=== PATIENT | female | born 1965 | race Native Hawaiian/Other Pacific Islander ===

== ENCOUNTER 2020-03-11 07:49 | Day surgery (SDC) | payer OTHER, SELFPAY ==
[2020-03-08 13:30] VITALS: BMI 23.6
--- NOTE | 2020-03-10 10:50 | P.CONAN_ITS ---
Documented by User: Elis Gauthier 03/10/20 10:52 HPI - Anesthesia Eval Consult details Narrative: 54yo F for colonscopy: screening [facility] Past Medical History Medical History Asthma Hearing deficit History of back pain Lupus Osteoarthritis Vertigo Surgical History Surgical History History of ear surgery History of nasal septoplasty Hx of tonsillectomy Social History Social History Smoking Status: Current every day smoker Packs Per Day: 1 Cigarettes Per Day: 20.0 Years Smoked: 35 Smoked in Last 30 Days: Yes Patient Interested in Nicotine Replacement: No Patient Given Instructions on How to Stop Smoking: No Second Hand Smoke Exposure: No Use of substances other than those prescribed or required for medical reasons: No Advance Directives: No Advance Directives Information Provided: No Advance Directives on File: No Meds Allergies Allergy/AdvReac Type Severity Reaction Status Date / Time No Known Allergies Allergy Verified 03/11/20 08:23 Home Medications Medication Instructions Recorded Confirmed Type albuterol sulfate 2 puff PO Q4-6H PRN 03/08/20 03/08/20 History cetirizine 1 tab PO QAM 03/08/20 03/08/20 History hydroxychloroquine [Plaquenil] 200 mg PO DAILY 03/08/20 03/08/20 History ipratropium bromide [Atrovent HFA] 2 puff PO QID 03/08/20 03/08/20 History meclizine 12.5 mg PO BID PRN 03/08/20 03/08/20 History sertraline [Zoloft] 25 mg PO DAILY 03/08/20 03/08/20 History tramadol 1 tab PO Q6H PRN 03/08/20 03/08/20 History Exam Exam Date and Time: March 10, 2020 1050 Height,Weight and Vital Signs: Height 5 ft 2 in Weight 58.513 kg Assessment and Plan Assessment Anesthesia Assessment: Chart Reviewed Documented by User: Ileana Bates 03/11/20 09:18 [facility] Past Medical History Medical History Asthma Hearing deficit History of back pain Lupus Osteoarthritis Vertigo Surgical History Surgical History History of ear surgery History of nasal septoplasty Hx of tonsillectomy Social History Social History Smoking Status: Current every day smoker Packs Per Day: 1 Cigarettes Per Day: 20.0 Years Smoked: 35 Smoked in Last 30 Days: Yes Patient Interested in Nicotine Replacement: No Patient Given Instructions on How to Stop Smoking: No Second Hand Smoke Exposure: No Use of substances other than those prescribed or required for medical reasons: No Advance Directives: No Advance Directives Information Provided: No Advance Directives on File: No Meds Allergies Allergy/AdvReac Type Severity Reaction Status Date / Time No Known Allergies Allergy Verified 03/11/20 08:23 Home Medications Medication Instructions Recorded Confirmed Type albuterol sulfate 2 puff PO Q4-6H PRN 03/08/20 03/08/20 History cetirizine 1 tab PO QAM 03/08/20 03/08/20 History hydroxychloroquine [Plaquenil] 200 mg PO DAILY 03/08/20 03/08/20 History ipratropium bromide [Atrovent HFA] 2 puff PO QID 03/08/20 03/08/20 History meclizine 12.5 mg PO BID PRN 03/08/20 03/08/20 History sertraline [Zoloft] 25 mg PO DAILY 03/08/20 03/08/20 History tramadol 1 tab PO Q6H PRN 03/08/20 03/08/20 History Exam Height,Weight and Vital Signs: Vital Signs Temp Pulse Resp BP Pulse Ox 03/11/20 08:26 97.6 F 80 16 119/73 99 Airway Mallampati Class: II TM Dist: >3cm Neck ROM: Full Heart: RRR Lungs: ?Occ wheeze Assessment and Plan Assessment Anesthesia Assessment: Anesthesia Plan Discussed and Chart Reviewed Final Anesthetic Review NPO: Yes ASA Class: II Final Preanesthetic Review: No Changes in Pt Med Stat, Meds/Allgs Chart Reviewed, Consent Obtained/Reviewed and Anes Risks/Benef Reviewed Patient Risk: Intermediate Procedure Risk: Low Anesthetic Plan Anesthetic Plan: MAC: Disposition: Standard PACU
[2020-03-11 08:26] VITALS: BP 119/73; PULSE 80; RESP 16; TEMP 36.4; O2SAT 99
[2020-03-11] MEDS: Lactated Ringers 1,000 ML 100 ML IVCONT (08:28)
[2020-03-11 08:29] VITALS: BMI 23.6
--- NOTE | 2020-03-11 09:33 | MHC.SHP ---
Pre-Procedural Eval Section A The patient is an INPATIENT: No The History & Physical has been completed within 30 days and I have reviewed it.: No Section B Chief Complaint: Screening Details of Present Illness: Colon cancer Screening #1--NO Family hx Flare of Lupus in November. Relevant Family History (Specify if Yes): No Relevant Social History: Tobacco Use (1ppd) Present Medications: see Short Stay Collaborative assessment Medical History: No relevant PMH (Copd/Asthma; Lupus, GERD) History of Previous Operations: No relevant previous surgery Allergies: Allergies Allergy/AdvReac Type Severity Reaction Status Date / Time No Known Allergies Allergy Verified 03/11/20 08:23 Review of Systems Sugical H&P ROS: Negative: Constitution, Cardiovascular, Neurological and Gastrointestinal and Yes, Specify: Respiratory (/copd asthma), Psychiatric (depression tendency) and Musculoskeletal (LUPUS) Exam Surgical H&P Exam: Normal: HEENT (decreased hearing), Normal: Heart, Normal: Lungs and Normal: Extremities Exam Comment: negative exam today Plan Diagnosis/Plan: Unchanged Patient has been examined and remains a candidate for the planned procedure--yes
--- NOTE | 2020-03-11 10:08 | PM.PROC ---
Brief Operative Note Date of procedure: 03/11/20 Pre-op diagnosis: COLON CANCER SCREENING #1 Post-op diagnosis: other (COLON POLYP) Procedure: COLONOSCOPY WITH EXC POLYPECTOMY COLD BX FORCEPS Anesthesia: MAC (DOUG HERR) Surgeon: Anna Funes Estimated blood loss (mL): 0 Pathology: other (RECTAL @ 8CM) Condition: stable Disposition: PACU
[2020-03-11 10:09] VITALS: BP 87/49; PULSE 93; RESP 16; TEMP 36.1; O2SAT 98
[2020-03-11 10:24] VITALS: BP 130/79; PULSE 87; RESP 16; TEMP 36.1; O2SAT 98
--- NOTE | 2020-03-11 10:47 | HO.POSTANES ---
Post Anesthesia Evaluation Post Anesthesia Evaluation Vital Signs: Vital Signs Temp Pulse Resp BP Pulse Ox 03/11/20 10:24 97.0 F 87 16 130/79 98 03/11/20 10:09 97.0 F 93 16 87/49 L 98 03/11/20 08:26 97.6 F 80 16 119/73 99 Anesthesia: Monitored Mental Status: Awake Pain Control: Satisfactory Nausea/Vomiting: None Hydration: Adequate Anesthesia-Related Issues: No Anes. Related Issues
--- NOTE | 2020-03-14 12:22 | OP_ITS ---
SURGEON: Anna Funes MD PREOPERATIVE DIAGNOSIS: Colon cancer screening. POSTOPERATIVE DIAGNOSIS: Diminutive rectal polyp. PROCEDURE PERFORMED: Colonoscopy with excisional polypectomy with cold biopsy forceps. ESTIMATED BLOOD LOSS: Minimal. COMPLICATIONS: No complications. ANESTHESIA: Monitored ANESTHESIOLOGIST: Anthony Baig CRNA ASSISTANTS: No veterinary assistant was present for this procedure. SPECIMENS: Specimen removed, rectal polyp. PRIMARY CARE PHYSICIAN: Diony Veronica MD FINDINGS: Digital rectal exam revealed no specific lesion. Video colonoscope was introduced without difficulty. Scope advanced through rectum, the sigmoid, descending, transverse and ascending colon down into the cecal cap. Appendiceal orifice was well seen. The ileocecal valve was well seen. No mucosal abnormalities were appreciated. Slow rotational views on withdrawing the scope. There was a diminutive polyp, estimated distance 8 cm in from ARV. This was removed excisionally with a cold biopsy forceps. Anorectal verge was clear. CURRENT RECOMMENDATIONS: Repeat asymptomatic screening non-high risk patient is 10 years. GRAFT OR IMPLANTS: No grafts or implants. CONDITION: Postprocedure, stable. Anna Funes MD MEN/MODL / [id number] MTDD
== END 2020-03-11 10:59 | disposition home or self-care (01) ==
PROVIDERS: Visit Provider Internal Medicine Gastroenterology
PROC: 0DJD8ZZ Inspection of Lower Intestinal Tract, Via Natural or Artificial Opening Endoscopic (ICD-10-PCS; CPT 45378; principal; 2020-03-11 09:10)
DX: Z12.11 Encounter for screening for malignant neoplasm of colon (principal); K62.1 Rectal polyp; K21.9 Gastro-esophageal reflux disease without esophagitis; J44.9 Chronic obstructive pulmonary disease, unspecified; M32.9 Systemic lupus erythematosus, unspecified; J45.909 Unspecified asthma, uncomplicated; Z79.899 Other long term (current) drug therapy; F17.210 Nicotine dependence, cigarettes, uncomplicated
CPT/HCPCS: 45380; 88305

== ENCOUNTER 2020-04-14 13:23 | Outpatient (REF) | payer MEDICARE, SELFPAY ==
--- NOTE | 2020-04-19 11:15 | MHC.AU.P13 ---
Adult Audiological Evaluation Date of Visit: 04/14/20 Reason for Appointment: Patient has long-standing history of mixed hearing loss, worse in the left ear. History of multiple ear surgeries. Recently, patient's vertigo has been getting worse. She also suspects there has been a change in hearing in her left ear. She also reports pain from her right ear. Previous Hearing Test Results: On 09/28/2017 at [facility] Right: Mild sloping to moderate and rising to borderline-normal sensorineural hearing loss Left: Profound rising to borderline-normal and sloping to moderately-severe mixed hearing loss. Ear History: Recent Ear Pain: Right Ear Previous Ear Surgery: Both Ears Hearing Instrument History- Right Ear: Socially [employer]ible Investment Adviser: [employer] Model: [id number] Serial Number: [id number] Battery Size: 312 Warranty: 03/05/2021 Dispensed By: [facility] Date of Fittin12/18/2017 Hearing Instrument History- Left Ear: Socially Responsible Investment Adviser: [employer] Model: [id number] Serial Number: [id number] Battery Size: 312 Warranty: 03/05/2021 Dispensed By: [facility] Date of Fittin12/18/2017 Otoscopy: Right Ear: Redness noted on tympanic membrane Left Ear: Scarring on tympanic membrane Tympanometry: Right Ear: Double-Peaked Tympanogram Left Ear: Reduced Middle Ear Compliance (Type As) Hearing Evaluation: Transducer(s) Used: Insert Earphones, Circumaural Headphones, Bone Conduction Stimuli Used: Pure Tones Right Ear: Description of Hearing: Mild sloping to moderate and rising to mild mixed hearing loss Left Ear: Description of Hearing: Moderately-severe to severe mixed hearing loss Speech Recognition Threshold (SRT): Method Used: Recorded Lists Stimuli Used: Spondee Words Right Ear: 35 dBHL Left Ear: 65 dBHL Word Discrimination: Method: Recorded Lists Word Lists Used: NU-6 Right Ear: 96% at 75 dBHL Left Ear: 92% at 85 dBHL (Attempted first at MCL of 75 dBHL, but gain was increased to 85 dBHL after significant difficulty was noted) Most Comfortable Level (MCL): Right Ear: 75 dBHL Left Ear: 75 dBHL Comparison: Hearing has significantly decreased in the left ear, especially in the high frequencies. Recommendations: Follow-up with Ear, Nose, and Throat is recommended to address significant decrease in hearing in the left ear, pain and redness in the right ear, and recent increase in vertigo. Patient's hearing aids were reprogrammed with today's results. Patient reported that she's had a constant buzzing sound in the background of her right hearing aid. It will be sent to [employer] for repair under warranty. Patient will be contacted when it has returned. Diagnosis: Primary Diagnosis: H90.6 Mixed Hearing Loss, Bilateral Secondary Diagnosis: H90.A32 Mixed HL, Unilateral, Left Ear, W/Restricted Contralateral Services Performed: Services Performed: Comprehensive Audiological Evaluation (CPT 81698) Tympanometry (CPT 50572) Signature: Provider: Sunny Avendaño, REINA-A
== END 2020-04-14 13:24 | disposition home or self-care (01) ==
LOC: HO.SH 13:23
PROVIDERS: PCP Registered Nurse Community Health; Referring Provider Registered Nurse Community Health; Visit Provider Registered Nurse Community Health
DX: H90.6 Mixed conductive and sensorineural hearing loss, bilateral (principal)
CPT/HCPCS: 92557; 92567; 92593

== ENCOUNTER 2020-05-12 15:23 | Outpatient (REF) | payer OTHER, MEDICARE, SELFPAY | END 2020-05-12 15:24 | disposition home or self-care (01) | LOC: HO.HAP 15:23 | DX: Z13.89 Encounter for screening for other disorder (principal) ==

== ENCOUNTER 2020-06-04 14:31 | Outpatient (REF) | payer OTHER, SELFPAY ==
--- NOTE | 2020-06-04 15:15 | MR_ITS ---
EXAMINATION: MR BRAIN WITHOUT AND WITH CONTRAST CLINICAL INFORMATION: Mixed hearing loss, vertigo. Acoustic neuroma. COMPARISON: MRI brain 10/23/2017. TECHNIQUE: Multiplanar, multisequence MRI of the brain was obtained before and after the intravenous administration of 6 mL Gadavist. Internal auditory canal protocol images are obtained. FINDINGS: No intracranial hemorrhage, tumors or acute infarcts are noted. The ventricles and sulci are normal in size and configuration. A mild number scattered supratentorial rounded punctate nonenhancing T2 hyperintensities are noted, unchanged appreciably compared with 10/23/2017. The visualized components of the 7th and 8th cranial nerve complexes are normal in appearance. No lesions are noted within the internal auditory canals. The temporal bone labyrinths are grossly normal in contour and signal intensity. No lesions of the brainstem are identified. Whole brain postcontrast enhanced images reveal no abnormal enhancement. Normal flow-related signal intensity is noted in the major intracranial vessels and dural sinuses. No mastoid effusions are identified. MR/MR head/brain wo/w con IMPRESSION: 1. No change compared with 10/23/2017. 2. Mild scattered nonenhancing punctate supratentorial white matter foci (elevated T2 hyperintensities) which may represent mild white matter chronic small vessel ischemic changes. Similar findings are a frequently encountered asymptomatic finding and are therefore of uncertain clinical significance. 3. No retrocochlear pathology. No evidence of vestibular schwannomas.
== END 2020-06-04 14:32 | disposition home or self-care (01) ==
LOC: HO.MRI 14:31
PROVIDERS: Visit Provider Otolaryngology
DX: H90.6 Mixed conductive and sensorineural hearing loss, bilateral (principal); H81.4 Vertigo of central origin; D33.3 Benign neoplasm of cranial nerves
CPT/HCPCS: 70553

== ENCOUNTER 2020-06-19 13:42 | Outpatient (REF) | payer OTHER, SELFPAY ==
--- NOTE | 2020-06-19 13:46 | MM_ITS ---
EXAMINATION: MM SCREENING DIGITAL BREAST TOMOSYNTHESIS, BILATERAL CLINICAL INFORMATION: Screening. Asymptomatic. The lifetime risk of breast cancer based on the Tyrer-Cuzick Model is 6.0%. COMPARISON: Mammography: May 16, 2018 and studies dating back to December 05, 2011 TECHNIQUE: Digital breast tomosynthesis is performed in both the craniocaudal and mediolateral oblique views along with computer-aided detection (CAD). Synthesized 2D images are generated from the tomosynthesis. FINDINGS: There are scattered areas of fibroglandular density (ACR BI-RADS breast composition Category b). There are no significant masses, abnormal calcifications, or other abnormalities. MM/MM tomosynthesis screening BI IMPRESSION: There are no significant changes from prior study. ASSESSMENT: BI-RADS 1: Negative RECOMMENDATION: Routine annual mammography screening. This patient's information was entered into a reminder system with a target due date for their next mammogram.
== END 2020-06-19 13:43 | disposition home or self-care (01) ==
LOC: HO.MAMMO 13:42
PROVIDERS: PCP Registered Nurse Community Health; Visit Provider Registered Nurse Community Health
DX: Z12.31 Encounter for screening mammogram for malignant neoplasm of breast (principal)
CPT/HCPCS: 77063; 77067

== ENCOUNTER 2021-02-27 14:16 | Emergency (ER) | payer OTHER, SELFPAY ==
--- NOTE | ~2021-02-27 | XR_ITS ---
EXAMINATION: XR FOOT, LEFT CLINICAL INFORMATION: 4th toe pain COMPARISON: None TECHNIQUE: AP, lateral, and oblique views of the left foot. FINDINGS: The bones and soft tissues are normal. No fracture. Alignment is anatomic. Joint spaces are maintained. XR/XR foot LT 2V IMPRESSION: Normal left foot.
[2021-02-27 14:56] VITALS: BP 142/86; PULSE 77; RESP 20; TEMP 36.1; O2SAT 99; BMI 25.4
--- NOTE | 2021-02-27 17:16 | ED.LOWEXIN ---
HPI - Extremity Injury (Lower) General Chief Complaint: Extremity Injury, Lower Stated Complaint: toe injury Time Seen by Provider: 02/27/21 17:11 Source: patient Mode of arrival: ambulatory Limitations: no limitations History of Present Illness HPI Narrative: 55-year-old female presenting to the ED with complaints of left foot pain after she stubbed her foot accidentally with a weight and since then has been having pain this occurred prior to arrival. Denies any other symptoms complaints or concerns at this time. MD complaint: foot injury Onset (ago): minute(s) (Prior to arrival) Injury: Left: foot Type of Injury: blunt Place: home (While working out) Severity: moderate Relieving factors: nothing Exacerbating factors: weight bearing, movement and palpation Context: direct blow Associated symptoms: swelling and ambulatory Other symptoms: none Related Data Home Medications Medication Instructions Recorded Confirmed albuterol sulfate 90 mcg/actuation 2 puff PO Q4-6H PRN 03/08/20 03/08/20 aerosol inhaler cetirizine 10 mg tablet 1 tab PO QAM 03/08/20 03/08/20 hydroxychloroquine 200 mg tablet 200 mg PO DAILY 03/08/20 03/08/20 (Plaquenil) ipratropium bromide 17 2 puff PO QID 03/08/20 03/08/20 mcg/actuation HFA aerosol inhaler (Atrovent HFA) meclizine 12.5 mg tablet 12.5 mg PO BID PRN 03/08/20 03/08/20 sertraline 25 mg tablet (Zoloft) 25 mg PO DAILY 03/08/20 03/08/20 tramadol 50 mg tablet 1 tab PO Q6H PRN 03/08/20 03/08/20 Previous Rx's Medication Instructions Recorded acetaminophen 300 mg-codeine 30 mg 1 tab PO Q8H PRN #10 tab 02/27/21 tablet ibuprofen 800 mg tablet 800 mg PO Q8H PRN #14 tab 02/27/21 lidocaine HCl 4 % topical cream 1 appl TOPICAL BID PRN #120 g 02/27/21 (Aspercreme (lidocaine HCl)) Allergies Allergy/AdvReac Type Severity Reaction Status Date / Time No Known Allergies Allergy Verified 02/27/21 15:00 Review of Systems Review of Systems: Constitutional : No changes in activity, No lethargy, No recent prior head injury, No agitation, No increased fussiness ENT/Mouth : No Ear Pain, No Nasal discharge/drainage Eyes: No Eye Pain, No Swelling, No Redness, No Foreign Body, No Vision Changes Cardiovascular : No Chest Pain, No SOB Respiratory : No Cough Gastrointestinal : No Nausea, No Vomiting, No abdominal Pain Genitourinary : No Dysuria, No Urinary Frequency, No Urinary Incontinence, No Urgency, No Flank Pain Musculoskeletal : + joint pain, No neck stiffness, No back pain/injury Skin : No lacerations Neuro : No unsteady gait, No Paresthesias, No Loss of Consciousness, No altered mental status, No Headache Yes all other systems are reviewed and are negative [facility] Past Medical History Attestation statement: The following information was validated with the patient. Medical History Asthma Hearing deficit History of back pain Lupus Osteoarthritis Vertigo Surgical History History of ear surgery History of nasal septoplasty Hx of colonoscopy Hx of tonsillectomy Family History Family History Father Heart problem Heart attack Mother HTN (hypertension) Social History Social History Alcohol intake: current Alcohol intake frequency: holidays/special occasions only Cigarette Packs Per Day: 1 Cigarettes Per Day: 20.0 Years Smoked: 35 Second Hand Smoke Exposure: No Advance Directives: No Advance Directives Information Provided: No Patient : No Physical Exam Vital Signs: Vital Signs: Last Vital Signs Temp 97 F 02/27/21 14:56 Pulse 77 02/27/21 14:56 Resp 20 02/27/21 14:56 BP 142/86 H 02/27/21 14:56 Pulse Ox 99 02/27/21 14:56 Body Mass Index 25.4 vital signs have been reviewed as normal and appeared to be correct. Blood pressure normal Heart rate normal. Respiration rate normal. Temperature normal. Oxygen saturation normal. Appearance: Alert. Oriented X3. No acute distress. Head: Normal external exam. Normocephalic. Atraumatic. Eyes: PERRLA. EOMI. Conjunctiva and sclera normal. Eyelids normal. ENT: Pharynx normal. Uvula midline. Moist mucous membranes. Neck: Normal inspection. Neck supple. FROM. CVS: Normal heart rate and rhythm. Respiratory: No respiratory distress. Painless inspiration. Skin: Skin warm and dry. Normal skin color. Normal skin turgor. No rashes/lesions/lacerations noted. Extremities: Patient with tenderness to palpation to left foot dorsal aspect at the 3rd meta tarsal no obvious signs of trauma. No signs of infection. No abrasions or lacerations. No lower extremity edema. Otherwise all other Extremities exhibit normal range of motion and nontender. Neuro: Oriented X 3. No motor deficit. No sensory deficit. Reflexes normal. Normal steady gait. No focal neuro deficits noted. Vascular: + radial pulses/+ 2 distal pedal pulses/+2 dorsalis pedis b/l. Normal cap refill. No cyanosis noted to upper extremity nails and lower extremity toes nails. Course Course Course Narrative: Patient status post injured her left foot with a weight while she was working out prior to arrival. X-ray obtained and negative for any acute processes. Will DC home with symptomatic treatment instructions return if any new or worsening symptoms follow-up with primary care provider. Patient understands agrees with this plan. MDM - Extremity Injury (Lower) Medical Records Attestation: I reviewed the patient's medical records. Imaging Data Left foot x-ray: Attestation: I personally reviewed and interpreted this imaging study as follows: Radiologist's impression: FINDINGS: The bones and soft tissues are normal. No fracture. Alignment is anatomic. Joint spaces are maintained.? XR/XR foot LT 2V IMPRESSION: Normal left foot. Discharge Plan Discharge Clinical Impression: Sprain of toe Patient Disposition: Home, Self-Care Instructions: Foot Sprain (ED) Prescriptions: New ibuprofen 800 mg tablet 800 mg PO Q8H PRN (Reason: pain) Qty: 14 RF: 0 acetaminophen-codeine 300-30 mg tablet 1 tab PO Q8H PRN (Reason: pain) Qty: 10 RF: 0 lidocaine HCl [Aspercreme (lidocaine HCl)] 4 % cream 1 appl topical BID PRN (Reason: pain) Qty: 120 RF: 0 No Action cetirizine 10 mg tablet 1 tab PO QAM RF: 0 meclizine 12.5 mg Tablet 12.5 mg PO BID PRN (Reason: Vertigo) RF: 0 tramadol 50 mg tablet 1 tab PO Q6H PRN (Reason: Pain) RF: 0 sertraline [Zoloft] 25 mg Tablet 25 mg PO DAILY RF: 0 hydroxychloroquine [Plaquenil] 200 mg Tablet 200 mg PO DAILY RF: 0 albuterol sulfate 90 mcg/actuation HFA aerosol inhaler 2 puff PO Q4-6H PRN (Reason: Shortness Of Breath Or Wheezing) RF: 0 Atrovent HFA 17 mcg/actuation HFA aerosol inhaler 2 puff PO QID RF: 0 Referrals: [facility] [Primary Care Provider] - 2 days Print Language: Argentine
[2021-02-27] MEDS: Ibuprofen 800 MG TABLET PO (17:27)
== END 2021-02-27 17:32 | disposition home or self-care (01) ==
LOC: HO.ED 17:19
PROVIDERS: Emergency Provider Internal Medicine
DX: S93.509A Unspecified sprain of unspecified toe(s), initial encounter (principal); J45.909 Unspecified asthma, uncomplicated; W22.09XA Striking against other stationary object, initial encounter; Y93.B3 Activity, free weights; Y92.9 Unspecified place or not applicable; Y99.9 Unspecified external cause status
CPT/HCPCS: 73620; 99283; 99284

== ENCOUNTER 2021-03-03 09:43 | Outpatient (RCR) | payer OTHER, SELFPAY ==
[2021-03-03 10:01] VITALS: BP 141/72; PULSE 75
== END 2021-03-03 10:43 | disposition home or self-care (01) ==
LOC: HO.PT 09:43
PROVIDERS: PCP Registered Nurse Community Health; Visit Provider Emergency Medicine
DX: R42 Dizziness and giddiness (principal)
CPT/HCPCS: 97161

== ENCOUNTER 2021-09-13 09:21 | Outpatient (REF) | payer OTHER, SELFPAY ==
--- NOTE | ~2021-09-13 | MM_ITS ---
EXAMINATION: BONE DENSITOMETRY CLINICAL INDICATION: Menopausal/rheumatoid arthritis. COMPARISON: None (current study represents initial baseline exam). TECHNIQUE: Using a Meta DXA System (software version: 13.1) manufactured by [employer], dual-energy x-ray absorptiometry was performed of the lumbar spine and left hip. The images are of good technical quality. Summary results are attached. FINDINGS: AP SPINE L1-L3 (excluding L4): The data of L1-L4 has been changed to exclude the L4 vertebral body, because degenerative changes at this level may cause overestimation of lumbar spine density. BMD 0.977 g/cm2, Z-score -0.6, T-score -1.6, osteopenia. LEFT FEMUR, NECK: BMD 0.914 g/cm2, Z-score 0.2, T-score -0.9, normal. LEFT FEMUR, TOTAL: BMD 0.852 g/cm2, Z-score -0.5, T-score -1.2, osteopenia. IDENTIFIED RISK FACTORS: Rheumatoid arthritis, thiazide, tobacco use (current smoker), menopause. HISTORY OF FRACTURE: None listed. MEDICATIONS: Vitamin D. MM/XR DEXA axial skeleton IMPRESSION: 1. DIAGNOSIS: Osteopenia based on the lowest T-score value of -1.6 in the lumbar spine applying World Health Organization criteria. 2. 10-YEAR FRACTURE RISK PREDICTION, FRAX: Major osteoporotic fracture (clinical spine, forearm, hip or shoulder) 4.4%. Hip fracture 0.4%. 3. Treatment Recommendations: NOF guidelines recommend consideration for treatment in postmenopausal women and men age 50 and older presenting with the following: -A hip or vertebral (clinical or morphometric) fracture. -T-score less than or equal to -2.5 at the femoral neck or spine after appropriate evaluation to exclude secondary causes. -Low bone mass at the hip or spine and a 10-year fracture probability by FRAX of greater than or equal to 3% for hip fracture or greater than or equal to 20% for major osteoporotic fracture based on the [place] adapted WHO algorithm. 4. Other Recommendations: All treatment decisions require clinical judgment and consideration of individual patient factors, including patient preferences, comorbidities, previous drug use, risk factors not captured in the FRAX model (e.g. frailty, falls, vitamin D deficiency, increased bone turnover, interval significant decline in bone density) and possible under or overestimation of fracture risk by FRAX. Additional medical evaluation for secondary cause of low bone mineral density may be appropriate. FUTURE SCAN RECOMMENDATION: People with diagnosed cases of osteoporosis or at high risk for fracture should have regular bone mineral density tests. For patients eligible for Medicare, routine testing is allowed once every 2 years. The testing frequency can be increased to one year for patients who have rapidly progressing disease, those who are receiving or discontinuing medical therapy to restore bone mass, or have additional risk factors.
--- NOTE | ~2021-09-13 | MM_ITS ---
EXAMINATION: MM SCREENING DIGITAL BREAST TOMOSYNTHESIS, BILATERAL CLINICAL INFORMATION: Screening. Asymptomatic. The lifetime risk of breast cancer based on the Tyrer-Cuzick Model is 11%. COMPARISON: Mammography: 06/19/2020, 05/16/2018, 09/25/2015, 10/10/2015 TECHNIQUE: Digital breast tomosynthesis is performed in both the craniocaudal and mediolateral oblique views along with computer-aided detection (CAD). Synthesized 2D images are generated from the tomosynthesis. FINDINGS: There are scattered areas of fibroglandular density (ACR BI-RADS breast composition Category b). Parenchymal pattern is similar to prior studies. There are scattered minor stable asymmetries and fibronodular densities. No significant mass or architectural abnormality or abnormal calcifications. The axilla and skin contours are unremarkable. MM/MM tomosynthesis screening BI IMPRESSION: No mammographic evidence of malignancy. ASSESSMENT: BI-RADS 2: Benign RECOMMENDATION: Routine annual mammography screening. This patient's information was entered into a reminder system with a target due date for their next mammogram.
== END 2021-09-13 09:22 | disposition home or self-care (01) ==
LOC: HO.MAMMO 09:21
PROVIDERS: Visit Provider Registered Nurse Community Health
DX: Z12.31 Encounter for screening mammogram for malignant neoplasm of breast (principal); Z13.820 Encounter for screening for osteoporosis; Z78.0 Asymptomatic menopausal state; M05.9 Rheumatoid arthritis with rheumatoid factor, unspecified; M85.80 Other specified disorders of bone density and structure, unspecified site
CPT/HCPCS: 77063; 77067; 77080

== ENCOUNTER 2021-12-03 21:27 | Emergency (ER) | payer OTHER, SELFPAY ==
--- NOTE | ~2021-12-03 | XR_ITS ---
EXAMINATION: XR ANKLE, LEFT CLINICAL INFORMATION: Left ankle pain COMPARISON: None TECHNIQUE: AP, lateral, and mortise views of the left ankle. FINDINGS: There is a minimally displaced oblique fracture of the distal fibular diaphysis, at and above the level of the tibial plafond and. Adjacent soft tissue swelling is present. Articular alignment across the ankle appears maintained. There is suggestion of a tiny fracture fragment anterior to the distal tibia. Posterior and plantar calcaneal spurs are noted. XR/XR ankle LT min 3V IMPRESSION: 1. Minimally displaced oblique fracture of the distal fibular diaphysis. 2. Suggestion of a tiny fracture fragment anterior to the distal tibia.
[2021-12-04 00:28] VITALS: BP 113/66; PULSE 110; RESP 16; TEMP 36.8; O2SAT 92; BMI 24.7
--- NOTE | 2021-12-04 01:00 | ED.LOWEXIN ---
HPI - Extremity Injury (Lower) General Chief Complaint: Extremity Injury, Lower Stated Complaint: L ankle injury/fall Time Seen by Provider: 12/04/21 00:55 Source: patient Mode of arrival: wheelchair Limitations: no limitations History of Present Illness HPI Narrative: Patient comes to the emergency room complaining of left ankle pain. Patient states that she was walking around her house, 1 of her grandkids left a water bottle on the floor, step with her right foot, tried to keep her balance with her left foot, and ended up spraining her left ankle. Patient unable to bear weight due to pain in the lateral malleolus. Patient did not fall, did not hit her head or lose consciousness. Patient is not on blood thinners Related Data Home Medications Medication Instructions Recorded Confirmed albuterol sulfate 90 mcg/actuation 2 puff PO Q4-6H PRN Shortness Of 03/08/20 03/08/20 aerosol inhaler Breath Or Wheezing cetirizine 10 mg tablet 1 tab PO QAM 03/08/20 03/08/20 hydroxychloroquine 200 mg tablet 200 mg PO DAILY 03/08/20 03/08/20 (Plaquenil) ipratropium bromide 17 2 puff PO QID 03/08/20 03/08/20 mcg/actuation HFA aerosol inhaler (Atrovent HFA) meclizine 12.5 mg tablet 12.5 mg PO BID PRN Vertigo 03/08/20 03/08/20 sertraline 25 mg tablet (Zoloft) 25 mg PO DAILY 03/08/20 03/08/20 tramadol 50 mg tablet 1 tab PO Q6H PRN Pain 03/08/20 03/08/20 Previous Rx's Medication Instructions Recorded acetaminophen 300 mg-codeine 30 mg 1 tab PO Q8H PRN pain #10 tabs 02/27/21 tablet ibuprofen 800 mg tablet 800 mg PO Q8H PRN pain #14 tabs 02/27/21 lidocaine HCl 4 % topical cream 1 appl topical BID PRN pain #120 02/27/21 (Aspercreme (lidocaine HCl)) grams ibuprofen 600 mg tablet 600 mg PO TID PRN pain #20 tabs 12/04/21 Allergies Allergy/AdvReac Type Severity Reaction Status Date / Time No Known Allergies Allergy Verified 12/04/21 00:33 Review of Systems Review of Systems: Constitutional : No Weight loss, No Fever, No Chills, No Night Sweats, No Fatigue, No Malaise ENT/Mouth : No Hearing loss, No Ear Pain, No Nasal Congestion, No Sinus Pain, No Hoarseness, No sore throat, No Rhinorrhea, No Swallowing Difficulty Eyes: No Eye Pain, No Swelling, No Redness, No Foreign Body, No Discharge, No Vision Changes Cardiovascular : No Chest Pain, No SOB, No Dyspnea on Exertion, No Orthopnea, No Edema, No Palpitations Respiratory : No Cough, No Sputum, No Wheezing, No Smoke Exposure, No Dyspnea Gastrointestinal : No Nausea, No Vomiting, No Diarrhea, No Constipation, No abdominal Pain, No Hematochezia, No Melena Genitourinary : no irregular bleeding, No Dysuria, No Urinary Frequency, No Hematuria, No Urinary Incontinence, No Urgency, No Flank Pain, No Urinary Flow Changes, No Hesitancy Musculoskeletal : Complaining of left ankle pain, No Myalgias, No Joint Swelling Skin : No Skin Lesions, No rash Neuro : No Weakness, No Numbness, No Paresthesias, No Loss of Consciousness, No Dizziness, No Headache Psych : No Anxiety/Panic, No Depression, No SI/HI/AH/VH, No Social Issues, Heme/Lymph: No Bruising, No Bleeding,No Lymphadenopathy Endocrine : No Polyuria, No Polydipsia, No Temperature Intolerance PMFSH Past Medical History Medical History Asthma Hearing deficit History of back pain Lupus Osteoarthritis Vertigo Surgical History History of ear surgery History of nasal septoplasty Hx of colonoscopy Hx of tonsillectomy Family History Family History Father Heart problem Heart attack Mother HTN (hypertension) Social History Social History Alcohol intake: current Alcohol intake frequency: holidays/special occasions only Cigarette Packs Per Day: 1 Cigarettes Per Day: 20.0 Years Smoked: 35 Second Hand Smoke Exposure: No Advance Directives: No Advance Directives Information Provided: Yes Physical Exam Vital Signs: Vital Signs: Last Vital Signs Temp 98.3 F 12/04/21 00:28 Pulse 110 H 07/17/22 00:28 Resp 16 12/04/21 00:28 BP 113/66 12/04/21 00:28 Pulse Ox 92 12/04/21 00:28 O2 Del Method 12/04/21 00:28 BMI result Body Mass Index 24.7 Const: Other: Appearance: Alert. Oriented X3. No acute distress. Eyes: Pupils equal, round and reactive to light. ENT: Pharynx normal. Neck: Normal inspection. Neck supple. No lymph nodes noted. No crepitus CVS: Normal heart rate and rhythm. Pulses normal. Normal S1 and S2 Respiratory: No respiratory distress. Breath sounds normal. No Wheezing. No rales Abdomen: Soft and nontender. No rigidity. No distention. Skin: Skin warm and dry. Normal skin color. Normal skin turgor. Extremities: No lower extremity edema. No Lacerations. No Rash, mild swelling to the lateral malleolus on the left ankle, pain to palpation over the malleolus, no obvious deformity Neuro: Oriented X 3. No motor deficit. No sensory deficit. Moving all extremities. No slurred speech. CN 2 through 12 grossly intact Psych: calm, cooperative, normal affect Course Course Course Narrative: Patient given 1 dose of ibuprofen, x-ray pending I discussed with the patient that she does have off fibula fracture, and possible small tibial fracture to patient was provided with a splint, crutches, patient will follow-up with orthopedics. MDM - Extremity Injury (Lower) Imaging Data Ankle x-ray: Radiologist's impression: FINDINGS: There is a minimally displaced oblique fracture of the distal fibular diaphysis, at and above the level of the tibial plafond and. Adjacent soft tissue swelling is present. Articular alignment across the ankle appears maintained. There is suggestion of a tiny fracture fragment anterior to the distal tibia. Posterior and plantar calcaneal spurs are noted.? XR/XR ankle LT min 3V IMPRESSION: 1.? Minimally displaced oblique fracture of the distal fibular diaphysis. 2.? Suggestion of a tiny fracture fragment anterior to the distal tibia. Discharge Plan Discharge Clinical Impression: Closed fibular fracture Patient Disposition: Home, Self-Care Instructions: Ankle Fracture (ED) Additional Instructions: Please follow-up with your primary care physician tomorrow. If you have any worsening or new symptoms, please return to the emergency room or call 911 Prescriptions: New ibuprofen 600 mg tablet 600 mg PO TID PRN (Reason: pain) Qty: 20 0RF No Action cetirizine 10 mg tablet 1 tab PO QAM meclizine 12.5 mg Tablet 12.5 mg PO BID PRN (Reason: Vertigo) tramadol 50 mg tablet 1 tab PO Q6H PRN (Reason: Pain) sertraline [Zoloft] 25 mg Tablet 25 mg PO DAILY hydroxychloroquine [Plaquenil] 200 mg Tablet 200 mg PO DAILY albuterol sulfate 90 mcg/actuation HFA aerosol inhaler 2 puff PO Q4-6H PRN (Reason: Shortness Of Breath Or Wheezing) Atrovent HFA 17 mcg/actuation HFA aerosol inhaler 2 puff PO QID ibuprofen 800 mg tablet 800 mg PO Q8H PRN (Reason: pain) Qty: 14 0RF acetaminophen-codeine 300-30 mg tablet 1 tab PO Q8H PRN (Reason: pain) Qty: 10 0RF lidocaine HCl [Aspercreme (lidocaine HCl)] 4 % cream 1 appl topical BID PRN (Reason: pain) Qty: 120 0RF Referrals: Fabiola Field PA-C [[facility]] - 2 days (Fibular fracture)
[2021-12-04] MEDS: Ibuprofen 600 MG TABLET PO (01:07)
== END 2021-12-04 02:26 | disposition home or self-care (01) ==
PROVIDERS: Emergency Provider Emergency Medicine
DX: S82.402A Unspecified fracture of shaft of left fibula, initial encounter for closed fracture (principal); W01.0XXA Fall on same level from slipping, tripping and stumbling without subsequent striking against object, initial encounter; Y93.9 Activity, unspecified; Y92.000 Kitchen of unspecified non-institutional (private) residence as the place of occurrence of the external cause; Y99.9 Unspecified external cause status
CPT/HCPCS: 29505; 29515; 73610; 99283

== ENCOUNTER 2021-12-19 10:38 | Outpatient (REF) | payer OTHER, SELFPAY ==
--- NOTE | ~2021-12-19 | XR_ITS ---
EXAMINATION: XR ANKLE, LEFT CLINICAL INFORMATION: Pain. COMPARISON: Radiographs dated 12/04/2021. TECHNIQUE: AP, lateral, and mortise views of the left ankle. FINDINGS: Bony mineralization is normal. There is an oblique, mildly displaced fracture of the distal left fibular shaft. The ankle mortise is intact. No dislocation or significant left ankle joint effusion is seen. Boehler's angle is normal. There are tiny posterior and small plantar calcaneal spurs. There is mild soft tissue swelling adjacent to the lateral malleolus. XR/XR ankle LT min 3V IMPRESSION: 1. A mildly displaced oblique distal left fibular fracture is redemonstrated. There is slight interim increase in displacement. No new callus formation is noted. 2. There is soft tissue swelling adjacent to the lateral malleolus. 3. There are tiny posterior and small plantar left calcaneal spurs.
== END 2021-12-19 10:39 | disposition home or self-care (01) ==
LOC: HO.HOSX 10:38
PROVIDERS: Visit Provider Physician Assistant
DX: S82.832A Other fracture of upper and lower end of left fibula, initial encounter for closed fracture (principal)
CPT/HCPCS: 73610; 99202

== ENCOUNTER 2022-01-09 12:41 | Outpatient (REF) | payer OTHER, SELFPAY ==
--- NOTE | ~2022-01-09 | XR_ITS ---
EXAMINATION: XR ANKLE, LEFT CLINICAL INFORMATION: Pain COMPARISON: Left ankle x-rays December 19, 2021 TECHNIQUE: AP, lateral, and mortise views of the left ankle. FINDINGS: Stable positioning of mildly displaced oblique fracture through the distal fibula. There has been mild interval callus formation. Persistent but decreased overlying soft tissue swelling. No fracture of the visualized distal tibia. Ankle mortise remains well-maintained. Small ankle joint effusion noted. Small plantar calcaneal enthesophyte. XR/XR ankle LT min 3V IMPRESSION: Minimal interval healing of mildly displaced distal fibular fracture.
== END 2022-01-09 12:42 | disposition home or self-care (01) ==
LOC: HO.HOSX 12:41
PROVIDERS: Visit Provider Physician Assistant
DX: S82.832D Other fracture of upper and lower end of left fibula, subsequent encounter for closed fracture with routine healing (principal); X58.XXXD Exposure to other specified factors, subsequent encounter; Z96.642 Presence of left artificial hip joint
CPT/HCPCS: 73610; 99212

== ENCOUNTER 2022-02-20 07:47 | Outpatient (REF) | payer OTHER, SELFPAY ==
--- NOTE | ~2022-02-20 | XR_ITS ---
EXAMINATION: XR ANKLE, LEFT CLINICAL INFORMATION: Pain. COMPARISON: Left ankle 01/09/2022 TECHNIQUE: AP, lateral, and mortise views of the left ankle. FINDINGS: There is mildly displaced distal fibular spiral fracture, stable. There is callus formation seen. The ankle mortise and subtalar joints are normal. There is a small calcaneal heel and retrocalcaneal enthesophytes. XR/XR ankle LT min 3V IMPRESSION: Slowly healing spiral fracture distal fibula. No major change from previous study 01/09/2022
== END 2022-02-20 07:48 | disposition home or self-care (01) ==
LOC: HO.HOSX 07:47
PROVIDERS: Visit Provider Physician Assistant
DX: S82.832D Other fracture of upper and lower end of left fibula, subsequent encounter for closed fracture with routine healing (principal); X58.XXXD Exposure to other specified factors, subsequent encounter
CPT/HCPCS: 73610; 99212

== ENCOUNTER 2022-04-03 07:41 | Outpatient (REF) | payer OTHER, SELFPAY ==
--- NOTE | ~2022-04-03 | XR_ITS ---
EXAMINATION: XR ANKLE, LEFT CLINICAL INFORMATION: Left ankle pain. COMPARISON: None TECHNIQUE: AP, lateral, and mortise views of the left ankle. FINDINGS: There is an spiral healing fracture distal fibula with abundant callus formation. The ankle mortise and subtalar joints are normal. No soft tissue swelling seen. XR/XR ankle LT min 3V IMPRESSION: Spiral healing fracture distal fibula with abundant callus formation. No soft tissue swelling seen.
== END 2022-04-03 07:42 | disposition home or self-care (01) ==
LOC: HO.HOSX 07:41
PROVIDERS: Visit Provider Physician Assistant
DX: M25.572 Pain in left ankle and joints of left foot (principal); S82.832A Other fracture of upper and lower end of left fibula, initial encounter for closed fracture; W22.8XXA Striking against or struck by other objects, initial encounter; Y93.01 Activity, walking, marching and hiking; Y92.9 Unspecified place or not applicable; Y99.8 Other external cause status
CPT/HCPCS: 73610; 99212

== ENCOUNTER 2022-04-17 10:00 | Outpatient (RCR) | payer OTHER, SELFPAY ==
[2022-03-13 11:06] VITALS: BP 139/91; PULSE 92; O2SAT 98
--- NOTE | 2022-03-13 13:00 | MHC.PT.EP ---
[facility] [place] Office [place] Office [place] Office [address] Kaylynn Ohara [address] [phone] F: [phone] F: [phone] F: [phone] F: [phone] Physical Therapy Plan of Care Date of Evaluation: Date of Surgery: Diagnosis: LEFT DISTAL FIBULAR FRACTURE 12/04/21 Assessment: 56 YO FEMALE REF TO PT W A LEFT DISTAL FIBULAR FX SUSTAINED IN A SLIP/FALL ON 12/04/21- SHE WAS IMMOB IN A BOOT UNTIL 02/20/22 AND WAS ISSUED A LACE UP SUPPORT WHICH SHE FEELS INCR HER PAIN. OF SIGNIFICANCE, Pt UNDERWENT Rt SH SURGERY ON 02/15/22 AND IS CURRENTLY IMMOBILZED. OBJECTIVELY, Pt HAS DECR ROM IN LEFT ANKLE, (+) STRENGTH DEFICITS IN LEFT LE, UNABLE TO SLS Lt LE, INTERMITTENT EDEMA IN Lt DISTAL LE, AND PAIN Lt DISTAL FIBULA. FUNCTIONALLY, Pt IS LIMITED W STANDING, WALKING, STAIR MANAGEMENT, AND MORE PHYSICALLY DEMANDING ADLs. SHE WOULD BENEFIT FROM PT TO REDUCE Lt ANKLE PAIN, DISTAL LE SWELLING, IMPROVE Lt ANKLE ROM AND FLEXIBIITY, DEV A PROGRESSIVE HEP, AND INCREASE FUNCTIONAL MOB/ INDEPENDENCE. Frequency and Duration: The patient will be seen 2 x WK x 5 WKS Short Term Goals: *IMPROVE LEFT ANKLE AROM *DECR Lt ANKLE PAIN TO 2-3/10 *IMPROVE GAIT MECH ON LEVEL GROUND AND STAIRS Skilled Nursing Goals: *Pt INDEP W HEP AND SELF-SX MGMT TECHN W RESPECT TO Rt SH SURGERY/IMMOB *Pt RESUME REG ADLs EVIDENT W IMPROVED LEFI SCORE BY AT LEAST 5-8 POINTS (34/80 AT EVAL) *Pt'S LEFT LE STRENGTH IMPROVED BY 1 GRADE Treatment Plan: Modalities to reduce pain, spasms and effusion. Manual therapy to restore motion and function. Therapeutic exercise to improve strength and flexibility. Neuromuscular re-education for posture and balance. Therapeutic activities to return to functional activities of daily living. Electronically signed by: Shiela Lozano,PT Please sign and return to therapist. Thank you for your referral.
--- NOTE | 2022-04-17 11:01 | MHC.PT.DC ---
[facility] [place] Office [place] Office [place] Office [address] Kaylynn Ohara [address] [phone] F: [phone] F: [phone] F: [phone] F: [phone] Physical Therapy Discharge Report Diagnosis: LEFT DISTAL FIBULAR FRACTURE 12/04/21 Date of Surgery: Date of Evaluation: 03/13/22 Date of Discharge: Treatments to Date: 10 Cancellations to Date: No Shows to Date: Discharge Status: Discharge Summary: Pt HAS PROGRESSED VERY WELL IN PT- HER PAIN HAS SIGNIFICANTLY EASED, SHE HAS INTERMITTENT MILD SWELLING, TENDER ONLY TO PALP OF LEFT LATERAL DISTAL FIBULA. Pt DEMON EFFICIENT GAIT MECHANICS, TRANSFERS, AND OVERALL FUNCTIONAL MOBILITY AT THIS TIME. SHE IS INDEP W HER HEP AND PROGRESSIONS AND SHE HS MET HER PT GOALS AT THIS TIME. Electronically signed by: Please sign and return to therapist. Thank you for your referral.
== END 2022-04-17 11:02 | disposition home or self-care (01) ==
LOC: HO.PT 10:00
PROVIDERS: Visit Provider Physician Assistant
DX: S82.832A Other fracture of upper and lower end of left fibula, initial encounter for closed fracture (principal)
CPT/HCPCS: 97110; 97140; 97162

== ENCOUNTER 2022-06-19 14:03 | Outpatient (REF) | payer OTHER, SELFPAY ==
--- NOTE | ~2022-06-19 | XR_ITS ---
EXAMINATION: XR CHEST CLINICAL INFORMATION: Cough for 2 to 3 weeks. COMPARISON: 08/16/2018 chest radiographs. TECHNIQUE: 2 views of the chest were obtained. FINDINGS: No significant abnormality is noted involving the heart, lungs, mediastinum, bony thorax or soft tissues. XR/XR chest 2V IMPRESSION: No acute cardiopulmonary process.
== END 2022-06-19 14:04 | disposition home or self-care (01) ==
LOC: HO.XRAY 14:03
PROVIDERS: PCP Family Medicine; Visit Provider Family Medicine
DX: R05.9 Cough, unspecified (principal)
CPT/HCPCS: 71046

== ENCOUNTER 2022-07-10 10:37 | Outpatient (REF) | payer OTHER, SELFPAY ==
--- NOTE | ~2022-07-10 | US_ITS ---
EXAMINATION: US PELVIS CLINICAL INFORMATION: Postmenopausal bleeding. COMPARISON: Pelvic ultrasound dated 10/12/2015. TECHNIQUE: Ultrasound of the pelvis is performed using both transabdominal and transvaginal transducers along with Doppler. Transvaginal imaging is performed due to inadequate visualization transabdominally. FINDINGS: Uterus: The uterus is retroverted and retroflexed. The uterus measures 8.1 x 4.4 x 4.4 cm. A cervical calcification is noted, possibly a small fibroid. The double wall endometrial thickness is 0.4 mm. The uterus is smooth in contour and has normal myometrial echogenicity. At the fundus, a 3.8 x 2.6 x 3.0 cm heterogeneous echotexture fibroid is seen. Previously, this measured 2.1 x 5.5 x 1.8 cm. Adnexa: Both ovaries are visualized. There is normal color flow to the adnexa. There is no ovarian torsion. There is no pelvic lymphadenopathy. Right ovary measures 2.9 x 1.6 x 2.2 cm, volume 5.3 mL. The right ovary contains a 1.7 cm in maximal diameter benign anechoic, simple cyst. This is a small amount of free fluid adjacent to the right ovary. Left ovary measures 1.2 x 1.7 x 1.5 cm, volume 1.4 mL. US/US pelvic and transvaginal IMPRESSION: 1. A uterine fibroid is seen, as detailed. A further small calcified fibroid is suspected within the cervix. 2. A 1.7 cm benign, simple right ovarian cyst is seen, for which no imaging follow-up is recommended. 3. A small amount of free fluid is seen adjacent to the right ovary.
== END 2022-07-10 10:38 | disposition home or self-care (01) ==
LOC: HO.US 10:37
PROVIDERS: PCP Registered Nurse; Visit Provider Registered Nurse
DX: N95.0 Postmenopausal bleeding (principal)
CPT/HCPCS: 76830; 76856

== ENCOUNTER 2022-09-15 09:26 | Outpatient (REF) | payer OTHER, SELFPAY ==
--- NOTE | ~2022-09-15 | MM_ITS ---
EXAMINATION: MM SCREENING DIGITAL BREAST TOMOSYNTHESIS, BILATERAL CLINICAL INFORMATION: Screening. Asymptomatic. The lifetime risk of breast cancer based on the Tyrer-Cuzick Model is 12%. COMPARISON: Mammography: 09/13/2021, 06/19/2020, 05/16/2018 TECHNIQUE: Digital breast tomosynthesis is performed in both the craniocaudal and mediolateral oblique views along with computer-aided detection (CAD). Synthesized 2D images are generated from the tomosynthesis. FINDINGS: There are scattered areas of fibroglandular density (ACR BI-RADS breast composition Category b). There are no significant masses, abnormal calcifications, or other abnormalities. Parenchymal pattern is similar to prior studies. Minor asymmetries and small fibronodular densities are stable. No architectural abnormality or developing density. The axilla are unremarkable. No significant changes from prior exams. MM/MM tomosynthesis screening BI IMPRESSION: No mammographic evidence of malignancy. ASSESSMENT: BI-RADS 2: Benign RECOMMENDATION: Routine annual mammography screening. This patient's information was entered into a reminder system with a target due date for their next mammogram.
== END 2022-09-15 09:27 | disposition home or self-care (01) ==
LOC: HO.MAMMO 09:26
PROVIDERS: Visit Provider Registered Nurse Community Health
DX: Z12.31 Encounter for screening mammogram for malignant neoplasm of breast (principal)
CPT/HCPCS: 77063; 77067

== ENCOUNTER 2022-11-30 10:58 | Outpatient (REF) | payer OTHER, SELFPAY ==
--- NOTE | 2022-11-30 | PFT_ITS ---
INDICATION: Asthma. SPIROMETRY: FEV1 to FVC of 79% with an FEV1 of 2.13 L, which is 88% predicted and FVC of 2.7 L, which is 36% predicted. No significant response to bronchodilators noted. Maximum voluntary ventilation 85% predicted. LUNG VOLUMES: Total lung capacity 85% predicted with an expiratory reserve volume of 54% predicted. DIFFUSION CAPACITY: DLCO 57% predicted. COMPARISONS: None. INTERPRETATION: No obstructive and no restrictive ventilatory defects identified. No significant response to bronchodilators noted. Normal maximum voluntary ventilation. Lung volumes are normal except for decrease in the expiratory reserve volume; however, the patient does have a moderate isolated diffusion impairment. Need to consider pulmonary vascular conditions and/or occult interstitial lung conditions. Should also correct for hemoglobin. MD ALEJANDRO Figueroa/MODRussell / [phone]
== END 2022-11-30 10:59 | disposition home or self-care (01) ==
LOC: HO.RESP 10:58
PROVIDERS: PCP Registered Nurse; Visit Provider Registered Nurse
DX: J44.9 Chronic obstructive pulmonary disease, unspecified (principal)
CPT/HCPCS: 94010; 94729

== ENCOUNTER → 2022-11-30 11:05 | Outpatient (BNV) | payer OTHER, SELFPAY | PROVIDERS: PCP Registered Nurse; Visit Provider Hospitalist | DX: J45.909 Unspecified asthma, uncomplicated (principal) | CPT/HCPCS: 94060; 94727; 94729 ==

== ENCOUNTER 2022-12-01 15:02 | Outpatient (AMB) | payer OTHER, SELFPAY ==
--- NOTE | 2022-12-01 09:39 | A.OFFVIS_ITS ---
Intake Intake Visit Reasons: LDCT SD Allergies No Known Allergies Allergy (Verified 04/03/22 10:07) HPI LDCT SD HPI Details Initial visit for this 57yo smoker with a 35+PYH. Patient has been smoking since age 18 for 39 years at 1ppd. Recently quit 11/06/2022. . Denies marijuana use. Denies second hand smoke exposure. Denies exposure to chemicals or substances like asbestos. . Denies known family history of lung cancer. Denies personal history of cancers. Denies chest CT in last year. . Denies recent travel outside the [place]. Denies recent respiratory illness or recent hospitalization for respiratory issues. Denies testing positive for COVID. Admits receiving COVID Vaccine. x 3. . Does note some recent coughing since quitting smoking Denies fever, chills, hemoptysis, hoarseness or dysphagia. Denies significant chest pain, significant dyspnea or unintentional weight loss. Patient Lung Cancer Screening Questionnaire reviewed with patient by provider. . Shared Decision Making Completed. Patient meets criteria. Discussed in detail with patient, the risk vs benefit of LDCT screening. Patient consents to proceed with scan. Discussed and encouaged continued smoking cessation. [facility] Medical History (Updated 12/01/22 @ 15:12 by Brittany Arnold PA-C) Asthma Fracture of distal end of left fibula (~11/2021) Hearing deficit History of back pain Lupus Nicotine dependence, cigarettes, uncomplicated Osteoarthritis Osteopenia Vertigo Surgical History (Updated 12/01/22 @ 15:08 by Brittany Arnold PA-C) History of colonoscopy (~2019) History of ear surgery (~1999) History of nasal septoplasty (~1998) History of tonsillectomy (~1991) Family History Father Heart problem Heart attack Mother HTN (hypertension) Social History (Updated 12/01/22 @ 15:12 by Brittany Arnold PA-C) Alcohol intake: current Alcohol intake frequency: holidays/special occasions only Patient Tobacco Use Status: Former Tobacco user Quit Date: 11/06/22 Years Smoked: (onset 18yo, 1ppd x 39yrs, now 1/2ppd - 35+PYH - quit 11/06/22) Second Hand Smoke Exposure: No Current occupational status: disabled 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 - Patient meets criteria for LDCT for lung cancer screening purposes and is asymptomatic. - Smoking cessation counseling offered. Patients can always call [phone]. - Will arrange for a LDCT scan of the chest for screening purposes at [facility]. - Risks, benefits, and alternatives were discussed in detail and the patient agrees to proceed. - Risks discussed include but are not limited to: radiation exposure, anxiety during testing and while awaiting results, false negatives, false positives and possibility of additional intervention such as further imaging or surgical procedures for benign disease. - Benefits are obviously detection of lung cancer at an early stage which can lead to improved outcomes. - Discussed the importance of screening program compliance with adherence to yearly LDCT scan as scheduled - or sooner interval scans for personalized screening regimen. - Discussed follow up plan. Our office will send a letter discussing results and if needed set up phone call and office visit based on CT findings. - Patient educated on results categorization and the management decisions for suspicious findings potentially found on the screening LDCT scan. Any patient with a Lung RADS score of 3 or 4 will be reviewed by a multidisciplinary team at [facility] to form a plan of action in regards to scan findings. - If further work up is warranted for a suspicious lung finding this will be fol lowed by the Lung Cancer Screening program in conjunction with the Thoracic Surgery Department at [facility]. - A copy of the office note and LDCT will be sent to the patient's PCP - as well as documentation on any associated further plans of care. - Incidental findings on LDCT are the PCP's responsibility. These findings are indicated with an S finding on the LDCT Assessment. A note discussing the findings will be sent to the PCP who is then responsible for further management. - All questions answered.? Coding Level of Care Code Lung Cancer Screening [id number] Diagnoses Nicotine dependence, cigarettes, uncomplicated F17.210
== END 2022-12-01 15:37 | disposition home or self-care (01) ==
PROVIDERS: PCP Registered Nurse; Visit Provider Physician Assistant Medical
DX: F17.210 Nicotine dependence, cigarettes, uncomplicated (principal)
CPT/HCPCS: G0296

== ENCOUNTER 2022-12-01 15:21 | Outpatient (REF) | payer OTHER, SELFPAY ==
--- NOTE | ~2022-12-01 | CT_ITS ---
EXAMINATION: CT CHEST SCREENING CLINICAL INFORMATION: Current smoker. 40 pack year history. COMPARISON: None available. TECHNIQUE: Multidetector volumetric CT imaging of the chest is performed without contrast using low dose technique. Additional 2D coronal and sagittal reformatted images and axial 3D maximum intensity projection (MIP) images are generated on the CT workstation. This CT examination was performed using dose optimization techniques as appropriate, variously including the following: *Automated exposure control *Adjustment of mA and/or kV according to patient size (this includes techniques or standardized protocols for targeted exams where dose is matched to indication/reason for exam; i.e. extremities or head) *Use of iterative reconstruction technique DLP: 42 mGy-cm FINDINGS: LUNGS: Mild emphysema. 3mm left lower lobe nodule axial image 313 series 5. The lungs are otherwise clear. MEDIASTINUM: The mediastinum is normal. CORONARY ARTERY CALCIFICATION: Mild PLEURA: There is no pleural effusion. No pleural mass or thickening. AXILLA: No lymphadenopathy. UPPER ABDOMEN: Unremarkable OSSEOUS STRUCTURES: Mild degenerative changes of the spine. CT/CT lung screening IMPRESSION: Mild emphysema. Solitary 3 mm left lower lobe nodule. ASSESSMENT: Lung-RADS category 2: Benign RECOMMENDATION: Annual low-dose chest CT follow-up recommended
== END 2022-12-01 15:22 | disposition home or self-care (01) ==
LOC: HO.CT 15:21
PROVIDERS: PCP Registered Nurse; Visit Provider Physician Assistant Medical
DX: Z12.2 Encounter for screening for malignant neoplasm of respiratory organs (principal); F17.210 Nicotine dependence, cigarettes, uncomplicated
CPT/HCPCS: 71271; G0296

== ENCOUNTER 2023-01-18 13:23 | Outpatient (REF) | payer OTHER, SELFPAY ==
--- NOTE | 2023-01-18 13:27 | EMG_ITS ---
Chief complaint: right worse than left hand numbness, denies neck pain History of lupus. History of muscle/ligament tear/surgery and collarbone surgery right upper extremity. Reason for referral: Evaluate for Carpal Tunnel Syndrome [facility] Procedure done: Bilateral upper extremities NCS/EMG Precautions and/or limitations: None The limb temperature was monitored continuously and remained between 32-36 degrees C during the performance of the NCS. Nerve Conduction Studies Anti Sensory Summary Table ?Stim Site NR Onset (ms) Norm Onset (ms) Peak (ms) Norm Peak (ms) O-P Amp (?V) Norm O-P Amp Site1 Site2 Delta-0 (ms) Dist (cm) Hammad (m/s) Norm Hammad (m/s) Right DorsCutan Anti Sensory (Dorsum 5th MC) Wrist ? 2.6 3.0 23.1 Wrist Dorsum 5th MC 2.6 0.0 Left Median Anti Sensory (2nd Digit) Wrist ? 2.6 3.3 <3.6 26.2 >10 Wrist 2nd Digit 2.6 14.0 54 Right Median Anti Sensory (2nd Digit) Wrist ? 2.9 3.6 <3.6 20.1 >10 Wrist 2nd Digit 2.9 14.0 48 Right Radial Anti Sensory (Thumb) Forearm ? 2.8 3.1 <3.1 9.5 Forearm Thumb 2.8 0.0 Left Ulnar Anti Sensory (5th Digit) Wrist ? 2.8 3.3 <3.7 17.5 >15.0 Wrist 5th Digit 2.8 14.0 50 Right Ulnar Anti Sensory (5th Digit) Wrist ? 2.6 3.3 <3.7 16.3 >15.0 Wrist 5th Digit 2.6 14.0 54 Motor Summary Table ?Stim Site NR Onset (ms) Norm Onset (ms) O-P Amp (mV) Norm O-P Amp iAmp (mV) Amp (1st) (%) Site1 Site2 Delta-0 (ms) Dist (cm) Hammad (m/s) Norm Hammad (m/s) Left Median Motor (Abd Poll Brev) Wrist ? 3.0 <3.9 4.3 >4.5 5.7 100.0 Elbow Wrist 3.2 19.0 59 >45 Elbow ? 6.2 4.3 5.5 100.0 Right Median Motor (Abd Poll Brev) Wrist ? 3.9 <3.9 6.5 >4.5 7.8 100.0 Elbow Wrist 3.1 18.0 58 >45 Elbow ? 7.0 6.6 8.2 101.5 Left Ulnar Motor (Abd Dig Minimi) Wrist ? 2.3 <3.0 5.9 >5 7.1 100.0 B Elbow Wrist 2.5 16.0 64 >45 B Elbow ? 4.8 5.4 6.4 91.5 A Elbow B Elbow 1.8 10.0 56 >45 A Elbow ? 6.6 4.4 5.0 74.6 Right Ulnar Motor (Abd Dig Minimi) Wrist ? 2.4 <3.0 4.1 >5 5.2 100.0 B Elbow Wrist 2.8 16.5 59 >45 B Elbow ? 5.2 3.6 5.0 87.8 A Elbow B Elbow 1.4 10.0 71 >45 A Elbow ? 6.6 3.2 4.4 78.0 Comparison Summary Table ?Stim Site NR Peak (ms) Norm Peak (ms) P-T Amp (?V) Site1 Site2 Delta-P (ms) Norm Delta (ms) Left Median/Radial Dig I Comparison (Digit 1 - 10cm) Median ? 2.7 <2.9 71.0 Median Radial 0.5 Radial ? 2.2 <2.8 33.8 EMG ?Side Muscle Nerve Root Ins Act Fibs Psw Amp Dur Poly Recrt Int Pat Comment Right 1stDorInt Ulnar C8-T1 Nml Nml Nml Nml Nml 0 Nml Complete Right FlexCarRad Median C6-7 Nml Nml Nml Nml Nml 0 Nml Complete Right Biceps Musculocut C5-6 Nml Nml Nml Nml Nml 0 Nml Complete Right Triceps Radial C6-7-8 Nml Nml Nml Nml Nml 0 Nml Complete Right Deltoid Axillary C5-6 Nml Nml Nml Nml Nml 0 Nml Complete Left 1stDorInt Ulnar C8-T1 Nml Nml Nml Nml Nml 0 Nml Complete Left FlexCarRad Median C6-7 Nml Nml Nml Nml Nml 0 Nml Complete Left Biceps Musculocut C5-6 Nml Nml Nml Nml Nml 0 Nml Complete Left Triceps Radial C6-7-8 Nml Nml Nml Nml Nml 0 Nml Complete Left Deltoid Axillary C5-6 Nml Nml Nml Nml Nml 0 Nml Complete Paraspinal EMG ?Side Muscle Nerve Root Ins Act Fibs Psw Comment Right Cervical Upper Rami Nml Nml Nml Right Cervical Mid Rami Nml Nml Nml Right Cervical Lower Rami Nml Nml Nml Left Cervical Upper Rami Nml Nml Nml Left Cervical Mid Rami Nml Nml Nml Left Cervical Lower Rami Nml Nml Nml FINDINGS: Right ulnar motor nerve showed normal distal latency, small amplitude and normal conduction velocity. Right ulnar sensory nerve recording at the digit 5 was within normal. Right DUCS was within normal. Left median motor nerve showed prolonged distal latency, normal amplitude and normal conduction velocity. Left median sensory nerve within normal. Comparison study within left median and radial sensory nerves showed interlatency difference of 0.5. All other nerves tested were within normal. Concentric needle EMG was performed in selected muscles of the bilateral upper extremities and cervical paraspinals. Study did not reveal signs of electric abnormalities as shown in the table below. IMPRESSION: 1. This is an abnormal study. 2. There is electrodiagnostic findings suggestive for a right ulnar neuropathy at the wrist. 3. There is electrodiagnostic evidence for left mild-moderate median neuropathy at the wrist. 4. There is no electrodiagnostic evidence for brachial plexopathy, or cervical radiculopathy. Thank you for your kind referral. Elizabeth Jensen MD, DANIELA Board Certified, [place] Board [employer] Physical Medicine and Rehabilitation (ABPMR) Board Certified, [place] Board of Electrodiagnostic Medicine (ABEM) [facility]
== END 2023-01-18 13:24 | disposition home or self-care (01) ==
LOC: HO.NEURO 13:23
PROVIDERS: PCP Registered Nurse; Visit Provider Registered Nurse
DX: R20.0 Anesthesia of skin (principal); R20.2 Paresthesia of skin
CPT/HCPCS: 95886; 95912

== ENCOUNTER 2023-02-02 17:01 | Outpatient (REF) | payer OTHER, SELFPAY ==
[2023-02-07 04:13] LABS: HPV mRNA E6/E7 rflx Not Detected (Not Detected)
== END 2023-02-02 17:02 | disposition home or self-care (01) ==
LOC: HO.LNP 17:01
PROVIDERS: Visit Provider Registered Nurse
DX: Z12.4 Encounter for screening for malignant neoplasm of cervix (principal)
CPT/HCPCS: 87624; 88142

== ENCOUNTER 2023-02-07 09:34 | Outpatient (REF) | payer OTHER, SELFPAY ==
--- NOTE | ~2023-02-07 | XR_ITS ---
EXAMINATION: XR HAND/WRIST, RIGHT CLINICAL INFORMATION: Pain. COMPARISON: Report from right hand radiographs dated 04/20/2011. TECHNIQUE: PA, lateral, and oblique views of the right wrist and hand FINDINGS: No acute fracture or dislocation. Normal carpal alignment. Joint space narrowing with marginal osteophytes at the triscaphe and 1st carpometacarpal joints. More mild joint space narrowing with small marginal osteophytic scattered throughout the metacarpophalangeal and interphalangeal joints. No osseous erosion. No abnormal soft tissue calcification. No periarticular osteopenia. XR/XR hand wrist RT IMPRESSION: Moderate degenerative arthritis at the triscaphe and 1st carpometacarpal joints. More mild degenerative arthritis scattered throughout the metacarpophalangeal and interphalangeal joints.
== END 2023-02-07 09:35 | disposition home or self-care (01) ==
LOC: HO.HOSX 09:34
PROVIDERS: PCP Registered Nurse; Visit Provider Physical Medicine & Rehabilitation
DX: G56.03 Carpal tunnel syndrome, bilateral upper limbs (principal)
CPT/HCPCS: 20526; 73110; 73130; 99212; J3301

== ENCOUNTER 2023-02-07 09:34 | Outpatient (AMB) | payer OTHER, SELFPAY ==
--- NOTE | 2023-02-07 10:14 | MHC.OFFVIS ---
Intake Vital Signs 02/07/23 10:17 Height 5 ft 3 in Weight 140 lb BMI 24.8 Intake Visit Reasons: Rt hand numbness & tingling/EMG in chart Intake Note: Lizzie is a 57 year old left hand dominant female for her EMG review for her bilateral hand pain. Patient reports her hands are still getting numb. Allergies No Known Allergies Allergy (Verified 04/03/22 10:07) Medication List - Last Reconciled 02/07/23 by Elizabeth Jensen MD acetaminophen-codeine 300-30 mg 1 tab PO Q8H PRN albuterol sulfate 90 mcg/actuation 2 puffs PO Q4-6H PRN cetirizine 1 tab PO QAM hydroxychloroquine (Plaquenil) 200 mg PO DAILY ibuprofen 800 mg PO Q8H PRN ibuprofen 600 mg PO TID PRN ipratropium bromide 17 mcg/actuation (Atrovent HFA) 2 puffs PO QID lidocaine HCl 4% (Aspercreme (lidocaine HCl)) 1 appl topical BID PRN meclizine 12.5 mg PO BID PRN sertraline (Zoloft) 25 mg PO DAILY tramadol 1 tab PO Q6H PRN HPI HPI Comments History of Present Illness Details I saw patient 1st as an EMG. EMG results below. History of Lupus, followed by Dr. Shaw. Pain on both dorsal wrist. Right worse with numbness. Only been bothering her for about a month only. Wakes her up at night. She says that pain is worse on the left wrist but the numbness is worse in the right wrist pain. [facility] Medical History (Updated 02/07/23 @ 10:35 by Elizabeth Jensen MD) Carpal tunnel syndrome on both sides Carpal tunnel syndrome of left wrist Wrist pain Nicotine dependence, cigarettes, uncomplicated Osteopenia Fracture of distal end of left fibula (~11/2021) Lupus Osteoarthritis History of back pain Asthma Vertigo Hearing deficit Surgical History (Updated 12/01/22 @ 15:08 by Brittany Arnold PA-C) History of colonoscopy (~2019) History of tonsillectomy (~1991) History of nasal septoplasty (~1998) History of ear surgery (~1999) Family History Father Heart problem Heart attack Mother HTN (hypertension) Social History Alcohol intake: current Alcohol intake frequency: holidays/special occasions only Patient Tobacco Use Status: Former Tobacco user Quit Date: 11/06/22 Years Smoked: (onset 18yo, 1ppd x 39yrs, now 1/2ppd - 35+PYH - quit 11/06/22) Second Hand Smoke Exposure: No Current occupational status: disabled 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 MSK: Inspection reveals appropriate head and neck positioning. No pain with palpation over the neck musculature. Cervical ROM was full. Spurling's sign negative. Bilateral shoulder ROM WNL. No ligamentous laxity or crepitance. No increased effusion. Hawkin's test is negative. No joint effusion noted. No deformity noted. No intrinsic hand weakness noted. No atrophy noted. Ana test negative. Carpal compression test positive bilateral. Tinel sign negative. Strength is 5/5 in all muscle groups tested. No increased tone noted. Neurological: Neurologic examination of the upper and lower extremities was nonfocal with intact sensation, muscle stretch reflexes and without focal motor deficits . Egan?s negative bilaterally. Gait is non-antalgic without loss of balance. Office Procedures Therapeutic Injection Therapeutic Injection Details: Consent obtained. Patient places left hand palm up. Wrist is cleansed with betadine solution. A 25 gauge needle is inserted just ulnar to the palmaris longus tendon and at the proximal wrist crease. The needle is inserted at a 30-degree angle and directed towards the ring finger. A solution containing 20mg Kenalog is injected. Patient tolerated procedure well without complications. Post-injection instructions given. 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 mL Results Reviewed Results Reviewed: 02/07/23 10:34 Triamcinolone Acetonide [Kenalog-40] 40 mg .ROUTE .STK-MED ONE EMG done IMPRESSION: 1. This is an abnormal study. 2. There is electrodiagnostic findings suggestive for a right ulnar neuropathy at the wrist. 3. There is electrodiagnostic evidence for left mild-moderate median neuropathy at the wrist. 4. There is no electrodiagnostic evidence for brachial plexopathy, or cervical radiculopathy. Assessment & Plan Assessment & Plan (1) Wrist pain: Code(s): M25.539 - Pain in unspecified wrist (2) Carpal tunnel syndrome on both sides: Code(s): G56.03 - Carpal tunnel syndrome, bilateral upper limbs Plan Wrist pain is worse in the left while numbness is worse in the right hand. More conclusive Carpal Tunnel Syndrome on left side per EMG. Explained that results in right-sided not very convincing. It did show borderline peak latency on right median sensory and borderline distal latency on right motor nerves. Question right ulnar neuropathy. I suggested repeating the EMG in about 2-3 months under right-sided PEs. Patient agreeable with that. We would like more definitive results before referring her to our hand surgeon pain. Since she is having a lot of pain on the left side that prevents her from sleeping, she would like to try a steroid injection today. Also doing wrist x-rays today Assessment and plan discussed with patient, and patient was agreeable. All questions were answered thoroughly. Elizabeth Jensen MD, DANIELA Board Certified, [place] [employer] and Rehabilitation (ABPMR) Board Certified, [place] Board [employer] Electrodiagnostic Medicine (ABEM) Orders: Orders XR hand wrist RT Today G56.03 - Carpal tunnel syndrome, bilateral upper limbs, M25.539 - Pain in unspecified wrist NE nerve conduction velocity Today M25.539 - Pain in unspecified wrist Trigger Point Injection Today G56.02 - Carpal tunnel syndrome, left upper limb, M65.4 - Radial styloid tenosynovitis [de Quervain] XR wrist RT min 3V Today M25.539 - Pain in unspecified wrist Medications: New triamcinolone acetonide 20 mg (0.5 mL) Tendon Sheath Inj. ONCE 0.5 mL 0RF G56.02 - Carpal tunnel syndrome, left upper limb, M65.4 - Radial styloid tenosynovitis [de Quervain] Coding Level of Care Code Est Pt Level 4 (61216) Diagnoses Wrist pain M25.539 Carpal tunnel syndrome on both sides G56.03 CPT Codes Therapeutic Injection - Ther Injection 3: [id number]-[id number] Tunnel Injection, therapeutic ([id number])
[2023-02-07 10:17] VITALS: BMI 24.8
== END 2023-02-07 11:13 | disposition home or self-care (01) ==
PROVIDERS: PCP Registered Nurse; Visit Provider Physical Medicine & Rehabilitation
DX: M25.532 Pain in left wrist (principal); G56.03 Carpal tunnel syndrome, bilateral upper limbs
CPT/HCPCS: 20526; 99214

== ENCOUNTER 2023-02-14 09:43 | Outpatient (AMB) | payer OTHER, SELFPAY ==
[2023-02-14 10:16] VITALS: BP 119/78; PULSE 81; O2SAT 98; BMI 27.1
--- NOTE | 2023-02-14 10:16 | A.OFFVIS_ITS ---
Intake Vital Signs 02/14/23 10:16 Height 5 ft 3 in Weight 153 lb 3.54 oz BMI 27.1 BP 119/78 Blood Pressure Location Lt brachial Position Sitting Pulse 81 Pulse Source Doppler Pulse Oximetry (%) 98 Oxygen Delivery Method Room Air Intake Visit Reasons: COPD Allergies No Known Allergies Allergy (Verified 02/14/23 10:17) HPI COPD HPI Details 57-year-old lady, recent 40 pack-year sm oker, also rheumatoid arthritis? Lupus on hydroxychloroquine referred for evaluation of underlying dyspnea on exertion. Patient states that she gets dyspnea, and walking on level ground, but also complains of orthopnea and worsening lower extremity edema. Currently she is using albuterol MDI/nebs with suboptimal control of her symptoms. She denies family history of lung disease. She denies exposure to industrial dusts. [facility] Medical History (Updated 02/14/23 @ 10:40 by Jesus Bullard MD) Carpal tunnel syndrome on both sides Carpal tunnel syndrome of left wrist Wrist pain Nicotine dependence, cigarettes, uncomplicated Osteopenia Fracture of distal end of left fibula (~11/2021) Lupus Osteoarthritis History of back pain Asthma Vertigo Hearing deficit Surgical History (Updated 12/01/22 @ 15:08 by Brittany Arnold PA-C) History of colonoscopy (~2019) History of tonsillectomy (~1991) History of nasal septoplasty (~1998) History of ear surgery (~1999) Family History Father Heart problem Heart attack Mother HTN (hypertension) Social History (Reviewed 02/14/23 @ 10:19 by Silvia Howell COUNTS INCLUDE 234 BEDS AT THE [facility]) Alcohol intake: current Alcohol intake frequency: holidays/special occasions only Patient Tobacco Use Status: Former Tobacco user Quit Date: 11/06/22 Years Smoked: (onset 18yo, 1ppd x 39yrs, now 1/2ppd - 35+PYH - quit 11/06/22) Second Hand Smoke Exposure: No Current occupational status: disabled 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 Review of Systems Const Denies daytime sleepiness, Denies excessive sweating, Denies fatigue, Denies fever(s), Denies lethargy, Denies malaise, Denies night sweats, Denies snoring and Denies weight loss Eyes Denies blurry vision and Denies itchy eyes ENT Denies nasal congestion, Denies post nasal drip, Denies sinus pain, Denies sinus pressure and Denies other ( Thrush) Card Denies chest pain, Reports pedal edema, Denies dyspnea, Reports dyspnea on exertion, Reports orthopnea and Denies paroxysmal nocturnal dyspnea Resp Denies cough, Denies hemoptysis, Denies excessive phlegm production, Denies dyspnea, Reports dyspnea on exertion, Denies snoring and Reports wheezing GI Denies abdominal pain and Denies heartburn Musc Denies myalgias, Denies arthralgias and Denies joint swelling Skin/Breast Denies rash Neuro Denies memory loss and Denies seizure-like activity Psych Denies abnormal sleep pattern, Denies anxiety and Denies memory loss Endo Denies excessive sweating, Denies fatigue and Denies heat intolerance Tamir/Lymph Denies easy bruising Aller/Immun Denies itchy eyes, Denies seasonal rhinorrhea and Reports wheezing Physical Exam Vital Signs: Last Vital Signs Pulse 81 02/14/23 10:16 BP 119/78 02/14/23 10:16 Pulse Ox 98 02/14/23 10:16 Oxygen Delivery Method Room Air 02/14/23 10:16 BMI result Body Mass Index 27.1 Const General: no acute distress and alert Nutritional Appearance: not obese Orientation/consciousness: Other orientation findings ( oriented) HEENT Head: Yes atraumatic Eyes General: appearance normal, both eyes and all related structures Sclerae: sclerae normal EOM: EOMs intact bilaterally Neck Neck: Yes supple Lymphatic: no lymphadenopathy noted Resp Effort & Inspection: normal respiratory effort and no use of accessory muscles Auscultation: clear to auscultation bilaterally Cardio Rate: regular rate Rhythm: regular rhythm Heart sounds: no gallops, no murmurs and no rubs Skin General skin exam: other ( warm) Extrem General: No clubbing, No cyanosis and Yes edema (1+ bilateral) Assessment & Plan Assessment & Plan (1) ASKEW (dyspnea on exertion): Code(s): R06.09 - Other forms of dyspnea Plan: Likely multifactorial with contribution from underlying pulmonary and cardiac etiologies. Will obtain 2D echocardiogram to evaluate cardiac component. (2) COPD (chronic obstructive pulmonary disease): Code(s): J44.9 - Chronic obstructive pulmonary disease, unspecified Plan: Pulmonary function test reviewed, emphysema resulting in reduced diffusion capacity, but no significant obstruction. Will start on empiric Anoro. Orders: Orders CA echo transthoracic complete Today R06.09 - Other forms of dyspnea Medications: New Anoro Ellipta 62.5-25 mcg/actuation (umeclidinium-vilanterol) 1 inh inhalation DAILY 1 ea 6RF 30 days NS Coding Level of Care Code New Pt Level 4 (13447) Diagnoses ASKEW (dyspnea on exertion) R06.09 COPD (chronic obstructive pulmonary disease) J44.9
== END 2023-02-14 10:40 | disposition home or self-care (01) ==
PROVIDERS: PCP Registered Nurse; Visit Provider Internal Medicine Pulmonary Disease
DX: R06.09 Other forms of dyspnea (principal); J44.9 Chronic obstructive pulmonary disease, unspecified
CPT/HCPCS: 99204

== ENCOUNTER → 2023-02-14 09:43 | Outpatient (BNVA) | payer OTHER, SELFPAY | PROVIDERS: PCP Registered Nurse; Visit Provider Internal Medicine Pulmonary Disease ==

== ENCOUNTER 2023-03-07 13:09 | Outpatient (REF) | payer OTHER, SELFPAY ==
--- NOTE | 2023-03-07 13:12 | EMG_ITS ---
Chief complaint: Bilateral hand pain and numbness Since the last EMG/NCS, she had a left Carpal Tunnel Syndrome injection that provided 100% relief for 2 days and overall 50% relief. X-ray showed arthritis of left hand. She has been wearing the wrist splint. Reason for referral: Repeat NCS and compared to previous NCS/EMG 01/18/2023 showed findings as follows: Right ulnar motor nerve showed normal distal latency, small amplitude and normal conduction velocity. Right ulnar sensory nerve recording at the digit 5 was within normal. Right DUCS was within normal. Left median motor nerve showed prolonged distal latency, normal amplitude and normal conduction velocity. Left median sensory nerve within normal. Comparison study within left median and radial sensory nerves showed interlatency difference of 0.5. Procedure done: Bilateral upper extremities NCS for comparison Precautions and/or limitations: None The limb temperature was monitored continuously and remained between 32-36 degrees C during the performance of the NCS. Nerve Conduction Studies Anti Sensory Summary Table ?Stim Site NR Onset (ms) Norm Onset (ms) Peak (ms) Norm Peak (ms) O-P Amp (?V) Norm O-P Amp Site1 Site2 Delta-0 (ms) Dist (cm) Hammad (m/s) Norm Hammad (m/s) Left Median Anti Sensory (2nd Digit) Wrist ? 2.7 3.3 <3.6 29.0 >10 Wrist 2nd Digit 2.7 14.0 52 Right Median Anti Sensory (2nd Digit) Wrist ? 2.5 3.6 <3.6 23.7 >10 Wrist 2nd Digit 2.5 14.0 56 Left Ulnar Anti Sensory (5th Digit) Wrist ? 1.7 2.8 <3.7 27.4 >15.0 Wrist 5th Digit 1.7 14.0 82 Right Ulnar Anti Sensory (5th Digit) Wrist ? 2.8 3.3 <3.7 24.6 >15.0 Wrist 5th Digit 2.8 14.0 50 Motor Summary Table ?Stim Site NR Onset (ms) Norm Onset (ms) O-P Amp (mV) Norm O-P Amp iAmp (mV) Amp (1st) (%) Site1 Site2 Delta-0 (ms) Dist (cm) Hammad (m/s) Norm Hammad (m/s) Left Median Motor (Abd Poll Brev) Wrist ? 3.5 <3.9 7.8 >4.5 8.6 100.0 Elbow Wrist 2.8 18.5 66 >45 Elbow ? 6.3 7.8 9.1 100.0 Right Median Motor (Abd Poll Brev) Wrist ? 4.1 <3.9 9.9 >4.5 11.7 100.0 Elbow Wrist 3.0 19.0 63 >45 Elbow ? 7.1 9.5 11.2 96.0 Left Ulnar Motor (Abd Dig Minimi) Wrist ? 2.4 <3.0 6.9 >5 8.2 100.0 B Elbow Wrist 2.7 17.5 65 >45 B Elbow ? 5.1 6.4 7.6 92.8 A Elbow B Elbow 1.6 10.0 62 >45 A Elbow ? 6.7 5.4 6.2 78.3 Right Ulnar Motor (Abd Dig Minimi) Wrist ? 2.7 <3.0 7.3 >5 10.8 100.0 B Elbow Wrist 2.6 16.0 62 >45 B Elbow ? 5.3 7.2 10.4 98.6 A Elbow B Elbow 1.6 10.0 62 >45 A Elbow ? 6.9 7.1 10.3 97.3 Comparison Summary Table ?Stim Site NR Peak (ms) Norm Peak (ms) P-T Amp (?V) Site1 Site2 Delta-P (ms) Norm Delta (ms) Right Median/Radial Dig I Comparison (Digit 1 - 10cm) Median ? 3.0 <2.9 61.7 Median Radial 0.2 Radial ? 2.8 <2.8 64.5 FINDINGS: Right median motor nerve showed prolonged latency, normal amplitude and normal conduction velocity. Right median sensory nerve showed borderline/prolonged peak latency. Interlatency difference between right median and radial sensory nerves was 0.2. All other nerves tested than right side were within normal. All other nerves tested on left side were within normal. IMPRESSION: 1. This is an abnormal study. 2. There is electrodiagnostic evidence for right mild-moderate median neuropathy at the wrist, consistent with carpal tunnel syndrome. Findings today are more definitive than previous study 3. There are no findings for left median neuropathy at this time. 4. There is no electrodiagnostic evidence for ulnar neuropathy. CLINICAL COMMENT: Findings of right Carpal Tunnel Syndrome are more definitive. No findings for left-sided Carpal Tunnel Syndrome. She did have recent left Carpal Tunnel Syndrome injection. No findings suggestive of ulnar neuropathy. She would like to meet with Dr. Ya to discuss surgery. Thank you for your kind referral. Elizabeth Jensen MD, DANIELA Board Certified, [place] Board of Physical Medicine and Rehabilitation (ABPMR) Board Certified, [place] Board of Electrodiagnostic Medicine (ABEM) CODIN MTDD
== END 2023-03-07 13:10 | disposition home or self-care (01) ==
LOC: HO.NEURO 13:09
PROVIDERS: PCP Registered Nurse; Visit Provider Physical Medicine & Rehabilitation
DX: M25.531 Pain in right wrist (principal); R20.0 Anesthesia of skin; R20.2 Paresthesia of skin
CPT/HCPCS: 95911

== ENCOUNTER → 2023-03-07 13:12 | Outpatient (BNV) | payer OTHER, SELFPAY | PROVIDERS: PCP Registered Nurse; Visit Provider Physical Medicine & Rehabilitation | DX: G56.11 Other lesions of median nerve, right upper limb (principal); G56.01 Carpal tunnel syndrome, right upper limb | CPT/HCPCS: 95911 ==

== ENCOUNTER → 2023-03-15 10:21 | Outpatient (REF) | payer OTHER, SELFPAY ==
--- NOTE | 2023-03-15 10:23 | CA_ITS ---
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 Normal LV ejection fraction 55-60% with impaired relaxation filling pattern 2. Normal cardiac valvular Doppler 3. No gross pericardial effusion Findings Left Ventricle Normal left ventricular size, thickness, and systolic function. The visually estimated ejection fraction is between 55-60%. Spectral Doppler is indicative of an impaired relaxation filling pattern. E/E prime ratio is between 8 and 15 consistent with indeterminate filling pressures. Peak GLS is -15.7%, which is mildly reduced. Right Ventricle Normal right ventricular cavity size and systolic function. Atria Both atria are normal in size. There is no evidence of interatrial shunt. Aortic Valve Normal aortic valve structure and function. There is no aortic valve stenosis. There is no aortic valve regurgitation. Mitral Valve Normal mitral valve structure and function. There is trace mitral valve regurgitation. There is no mitral valve stenosis. Pulmonic Valve The pulmonic valve is likely normal. Tricuspid Valve Normal tricuspid valve structure. There is trace tricuspid valve regurgitation. Tricuspid regurgitation envelope is inadequate for calculation of right ventricular systolic pressure. Normal right atrial pressure. Great Vessels All visible segments of the aorta are normal in size. The pulmonary artery was not well visualized. Venous The inferior vena cava is normal in size and collapses greater than 50% with inspiration. Pericardium/Pleural There is no evidence of pericardial effusion. Measurements 2D Linear Measurements IVSd: 1.10 0.6-0.9/0.6-1.0 cm LVIDd: 3.80 3.9-5.3/4.2-5.9 cm LVIDd Index: 2.30 2.4-3.2/2.2-3.1 cm/m2 LVIDs: 2.30 2.0-3.6 cm LVPWd: 1.00 0.7-1.1 cm LA Diam: 3.20 2.7-3.8/3.0-4.0 cm LAIDs Index: 1.94 1.5-2.3 cm/m2 LV Mass: 156.53 67-162/88-224 g LV Mass Index: 94.87 43-95/49-115 g/m2 LVOT Diam: 2.00 3.0+(-)1.3 cm 2D Systolic Function EF 4C: 57.00 >55% EF 2C: 61.30 >55% EF BiP: 60.20 >55% Mitral Valve MV Pk E: 0.65 MV PK A: 0.75 MV Decel Time: 230.00 E/A: 0.90 E'Lateral: 7.07 E'Medial: 5.33 E/E' Med: 12.10 E/E' Lat: 9.20 PHT: 67.00 MVA PHT: 3.28 Decel [place]: 2.82 Aortic Valve AoV Pk Hammad: 1.31 AoV Mn Hammad: 0.84 AoV VTI: 0.23 AoV Pk Grad: 7.00 Aov Mn Grad: 3.00 CHUCKIE Cont.VTI: 2.19 LVOT LVOT Pk Hammad: 0.92 LVOT Mn Hammad: 0.61 LVOT VTI: 0.16 LVOT Pk Grad: 3.00 LVOT Mn Grad: 2.00 LVOT Diam: 2.00 LVOT Area: 3.14 Diastolic Function MV Pk E: 0.65 MV Pk A: 0.75 E/A: 0.90 E'Medial: 5.33 E/E' Med: 12.10 E' Laterial: 7.07 E/E' Lat: 9.20 Right Ventricle TAPSE (mm): 24.30 TVS' Hammad: 10.60 Tricuspid Valve RA Press: 3.00 Great Vessels Aorta Sinus of Valsalva: 2.80 2.0-3.[address] [place]: 2.30 1.7-3.4 cm Ao Asc: 3.00 2.1-3.4 cm Updated in Other Vendor System with Status of Final Mike Pederson MD electronically signed on 03/16/2023 8:07:25 AM with status of Final
== END ==
LOC: HO.CARD 10:21
PROVIDERS: PCP Registered Nurse; Visit Provider Internal Medicine Pulmonary Disease
DX: R06.09 Other forms of dyspnea (principal)
CPT/HCPCS: 93306; 93356

== ENCOUNTER → 2023-03-15 10:23 | Outpatient (BNV) | payer OTHER, SELFPAY | PROVIDERS: PCP Registered Nurse; Visit Provider Internal Medicine Cardiovascular Disease | DX: I36.1 Nonrheumatic tricuspid (valve) insufficiency (principal); I34.89 Other nonrheumatic mitral valve disorders | CPT/HCPCS: 93306 ==

== ENCOUNTER 2023-04-18 08:33 | Outpatient (AMB) | payer OTHER, SELFPAY ==
--- NOTE | 2023-04-18 08:41 | A.OFFVIS_ITS ---
Intake Vital Signs 04/18/23 08:57 Height 5 ft 3 in Weight 153 lb BMI 27.1 Intake Visit Reasons: OV-Carpal tunnel syndrome, bilateral upper limbs Intake Note: Lizzie 57 yr old female presents today for her right hand CTS. She is S/P left hand CTS injection with Dr. Zeng. States injection did helped for her left however she would like to discuss right CTR. Also states all of her digits on her right hand cramp up/lock at times. Allergies No Known Allergies Allergy (Verified 04/18/23 08:56) HPI OV-Carpal tunnel syndrome, bilateral upper limbs HPI Details Lizzie is a 57 year old right hand dominant woman who presents for a NCS review of her bilateral hand numbness, R>L. She complains of numbness in the thumb, index and middle fingers of her right hand. She says with prolonged holding or gripping activities that all her fingers go numb. She says her symptoms are intermittent, but daily, and worse at night. She recently had a left carpal tunnel injection done by Dr. Zeng on 02/07/23 which improved her mild numbness, but did not improve her pain. On the left side she reports that she has pain primarily over the dorsal aspect of her wrist, that is worse when she brings in into flexion. She denies having trouble with numbness and tingling down the left hand. [facility] Medical History (Updated 04/18/23 @ 09:12 by Luigi Sepulveda) Carpal tunnel syndrome on both sides Carpal tunnel syndrome of left wrist Wrist pain Nicotine dependence, cigarettes, uncomplicated Osteopenia Fracture of distal end of left fibula (~11/2021) Lupus Osteoarthritis History of back pain Asthma Vertigo Hearing deficit Surgical History (Updated 12/01/22 @ 15:08 by Brittany Arnold PA-C) History of colonoscopy (~2019) History of tonsillectomy (~1991) History of nasal septoplasty (~1998) History of ear surgery (~1999) Family History Father Heart problem Heart attack Mother HTN (hypertension) Social History Alcohol intake: current Alcohol intake frequency: holidays/special occasions only Patient Tobacco Use Status: Former Tobacco user Quit Date: 11/06/22 Years Smoked: (onset 18yo, 1ppd x 39yrs, now 1/2ppd - 35+PYH - quit 11/06/22) Second Hand Smoke Exposure: No Current occupational status: disabled 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 Review of Systems Const All systems reviewed & are unremarkable except as noted in HPI and below Physical Exam Vital Signs: BMI result Body Mass Index 27.1 Const General: cooperative, healthy appearing and no acute distress Orientation/consciousness: patient oriented x3 HEENT Head: Yes normocephalic and Yes atraumatic Eyes EOM: EOMs intact bilaterally Resp Effort & Inspection: normal respiratory effort and able to speak in complete sentences Cardio Jugular venous distension: no JVD Skin General skin exam: turgor normal Rashes: no rashes Neuro General: patient oriented x3 Extrem Other: Evaluation of Bilateral Upper Extremity: The patient is alert, oriented, and in no acute distress Neuro: Dense numbness in the median nerve distribution of the right hand. Normal sensation to the ulnar nerve distribution. Normal sensation to the tips of all digits of the left hand No thenar or intrinsic wasting Good APB muscle belly firing and good finger cross Vascular: Cap refill brisk ROM: She can make a fist and extend all her digits No locking or catching Left dorsal wrist pain, primarily when bringing her wrist into flexion Skin: No lacerations or abrasions. General: No Ecchymosis. No Erythema or evidence of infection. Nerve Conduction study: Recent study: IMPRESSION: 1. This is an abnormal study. 2. There is electrodiagnostic evidence for right mild-moderate median neuropathy at the wrist, consistent with carpal tunnel syndrome. Findings today are more definitive than previous study 3. There are no findings for left median neuropathy at this time. 4. There is no electrodiagnostic evidence for ulnar neuropathy. CLINICAL COMMENT: Findings of right Carpal Tunnel Syndrome are more definitive. No findings for left-sided Carpal Tunnel Syndrome. She did have recent left Carpal Tunnel Syndrome injection. No findings suggestive of ulnar neuropathy. She would like to meet with Dr. Ya to discuss surgery. Thank you for your kind referral. Elizabeth Jensen MD, DANIELA 03/07/23 First study: IMPRESSION: 1. This is an abnormal study. 2. There is electrodiagnostic findings suggestive for a right ulnar neuropathy at the wrist. 3. There is electrodiagnostic evidence for left mild-moderate median neuropathy at the wrist. 4. There is no electrodiagnostic evidence for brachial plexopathy, or cervical radiculopathy. Thank you for your kind referral. Elizabeth Jensen MD, DANIELA 01/18/23 Psych Appearance: grossly normal Affect: normal affect Attitude: cooperative Assessment & Plan Assessment & Plan (1) Carpal tunnel syndrome of right wrist: Code(s): G56.01 - Carpal tunnel syndrome, right upper limb (2) Lupus: Code(s): M32.9 - Systemic lupus erythematosus, unspecified (3) Left wrist pain: Code(s): M25.532 - Pain in left wrist Plan Assessment & Plan: 1. Right Carpal tunnel syndrome, mild-moderate With dense numbness No thenar wasting This is her most symptomatic complaint. I educated her about this condition I discussed operative and non-operative treatment options The patient would like to proceed with surgery The risks and benefits of operative treatment were discussed with the patient and the patient wishes to proceed with surgery. These risks include, but are not limited to risk of damage to blood vessels, nerves, tendons, infection, recurrence, incomplete relief of preoperative symptoms, persistent pain, possible need for further surgery and the risks associated with regional blocks and anesthesia. The plan is to take the patient to the operating room sometime in the next few weeks for the following procedures: 1. Right carpal tunnel release, under local All of the preoperative paperwork including the consent was filled out today. All the patient's questions were answered. The patient understands that they will be contacted by our nursing scheduler soon to schedule this procedure She denies Diabetes, blood thinners, heart, kidney issues She has a hx of Lupus, asthma, COPD, and smoking. 2. Left Carpal tunnel syndrome, S/P injection Carpal tunnel syndrome seen on NCS on 01/18/23, but no evidence seen on second NCS done on 03/07/23 She had a Carpal tunnel injection on 02/07/[address] Zeng 3. Left dorsal wrist pain Pain and tightness when bringing her wrist into flexion Scribed for Caro Ya MD by Luigi Sepulveda, biomedical service engineer, on 04/18/23 at 9:10 AM, EST. Coding Level of Care Code Est Pt Level 4 (51220) Diagnoses Carpal tunnel syndrome of right wrist G56.01 Lupus M32.9 Left wrist pain M25.532
[2023-04-18 08:57] VITALS: BMI 27.1
== END 2023-04-18 09:31 | disposition home or self-care (01) ==
PROVIDERS: PCP Registered Nurse; Visit Provider Orthopaedic Surgery
DX: G56.01 Carpal tunnel syndrome, right upper limb (principal); M32.9 Systemic lupus erythematosus, unspecified; M25.532 Pain in left wrist
CPT/HCPCS: 99214

== ENCOUNTER → 2023-04-18 08:33 | Outpatient (BNVA) | payer OTHER, SELFPAY | PROVIDERS: PCP Registered Nurse; Visit Provider Orthopaedic Surgery | DX: G56.01 Carpal tunnel syndrome, right upper limb (principal); M25.532 Pain in left wrist; M32.9 Systemic lupus erythematosus, unspecified | CPT/HCPCS: 99212 ==

== ENCOUNTER 2023-04-18 12:38 | Outpatient (AMB) | payer OTHER, SELFPAY ==
[2023-04-18 12:56] VITALS: BP 128/70; PULSE 88; O2SAT 95; BMI 29.5
--- NOTE | 2023-04-18 12:56 | A.OFFVIS_ITS ---
Intake Vital Signs 04/18/23 12:56 Height 5 ft 3 in Weight 166 lb 7.184 oz BMI 29.5 BP 128/70 Blood Pressure Location Lt brachial Position Sitting Pulse 88 Pulse Source Doppler Pulse Oximetry (%) 95 Oxygen Delivery Method Room Air Intake Visit Reasons: COPD Allergies No Known Allergies Allergy (Verified 04/18/23 12:59) HPI COPD HPI Details 57-year-old lady, recent 40 pack-year sm oker, also rheumatoid arthritis and ?lupus on hydroxychloroquine referred for evaluation of underlying dyspnea on exertion. Patient states that she gets dyspnea, and walking on level ground, but also complains of orthopnea and worsening lower extremity edema. Currently she is using albuterol MDI/nebs with suboptimal control of her symptoms. She denies family history of lung disease. She denies exposure to industrial dusts. After the last office visit patient was tried on Anoro with no symptomatic improvement. She also completed her 2D echocardiogram that has essentially normal. She continues to complain of significant dyspnea on exertion. No acute exacerbations at this time. [facility] Medical History (Updated 04/18/23 @ 13:30 by Jesus Bullard MD) Carpal tunnel syndrome on both sides Carpal tunnel syndrome of left wrist Wrist pain Nicotine dependence, cigarettes, uncomplicated Osteopenia Fracture of distal end of left fibula (~11/2021) Lupus Osteoarthritis History of back pain Asthma Vertigo Hearing deficit Surgical History (Updated 12/01/22 @ 15:08 by Brittany Arnold PA-C) History of colonoscopy (~2019) History of tonsillectomy (~1991) History of nasal septoplasty (~1998) History of ear surgery (~1999) Family History Father Heart problem Heart attack Mother HTN (hypertension) Social History Alcohol intake: current Alcohol intake frequency: holidays/special occasions only Patient Tobacco Use Status: Former Tobacco user Quit Date: 11/06/22 Years Smoked: (onset 18yo, 1ppd x 39yrs, now 1/2ppd - 35+PYH - quit 11/06/22) Second Hand Smoke Exposure: No Current occupational status: disabled 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 Review of Systems Const Denies daytime sleepiness, Denies excessive sweating, Denies fatigue, Denies fever(s), Denies lethargy, Denies malaise, Denies night sweats, Denies snoring and Denies weight loss Eyes Denies blurry vision and Denies itchy eyes ENT Denies nasal congestion, Denies post nasal drip, Denies sinus pain, Denies sinus pressure and Denies other ( Thrush) Card Denies chest pain, Denies pedal edema, Denies dyspnea, Reports dyspnea on exertion, Denies orthopnea and Denies paroxysmal nocturnal dyspnea Resp Denies cough, Denies hemoptysis, Denies excessive phlegm production, Denies dyspnea, Reports dyspnea on exertion, Denies snoring and Denies wheezing GI Denies abdominal pain and Denies heartburn Musc Denies myalgias, Denies arthralgias and Denies joint swelling Skin/Breast Denies rash Neuro Denies memory loss and Denies seizure-like activity Psych Denies abnormal sleep pattern, Denies anxiety and Denies memory loss Endo Denies excessive sweating, Denies fatigue and Denies heat intolerance Tamir/Lymph Denies easy bruising Aller/Immun Denies itchy eyes, Denies seasonal rhinorrhea and Denies wheezing Physical Exam Vital Signs: Last Vital Signs Pulse 88 04/18/23 12:56 BP 128/70 04/18/23 12:56 Pulse Ox 95 04/18/23 12:56 Oxygen Delivery Method Room Air 04/18/23 12:56 BMI result Body Mass Index 29.5 Const General: no acute distress and alert Nutritional Appearance: not obese Orientation/consciousness: Other orientation findings ( oriented) HEENT Head: Yes atraumatic Eyes General: appearance normal, both eyes and all related structures Sclerae: sclerae normal EOM: EOMs intact bilaterally Neck Neck: Yes supple Lymphatic: no lymphadenopathy noted Resp Effort & Inspection: normal respiratory effort and no use of accessory muscles Auscultation: clear to auscultation bilaterally Cardio Rate: regular rate Rhythm: regular rhythm Heart sounds: no gallops, no murmurs and no rubs Skin General skin exam: other ( warm) Extrem General: No clubbing, No cyanosis and No edema Assessment & Plan Assessment & Plan (1) Pulmonary emphysema: Code(s): J43.9 - Emphysema, unspecified Plan: No response to empiric Anoro. Will discontinue at this time. Underlying pulmonary emphysema without fixed obstruction. (2) ASKEW (dyspnea on exertion): Code(s): R06.09 - Other forms of dyspnea Plan: Unclear etiology at this time. Pulmonary and cardiac workup so far unrevealing. Will obtain cardiopulmonary exercise test. Orders: Orders CA cardiopulmonary stress test Today R06.09 - Other forms of dyspnea Coding Level of Care Code Est Pt Level 4 (28199) Diagnoses Pulmonary emphysema J43.9 ASKEW (dyspnea on exertion) R06.09
== END 2023-04-18 13:22 | disposition home or self-care (01) ==
PROVIDERS: PCP Registered Nurse; Visit Provider Internal Medicine Pulmonary Disease
DX: J43.9 Emphysema, unspecified (principal); R06.09 Other forms of dyspnea
CPT/HCPCS: 99214

== ENCOUNTER 2023-05-25 08:15 | Outpatient (REF) | payer OTHER, SELFPAY | END 2023-05-25 08:16 | disposition home or self-care (01) | LOC: HO.LNP 08:15 | PROVIDERS: PCP Registered Nurse; Visit Provider Advanced Practice Midwife | DX: N95.0 Postmenopausal bleeding (principal); D25.9 Leiomyoma of uterus, unspecified; Z20.2 Contact with and (suspected) exposure to infections with a predominantly sexual mode of transmission | CPT/HCPCS: 0353U; 87480; 87510; 87660; 99202 ==

== ENCOUNTER 2023-05-25 08:15 | Outpatient (AMB) | payer OTHER, SELFPAY ==
--- NOTE | 2023-05-25 08:17 | MHC.OFFVIS ---
Intake Vital Signs 05/25/23 08:21 Height 5 ft 3 in Weight 165 lb BMI 29.2 BP 122/70 Intake Visit Reasons: AUB/PCP Referral Promotional Model Required: No Information Interpreted: non-clinical & clinical Station Usher: Station Usher Present (Raina RIVAS) Accompanied by: Self / Same As Patient Allergies No Known Allergies Allergy (Verified 05/25/23 08:28) Post menopausal: Yes HPI HPI Comments History of Present Illness Details Patient is here today with complaints of intermittent bleeding started in the summer. History of fibroids per records, she reports being unaware of fibroids. Up-to-date with Pap smear was normal 01/2023. She denies any lightheaded or dizziness. [facility] Medical History (Updated 04/18/23 @ 13:30 by Jesus Bullard MD) Carpal tunnel syndrome on both sides Carpal tunnel syndrome of left wrist Wrist pain Nicotine dependence, cigarettes, uncomplicated Osteopenia Fracture of distal end of left fibula (~11/2021) Lupus Osteoarthritis History of back pain Asthma Vertigo Hearing deficit Surgical History (Updated 05/25/23 @ 08:32 by Raina Gramajo CMA) Hx of shoulder surgery History of colonoscopy (~2019) History of tonsillectomy (~1991) History of nasal septoplasty (~1998) History of ear surgery (~1999) Family History (Updated 05/25/23 @ 08:33 by Raina Gramajo CMA) Father Heart problem Heart attack Mother HTN (hypertension) Maternal Aunt Breast cancer Sister Breast cancer Social History Household Members Other:: son Housing: House Alcohol intake: current Alcohol intake frequency: holidays/special occasions only Patient Tobacco Use Status: Former Tobacco user Quit Date: 11/06/22 Years Smoked: (onset 18yo, 1ppd x 39yrs, now 1/2ppd - 35+PYH - quit 11/06/22) Second Hand Smoke Exposure: No Current occupational status: disabled 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 Sexual orientation: Straight/Heterosexual Gender identity: Female Female Reproductive History Menstrual Total pregnancies: 3 Full term: 2 Number of Living Children: 2 Ab spontaneous: 1 Date of last pap smear: 02/05/23 Date of Mammogram: 09/15/22 Review of Systems Const All systems reviewed & are unremarkable except as noted in HPI and below Physical Exam Const General: cooperative, healthy appearing and no acute distress Orientation/consciousness: patient oriented x3 GI Inspection: Yes normal to inspection Palpation (GI): Soft to palpation and Other GI palpation findings present (Nontender) Rectal Exam - Female: visual inspection normal General: Yes bladder normal to palpation External Female Exam: normal appearance of the urethra Speculum Exam - Vagina: normal appearance of the vagina, normal palpation and normal vaginal discharge Speculum Exam - Cervix: normal appearance of the cervix and normal palpation Bimanual exam- vagina & uterus: normal bimanual exam, normal palpation, uterine size normal, bladder normal to palpation, normal palpation, uterine shape normal and non-tender Bimanual Exam- Adnexa, other: normal adnexae Neuro General: patient oriented x3 Results Reviewed Results Reviewed: [address] [address] Ultrasound Report Signed Patient: Lizzie Girard MR#: [id number] : 1965 Acct:[id number] Age/Sex: 57 / F ADM Date: 07/10/22 Loc: HO.US Attending Dr: Alicia YADAV Ordering Physician: Alicia Carias Date of Service: 07/10/22 Procedure(s): US pelvic and transvaginal Accession Number(s): [id number] cc: Alicia Carias~ EXAMINATION: US PELVIS CLINICAL INFORMATION: Postmenopausal bleeding. COMPARISON: Pelvic ultrasound dated 10/12/2015. TECHNIQUE: Ultrasound of the pelvis is performed using both transabdominal and transvaginal transducers along with Doppler. Transvaginal imaging is performed due to inadequate visualization transabdominally. FINDINGS: Uterus: The uterus is retroverted and retroflexed. The uterus measures 8.1 x 4.4 x 4.4 cm. A cervical calcification is noted, possibly a small fibroid. The double wall endometrial thickness is 0.4 mm. The uterus is smooth in contour and has normal myometrial echogenicity. At the fundus, a 3.8 x 2.6 x 3.0 cm heterogeneous echotexture fibroid is seen. Previously, this measured 2.1 x 5.5 x 1.8 cm. Adnexa: Both ovaries are visualized. There is normal color flow to the adnexa. There is no ovarian torsion. There is no pelvic lymphadenopathy. Right ovary measures 2.9 x 1.6 x 2.2 cm, volume 5.3 mL. The right ovary contains a 1.7 cm in maximal diameter benign anechoic, simple cyst. This is a small amount of free fluid adjacent to the right ovary. Left ovary measures 1.2 x 1.7 x 1.5 cm, volume 1.4 mL. US/US pelvic and transvaginal IMPRESSION: 1. A uterine fibroid is seen, as detailed. A further small calcified fibroid is suspected within the cervix. 2. A 1.7 cm benign, simple right ovarian cyst is seen, for which no imaging follow-up is recommended. 3. A small amount of free fluid is seen adjacent to the right ovary. Dictated By: Brayden Bhardwaj MD Signed By: <Electronically signed by Brayden Bhardwaj MD in OV> 07/11/22 1141 DD/ 1105 TD/TT: Flake Drier: EZE Assessment & Plan Assessment & Plan (1) Uterine fibroid: Code(s): D25.9 - Leiomyoma of uterus, unspecified Qualifiers: Uterine leiomyoma location: unspecified location Qualified Code(s): D25.9 - Leiomyoma of uterus, unspecified (2) PMB (postmenopausal bleeding): Code(s): N95.0 - Postmenopausal bleeding Plan Discuss: Workup for postmenopausal bleeding to include a endometrial biopsy, ultrasound follow-up for fibroids. Anticipatory guidance for the biopsy reviewed today including eating having something to drink and taking an coll-isj-chbscoy medications such as Tylenol or Motrin if no contraindications per manufacture's recommendation and to take with food 1 hour before the procedure. All of her questions and concerns were addressed to the best of my ability and shared decision making. She is agreeable to the plan of care. Patient will be scheduled for an ultrasound in the ultrasound follow-up will be done on the day of the biopsy. Orders: Orders CT NG by PCR Today N95.0 - Postmenopausal bleeding Bacterial Vaginosis Panel Today N95.0 - Postmenopausal bleeding US pelvic and transvaginal Today D25.9 - Leiomyoma of uterus, unspecified, N95.0 - Postmenopausal bleeding Coding Level of Care Code New Pt Level 4 (53359) Diagnoses Uterine leiomyoma, unspecified location D25.9 Uterine leiomyoma location: unspecified location PMB (postmenopausal bleeding) N95.0
[2023-05-25 08:21] VITALS: BP 122/70; BMI 29.2
== END 2023-05-25 09:30 | disposition home or self-care (01) ==
LOC: HO.HWS 08:15
PROVIDERS: PCP Registered Nurse; Visit Provider Advanced Practice Midwife
DX: D25.9 Leiomyoma of uterus, unspecified (principal); N95.0 Postmenopausal bleeding
CPT/HCPCS: 99204

== ENCOUNTER 2023-06-22 10:40 | Outpatient (REF) | payer OTHER, SELFPAY ==
--- NOTE | ~2023-06-22 | US_ITS ---
EXAMINATION: US PELVIS CLINICAL INFORMATION: Fibroid COMPARISON: Previous pelvic ultrasound most recent June 2022 TECHNIQUE: Ultrasound of the pelvis is performed using both transabdominal and transvaginal transducers along with Doppler. Transvaginal imaging is performed due to inadequate visualization transabdominally. FINDINGS: The uterus is retroverted and measures 6.4 x 8.9 x 4.5 cm. There is a hypoechoic lesion in the uterine fundus suggestive of a fibroid. This measures 4.2 x 3.2 x 3.8 cm and is slightly increased in size from prior exam when this measured 3.8 x 2.6 x 3 cm. Endometrial thickness is normal measuring 2 mm. The ovaries are normal. The right ovary measures 1.8 x 1.0 x 1.4 cm. The left ovary measures 3 x 2 x 1.7 cm. There is no fluid in the pelvis. US/US pelvic and transvaginal IMPRESSION: Slight interval increase in size in uterine fibroid compared to June 2022
== END 2023-06-22 10:41 | disposition home or self-care (01) ==
LOC: HO.US 10:40
PROVIDERS: PCP Registered Nurse; Visit Provider Advanced Practice Midwife
DX: N95.0 Postmenopausal bleeding (principal); D25.9 Leiomyoma of uterus, unspecified
CPT/HCPCS: 76830; 76856

== ENCOUNTER 2023-06-25 11:57 | Outpatient (REF) | payer OTHER, SELFPAY ==
--- NOTE | ~2023-06-25 | XR_ITS ---
EXAMINATION: XR FOOT, RIGHT CLINICAL INFORMATION: Acute pain in the second and third toes. COMPARISON: 07/12/2015 TECHNIQUE: AP, lateral, and oblique views of the right foot. FINDINGS: The bones and soft tissues are normal. No fracture. Alignment is anatomic. Joint spaces are maintained. XR/XR foot RT min 3V IMPRESSION: Normal right foot. No interval
[2023-06-25 13:13] LABS: MANUAL DIFF FLAG NO
[2023-06-25 13:32] LABS: Basophils Percent Auto 0.4 % (0-2); Eosinophils Absolute Auto 0.3 X10*3/uL (0.0-0.4); Eosinophils Percent Auto 5.1 % (0-4); Hematocrit 41.5 % (37.0-47.0); Hemoglobin 13.1 g/dl (12.0-16.0); Imm Gran Abs Auto 0.03 X10*3/uL (0.00-0.03); Imm Gran Pct Auto 0.4 % (0.0-0.4); Lymphocytes Absolute Auto 2.4 X10*3/uL (1.2-4.9); Lymphocytes Percent Auto 35.7 % (20-40); Mean Corpuscular HGB Conc 31.6 g/dl (31.0-35.0); Mean Corpuscular Hemoglobin 26.3 pg (27.0-33.0); Mean Corpuscular Volume 83.3 fL (80.0-98.0); Mean Platelet Volume 10.2 fL (9.4-12.3); Monocytes Absolute Auto 0.6 X10*3/uL (0.1-1.2); Monocytes Percent Auto 8.7 % (2-11); Neutrophils Absolute Auto 3.3 x10*3/uL (2.0-8.3); Neutrophils Percent Auto 49.7 % (45-73); Platelet Count 241 X10*3/uL (160-400); Red Blood Count 4.98 X10*6/uL (4.20-5.50); Red Cell Distribution Width 13.8 % (11.0-16.0); White Blood Count 6.7 X10*3/uL (4.8-10.8)
[2023-06-25 14:04] LABS: Alanine Aminotransferase 21 U/L (0-31); Albumin Level 4.2 g/dL (3.5-5.0); Alkaline Phosphatase 81 U/L (39-117); Anion Gap 13 (12-20); Aspartate Amino Transferase 24 U/L (5-31); Bilirubin Total 0.3 mg/dL (0.0-1.0); Blood Urea Nitrogen 15 mg/dL (9-16); Calcium 9.6 mg/dL (8.4-10.2); Carbon Dioxide 25 mmol/L (22-29); Chloride 108 mmol/L (96-108); Cholesterol 177 mg/dL (<200); Estimated Glomerular Filt Rate > 60; Glucose Random 109 mg/dL (60-115); HDL Cholesterol 52 mg/dL (>40); LDL Cholesterol Calculated 80 mg/dL (<100); Potassium 4.4 mmol/L (3.3-5.1); Sodium 142 mmol/L (135-145); Total Protein 7.3 g/dL (6.5-8.0); Triglycerides 225 mg/dL (<150)
== END 2023-06-25 11:58 | disposition home or self-care (01) ==
LOC: HO.HHCL 11:57
PROVIDERS: Visit Provider Registered Nurse
DX: Z00.00 Encounter for general adult medical examination without abnormal findings (principal); Z20.2 Contact with and (suspected) exposure to infections with a predominantly sexual mode of transmission
CPT/HCPCS: 36415; 73630; 80053; 80061; 85025

== ENCOUNTER 2023-07-03 10:31 | Outpatient (AMB) | payer OTHER, SELFPAY ==
--- NOTE | 2023-07-03 10:31 | MHC.OFFVIS ---
Intake Intake Visit Reasons: copd Allergies No Known Allergies Allergy (Verified 07/03/23 10:32) HPI copd HPI Details 58-year-old lady, recent 40 pack-year smoker, also rheumatoid arthritis and ?lupus on hydroxychloroquine referred for evaluation of underlying dyspnea on exertion. Patient states that she gets dyspnea, and walking on level ground, but also complains of orthopnea and worsening lower extremity edema. Currently she is using albuterol MDI/nebs and Anoro with suboptimal control of her symptoms. She denies family history of lung disease. She denies exposure to industrial dusts. After the last office visit patient has completed cardiopulmonary exercise test that showed no pulmonary limitation to her exercise capacity, but possible cardiovascular component to her symptoms. [facility] Medical History Carpal tunnel syndrome on both sides Carpal tunnel syndrome of left wrist Wrist pain Nicotine dependence, cigarettes, uncomplicated Osteopenia Fracture of distal end of left fibula (~11/2021) Lupus Osteoarthritis History of back pain Asthma Vertigo Hearing deficit Surgical History (Updated 05/25/23 @ 08:32 by Raina Gramajo CMA) Hx of shoulder surgery History of colonoscopy (~2019) History of tonsillectomy (~1991) History of nasal septoplasty (~1998) History of ear surgery (~1999) Family History (Updated 05/25/23 @ 08:33 by Raina Gramajo CMA) Father Heart problem Heart attack Mother HTN (hypertension) Maternal Aunt Breast cancer Sister Breast cancer Social History (Updated 05/25/23 @ 08:34 by Raina Gramajo CMA) Household Members Other:: son Housing: House Alcohol intake: current Alcohol intake frequency: holidays/special occasions only Patient Tobacco Use Status: Former Tobacco user Quit Date: 11/06/22 Years Smoked: (onset 18yo, 1ppd x 39yrs, now 1/2ppd - 35+PYH - quit 11/06/22) Second Hand Smoke Exposure: No Current occupational status: disabled 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 Sexual orientation: Straight/Heterosexual Gender identity: Female Review of Systems Const Denies daytime sleepiness, Denies excessive sweating, Denies fatigue, Denies fever(s), Denies lethargy, Denies malaise, Denies night sweats, Denies snoring and Denies weight loss Eyes Denies blurry vision and Denies itchy eyes ENT Denies nasal congestion, Denies post nasal drip, Denies sinus pain, Denies sinus pressure and Denies other ( Thrush) Card Denies chest pain, Reports pedal edema, Denies dyspnea, Reports dyspnea on exertion, Denies orthopnea and Denies paroxysmal nocturnal dyspnea Resp Denies cough, Denies hemoptysis, Denies excessive phlegm production, Denies dyspnea, Reports dyspnea on exertion, Denies snoring and Denies wheezing GI Denies abdominal pain and Denies heartburn Musc Denies myalgias, Denies arthralgias and Denies joint swelling Skin/Breast Denies rash Neuro Denies memory loss and Denies seizure-like activity Psych Denies abnormal sleep pattern, Denies anxiety and Denies memory loss Endo Denies excessive sweating, Denies fatigue and Denies heat intolerance Tamir/Lymph Denies easy bruising Aller/Immun Denies itchy eyes, Denies seasonal rhinorrhea and Denies wheezing Assessment & Plan Assessment & Plan (1) ASKEW (dyspnea on exertion): Code(s): R06.09 - Other forms of dyspnea Plan: Suffered is essentially negative pulmonary workup. Cardiopulmonary exercise test results reviewed and show no pulmonary limitation, but possible cardiovascular component. Will obtain Cardiology consultation to evaluate cardiac component to her dyspnea. Orders: Referrals Cardiology Referral R06.09 - Other forms of dyspnea Telehealth Telehealth Location of patient: address on file Patient Identification confirmed using: Name, : Yes Telehealth method: voice only Patient verbally consented to treatment: Yes Patient verbally consented to billing insurance company: Yes Patient informed of any privacy concerns related to visit: Yes Coding Level of Care Code Tele Est Pt Level 3 (89876) Diagnoses ASKEW (dyspnea on exertion) R06.09 Time Spent (min) 15
== END 2023-07-03 11:22 | disposition home or self-care (01) ==
LOC: HO.HPS 10:31
PROVIDERS: PCP Registered Nurse; Visit Provider Internal Medicine Pulmonary Disease
DX: R06.09 Other forms of dyspnea (principal)
CPT/HCPCS: 99442

== ENCOUNTER → 2023-07-03 10:31 | Outpatient (BNVA) | payer OTHER, SELFPAY | PROVIDERS: PCP Registered Nurse; Visit Provider Internal Medicine Pulmonary Disease ==

== ENCOUNTER 2023-07-06 08:35 | Outpatient (AMB) | payer OTHER, SELFPAY ==
--- NOTE | 2023-07-06 08:58 | A.OFFVIS_ITS ---
Intake Vital Signs 07/06/23 08:59 Height 5 ft 3 in Weight 163 lb 2.273 oz BMI 28.9 BP 120/74 Intake Visit Reasons: US follow up/EMB Concrete Pouring Supervisor Required: No Information Interpreted: non-clinical & clinical Center Lead Consultant: Center Lead Consultant Present (Raina RIVAS) Accompanied by: Self / Same As Patient Allergies No Known Allergies Allergy (Verified 07/06/23 09:15) Post menopausal: Yes HPI HPI Comments History of Present Illness Details Patient is here today for ultrasound follow-up in endometrial biopsy due to postmenopausal bleeding. She reports some brown discharge today, no itching irritation or odor. History of uterine fibroid. [facility] Medical History Carpal tunnel syndrome on both sides Carpal tunnel syndrome of left wrist Wrist pain Nicotine dependence, cigarettes, uncomplicated Osteopenia Fracture of distal end of left fibula (~11/2021) Lupus Osteoarthritis History of back pain Asthma Vertigo Hearing deficit Surgical History (Updated 05/25/23 @ 08:32 by Raina Gramajo CMA) Hx of shoulder surgery History of colonoscopy (~2019) History of tonsillectomy (~1991) History of nasal septoplasty (~1998) History of ear surgery (~1999) Family History (Updated 05/25/23 @ 08:33 by Raina Gramajo CMA) Father Heart problem Heart attack Mother HTN (hypertension) Maternal Aunt Breast cancer Sister Breast cancer Social History (Updated 05/25/23 @ 08:34 by Raina Gramajo CMA) Household Members Other:: son Housing: House Alcohol intake: current Alcohol intake frequency: holidays/special occasions only Patient Tobacco Use Status: Former Tobacco user Quit Date: 11/06/22 Years Smoked: (onset 18yo, 1ppd x 39yrs, now 1/2ppd - 35+PYH - quit 11/06/22) Second Hand Smoke Exposure: No Current occupational status: disabled 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 Sexual orientation: Straight/Heterosexual Gender identity: Female Review of Systems Const All systems reviewed & are unremarkable except as noted in HPI and below Physical Exam Vital Signs: Last Vital Signs BP 120/74 07/06/23 08:59 BMI result Body Mass Index 28.9 Const General: cooperative, healthy appearing and no acute distress Orientation/consciousness: patient oriented x3 GI Inspection: Yes normal to inspection Palpation (GI): Soft to palpation and Other GI palpation findings present (Nontender) Rectal Exam - Female: visual inspection normal General: Yes bladder normal to palpation External Female Exam: normal appearance of the urethra Speculum Exam - Vagina: normal appearance of the vagina, normal palpation, normal vaginal discharge and vaginal bleeding Speculum Exam - Cervix: normal appearance of the cervix and normal palpation Bimanual exam- vagina & uterus: normal bimanual exam, normal palpation, uterine size normal, bladder normal to palpation, normal palpation, uterine shape normal (Retroverted) and non-tender Bimanual Exam- Adnexa, other: normal adnexae OB/external & speculum: vaginal bleeding Neuro General: patient oriented x3 Office Procedures Endometrial Biopsy Details: The patient is here today for an endometrial biopsy due to PMB to rule out any pathology including atypical, hyperplasia or cancer cells of the uterus. She was counseled regarding anticipatory guidance for the procedure including the risks for pain, infection, bleeding, perforation, potential injury to the tissues may include the cervix, uterus, tubes, bladder and bowels. These injuries may include further treatment and evaluation including surgery, blood transfusions, antibiotics, hospitalizations and anesthesia. Permanent injury and scarring can occur. She was consented for the procedure, and the consent forms were signed. She is agreeable to have the procedure today. All questions were answered. Endometrial Biopsy Procedure: The patient was placed in the dorsal lithotomy position and a sterile speculum inserted. Using aseptic technique for the procedure. The cervix was cleansed with Betadine x 3 swabs. A single toothed tenaculum was placed on the cervix for stabilization and the uterus was found to be stenotic, a graduated dilator was gently inserted, and the sounded to 6 cm with a 4mm pipelle for 1 pass only patient asked to stop the procedure due to the discomfort and did not want any further sampling completed without anesthesia. Minimal bleeding was observed. The tissue sample was placed in formalin in a patient labeled container by staff assisting and sent to the pathology department for processing and interpretation. The patient tolerate the procedure well and was in good condition when leaving the department. Endometrial Biopsy Post Procedure Care: Nothing in the vagina including: tampons, douching or intimacy until all the bleeding has subsided. There may be some post procedure bleeding for several days, this bleeding is usually light and may turn to a light brown or pink color. Mild cramps may occurs. Nothing in the vaginal including: tampons, douching, or intimacy until all the bleeding has subsided. You may take an over the counter mild analgesic such as Tylenol or Advil (if no allergies) per the manufactures recommendation on dosing, frequency, and follow the directions completely. Call the office if any: fever (over 100.4), flu like symptoms, abdominal pain (worse than cramping), foul smelling, infected appearing vaginal discharge, or heavy bleeding. If indicated: Use condoms to prevent and STI's, and only after the bleeding has stopped completely. Return to the office in 2 weeks for results and plan of care. Appointment to see Dr. Pearson will be made for consult for hysteroscopy/EMB. This note is constructed using voice recognition software. While every effort has been made to ensure accuracy, high speed operator errors may have been included. [id number] Biopsy Results Reviewed Results Reviewed: [address] [address] Ultrasound Report Signed Patient: Lizzie Girard MR#: [id number] : 1965 Acct:[id number] Age/Sex: 57 / F ADM Date: 06/22/23 Loc: .[place] Attending Dr: Eliana Mackay CNM Ordering Physician: Eliana Mackay CNM Date of Service: 06/22/23 Procedure(s): US pelvic and transvaginal Accession Number(s): [id number] cc: Eliana Mackay CNM; [facility]~ EXAMINATION: US PELVIS CLINICAL INFORMATION: Fibroid COMPARISON: Previous pelvic ultrasound most recent June 2022 TECHNIQUE: Ultrasound of the pelvis is performed using both transabdominal and transvaginal transducers along with Doppler. Transvaginal imaging is performed due to inadequate visualization transabdominally. FINDINGS: The uterus is retroverted and measures 6.4 x 8.9 x 4.5 cm. There is a hypoechoic lesion in the uterine fundus suggestive of a fibroid. This measures 4.2 x 3.2 x 3.8 cm and is slightly increased in size from prior exam when this measured 3.8 x 2.6 x 3 cm. Endometrial thickness is normal measuring 2 mm. The ovaries are normal. The right ovary measures 1.8 x 1.0 x 1.4 cm. The left ovary measures 3 x 2 x 1.7 cm. There is no fluid in the pelvis. US/US pelvic and transvaginal IMPRESSION: Slight interval increase in size in uterine fibroid compared to June 2022 Dictated By: Katelyn Baxter MD Signed By: <Electronically signed by Katelyn Baxter MD in OV> 06/22/23 1440 DD/ 1115 TD/TT: Frame Stripper And Crusher: SEBASTIEN Assessment & Plan Assessment & Plan (1) Encounter to discuss test results: Code(s): Z71.2 - Person consulting for explanation of examination or test findings (2) PMB (postmenopausal bleeding): Code(s): N95.0 - Postmenopausal bleeding (3) Uterine fibroid: Code(s): D25.9 - Leiomyoma of uterus, unspecified Qualifiers: Uterine leiomyoma location: unspecified location Qualified Code(s): D25.9 - Leiomyoma of uterus, unspecified Plan: Counseled re: Leiomyoma: common pelvic neoplasm. Differential diagnosis-may include leiomyosarcoma which is a rare uterine sarcoma 3-7/100,000, difficult to distinguish from fibroids on ultrasound from uterine sarcoma's. Unlikely any single test will have a highly positive predictive value. Hysterectomy is not recommended for sole purpose of excluding malignant neoplasm. Report any PMB/AUB. Pelvic pressure, bloating, or pain. Consult for surgical exploration verses expectant management. Expectant management follow up, plan to discuss with MD for further plan. Referral to MD for level of care, appointment made. Plan See procedure note. Coding Level of Care Code Procedure Only Diagnoses Encounter to discuss test results Z71.2 PMB (postmenopausal bleeding) N95.0 Uterine leiomyoma, unspecified location D25.9 Uterine leiomyoma location: unspecified location CPT Codes Endometrial Biopsy - CPT: 30452-Ktlgrtfjjgr Biopsy ([id number]) Comment Add modifier for ultrasound results diagnosis fibroid
[2023-07-06 08:59] VITALS: BP 120/74; BMI 28.9
== END 2023-07-06 09:42 | disposition home or self-care (01) ==
LOC: HO.HWS 08:35
PROVIDERS: PCP Registered Nurse; Visit Provider Advanced Practice Midwife
DX: N95.0 Postmenopausal bleeding (principal); D25.9 Leiomyoma of uterus, unspecified
CPT/HCPCS: 58100

== ENCOUNTER 2023-07-06 08:35 | Outpatient (REF) | payer OTHER, SELFPAY | END 2023-07-06 08:36 | disposition home or self-care (01) | LOC: HO.LNP 08:35 | PROVIDERS: PCP Registered Nurse; Visit Provider Advanced Practice Midwife | DX: N95.0 Postmenopausal bleeding (principal); D25.9 Leiomyoma of uterus, unspecified; Z71.2 Person consulting for explanation of examination or test findings | CPT/HCPCS: 58100; 88305 ==

== ENCOUNTER 2023-07-16 08:51 | Day surgery (SDC) | payer OTHER, SELFPAY ==
[2023-07-16 09:14] VITALS: BP 118/66; PULSE 96; RESP 16; TEMP 36.4; O2SAT 97; BMI 27.3
--- NOTE | 2023-07-16 09:55 | MHC.SHP ---
Pre-Procedural Eval Section A - 24 Hr Update-Section A only Date of Service: 07/16/23 The patient is an INPATIENT: No Changes since office visit: No Cold of Flu in the past 2 weeks, No New Medical Problems, No Changes in Medication and No Patient answered all questions The patient has been examined within 24 hours of the surgical procedure. The History & Physical has been completed within 30 days and I have reviewed it.: Yes Section B - Complete if H&P > 30 days Chief Complaint: Carpal tunnel syndrome, right upper limb Allergies: Allergies Allergy/AdvReac Type Severity Reaction Status Date / Time No Known Allergies Allergy Verified 07/06/23 09:15 Plan I have reviewed the history and physical and performed a pertinent physical examination on my patient. No changes have occurred unless specified. Time Spent With Patient Time: Total time managing care of this patient today ____ minutes.
--- NOTE | 2023-07-16 09:56 | W.PM.OPN ---
Operative Note Operative Note Date of Service: 07/16/23 Narrative: Preop diagnosis: 1. Right Carpal tunnel syndrome Postop diagnosis: same Procedure: 1. Right Carpal tunnel release Surgeon: Caro Ya MD Anesthesia: local block using 1% lidocaine with epinephrine Findings: Thickened transverse carpal ligament. EBL: Less than 5 mL Specimens: None Complications: None Disposition: Brought to recovery room in stable condition Plan: Follow-up for 10-14 days for wound check and suture removal Indications: The patient is 58 years old, with right carpal tunnel syndrome that has been unresponsive to nonoperative management. The risks and benefits of operative treatment including but not limited to risk of damage to blood vessels, nerves, tendons, infection, persistent pain, persistent symptoms, or possible need for additional surgery were discussed with the patient and the patient wishes to proceed with surgery. Procedure: Once consent was obtained a local block was performed using a combination of 1% lidocaine with epinephrine. The patient was then brought back to the operating suite and placed on the operative table in supine position. The right upper extremity was prepped and draped in a standard surgical fashion. Once assured that we had a good block, a 2.0 cm longitudinal incision was made centered over the carpal tunnel. The incision was made through the skin to the subcutaneous tissues using a #15 blade. Dissection was made down to the level of the transverse carpal ligament with care being taken to protect the palmar cutaneous nerve. Once the transverse carpal ligament was clearly visualized, a longitudinal incision was made in the transverse carpal ligament 1st using a #15 blade, then using tenotomy scissors under direct visualization. Care was taken to look for and protect the motor branch of the median nerve when seen in this area. Once satisfied with our carpal tunnel release the wound was copiously irrigated with normal saline and hemostasis was obtained with a brief period of local pressure. The skin edges were reapproximated with some 5.0 nylon suture material and a sterile dressing was applied. The patient appears to have tolerated the procedure well and with no complications. All digits were well vascularized at the conclusion of the case.
--- NOTE | 2023-07-16 10:21 | PC.NURSE ---
Call placed to pharmacy regarding premixed medication, informed that Dr Ya would need to mix herself. Dr Ya administered medication after timeout on 07/16/23 at 0941.
[2023-07-16 12:15] VITALS: BP 126/77; PULSE 80; RESP 16; TEMP 36.6; O2SAT 96
== END 2023-07-16 12:27 | disposition home or self-care (01) ==
PROVIDERS: PCP Registered Nurse; Visit Provider Orthopaedic Surgery
PROC: (CPT 64721; principal; 2023-07-16 13:30)
DX: G56.01 Carpal tunnel syndrome, right upper limb (principal); R20.0 Anesthesia of skin; M24.841 Other specific joint derangements of right hand, not elsewhere classified; R25.2 Cramp and spasm; M32.9 Systemic lupus erythematosus, unspecified; J44.9 Chronic obstructive pulmonary disease, unspecified; R42 Dizziness and giddiness; Z87.891 Personal history of nicotine dependence
CPT/HCPCS: 64721

== ENCOUNTER → 2023-07-16 08:51 | Outpatient (BNV) | payer OTHER, SELFPAY | PROVIDERS: PCP Registered Nurse; Visit Provider Orthopaedic Surgery | DX: G56.01 Carpal tunnel syndrome, right upper limb (principal) | CPT/HCPCS: 64721 ==

== ENCOUNTER 2023-07-20 10:56 | Outpatient (AMB) | payer OTHER, SELFPAY ==
[2023-07-20 11:03] VITALS: BP 122/80; BMI 27.3
--- NOTE | 2023-07-20 11:03 | MHC.OFFVIS ---
Intake Vital Signs 07/20/23 11:03 Height 5 ft 3 in Weight 154 lb 5.177 oz BMI 27.3 BP 122/80 Intake Visit Reasons: EMB results/30 mins All Around Gear Machine Operator: All Around Gear Machine Operator Present Allergies No Known Allergies Allergy (Verified 07/06/23 09:15) Is last menstrual period known: Yes HPI HPI Comments History of Present Illness Details Patient is here today for a follow-up endometrial biopsy due to postmenopausal bleeding. She reports she still has ongoing pelvic pain and some bleeding. History of fibroid. The procedure was very difficult for her the sample was very sparse. She has a follow-up with Dr. Pearson for consult for hysteroscopy on 08/08. [facility] Medical History Carpal tunnel syndrome on both sides Carpal tunnel syndrome of left wrist Wrist pain Nicotine dependence, cigarettes, uncomplicated Osteopenia Fracture of distal end of left fibula (~11/2021) Lupus Osteoarthritis History of back pain Asthma Vertigo Hearing deficit Surgical History (Updated 05/25/23 @ 08:32 by Raina Gramajo CMA) Hx of shoulder surgery History of colonoscopy (~2019) History of tonsillectomy (~1991) History of nasal septoplasty (~1998) History of ear surgery (~1999) Family History (Updated 05/25/23 @ 08:33 by Raina Gramajo CMA) Father Heart problem Heart attack Mother HTN (hypertension) Maternal Aunt Breast cancer Sister Breast cancer Social History (Updated 05/25/23 @ 08:34 by Raina Gramajo CMA) Household Members Other:: son Housing: House Alcohol intake: current Alcohol intake frequency: holidays/special occasions only Patient Tobacco Use Status: Former Tobacco user Quit Date: 11/06/22 Years Smoked: (onset 18yo, 1ppd x 39yrs, now 1/2ppd - 35+PYH - quit 11/06/22) Second Hand Smoke Exposure: No Current occupational status: disabled 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 Sexual orientation: Straight/Heterosexual Gender identity: Female Review of Systems Const All systems reviewed & are unremarkable except as noted in HPI and below Endo Reports no additional complaints Physical Exam Vital Signs: Last Vital Signs BP 122/80 07/20/23 11:03 BMI result Body Mass Index 27.3 Const General: cooperative, healthy appearing and no acute distress Psych Appearance: well kempt Attitude: cooperative Thought process: Normal thought process present Results Reviewed Results Reviewed: Name: Lizzie Girard Age/Sex: 58/F Attending: Eliana Mackay CNM : 1965 Submitted by: Eliana Mackay CNM Copies to: [place] MR #: [id number] Status: DEP REF Collected: 07/06/23 Location: [facility] Received: 07/06/23 Diagnosis Endometrium, biopsy: Superficial fragments benign endometrium with extensive breakdown and surface metaplastic changes, and few fragments of benign endocervical glandular epithelium (see comment). Comment: No atypia or carcinoma is seen, but this superficial tissue may not be mechanical service representative; clinical correlation necessary. Clinical History PMB Microscopic Description Microscopic sections reviewed. Material Received EMB Gross Description Received in formalin is a 0.7 cc aggregate of brown-red shaggy soft tissue and admixed firm mucus, totally submitted in cassette A1. (DTL) Copies To Eliana Mackay CNM [address] [place] [address] Dr. Sharma [address] [place] [id number] [facility] [address] [place] [address] NOTE: Unless otherwise stated, all tissue is formalin-fixed and paraffin-embedded. Some or all of the immunohistochemical tests reported herein may have been developed and their performance characteristics determined by [facility]. They have not been cleared or approved by the U.S. Food and Drug Administration (FDA). However, the FDA has determined that such clearance or approval is not necessary. This laboratory is certified under the Clinical Laboratory Improvement Amendments of 1988 (CLIA) as qualified to perform high complexity clinical laboratory testing. Electronically Signed By: Marga Cardenas 07/10/23 0808 Patient: Lizzie Girard Age/Sex: 58/F MR#: [id number] Page 1 of 1 Assessment & Plan Assessment & Plan (1) PMB (postmenopausal bleeding): Code(s): N95.0 - Postmenopausal bleeding (2) Pelvic pain: Code(s): R10.2 - Pelvic and perineal pain (3) Fibroid: Code(s): D21.9 - Benign neoplasm of connective and other soft tissue, unspecified (4) Encounter to discuss test results: Code(s): Z71.2 - Person consulting for explanation of examination or test findings Plan Discussed: EMB results were negative for carcinoma or atypia, limited tissue sample. Has a follow up with Dr. Pearson for consult for hysteroscopy in 3 weeks. All of her questions and concerns were addressed to the best of my ability and shared decision making. She is agreeable to the plan of care. This note is constructed using voice recognition software. While every effort has been made to ensure accuracy, leasing property manager errors may have been included. Coding Level of Care Code Est Pt Level 3 (46983) Diagnoses PMB (postmenopausal bleeding) N95.0 Pelvic pain R10.2 Fibroid D21.9 Encounter to discuss test results Z71.2
== END 2023-07-20 13:01 | disposition home or self-care (01) ==
LOC: HO.HWS 10:57
PROVIDERS: PCP Registered Nurse; Visit Provider Advanced Practice Midwife
DX: N95.0 Postmenopausal bleeding (principal); R10.2 Pelvic and perineal pain; D21.9 Benign neoplasm of connective and other soft tissue, unspecified; Z71.2 Person consulting for explanation of examination or test findings
CPT/HCPCS: 99213

== ENCOUNTER → 2023-07-20 10:56 | Outpatient (BNVA) | payer OTHER, SELFPAY | PROVIDERS: PCP Registered Nurse; Visit Provider Advanced Practice Midwife | DX: Z71.2 Person consulting for explanation of examination or test findings (principal); N95.0 Postmenopausal bleeding; R10.2 Pelvic and perineal pain; D21.9 Benign neoplasm of connective and other soft tissue, unspecified | CPT/HCPCS: 99212 ==

== ENCOUNTER 2023-07-31 11:06 | Outpatient (AMB) | payer OTHER, SELFPAY ==
[2023-07-31 11:35] VITALS: BMI 27.3
--- NOTE | 2023-07-31 11:35 | A.OFFVIS_ITS ---
Intake Vital Signs 07/31/23 11:35 Height 5 ft 3 in Weight 154 lb BMI 27.3 Intake Visit Reasons: PO-Rt CTR 07/16 Intake Note: Lizzie 58 yr old female presents today for her PO visit for her Right hand CTR 07/[address] Ya. States numbness and tingling has not changed. Sutures removed and steri strips applied . Allergies No Known Allergies Allergy (Verified 07/31/23 11:47) HPI PO-Rt CTR 07/16 HPI Details Lizzie is a 58 year old right hand dominant woman who returns S/P right carpal tunnel release, DOS: 07/16/23 She says she is doing well but she continues to have numbness and her sensation has not improved yet. She had a left carpal tunnel injection done by Dr. Zeng on 02/07/23, which improved her mild numbness. She reports she has more mild numbness that is persistent, but symptoms are worse at night with activities. On the left side she has a history of left dorsal wrist pain that was worse with flexion. She did not mention this today. [facility] Medical History Carpal tunnel syndrome on both sides Carpal tunnel syndrome of left wrist Wrist pain Nicotine dependence, cigarettes, uncomplicated Osteopenia Fracture of distal end of left fibula (~11/2021) Lupus Osteoarthritis History of back pain Asthma Vertigo Hearing deficit Surgical History Hx of shoulder surgery History of colonoscopy (~2019) History of tonsillectomy (~1991) History of nasal septoplasty (~1998) History of ear surgery (~1999) Family History (Updated 05/25/23 @ 08:33 by Raina Gramajo CMA) Father Heart problem Heart attack Mother HTN (hypertension) Maternal Aunt Breast cancer Sister Breast cancer Social History Household Members Other:: son Housing: House Alcohol intake: current Alcohol intake frequency: holidays/special occasions only Patient Tobacco Use Status: Former Tobacco user Quit Date: 11/06/22 Years Smoked: (onset 18yo, 1ppd x 39yrs, now 1/2ppd - 35+PYH - quit 11/06/22) Second Hand Smoke Exposure: No Current occupational status: disabled 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 Sutures removed and Steri-Strips applied She can make a fist and extend all her digits Still with dense numbness in the right median nerve distribution Good APB muscle belly firing No thenar wasting Decreased and not normal sensation in the left median nerve distribution Normal sensation in the ulnar nerve distribution bilaterally Cap refill is brisk Nerve Conduction study: Recent study: IMPRESSION: 1. This is an abnormal study. 2. There is electrodiagnostic evidence for right mild-moderate median neuropathy at the wrist, consistent with carpal tunnel syndrome. Findings today are more definitive than previous study 3. There are no findings for left median neuropathy at this time. 4. There is no electrodiagnostic evidence for ulnar neuropathy. CLINICAL COMMENT: Findings of right Carpal Tunnel Syndrome are more definitive. No findings for left-sided Carpal Tunnel Syndrome. She did have recent left Carpal Tunnel Syndrome injection. No findings suggestive of ulnar neuropathy. She would like to meet with Dr. Ya to discuss surgery. Thank you for your kind referral. Elizabeth Jensen MD, DANIELA 03/07/23 First study: IMPRESSION: 1. This is an abnormal study. 2. There is electrodiagnostic findings suggestive for a right ulnar neuropathy at the wrist. 3. There is electrodiagnostic evidence for left mild-moderate median neuropathy at the wrist. 4. There is no electrodiagnostic evidence for brachial plexopathy, or cervical radiculopathy. Thank you for your kind referral. Elizabeth Jensen MD, DANIELA 01/18/23 Psych Appearance: grossly normal Affect: normal affect Attitude: cooperative Assessment & Plan Assessment & Plan (1) Carpal tunnel syndrome of right wrist: Code(s): G56.01 - Carpal tunnel syndrome, right upper limb (2) Lupus: Code(s): M32.9 - Systemic lupus erythematosus, unspecified (3) Left wrist pain: Code(s): M25.532 - Pain in left wrist (4) Carpal tunnel syndrome of left wrist: Code(s): G56.02 - Carpal tunnel syndrome, left upper limb Plan Assessment & Plan: 1. Right Carpal tunnel syndrome, S/P release DOS: 07/16/23 Pre-operatively with dense numbness Still with dense numbness The patient appears to be doing well post-operatively I educated her about the post-operative course, and explained it may take up to 9 months for her sensation to improve I explained the signs and symptoms of infection, if the patient develops any new or worsening erythema, drainage, pain, or warmth they should contact the clinic or attend the ED. I discussed activity modifications, she is to lift nothing heavier than a cellphone for the next two weeks She will perform gentle ROM exercises at home She should avoid any underwater activities for the next 5 days She should gently massage about the incision site to reduce the risk of hypersensitivity 2. Left Carpal tunnel syndrome, S/P injection Not quite normal sensation She had a Carpal tunnel injection on 02/07/[address] Zeng I educated her about this condition I discussed operative and non-operative treatment options The patient would like to proceed with surgery The risks and benefits of operative treatment were discussed with the patient and the patient wishes to proceed with surgery. These risks include, but are not limited to risk of damage to blood vessels, nerves, tendons, infection, recurrence, incomplete relief of preoperative symptoms, persistent pain, possible need for further surgery and the risks associated with regional blocks and anesthesia. The plan is to take the patient to the operating room sometime in the next few weeks for the following procedures: 1. Left carpal tunnel release, under local All of the preoperative paperwork including the consent was reviewed today. All the patient's questions were answered. The patient understands that they will be contacted by our plastic surgery manager soon to schedule this procedure She denies Diabetes, blood thinners, heart, kidney issues She has a hx of Lupus, asthma, COPD, and smoking. 3. Left dorsal wrist pain No mention today Scribed for Caro Ya MD by Luigi Sepulveda, director medical, on 07/31/23 at 11:55 AM, EST. Coding Level of Care Code Est Pt Level 4 (08595) Diagnoses Carpal tunnel syndrome of right wrist G56.01 Lupus M32.9 Left wrist pain M25.532 Carpal tunnel syndrome of left wrist G56.02
== END 2023-07-31 12:01 | disposition home or self-care (01) ==
PROVIDERS: PCP Registered Nurse; Visit Provider Orthopaedic Surgery
DX: G56.03 Carpal tunnel syndrome, bilateral upper limbs (principal); M32.9 Systemic lupus erythematosus, unspecified
CPT/HCPCS: 99024

== ENCOUNTER → 2023-07-31 11:06 | Outpatient (BNVA) | payer OTHER, SELFPAY | PROVIDERS: PCP Registered Nurse; Visit Provider Orthopaedic Surgery | DX: Z47.89 Encounter for other orthopedic aftercare (principal); G56.02 Carpal tunnel syndrome, left upper limb; M25.532 Pain in left wrist; M32.9 Systemic lupus erythematosus, unspecified; Z98.890 Other specified postprocedural states | CPT/HCPCS: 99212 ==

== ENCOUNTER 2023-08-09 09:57 | Outpatient (AMB) | payer OTHER, SELFPAY ==
--- NOTE | 2023-08-09 10:14 | MHC.OFFVIS ---
Intake Vital Signs 08/09/23 10:17 Height 5 ft 3 in Weight 152 lb 1.903 oz BMI 26.9 BP 118/74 Intake Visit Reasons: Pre op for hysterescopy Rfid Strategist: Rfid Strategist Present Allergies No Known Allergies Allergy (Verified 07/31/23 11:47) Is last menstrual period known: Yes Last menstrual period: 03/18/20 Post menopausal: No Patient : No Do you need a note to return to daycare/school/sports/work: Yes (for surgery on sunday) HPI HPI Comments History of Present Illness Details The patient is referred from Eliana Mackay CNM regarding multiple episodes of postmenopausal bleeding. The patient had a pelvic ultrasound which showed the following: The uterus is retroverted and measures 6.4 x 8.9 x 4.5 cm. There is a hypoechoic lesion in the uterine fundus suggestive of a fibroid. This measures 4.2 x 3.2 x 3.8 cm and is slightly increased in size from prior exam when this measured 3.8 x 2.6 x 3 cm. Endometrial thickness is normal measuring 2 mm. The ovaries are normal. The right ovary measures 1.8 x 1.0 x 1.4 cm. The left ovary measures 3 x 2 x 1.7 cm. There is no fluid in the pelvis EMB pathology showed the following: Endometrium, biopsy: Superficial fragments benign endometrium with extensive breakdown and surface metaplastic changes, and few fragments of benign endocervical glandular epithelium (see comment). Comment: No atypia or carcinoma is seen, but this superficial tissue may not be marketing representative; clinical correlation necessary Last co testing done in 02/10 was negative [facility] Medical History Carpal tunnel syndrome on both sides Carpal tunnel syndrome of left wrist Wrist pain Nicotine dependence, cigarettes, uncomplicated Osteopenia Fracture of distal end of left fibula (~11/2021) Lupus Osteoarthritis History of back pain Asthma Vertigo Hearing deficit Surgical History Hx of shoulder surgery History of colonoscopy (~2019) History of tonsillectomy (~1991) History of nasal septoplasty (~1998) History of ear surgery (~1999) Family History Father Heart problem Heart attack Mother HTN (hypertension) Maternal Aunt Breast cancer Sister Breast cancer Social History Household Members Other:: son Housing: House Alcohol intake: current Alcohol intake frequency: holidays/special occasions only Patient Tobacco Use Status: Former Tobacco user Quit Date: 11/06/22 Years Smoked: (onset 18yo, 1ppd x 39yrs, now 1/2ppd - 35+PYH - quit 11/06/22) Second Hand Smoke Exposure: No Current occupational status: disabled 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 Sexual orientation: Straight/Heterosexual Gender identity: Female Female Reproductive History Menstrual Date of last menstrual period: 03/18/20 Total pregnancies: 2 Full term: 2 Review of Systems Card Reports as per HPI and Reports no additional complaints Resp Reports as per HPI and Reports no additional complaints GI Reports as per HPI and Reports no additional complaints Reports as per HPI Physical Exam Vital Signs: Last Vital Signs BP 118/74 08/09/23 10:17 BMI result Body Mass Index 26.9 Const General: cooperative, healthy appearing and comfortable Resp Effort & Inspection: normal respiratory effort Auscultation: clear to auscultation bilaterally Percussion: percussion normal Cardio Palpation: normal PMI Rate: regular rate Rhythm: regular rhythm Heart sounds: no murmurs and no rubs Peripheral pulses: Peripheral pulses 2+ throughout GI Inspection: Yes normal to inspection Palpation (GI): Soft to palpation, nontender, no guarding, not rigid and No hepatosplenomegaly present Percussion: Yes normal to percussion Auscultation: normal bowel sounds Rectal Exam - Female: deferred Assessment & Plan Assessment & Plan (1) Postmenopausal bleeding: Comment: EMB pathology insufficient Code(s): N95.0 - Postmenopausal bleeding Plan: Discussed with the patient the results of endometrial biopsy pathology, insufficient tissues for diagnosis, might not be marketing representative of the endometrial cavity. Recommended to the patient that the next step is to repeat endometrial sampling via hysteroscopy D&C possible polypectomy versus office endometrial biopsy to r/o endometrial pathology including hyperplasia or cancer. All the pros and cons risks and benefits of each approach were discussed with the patient, endometrial biopsy being less invasive, office procedure with less sensitivity and inability diagnose a polyp and removal versus hysteroscopy done under anesthesia more invasive more sensitive to endometrial cancer and possibility of diagnosing and endometrial polyp with the possibility of polypectomy. All questions were answered pt verbalized understanding and decided to proceed with hysteroscopy D&C possible polypectomy/myomectomy Discussed with the patient the procedure , all benefits and risks including but not limited to inability to complete the procedure , insufficient endometrial tissue for a complete evaluation of the endometrial cavity , bleeding, infection, possible need for blood transfusion with all its risk ( HIV,syphilis, Hepatitis, anaphylaxis shock, others..), injury to bladder, rectum, possible need for laparoscopy/laparotomy or hysterectomy. The patient verbalized understanding and signed the consent. Instructions given the patient to schedule a 2 week postoperative appointment Coding Level of Care Code Est Pt Level 3 (95204) Diagnoses Postmenopausal bleeding N95.0
[2023-08-09 10:17] VITALS: BP 118/74; BMI 26.9
== END 2023-08-09 11:38 | disposition home or self-care (01) ==
LOC: HO.HWS 09:57
PROVIDERS: PCP Registered Nurse; Visit Provider Obstetrics & Gynecology
DX: N95.0 Postmenopausal bleeding (principal)
CPT/HCPCS: 99213

== ENCOUNTER → 2023-08-09 09:57 | Outpatient (BNVA) | payer OTHER, SELFPAY | PROVIDERS: PCP Registered Nurse; Visit Provider Obstetrics & Gynecology | DX: N95.0 Postmenopausal bleeding (principal) | CPT/HCPCS: 99212 ==

== ENCOUNTER 2023-08-28 13:00 | Outpatient (AMB) | payer OTHER, SELFPAY ==
[2023-08-28 13:26] VITALS: BMI 26.9
--- NOTE | 2023-08-28 13:26 | MHC.OFFVIS ---
Intake Vital Signs 08/28/23 13:26 Height 5 ft 3 in Weight 152 lb BMI 26.9 Intake Visit Reasons: PO- right hand CTR on 07/16/23 Intake Note: Lizzie 58 yr old female presents today for her PO visit for her Right hand CTR 07/[address] Ya. States she is continuing to have pain and discomfort on her incision. States she has pain when she applies pressures to her wrist, when moving her thumb and with wrist movement, which has worsen since day of surgery. Allergies No Known Allergies Allergy (Verified 08/28/23 13:29) HPI PO- right hand CTR on 07/16/23 HPI Details Lizzie is a 58 year old right hand dominant woman who returns S/P right carpal tunnel release, DOS: 07/16/23 She complains of pain in the incision site, and also pain about the base of the right thumb that is worse with pinching and gripping activities In regards to her sensation, she says this has improved and is now normal in her right hand. She had a left carpal tunnel injection done by Dr. Zeng on 02/07/23, which improved her mild numbness. She reports she has more mild numbness that is persistent, but symptoms are worse at night with activities. She is scheduled for a left carpal tunnel release on 10/08/23. On the left side she has a history of left dorsal wrist pain that was worse with flexion. She did not mention this today. [facility] Medical History Carpal tunnel syndrome on both sides Carpal tunnel syndrome of left wrist Wrist pain Nicotine dependence, cigarettes, uncomplicated Osteopenia Fracture of distal end of left fibula (~11/2021) Lupus Osteoarthritis History of back pain Asthma Vertigo Hearing deficit Surgical History Hx of shoulder surgery History of colonoscopy (~2019) History of tonsillectomy (~1991) History of nasal septoplasty (~1998) History of ear surgery (~1999) Family History Father Heart problem Heart attack Mother HTN (hypertension) Maternal Aunt Breast cancer Sister Breast cancer Social History Household Members Other:: son Housing: House Alcohol intake: current Alcohol intake frequency: holidays/special occasions only Patient Tobacco Use Status: Former Tobacco user Quit Date: 11/06/22 Years Smoked: (onset 18yo, 1ppd x 39yrs, now 1/2ppd - 35+PYH - quit 11/06/22) Second Hand Smoke Exposure: No Current occupational status: disabled 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 She can make a fist and extend all her digits of her right hand Mildly tender over the incision site . The incision is well healed with no evidence of infection. Perhaps more Tender over the basal joint of the right thumb + CMC grind Improved and now normal sensation in the median nerve distribution Good APB muscle belly firing No thenar wasting Decreased and not normal sensation in the left median nerve distribution Normal sensation in the ulnar nerve distribution bilaterally Cap refill is brisk Radiographs: 3 views of the right hand from 02/17/23 were reviewed by me today in clinic. They show no fractures or dislocations. She has some basal joint arthritis with joint space narrowing & early osteophyte formation. Nerve Conduction study: Recent study: IMPRESSION: 1. This is an abnormal study. 2. There is electrodiagnostic evidence for right mild-moderate median neuropathy at the wrist, consistent with carpal tunnel syndrome. Findings today are more definitive than previous study 3. There are no findings for left median neuropathy at this time. 4. There is no electrodiagnostic evidence for ulnar neuropathy. CLINICAL COMMENT: Findings of right Carpal Tunnel Syndrome are more definitive. No findings for left-sided Carpal Tunnel Syndrome. She did have recent left Carpal Tunnel Syndrome injection. No findings suggestive of ulnar neuropathy. She would like to meet with Dr. Ya to discuss surgery. Elizabeth Jensen MD, DANIELA 03/07/23 First study: IMPRESSION: 1. This is an abnormal study. 2. There is electrodiagnostic findings suggestive for a right ulnar neuropathy at the wrist. 3. There is electrodiagnostic evidence for left mild-moderate median neuropathy at the wrist. 4. There is no electrodiagnostic evidence for brachial plexopathy, or cervical radiculopathy. Elizabeth Jensen MD, DANIELA 01/18/23 Psych Appearance: grossly normal Affect: normal affect Attitude: cooperative Office Procedures Fracture Care Details: No fracture, injection Fracture Billing Code: Fracture Billing Code Assessment & Plan Assessment & Plan (1) Carpal tunnel syndrome of right wrist: Code(s): G56.01 - Carpal tunnel syndrome, right upper limb (2) Lupus: Code(s): M32.9 - Systemic lupus erythematosus, unspecified (3) Left wrist pain: Code(s): M25.532 - Pain in left wrist (4) Carpal tunnel syndrome of left wrist: Code(s): G56.02 - Carpal tunnel syndrome, left upper limb (5) Osteoarthritis of carpometacarpal (CMC) joint of right thumb: Code(s): M18.11 - Unilateral primary osteoarthritis of first carpometacarpal joint, right hand Plan Assessment & Plan: 1. Right Carpal tunnel syndrome, S/P release DOS: 07/16/23 Pre-operatively with dense numbness Now with improved and normal sensation 2. Right basal joint osteoarthritis I educated her about these conditions I recommend a steroid injection & OT hand therapy I discussed activity modifications, she is to work on ROM exercises at home, and she should minimize or avoid any pinching or gripping activities She will perform gentle ROM exercises at home She should gently massage about the incision site to reduce the risk of hypersensitivity I ordered OT hand therapy to work on desensitization, ROM, and normalizing function Injection #1 : The risks and benefits of a steroid injection including but not limited to risk of damage to blood vessels, nerve, tendon, infection, skin bleaching, persistent or worsening pain, and failure to improve symptoms were discussed with the patient and they wish to proceed with the steroid injection. Once consent was obtained the skin over the dorsum of the Right basal joint was sterilely prepped. The joint was then injected with a combination of 1 mL of (40 mg/ml} Depo-Medrol and 1% plain Lidocaine. The patient appears to have tolerated the procedure well and with no complications. She had good early relief before leaving clinic today. She knows that they may not have another steroid injection into this joint for least 4 months. She will follow up prn 3. Left Carpal tunnel syndrome, S/P injection Not quite normal sensation She had a Carpal tunnel injection on 02/07/[address] Zeng I educated her about this condition I discussed operative and non-operative treatment options The patient is scheduled for surgery on 10/08/23. We may have to delay surgery if her right side does not improve We are going to schedule the patient to be seen by me in about 1 month. At that time we will 1st evaluate the right hand to make sure that this is doing better, prior to considering any kind of left hand procedure. We will also then re-evaluate her left hand carpal tunnel syndrome , and that she is in need of a left carpal tunnel release. 4. Left dorsal wrist pain No mention today Scribed for Caro Ya MD by Luigi Sepulveda, health care / medical job titles, on 08/28/23 at 1:50 PM, EST. Coding Level of Care Code Est Pt Level 3 (30911) Diagnoses Carpal tunnel syndrome of right wrist G56.01 Lupus M32.9 Left wrist pain M25.532 Carpal tunnel syndrome of left wrist G56.02 Osteoarthritis of carpometacarpal (CMC) joint of right thumb M18.11 CPT Codes Fracture Care - Fracture Billing Code: Fracture Billing Code ([id number])
== END 2023-08-28 14:07 | disposition home or self-care (01) ==
PROVIDERS: PCP Registered Nurse; Visit Provider Orthopaedic Surgery
DX: M18.11 Unilateral primary osteoarthritis of first carpometacarpal joint, right hand (principal); G56.03 Carpal tunnel syndrome, bilateral upper limbs; M32.9 Systemic lupus erythematosus, unspecified; M25.532 Pain in left wrist
CPT/HCPCS: 20600; 99213

== ENCOUNTER → 2023-08-28 13:00 | Outpatient (BNVA) | payer OTHER, SELFPAY | PROVIDERS: PCP Registered Nurse; Visit Provider Orthopaedic Surgery | DX: M25.532 Pain in left wrist (principal); G56.02 Carpal tunnel syndrome, left upper limb; G56.01 Carpal tunnel syndrome, right upper limb; M32.9 Systemic lupus erythematosus, unspecified; M18.11 Unilateral primary osteoarthritis of first carpometacarpal joint, right hand | CPT/HCPCS: 20600; 99212; J1010; J1020 ==

== ENCOUNTER 2023-09-11 09:01 | Outpatient (AMB) | payer OTHER, SELFPAY ==
[2023-09-11 09:09] VITALS: BP 120/70; PULSE 86; O2SAT 97; BMI 29.1
--- NOTE | 2023-09-11 09:09 | A.OFFVIS_ITS ---
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/Other forms of dyspnea Allergies No Known Allergies Allergy (Verified 08/28/23 13:29) Medication List - Last Reconciled 09/11/23 by Nahun Swanson MD albuterol sulfate 90 mcg/actuation 2 puffs PO Q4-6H PRN albuterol sulfate mg inhalation Anoro Ellipta 62.5-25 mcg/actuation (umeclidinium-vilanterol) 1 inh inhalation DAILY 30 days NS cetirizine 1 tab PO QAM etodolac 200 mg PO BID fluticasone propionate 50 mcg/actuation sprays intranasal hydroxychloroquine (Plaquenil) 200 mg PO DAILY ibuprofen 600 mg PO TID PRN ipratropium bromide 17 mcg/actuation (Atrovent HFA) 2 puffs PO QID lidocaine HCl 4% (Aspercreme (lidocaine HCl)) 1 appl topical BID PRN meclizine 12.5 mg PO BID PRN sertraline (Zoloft) 25 mg PO DAILY tramadol 1 tab PO Q6H PRN HPI Comments Details: Lizzie is here for consultation regarding shortness of breath. Apparently, long- term smoker and she was smoking almost 2 packs of cigarettes till an year or so ago. However, not documented to have any significant pulmonary disease per Dr. Bullard. According to her, she gets short of breath with activity. She also gets short of breath with talking. No anginal-type complaints. No known coronary disease myocardial infarction or cardiomyopathy/congestive heart failure. She also gets some leg swelling off and on which could be from venous insufficiency than cardiac. [facility] Medical History Carpal tunnel syndrome on both sides Carpal tunnel syndrome of left wrist Wrist pain Nicotine dependence, cigarettes, uncomplicated Osteopenia Fracture of distal end of left fibula (~11/2021) Lupus Osteoarthritis History of back pain Asthma Vertigo Hearing deficit Surgical History Hx of shoulder surgery History of colonoscopy (~2019) History of tonsillectomy (~1991) History of nasal septoplasty (~1998) History of ear surgery (~1999) Family History Father Heart problem Heart attack Mother HTN (hypertension) Maternal Aunt Breast cancer Sister Breast cancer Social History Household Members Other:: son Housing: House Alcohol intake: current Alcohol intake frequency: holidays/special occasions only Patient Tobacco Use Status: Former Tobacco user Quit Date: 11/06/22 Years Smoked: (onset 18yo, 1ppd x 39yrs, now 1/2ppd - 35+PYH - quit 11/06/22) Second Hand Smoke Exposure: No Current occupational status: disabled 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 Sexual orientation: Straight/Heterosexual Gender identity: Female Review of Systems Const Denies weakness ENT Denies dizziness Card Denies chest pain, Denies chest pain with activity, Denies syncope, Denies rapid heart rate, Denies pedal edema, Denies edema, Denies leg edema, Denies lightheadedness, Denies palpitations, Denies dyspnea, Denies dyspnea on exertion and Denies orthopnea Resp Denies cough, Denies dyspnea and Denies dyspnea on exertion GI Denies hematochezia and Denies change in stool character Musc Denies abnormal gait, Denies muscle cramps, Denies muscle weakness, Denies numbness, Denies radiating pain into limb and Denies tingling Neuro Denies abnormal gait, Denies dizziness, Denies syncope, Denies numbness, Denies tingling and Denies weakness Endo Denies palpitations Physical Exam Vital Signs: Last Vital Signs Pulse 86 09/11/23 09:09 BP 120/70 09/11/23 09:09 Pulse Ox 97 09/11/23 09:09 Oxygen Delivery Method Room Air 09/11/23 09:09 BMI result Body Mass Index 29.1 Const General: comfortable and no acute distress Orientation/consciousness: patient oriented x3 HEENT Other: Unremarkable Head: Yes normal to inspection Neck Neck: Yes normal visual inspection Chest Chest palpation & inspection: normal inspection of the chest Resp Auscultation: clear to auscultation bilaterally Cardio Palpation: normal PMI Heart sounds: S1 normal heart sound present, S2 normal heart sound present, no gallops, no murmurs and no rubs GI Palpation (GI): Soft to palpation Back/Spine/Pelvis Other: unremarkable Skin General skin exam: no rashes or lesions noted Neuro General: patient oriented x3 Extrem General: Yes normal to inspection Psych Mental Status: mental status grossly normal Office Procedures EKG Details: EKG with sinus rhythm at 86/Min; no significant ST-T changes and otherwise unremarkable. [place] [id number], Complete Assessment & Plan Assessment & Plan (1) ASKEW (dyspnea on exertion): Code(s): R06.09 - Other forms of dyspnea Category: Medical Plan Baseline EKG is unremarkable. Echocardiogram with LVEF of 55-60%. Slightly reduced peak global longitudinal strain. Mild diastolic dysfunction. Otherwise unremarkable. No evidence of pulmonary hypertension. Pulmonary function testing reports no obstructive or restrictive ventilatory defects. Diffusion impairment. Advised to consider pulmonary vascular/interstitial lung conditions. Cardiopulmonary test reviewed. Submaximal effort/muscular weakness. Suspected not having a pulmonary limitation but due to borderline early anaerobic threshold, question of cardiovascular limitation exercise. In the CT of the lung, mild emphysema reported. Mild coronary artery calcification. Overall, from cardiac standpoint, possible exercise-induced diastolic dysfunction as the resting echocardiogram is essentially unremarkable. Less l ikely ischemic heart disease in the absence of angina. Her symptoms of getting short of breath even with talking are not consistent with ischemic heart disease. With heavy smoking history, pulmonary etiology is still more likely even though the above testing is not clearly confirmatory. We will proceed with an exercise stress echocardiogram to assess further, specifically to look for wall motion abnormalities, exercise induced diastolic dysfunction as well as pulmonary hypertension. Follow-up after the above. Orders: Orders CA echo stress exercise Today R06.09 - Other forms of dyspnea
== END 2023-09-11 09:32 | disposition home or self-care (01) ==
PROVIDERS: PCP Registered Nurse; Visit Provider Internal Medicine
DX: R06.09 Other forms of dyspnea (principal)
CPT/HCPCS: 93010; 99204

== ENCOUNTER → 2023-09-11 09:01 | Outpatient (BNVA) | payer OTHER, SELFPAY | PROVIDERS: PCP Registered Nurse; Visit Provider Internal Medicine | DX: R06.09 Other forms of dyspnea (principal) | CPT/HCPCS: 93005; 99202 ==

== ENCOUNTER → 2023-09-14 10:31 | Outpatient (REF) | payer OTHER, SELFPAY ==
--- NOTE | 2023-09-14 10:34 | CA_ITS ---
Acquisition Time: 2023-09-14 11:36:22 Total Exercise Time: 00:06:46 Test Indications: Dyspnea Medications: SEE H Protocol: GRACE Max HR: 148 BPM 91% of Pred: 161 BPM Max BP: 154/078 mmHG Max Work Load: 7.8 METS Exercise stress test exercise 6 min 46 sec of Grace protocol achieving approx 91% MPHR, with moderate SOB, no chest discomfort, without arrhythmias noted through artifact, with normotensive response to exercise, without EKG changes. Echo images obtained by tech at rest and immediately post peak exericse. Definity contrast used. Test reviewed with Dr Pederson Referred By: Nahun Swanson Overread By: Renee Newberry
== END ==
LOC: HO.CARD 10:31
PROVIDERS: PCP Registered Nurse; Visit Provider Internal Medicine
DX: R06.09 Other forms of dyspnea (principal)
CPT/HCPCS: 93350; Q9957

== ENCOUNTER → 2023-09-14 10:34 | Outpatient (BNV) | payer OTHER, SELFPAY | PROVIDERS: PCP Registered Nurse; Visit Provider Nurse Practitioner | DX: R06.02 Shortness of breath (principal) | CPT/HCPCS: 93016; 93018; 93350; 93352 ==

== ENCOUNTER 2023-09-21 09:15 | Outpatient (REF) | payer OTHER, SELFPAY | END 2023-09-21 09:16 | disposition home or self-care (01) | LOC: HO.MAMMO 09:15 | PROVIDERS: PCP Registered Nurse; Visit Provider Registered Nurse | DX: Z12.31 Encounter for screening mammogram for malignant neoplasm of breast (principal) | CPT/HCPCS: 77063; 77067 ==

== ENCOUNTER → 2023-09-21 09:45 | Outpatient (BNV) | payer OTHER, SELFPAY | PROVIDERS: PCP Registered Nurse; Visit Provider Radiology Diagnostic Radiology | DX: Z12.31 Encounter for screening mammogram for malignant neoplasm of breast (principal) | CPT/HCPCS: 77063; 77067 ==

== ENCOUNTER 2023-09-24 08:17 | Outpatient (AMB) | payer OTHER, SELFPAY ==
[2023-09-24 08:27] VITALS: BP 120/72; BMI 28.9
--- NOTE | 2023-09-24 08:27 | MHC.OFFVIS ---
Vital Signs 09/24/23 08:27 Height 5 ft 3 in Weight 163 lb 2.273 oz BMI 28.9 BP 120/72 Intake Visit Reasons: pre op Shake Backboard Notcher Required: No Information Interpreted: non-clinical & clinical Equine Science Instructor: Equine Science Instructor Present Accompanied by: Self / Same As Patient Allergies No Known Allergies Allergy (Verified 09/24/23 08:29) Is last menstrual period known: Yes Last menstrual period: 03/18/20 Post menopausal: Yes Patient : No Do you need a note to return to daycare/school/sports/work: Yes (for surgery on sunday) HPI Comments Details: The patient is presenting to discuss hysteroscopy D&C possible polypectomy/myomectomy for postmenopausal bleeding. The patient's saw Dr. Swanson , sourcing analyst and was cleared for anesthesia/procedure. The procedure scheduled on 09/25/2023 at 14:00 [facility] Medical History Carpal tunnel syndrome on both sides Carpal tunnel syndrome of left wrist Wrist pain Nicotine dependence, cigarettes, uncomplicated Osteopenia Fracture of distal end of left fibula (~11/2021) Lupus Osteoarthritis History of back pain Asthma Vertigo Hearing deficit Surgical History Hx of shoulder surgery History of colonoscopy (~2019) History of tonsillectomy (~1991) History of nasal septoplasty (~1998) History of ear surgery (~1999) Family History Father Heart problem Heart attack Mother HTN (hypertension) Maternal Aunt Breast cancer Sister Breast cancer Social History Household Members Other:: son Housing: House Alcohol intake: current Alcohol intake frequency: holidays/special occasions only Patient Tobacco Use Status: Former Tobacco user Quit Date: 11/06/22 Years Smoked: (onset 18yo, 1ppd x 39yrs, now 1/2ppd - 35+PYH - quit 11/06/22) Second Hand Smoke Exposure: No Current occupational status: disabled 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 Sexual orientation: Straight/Heterosexual Gender identity: Female Female Reproductive History Menstrual Date of last menstrual period: 03/18/20 Total pregnancies: 2 Full term: 2 Review of Systems Card Reports as per HPI and Reports no additional complaints Resp Reports as per HPI and Reports no additional complaints GI Reports as per HPI and Reports no additional complaints Reports as per HPI Physical Exam Vital Signs: Last Vital Signs BP 120/72 09/24/23 08:27 BMI result Body Mass Index 28.9 Const General: cooperative, healthy appearing and comfortable Resp Effort & Inspection: normal respiratory effort Auscultation: clear to auscultation bilaterally Percussion: percussion normal Cardio Palpation: normal PMI Rate: regular rate Rhythm: regular rhythm Heart sounds: no murmurs and no rubs Peripheral pulses: Peripheral pulses 2+ throughout GI Inspection: Yes normal to inspection Palpation (GI): Soft to palpation, nontender, no guarding, not rigid and No hepatosplenomegaly present Percussion: Yes normal to percussion Auscultation: normal bowel sounds Rectal Exam - Female: deferred Assessment & Plan Assessment & Plan (1) Postmenopausal bleeding: Comment: EMB pathology may not be reimbursement representative of the endometrial cavity Code(s): N95.0 - Postmenopausal bleeding Category: Medical Plan: Hysteroscopy D&C possible polypectomy/myomectomy scheduled on 09/25/2023 at 14:00, the patient is aware. Discussed with the patient the procedure , all benefits and risks including but not limited to inability to complete the procedure , insufficient endometrial tissue for a complete evaluation of the endometrial cavity , bleeding, infection, possible need for blood transfusion with all its risk ( HIV,syphilis, Hepatitis, anaphylaxis shock, others..), injury to bladder, rectum, possible need for laparoscopy/laparotomy or hysterectomy. The patient verbalized understanding and signed the consent. Instructions given the patient to schedule a 2 week postoperative appointment Coding Level of Care Code Est Pt Level 3 (73096) Diagnoses Postmenopausal bleeding N95.0
== END 2023-09-24 09:38 | disposition home or self-care (01) ==
LOC: HO.HWS 08:17
PROVIDERS: PCP Registered Nurse; Visit Provider Obstetrics & Gynecology
DX: N95.0 Postmenopausal bleeding (principal)
CPT/HCPCS: 99213

== ENCOUNTER → 2023-09-24 08:17 | Outpatient (BNVA) | payer OTHER, SELFPAY | PROVIDERS: PCP Registered Nurse; Visit Provider Obstetrics & Gynecology | DX: N95.0 Postmenopausal bleeding (principal) | CPT/HCPCS: 99212 ==

== ENCOUNTER 2023-09-25 12:00 | Day surgery (SDC) | payer OTHER, SELFPAY ==
--- NOTE | 2023-09-24 12:28 | P.CONAN_ITS ---
Documented by User: Elis Gauthier NP 09/24/23 12:28 HPI - Anesthesia Eval Consult details Narrative: 58yo F for D&C Hysteroscopy, possible myomectomy/polypectomy Plaquenil for lupus PMFSH Active Problems Active Problems: All Active Problems Osteoarthritis of carpometacarpal (CMC) joint of right thumb (Acute) Postmenopausal bleeding (Acute) Pulmonary emphysema (Acute) Left wrist pain (Acute) Lupus (Acute) Carpal tunnel syndrome of right wrist (Acute) ASKEW (dyspnea on exertion) (Acute) Carpal tunnel syndrome on both sides (Acute) Carpal tunnel syndrome of left wrist (Acute) Wrist pain (Acute) Nicotine dependence, cigarettes, uncomplicated (Acute) Past Medical History Medical History Carpal tunnel syndrome on both sides Carpal tunnel syndrome of left wrist Wrist pain Nicotine dependence, cigarettes, uncomplicated Osteopenia Fracture of distal end of left fibula (~11/2021) Lupus Osteoarthritis History of back pain Asthma Vertigo Hearing deficit Family History Family History Father Heart problem Heart attack Mother HTN (hypertension) Maternal Aunt Breast cancer Sister Breast cancer Surgical History Surgical History Hx of shoulder surgery History of colonoscopy (~2019) History of tonsillectomy (~1991) History of nasal septoplasty (~1998) History of ear surgery (~1999) Social History Social History Household Members Other:: son Housing: House Alcohol intake: current Alcohol intake frequency: does not drink Patient Tobacco Use Status: Former Tobacco user Quit Date: 11/06/22 Years Smoked: (onset 18yo, 1ppd x 39yrs, now 1/2ppd - 35+PYH - quit 11/06/22) Second Hand Smoke Exposure: No Are you DNR?: No Advance Directives: No Advance Directives Information Provided: Yes Current occupational status: disabled 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 Sexual orientation: Straight/Heterosexual Gender identity: Female Meds Allergies Allergy/AdvReac Type Severity Reaction Status Date / Time No Known Allergies Allergy Verified 09/24/23 08:29 Home Medications ?Medication ?Instructions ?Recorded ?Confirmed ?Last Taken ?Type albuterol sulfate 90 mcg/actuation 2 puff PO Q4-6H PRN Shortness Of 03/08/20 09/11/23 Unknown History aerosol inhaler Breath Or Wheezing cetirizine 10 mg tablet 1 tab PO QAM 03/08/20 09/11/23 Unknown History hydroxychloroquine 200 mg tablet 200 mg PO DAILY 03/08/20 09/11/23 Unknown History (Plaquenil) ipratropium bromide 17 2 puff PO QID 03/08/20 09/11/23 Unknown History mcg/actuation HFA aerosol inhaler (Atrovent HFA) meclizine 12.5 mg tablet 12.5 mg PO BID PRN Vertigo 03/08/20 09/11/23 Unknown History sertraline 25 mg tablet (Zoloft) 25 mg PO DAILY 03/08/20 09/11/23 Unknown History tramadol 50 mg tablet 1 tab PO Q6H PRN Pain 03/08/20 09/11/23 Unknown History albuterol sulfate 2.5 mg/3 mL mg inhalation 02/14/23 09/11/23 Unknown History (0.083 %) solution for nebulization fluticasone propionate 50 spray intranasal 02/14/23 09/11/23 Unknown History mcg/actuation nasal spray,suspension etodolac 200 mg capsule 200 mg PO BID 05/25/23 09/11/23 Unknown History Assessment and Plan Assessment Anesthesia Assessment: Chart Reviewed Documented by User: Wolf Horan MD 09/25/23 13:29 [facility] Past Medical History Medical History Carpal tunnel syndrome on both sides Carpal tunnel syndrome of left wrist Wrist pain Nicotine dependence, cigarettes, uncomplicated Osteopenia Fracture of distal end of left fibula (~11/2021) Lupus Osteoarthritis History of back pain Asthma Vertigo Hearing deficit Family History Family History Father Heart problem Heart attack Mother HTN (hypertension) Maternal Aunt Breast cancer Sister Breast cancer Family history of problems with anesthesia: No Surgical History Surgical History Hx of shoulder surgery History of colonoscopy (~2019) History of tonsillectomy (~1991) History of nasal septoplasty (~1998) History of ear surgery (~1999) History of Problems with Anesthesia: No Social History Social History Household Members Other:: son Housing: House Alcohol intake: current Alcohol intake frequency: does not drink Patient Tobacco Use Status: Former Tobacco user Quit Date: 11/06/22 Years Smoked: (onset 18yo, 1ppd x 39yrs, now 1/2ppd - 35+PYH - quit 11/06/22) Second Hand Smoke Exposure: No Are you DNR?: No Advance Directives: No Advance Directives Information Provided: Yes Current occupational status: disabled 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 Sexual orientation: Straight/Heterosexual Gender identity: Female Meds Allergies Allergy/AdvReac Type Severity Reaction Status Date / Time No Known Allergies Allergy Verified 09/24/23 08:29 Home Medications ?Medication ?Instructions ?Recorded ?Confirmed ?Last Taken ?Type albuterol sulfate 90 mcg/actuation 2 puff PO Q4-6H PRN Shortness Of 03/08/20 09/11/23 Unknown History aerosol inhaler Breath Or Wheezing cetirizine 10 mg tablet 1 tab PO QAM 03/08/20 09/11/23 Unknown History hydroxychloroquine 200 mg tablet 200 mg PO DAILY 03/08/20 09/11/23 Unknown History (Plaquenil) ipratropium bromide 17 2 puff PO QID 03/08/20 09/11/23 Unknown History mcg/actuation HFA aerosol inhaler (Atrovent HFA) meclizine 12.5 mg tablet 12.5 mg PO BID PRN Vertigo 03/08/20 09/11/23 Unknown History sertraline 25 mg tablet (Zoloft) 25 mg PO DAILY 03/08/20 09/11/23 Unknown History tramadol 50 mg tablet 1 tab PO Q6H PRN Pain 03/08/20 09/11/23 Unknown History albuterol sulfate 2.5 mg/3 mL mg inhalation 02/14/23 09/11/23 Unknown History (0.083 %) solution for nebulization fluticasone propionate 50 spray intranasal 02/14/23 09/11/23 Unknown History mcg/actuation nasal spray,suspension etodolac 200 mg capsule 200 mg PO BID 05/25/23 09/11/23 Unknown History Exam Airway Mallampati Class: I TM Dist: >3cm Neck ROM: Full Loose/Missing/Broken Teeth: No Heart: rrr Lungs: cta Assessment and Plan Assessment Anesthesia Assessment: Anesthesia Plan Discussed Final Anesthetic Review Family History of Problems with Anesthesia: No History of Problems with Anesthesia: No NPO: Yes ASA Class: III Final Preanesthetic Review: No Changes in Pt Med Stat, Meds/Allgs Chart Reviewed, Consent Obtained/Reviewed and Anes Risks/Benef Reviewed Patient Risk: Intermediate Procedure Risk: Intermediate Anesthetic Plan Anesthetic Plan: GA Disposition: Standard PACU
[2023-09-25] VITALS (9 sets, daily range): BP systolic 126–167; BP diastolic 67–94; PULSE 76–87; RESP 16–18; TEMP 36.3–36.8; O2SAT 91–99
--- NOTE | 2023-09-25 13:55 | MHC.SHP ---
Pre-Procedural Eval Section A - 24 Hr Update-Section A only Date of Service: 09/25/23 The patient is an INPATIENT: No Changes since office visit: No Cold of Flu in the past 2 weeks, No New Medical Problems, No Changes in Medication and No Patient answered all questions The patient has been examined within 24 hours of the surgical procedure. The History & Physical has been completed within 30 days and I have reviewed it.: Yes Section B - Complete if H&P > 30 days Chief Complaint: Postmenopausal bleeding Allergies: Allergies Allergy/AdvReac Type Severity Reaction Status Date / Time No Known Allergies Allergy Verified 09/24/23 08:29 Plan Diagnosis/Plan: Unchanged I have reviewed the history and physical and performed a pertinent physical examination on my patient. No changes have occurred unless specified. Time Spent With Patient Time: Total time managing care of this patient today ____ minutes.
--- NOTE | 2023-09-25 14:31 | P.BOP_ITS ---
Brief Operative Note Date of Service: 09/25/23 Pre-op diagnosis: Postmenopausal bleeding Post-op diagnosis: same (Two endometrial polyps) Procedure: Hysteroscopy D&C, Polypectomy Surgeon: Ta Pearson MD Anesthesia: GLMA Was an Laborer Landscape used for this Procedure?: No Estimated blood loss (mL): 0 Pathology: other (Endometrial Scrapping. Polyps) Condition: stable Disposition: PACU
--- NOTE | 2023-09-25 14:32 | W.PM.OPN ---
Operative Note Operative Note Date of Service: 09/25/23 Narrative: Preop Diagnosis: Postmenopausal bleeding Operation: Diagnostic Hysteroscopy, Dilataion & Curettage and 2 polypectomies Post Op Diagnosis: 2 Endometrial Polyps QBL: Minimal Anesthesia: GLMA Surgeon: Ta Pearson MD Cash Applications Clerk: None Complication: None Pathology: Endometrial Scrapings, Endometrial polyps Procedure: The patient was put in the dorsal lithotomy position, scrubbed, and draped in the usual manner. A sterile speculum was inserted in the patient's vagina. The anterior lip of the cervix was grasped with a single tooth tenaculum. The cervix was dilated up to 5 mm, then the scope was inserted in the patient's uterus. Inspection revealed 2 endometrial polyps. The Myosure Reach device was used; it was introduced through the operative channel and polypectomies done with no complications. The scope was then taken out from the uterine cavity, sharp curettings was carried on with minimal to moderate amount of tissues retrieved. At the end of the procedure, all instruments were taken out of the patient uterine and vaginal cavity. The single tooth tenaculum was removed and homeostasis was assured using pressure,. The patient tolerated the procedure well and was transferred to the PACU in a stable condition.
[2023-09-25] MEDS: HYDROmorphone HCl 0.5 MG/0.5 ML SYRINGE IVPUSH (15:00)
== END 2023-09-25 16:05 | disposition home or self-care (01) ==
PROVIDERS: PCP Registered Nurse; Visit Provider Obstetrics & Gynecology
PROC: 0UDB8ZZ Extraction of Endometrium, Via Natural or Artificial Opening Endoscopic (ICD-10-PCS; CPT 58558; principal; 2023-09-25 14:00)
DX: N95.0 Postmenopausal bleeding (principal); N84.0 Polyp of corpus uteri; M85.80 Other specified disorders of bone density and structure, unspecified site; M32.9 Systemic lupus erythematosus, unspecified; J45.909 Unspecified asthma, uncomplicated; H91.90 Unspecified hearing loss, unspecified ear; R42 Dizziness and giddiness; Z79.51 Long term (current) use of inhaled steroids; Z79.899 Other long term (current) drug therapy; F17.210 Nicotine dependence, cigarettes, uncomplicated; Z98.890 Other specified postprocedural states
CPT/HCPCS: 58558; 88305; J1170; J2250; J2704; J3010

== ENCOUNTER → 2023-09-25 12:00 | Outpatient (BNV) | payer OTHER, SELFPAY | PROVIDERS: PCP Registered Nurse; Visit Provider Obstetrics & Gynecology | DX: N95.0 Postmenopausal bleeding (principal); N84.0 Polyp of corpus uteri | CPT/HCPCS: 58558 ==

== ENCOUNTER 2023-10-08 10:18 | Day surgery (SDC) | payer OTHER, SELFPAY ==
[2023-10-08 10:36] VITALS: BMI 28.3
[2023-10-08 10:46] VITALS: BP 110/70; PULSE 87; RESP 18; TEMP 36.7; O2SAT 97
--- NOTE | 2023-10-08 11:17 | MHC.SHP ---
Pre-Procedural Eval Section A - 24 Hr Update-Section A only Date of Service: 10/08/23 The patient is an INPATIENT: No Changes since office visit: No Cold of Flu in the past 2 weeks, No New Medical Problems, No Changes in Medication and No Patient answered all questions The patient has been examined within 24 hours of the surgical procedure. The History & Physical has been completed within 30 days and I have reviewed it.: Yes Section B - Complete if H&P > 30 days Chief Complaint: Carpal tunnel syndrome, left upper limb Allergies: Allergies Allergy/AdvReac Type Severity Reaction Status Date / Time No Known Allergies Allergy Verified 10/08/23 10:47 Plan I have reviewed the history and physical and performed a pertinent physical examination on my patient. No changes have occurred unless specified. Time Spent With Patient Time: Total time managing care of this patient today ____ minutes.
--- NOTE | 2023-10-08 11:18 | W.PM.OPN ---
Operative Note Operative Note Date of Service: 10/08/23 Narrative: Preop diagnosis: 1. Left Carpal tunnel syndrome Postop diagnosis: same Procedure: 1. Left Carpal tunnel release Surgeon: Caro Ya MD Anesthesia: local block using 1% lidocaine with epinephrine Findings: Thickened transverse carpal ligament. EBL: Less than 5 mL Specimens: None Complications: None Disposition: Brought to recovery room in stable condition Plan: Follow-up for 10-14 days for wound check and suture removal Indications: The patient is 58 years old, with left carpal tunnel syndrome that has been unresponsive to nonoperative management. The risks and benefits of operative treatment including but not limited to risk of damage to blood vessels, nerves, tendons, infection, persistent pain, persistent symptoms, or possible need for additional surgery were discussed with the patient and the patient wishes to proceed with surgery. Procedure: Once consent was obtained a local block was performed using a combination of 1% lidocaine with epinephrine. The patient was then brought back to the operating suite and placed on the operative table in supine position. The left upper extremity was prepped and draped in a standard surgical fashion. Once assured that we had a good block, a 2.0 cm longitudinal incision was made centered over the carpal tunnel. The incision was made through the skin to the subcutaneous tissues using a #15 blade. Dissection was made down to the level of the transverse carpal ligament with care being taken to protect the palmar cutaneous nerve. Once the transverse carpal ligament was clearly visualized, a longitudinal incision was made in the transverse carpal ligament 1st using a #15 blade, then using tenotomy scissors under direct visualization. Care was taken to look for and protect the motor branch of the median nerve when seen in this area. Once satisfied with our carpal tunnel release the wound was copiously irrigated with normal saline and hemostasis was obtained with a brief period of local pressure. The skin edges were reapproximated with some 5.0 nylon suture material and a sterile dressing was applied. The patient appears to have tolerated the procedure well and with no complications. All digits were well vascularized at the conclusion of the case.
[2023-10-08 12:38] VITALS: BP 120/62; PULSE 82; RESP 16; O2SAT 96
== END 2023-10-08 12:43 | disposition home or self-care (01) ==
PROVIDERS: PCP Registered Nurse; Visit Provider Orthopaedic Surgery
PROC: (CPT 64721; principal; 2023-10-08 11:30)
DX: G56.02 Carpal tunnel syndrome, left upper limb (principal); R20.0 Anesthesia of skin; M85.80 Other specified disorders of bone density and structure, unspecified site; M32.9 Systemic lupus erythematosus, unspecified; M18.11 Unilateral primary osteoarthritis of first carpometacarpal joint, right hand; J45.909 Unspecified asthma, uncomplicated; R42 Dizziness and giddiness; F17.210 Nicotine dependence, cigarettes, uncomplicated; Z98.890 Other specified postprocedural states; Z87.891 Personal history of nicotine dependence
CPT/HCPCS: 64721; J0171; J2795

== ENCOUNTER → 2023-10-08 10:18 | Outpatient (BNV) | payer OTHER, SELFPAY | PROVIDERS: PCP Registered Nurse; Visit Provider Orthopaedic Surgery | DX: G56.02 Carpal tunnel syndrome, left upper limb (principal) | CPT/HCPCS: 64721 ==

== ENCOUNTER 2023-10-16 15:29 | Outpatient (AMB) | payer OTHER, SELFPAY ==
--- NOTE | 2023-10-16 15:41 | MHC.OFFVIS ---
Vital Signs 10/16/23 15:43 Height 5 ft 3 in Weight 158 lb 11.725 oz BMI 28.1 BP 122/80 Intake Visit Reasons: post op Food And Beverage Order Clerk Required: No Information Interpreted: non-clinical & clinical Allergies No Known Allergies Allergy (Verified 10/08/23 10:47) HPI Comments Details: The patient is presenting post hysteroscopy D&C no complaints minimal vaginal bleeding no feverishness chills or abdominal pain. The pathology showed the following: A. Endometrium, curettage: Superficial fragments of endometrial and endocervical epithelium within normal limits; blood and mucoinflammatory material. B. Endometrium, polypectomies: - Endometrial polyps. - Background inactive endometrium; no atypia identified. [facility] Medical History Personal history of nicotine dependence Carpal tunnel syndrome on both sides Carpal tunnel syndrome of left wrist Wrist pain Osteopenia Fracture of distal end of left fibula (~11/2021) Lupus Osteoarthritis History of back pain Asthma Vertigo Hearing deficit Surgical History Hx of shoulder surgery History of colonoscopy (~2019) History of tonsillectomy (~1991) History of nasal septoplasty (~1998) History of ear surgery (~1999) Family History Father Heart problem Heart attack Mother HTN (hypertension) Maternal Aunt Breast cancer Sister Breast cancer Social History Household Members Other:: son Housing: House Alcohol intake: current Alcohol intake frequency: does not drink Patient Tobacco Use Status: Former Tobacco user Quit Date: 11/06/22 Years Smoked: (onset 18yo, 1ppd x 39yrs, now 1/2ppd - 35+PYH - quit 11/06/22) Second Hand Smoke Exposure: No Current occupational status: disabled 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 Sexual orientation: Straight/Heterosexual Gender identity: Female Review of Systems Const All systems reviewed & are unremarkable except as noted in HPI and below Reports as per HPI and Reports no additional complaints GI Reports no additional complaints Reports no additional complaints Physical Exam Vital Signs: Last Vital Signs BP 122/80 10/16/23 15:43 BMI result Body Mass Index 28.1 Assessment & Plan Assessment & Plan (1) Postmenopausal bleeding: Code(s): N95.0 - Postmenopausal bleeding Category: Medical Plan: Discussed with the patient the results of the hysteroscopic polypectomy and D&C pathology. Discussed with the patient the sensitivity, specificity, positive and negative predictive value, of endometrial biopsy in detecting endometrial/polyp pathology including but not limited to endometrial hyperplasia, cancer and other pathology; instructed the patient to call in case vaginal bleeding bleeding recurs, the next step will be to proceed with further endometrial sampling evaluation to rule out endometrial/recurrent abnormal polyp pathology. All questions answered and the patient verbalized understanding and agreed with the plan. Coding Level of Care Code Est Pt Level 3 (65905) Diagnoses Postmenopausal bleeding N95.0
[2023-10-16 15:43] VITALS: BP 122/80; BMI 28.1
== END 2023-10-16 16:07 | disposition home or self-care (01) ==
LOC: HO.HWS 15:29
PROVIDERS: PCP Registered Nurse; Visit Provider Obstetrics & Gynecology
DX: N95.0 Postmenopausal bleeding (principal)
CPT/HCPCS: 99213

== ENCOUNTER → 2023-10-16 15:29 | Outpatient (BNVA) | payer OTHER, SELFPAY | PROVIDERS: PCP Registered Nurse; Visit Provider Obstetrics & Gynecology | DX: N95.0 Postmenopausal bleeding (principal) | CPT/HCPCS: 99212 ==

== ENCOUNTER 2023-10-23 10:34 | Outpatient (AMB) | payer OTHER, SELFPAY ==
--- NOTE | 2023-10-23 10:53 | A.OFFVIS_ITS ---
Vital Signs 10/23/23 10:59 Height 5 ft 3 in Weight 158 lb BMI 28.0 Intake Visit Reasons: PO-Lt CTR 10/08/23 Intake Note: Lizzie 58 year old female presents today for her post operative visit s/p left CTR on 10/08/23. Patient reports numbness and tingling has improve, however she has stiffness and pain in her middle finger. States she is unable to fully grasp items. Sutures removed and steri strips applied. Allergies No Known Allergies Allergy (Verified 10/23/23 10:59) HPI HPI PO-Lt CTR 10/08/23: Details: Lizzie is a 58 year old left hand dominant woman who returns S/P left carpal tunnel release, DOS: 10/08/23 She says her sensation has improved and is now normal in her left hand. She complains of pain in her left middle finger, which radiates into her palm & volar forearm. She denies any locking or catching. She has normal sensation in her right hand. [facility] Medical History Personal history of nicotine dependence Carpal tunnel syndrome on both sides Carpal tunnel syndrome of left wrist Wrist pain Osteopenia Fracture of distal end of left fibula (~11/2021) Lupus Osteoarthritis History of back pain Asthma Vertigo Hearing deficit Surgical History Hx of shoulder surgery History of colonoscopy (~2019) History of tonsillectomy (~1991) History of nasal septoplasty (~1998) History of ear surgery (~1999) Family History Father Heart problem Heart attack Mother HTN (hypertension) Maternal Aunt Breast cancer Sister Breast cancer Social History Household Members Other:: son Housing: House Alcohol intake: current Alcohol intake frequency: does not drink Patient Tobacco Use Status: Former Tobacco user Years Smoked: (onset 18yo, 1ppd x 39yrs, now 1/2ppd - 35+PYH - quit 11/06/22) Second Hand Smoke Exposure: No Current occupational status: disabled 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 She can make a fist and extend all her digits of her right hand She demonstrates pain in the volar aspect of the middle finger, which radiates across her palm and into the volar forearm No locking or catching No tenderness over the a1 damian No tenderness over the MCP joint She can easily make a fist and extend all of her digits. No locking or catching. Improved and now normal sensation in the median nerve distribution Good APB muscle belly firing No thenar wasting Normal sensation in the ulnar nerve distribution bilaterally Cap refill is brisk Radiographs: 3 views of the right hand from 02/17/23 were reviewed by me today in clinic. They show no fractures or dislocations. She has some basal joint arthritis with joint space narrowing & early osteophyte formation. Nerve Conduction study: Recent study: IMPRESSION: 1. This is an abnormal study. 2. There is electrodiagnostic evidence for right mild-moderate median neuropathy at the wrist, consistent with carpal tunnel syndrome. Findings today are more definitive than previous study 3. There are no findings for left median neuropathy at this time. 4. There is no electrodiagnostic evidence for ulnar neuropathy. CLINICAL COMMENT: Findings of right Carpal Tunnel Syndrome are more definitive. No findings for left-sided Carpal Tunnel Syndrome. She did have recent left Carpal Tunnel Syndrome injection. No findings suggestive of ulnar neuropathy. She would like to meet with Dr. Ya to discuss surgery. Elizabeth Jensen MD, DANIELA 03/07/23 First study: IMPRESSION: 1. This is an abnormal study. 2. There is electrodiagnostic findings suggestive for a right ulnar neuropathy at the wrist. 3. There is electrodiagnostic evidence for left mild-moderate median neuropathy at the wrist. 4. There is no electrodiagnostic evidence for brachial plexopathy, or cervical radiculopathy. Elizabeth Jensen MD, DANIELA 01/18/23 Psych Appearance: grossly normal Affect: normal affect Attitude: cooperative Assessment & Plan Assessment & Plan (1) Carpal tunnel syndrome of left wrist: Code(s): G56.02 - Carpal tunnel syndrome, left upper limb Category: Medical (2) Carpal tunnel syndrome of right wrist: Code(s): G56.01 - Carpal tunnel syndrome, right upper limb Category: Medical (3) Lupus: Code(s): M32.9 - Systemic lupus erythematosus, unspecified Category: Medical (4) Left wrist pain: Code(s): M25.532 - Pain in left wrist Category: Medical (5) Osteoarthritis of carpometacarpal (CMC) joint of right thumb: Code(s): M18.11 - Unilateral primary osteoarthritis of first carpometacarpal joint, right hand Category: Medical (6) Pain of left middle finger: Code(s): M79.645 - Pain in left finger(s) Category: Medical Plan Assessment & Plan: 1. Left Carpal tunnel syndrome, S/P release DOS: 10/08/23 Pre-operative symptoms intermittent & occasional Now with normal sensation The patient appears to be doing well post-operatively I educated her about the post-operative course I discussed activity modifications, she is to lift nothing heavier than a cellphone for the next two weeks She will perform gentle ROM exercises at home She should avoid any underwater activities for the next 5 days She should gently massage about the incision site to reduce the risk of hypersensitivity She can follow up prn 2. Left middle finger pain Volar aspect of finger, which radiates across her palm and into the volar fore arm No evidence of trigger finger She will work on ROM exercises at home 3. Right Carpal tunnel syndrome, S/P release DOS: 07/16/23 Pre-operatively with dense numbness Now with improved and normal sensation 4. Right basal joint osteoarthritis, S/P injection Date of Injection: 08/28/23 No complaints today 5. Left dorsal wrist pain No mention today Scribed for Caor Ya MD by Luigi Sepulveda, emergency medical technician basic, on 08/28/23 at 1:50 PM, EST. Coding Level of Care Code Global (86901) Diagnoses Carpal tunnel syndrome of left wrist G56.02 Carpal tunnel syndrome of right wrist G56.01 Lupus M32.9 Left wrist pain M25.532 Osteoarthritis of carpometacarpal (CMC) joint of right thumb M18.11 Pain of left middle finger M79.645
[2023-10-23 10:59] VITALS: BMI 28.0
== END 2023-10-23 11:24 | disposition home or self-care (01) ==
PROVIDERS: PCP Registered Nurse; Visit Provider Orthopaedic Surgery
DX: G56.03 Carpal tunnel syndrome, bilateral upper limbs (principal); M32.9 Systemic lupus erythematosus, unspecified; M25.532 Pain in left wrist; M18.11 Unilateral primary osteoarthritis of first carpometacarpal joint, right hand; M79.645 Pain in left finger(s)
CPT/HCPCS: 99024

== ENCOUNTER → 2023-10-23 10:34 | Outpatient (BNVA) | payer OTHER, SELFPAY | PROVIDERS: PCP Registered Nurse; Visit Provider Orthopaedic Surgery | DX: Z48.811 Encounter for surgical aftercare following surgery on the nervous system (principal); M79.645 Pain in left finger(s); M18.11 Unilateral primary osteoarthritis of first carpometacarpal joint, right hand; M32.9 Systemic lupus erythematosus, unspecified | CPT/HCPCS: 99212 ==

== ENCOUNTER 2023-11-07 08:39 | Outpatient (REF) | payer OTHER, SELFPAY ==
--- NOTE | ~2023-11-07 | CT_ITS ---
EXAMINATION: CT SINUS WITHOUT CONTRAST CLINICAL INFORMATION: Sinus pain with history of sinus surgery. COMPARISON: None available. TECHNIQUE: Spiral CT noncontrast imaging of the paranasal sinuses and maxillofacial region was obtained, with multiplanar reformatted imaging. This CT examination was performed using dose optimization techniques as appropriate, variously including the following: *Automated exposure control *Adjustment of mA and/or kV according to patient size (this includes techniques or standardized protocols for targeted exams where dose is matched to indication/reason for exam; i.e. extremities or head) *Use of iterative reconstruction technique DLP: 105 mGy-cm FINDINGS: Nasal Cavity: -Normally pneumatized. Thickening of the anterior membranous nasal septum superior aspect is most consistent with a polyp, measuring approximately 2.6 x 1.2 x 1.3 cm (AP, TRV, CC). -The nasal septum is S-shaped with superior right deviation and inferior left deviation with small leftward spur. -Mild polypoid mucosal thickening is present along the septum and turbinates. No additional masses. -The middle meatus, inferior meatus by, and superior meati are grossly patent with patent air channels. -The left middle meatus is mildly narrowed by leftward septal deviation. Turbinates: -Inferior turbinates are normal in morphology with moderate polypoid mucosal thickening present. -The right middle turbinate is paradoxical. -The left middle turbinate is partially paradoxical. -An accessory left turbinate arises from the left uncinate process. Maxillary Sinuses: -Both are normally pneumatized. The right is mildly hypoplastic comparison with the left. -There is bilateral mild pedunculation of the inferior orbital canals. -The left maxillary ostia is patent although mildly narrowed by a low-lying ethmoid air cell. There is associated mild mucosal thickening. -The right maxillary ostia is patent although minimally narrowed by some mucosal thickening, and an associated low-lying ethmoid bulla. Frontal Sinuses: -The right frontal sinuses hypoplastic, and the left frontal sinuses mildly hypoplastic. Both are normally pneumatized. -The frontal recesses are widely patent bilaterally. Ethmoid Sinuses: -The anterior and posterior ethmoid air cells are normally pneumatized. Sphenoid Sinus: -The sphenoid sinuses are normally pneumatized bilaterally. -The sphenoethmoidal recesses are widely patent bilaterally. Additional Findings: -There has been a right canal wall up mastoidectomy. Mastoid bowl is normally pneumatized. -There is fluid opacification of the inferior mastoid tip air cells bilaterally. -The middle ear cavities are normally pneumatized. -Globes and orbits appear normal. -No significant active maxillary dental disease. -No extracranial soft tissue abnormalities. CT/CT sinus wo IV con IMPRESSION: 1. No evidence of significant paranasal sinus disease. 2. There is a 2.6 x 1.2 x 1.3 cm polyp in the anterior superior membranous nasal septum. 3. There is an S-shaped nasal septum with mild narrowing of the left middle meatus. 4. The right frontal sinus is hypoplastic. 5. No obstruction of any major drainage pathway is noted. Please see above for relevant anatomical variations. 6. Prior right mastoidectomy. Persistent fluid in the mastoid tip air cells bilaterally.
== END 2023-11-07 08:40 | disposition home or self-care (01) ==
LOC: HO.CT 08:39
PROVIDERS: PCP Registered Nurse; Visit Provider Registered Nurse
DX: J32.9 Chronic sinusitis, unspecified (principal)
CPT/HCPCS: 70486

== ENCOUNTER → 2023-11-07 08:39 | Outpatient (BNV) | payer OTHER, SELFPAY | PROVIDERS: PCP Registered Nurse; Visit Provider Radiology Diagnostic Radiology | DX: J32.9 Chronic sinusitis, unspecified (principal) | CPT/HCPCS: 70486 ==

== ENCOUNTER 2023-12-14 09:05 | Outpatient (AMB) | payer OTHER, SELFPAY ==
[2023-12-14 09:28] VITALS: BP 114/74; PULSE 92; BMI 29.6
--- NOTE | 2023-12-14 09:28 | A.OFFVIS_ITS ---
Vital Signs 12/14/23 09:28 Height 5 ft 3 in Weight 167 lb 1.766 oz BMI 29.6 BP 114/74 Blood Pressure Location Lt brachial Position Sitting Pulse 92 Pulse Source Pulse Oximeter Intake Visit Reasons: f/up stress echo Personal Development Coach Required: No Allergies No Known Allergies Allergy (Verified 12/14/23 09:31) Medication List - Last Reconciled 12/14/23 by JEANNIE Gonzalez albuterol sulfate 90 mcg/actuation 2 puffs PO Q4-6H PRN albuterol sulfate mg inhalation Anoro Ellipta 62.5-25 mcg/actuation (umeclidinium-vilanterol) 1 inh inhalation DAILY 30 days NS bupropion HCl XL 300 mg PO DAILY celecoxib mg PO cetirizine 1 tab PO QAM cholecalciferol (vitamin D3) 50 mcg PO DAILY etodolac 200 mg PO BID fluticasone propionate 50 mcg/actuation sprays intranasal folic acid 1 mg PO DAILY gabapentin mg PO hydroxychloroquine (Plaquenil) 200 mg PO DAILY ibuprofen 600 mg PO TID PRN ipratropium bromide 17 mcg/actuation (Atrovent HFA) 2 puffs PO QID lidocaine HCl 4% (Aspercreme (lidocaine HCl)) 1 appl topical BID PRN loratadine 10 mg PO DAILY meclizine 12.5 mg PO BID PRN mirtazapine 7.5 mg PO BEDTIME montelukast 10 mg PO DAILY omeprazole 20 mg PO DAILY sertraline (Zoloft) 25 mg PO DAILY tramadol 1 tab PO Q6H PRN HPI HPI f/up stress echo: Details: Lizzie is a 58-year-old female with past medical history of smoking, mild emphysema who was being evaluated for shortness of breath with exertion. She underwent a stress echocardiogram and now presents for follow-up. Today she reports that she continues to have issues with shortness of breath during exertional activities. She says her breathing is a little better now compared to last winter. She has no PND, orthopnea or edema. When she feels short of breath she does get some relief from her inhalers. She continues to not smoke. No chest discomfort at rest or with activity. No heart palpitations, lightheadedness, presyncope, syncope, falls. Takes meds as directed. [facility] Medical History Personal history of nicotine dependence Carpal tunnel syndrome on both sides Carpal tunnel syndrome of left wrist Wrist pain Osteopenia Fracture of distal end of left fibula (~11/2021) Lupus Osteoarthritis History of back pain Asthma Vertigo Hearing deficit Surgical History Hx of shoulder surgery History of colonoscopy (~2019) History of tonsillectomy (~1991) History of nasal septoplasty (~1998) History of ear surgery (~1999) Family History Father Heart problem Heart attack Mother HTN (hypertension) Maternal Aunt Breast cancer Sister Breast cancer Social History Household Members Other:: son Housing: House Alcohol intake: current Alcohol intake frequency: does not drink Patient Tobacco Use Status: Former Tobacco user Years Smoked: (onset 18yo, 1ppd x 39yrs, now 1/2ppd - 35+PYH - quit 11/06/22) Second Hand Smoke Exposure: No Current occupational status: disabled 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 Sexual orientation: Straight/Heterosexual Gender identity: Female Review of Systems Const All systems reviewed & are unremarkable except as noted in HPI and below ENT Denies dizziness Card Denies chest pain, Denies chest pain at rest, Denies chest pain with activity, Denies rapid heart rate, Denies pedal edema, Denies edema, Denies leg edema, Denies lightheadedness, Denies palpitations, Denies dyspnea, Reports dyspnea on exertion and Denies orthopnea Resp Denies cough, Denies dyspnea and Reports dyspnea on exertion GI Denies hematochezia and Denies change in stool character Musc Denies abnormal gait, Denies limited range of motion, Denies muscle cramps, Denies muscle weakness, Denies numbness, Denies radiating pain into limb, Denies stiffness and Denies tingling Neuro Denies abnormal gait, Denies dizziness, Denies numbness and Denies tingling Endo Denies palpitations Physical Exam Vital Signs: Last Vital Signs Pulse 92 12/14/23 09:28 BP 114/74 12/14/23 09:28 BMI result Body Mass Index 29.6 Const General: cooperative, healthy appearing, comfortable and no acute distress Orientation/consciousness: patient oriented x3 Neck Neck: Yes normal visual inspection and Yes no JVD Resp Effort & Inspection: normal respiratory effort Auscultation: clear to auscultation bilaterally, no rales, no rhonchi and no w heezes Cardio Jugular venous distension: no JVD Rate: regular rate Rhythm: regular rhythm Heart sounds: S1 normal heart sound present, S2 normal heart sound present, no murmurs and no rubs Neuro General: patient oriented x3 Extrem General: Yes normal to inspection, No no pedal edema and No calf tenderness Psych Appearance: grossly normal Mental Status: mental status grossly normal Speech and movement: Normal speech and movement present Assessment & Plan Assessment & Plan (1) ASKEW (dyspnea on exertion): Code(s): R06.09 - Other forms of dyspnea Category: Medical Plan: History of shortness of breath with exertion. Pulmonary function test 11/30/2022 showed no obstructive or restrictive ventilatory defects, moderate isolated diffusion impairment. CT scan of the lungs on 12/01/2022 showed mild emphyse[address]. CT scan of the lungs on 12/01/2022 showed mild emphysema. A cardiopulmonary stress test at [facility] on 05/22/2023 showed moderately impaired exercise capacity and mildly impaired aerobic capacity. Echocardiogram 03/15/23 shows EF 55-60%, impaired relaxation, normal valves. She then underwent a stress echocardiogram on 09/14/2023 showing no EKG changes, no exercise induced diastolic dysfunction, pulmonary hypertension or wall motion abnormality. Test results reviewed with her. No clear cardiac cause for her shortness of breath. Symptoms could be related to her mild emphysema. She continues to follow with pulmonology. She quit smoking last year. Encouraged to continue to refrain from smoking. Cardiology follow-up as needed. (2) Personal history of nicotine dependence: Comment: (onset 18yo, 1ppd x 39yrs, now 1/2ppd - 35+PYH - quit 11/06/22) Code(s): Z87.891 - Personal history of nicotine dependence Category: Medical Plan: As above Plan Time spent on chart review, documentation, interview and assessment Coding Level of Care Code Est Pt Level 3 (67774) Diagnoses ASKEW (dyspnea on exertion) R06.09 Personal history of nicotine dependence Z87.891 Time Spent (min) 24
== END 2023-12-14 09:55 | disposition home or self-care (01) ==
PROVIDERS: PCP Registered Nurse; Visit Provider Nurse Practitioner Family
DX: R06.09 Other forms of dyspnea (principal); Z87.891 Personal history of nicotine dependence
CPT/HCPCS: 99213

== ENCOUNTER → 2023-12-14 09:05 | Outpatient (BNVA) | payer OTHER, SELFPAY | PROVIDERS: PCP Registered Nurse; Visit Provider Nurse Practitioner Family | DX: R06.09 Other forms of dyspnea (principal); F17.210 Nicotine dependence, cigarettes, uncomplicated | CPT/HCPCS: 99212 ==

== ENCOUNTER 2023-12-21 13:38 | Outpatient (AMB) | payer OTHER, SELFPAY ==
[2023-12-21 14:01] VITALS: BMI 29.6
--- NOTE | 2023-12-21 14:01 | MHC.OFFVIS ---
Vital Signs 12/21/23 14:01 Height 5 ft 3 in Weight 167 lb BMI 29.6 Intake Visit Reasons: PO-Lt CTR 10/08/23, ROM check Intake Note: Lizzie is a 58 yo right hand dominant female who presents today post operatively for a ROM check s/p left CTR done 10/08/[address] Ya. Patient records she continues to have limited ROM as well as left hand numbness and tingling. Patient has not done PT/OT. She reports her left hand feels stiff. She denies pain today, unless she applies force on it. Allergies No Known Allergies Allergy (Verified 12/21/23 14:07) HPI HPI PO-Lt CTR 10/08/23, ROM check: Details: Patient is a 58-year-old female who presents for postoperative evaluation of left carpal tunnel release, DOS 10/08/2023. Today, the patient reports that her pain has improved, and her range of motion has also improved, but they are still both present. The patient has no concerns about the incision site itself, but states that she is still experiencing pain and stiffness in her wrist and fingers. Patient continues to experience numbness and tingling in the left hand as well. No other acute complaints or concerns at this time. [facility] Medical History Personal history of nicotine dependence Carpal tunnel syndrome on both sides Carpal tunnel syndrome of left wrist Wrist pain Osteopenia Fracture of distal end of left fibula (~11/2021) Lupus Osteoarthritis History of back pain Asthma Vertigo Hearing deficit Surgical History Hx of shoulder surgery History of colonoscopy (~2019) History of tonsillectomy (~1991) History of nasal septoplasty (~1998) History of ear surgery (~1999) Family History Father Heart problem Heart attack Mother HTN (hypertension) Maternal Aunt Breast cancer Sister Breast cancer Social History Household Members Other:: son Housing: House Alcohol intake: current Alcohol intake frequency: does not drink Patient Tobacco Use Status: Former Tobacco user Years Smoked: (onset 18yo, 1ppd x 39yrs, now 1/2ppd - 35+PYH - quit 11/06/22) Second Hand Smoke Exposure: No Current occupational status: disabled 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 Neuro: Median, ulnar, radial nerves motor and sensory intact and sensation is normal to the tips of all digits. Vascular: Cap refill brisk Pain: Patient reports no tenderness to palpation about the incision site at this time Patient reports pain and stiffness with range of motion testing ROM: With encouragement, the patient is able to make a closed fist Skin: Well-healed incision site about the volar aspect of the left wrist General: No ecchymosis, erythema, or evidence of infection. Psych: Appears grossly normal Affect normal Attitude cooperative Assessment & Plan Assessment & Plan (1) Carpal tunnel syndrome of left wrist: Code(s): G56.02 - Carpal tunnel syndrome, left upper limb Category: Medical (2) Left wrist pain: Code(s): M25.532 - Pain in left wrist Category: Medical Plan 1. Left carpal tunnel syndrome status post carpal tunnel release DOS 10/08/[address] Ya Patient is slowly recovering from her procedure Patient is educated about the typical recovery course At this time, the patient will be referred to occupational hand therapy for range of motion and strengthening of the left hand due to stiffness Patient is also educated that can take weeks to even months for normal sensation to return to the left hand Patient is also educated that there is always a chance at normal sensation will not return, even after a long period of time Patient is amenable to this Patient will follow-up p.r.n. with any acute concerns Orders: Orders OT Evaluation and Treatment Today G56.02 - Carpal tunnel syndrome, left upper limb, M25.532 - Pain in left wrist Coding Level of Care Code Global (55031) Diagnoses Carpal tunnel syndrome of left wrist G56.02 Left wrist pain M25.532
== END 2023-12-21 14:56 | disposition home or self-care (01) ==
PROVIDERS: PCP Registered Nurse
DX: G56.02 Carpal tunnel syndrome, left upper limb (principal); M25.532 Pain in left wrist
CPT/HCPCS: 99024

== ENCOUNTER → 2023-12-21 13:38 | Outpatient (BNVA) | payer OTHER, SELFPAY | PROVIDERS: PCP Registered Nurse | DX: G56.02 Carpal tunnel syndrome, left upper limb (principal); M25.532 Pain in left wrist | CPT/HCPCS: 99212 ==

== ENCOUNTER 2024-01-09 15:13 | Outpatient (REF) | payer OTHER, SELFPAY ==
--- NOTE | ~2024-01-09 | CT_ITS ---
EXAMINATION: CT LOW-DOSE SCREENING CHEST WITHOUT CONTRAST CLINICAL INFORMATION: Personal history of nicotine dependence. The patient is a current smoker with a 40 pack-year history of smoking. COMPARISON: CT chest 12/01/2022. TECHNIQUE: Multidetector volumetric CT imaging of the chest is performed on a Siemens SOMATOM Definition scanner without contrast using low dose technique. Additional 2D coronal and sagittal reformatted images and axial 3D maximum intensity projection (MIP) images are generated on the CT workstation. This CT examination was performed using dose optimization techniques as appropriate, variously including the following: *Automated exposure control. *Adjustment of mA and/or kV according to patient size (this includes techniques or standardized protocols for targeted exams where dose is matched to indication/reason for exam; i.e. extremities or head). *Use of iterative reconstruction technique. TOTAL EXAM DLP: 46 mGy-cm. CTDIvol: 1.53 mGy. FINDINGS: PULMONARY NODULES: Stable 3 mm left lower lobe pulmonary nodule (5:288 compare prior 5:313). No new, increasing-size or suspicious nodule. LUNGS: There is moderate emphysema along with mild bronchial thickening. No focal lung nodule or mass. No effusion or pneumothorax. Central airways patent. MEDIASTINUM: No mediastinal, hilar or axillary adenopathy or free fluid collection. CORONARY ARTERY CALCIFICATION: Mild. THYROID GLAND: Unremarkable to the extent seen. CARDIOVASCULAR STRUCTURES: Aortic and heart size normal. No pericardial effusion. CHEST WALL/AXILLA: Unremarkable. UPPER ABDOMEN: Included portions of the solid organs in the upper abdomen unremarkable on noncontrast imaging. OSSEOUS STRUCTURES: No suspicious focal findings. CT/CT lung screening IMPRESSION: No findings seen suspicious for malignancy. ASSESSMENT: 1. Lung-RADS Category 2: Benign appearance or behavior of nodules. N/A. 2. Lung-RADS Category S: Negative. There are no clinically significant or potentially clinically significant findings not related to the lungs requiring urgent additional evaluation. RECOMMENDATION: Continued routine annual low-dose CT lung screening in 1 year is recommended. An order for CT CHEST LOW DOSE CANCER SCREENING ([id number]) can be placed. Electronically signed by: Napoleon Luz MD 01/23/2024 12:15 AM EDT
== END 2024-01-09 15:14 | disposition home or self-care (01) ==
LOC: HO.CT 15:13
PROVIDERS: PCP Registered Nurse; Visit Provider Physician Assistant Medical
DX: Z12.2 Encounter for screening for malignant neoplasm of respiratory organs (principal); Z87.891 Personal history of nicotine dependence
CPT/HCPCS: 71271

== ENCOUNTER 2024-02-08 16:33 | Outpatient (REF) | payer OTHER, SELFPAY ==
[2024-02-14 12:07] LABS: HPV mRNA E6/E7 Not Detected (Not Detected)
== END 2024-02-08 16:34 | disposition home or self-care (01) ==
LOC: HO.HHCLNP 16:33
PROVIDERS: Visit Provider Registered Nurse
DX: Z12.4 Encounter for screening for malignant neoplasm of cervix (principal)
CPT/HCPCS: 36415; 87624; 88175

== ENCOUNTER 2024-02-12 11:00 | Outpatient (RCR) | payer OTHER, SELFPAY ==
--- NOTE | 2024-01-10 16:11 | MHC.OT.OEV ---
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 She also noted she has difficulty with weight baring activities. She has numbness at night. 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 She lives with her adult son in a 2 level home but moved her bedroom to the 1st floor. Her main goal for therapy is to decrease pain and for her to be able to use her hand again. Significant Medical History: Personal history of nicotine dependence Carpal tunnel syndrome on both sides Carpal tunnel syndrome of left wrist Wrist pain Osteopenia Lupus Osteoarthritis History of back pain Asthma Vertigo Hearing deficit Precautions/Contraindications: 02/15/22 Pt UNDERWENT Rt SHOULDER SURGERY AND IS IN AN IMMOBILIZER Patient Goals: To be able to use hand Hand Dominance: Left Observations: QuickDASH Score: 63.6 Prior Level of Function and Occupation Self Care, Employment, Leisure: min (A)ADLs, mod (I)ADLs No hobbies Living Situation, Family and/or Social Support: Lives with adult son 2 level Current Level of Function and Occupation Self Care, Employment, Leisure: Mod (A)ADLs/IADLs No hobbies Sleep: Driving: Vision: Balance: Pain Assessment Pain Score: L hand Pain Scale Used: Pain Location and Description: 10/28 Aggravating Factors: Alleviating Factors: Skin and Soft Tissue Assessment Skin and Soft Tissue: Comments: skin intact, soft has scar from CTR on volar wrist Nerve assessment Ulnar Nerve: Median Nerve: Radial Nerve: Comments: Sensory Assessment Temperature: Light Touch: Left Impaired Proprioception: Vibration: Comments: Monofilament Test - impaired light touch Edema Assessment Upper Extremity: Lower Extremity: Comments: No edema present Dexterity Assessment Dexterity: Left Impaired Comments: Functional Dexterity Test = 36.58(L) Special Tests Comments: AROM(PROM) Strength Cervical Cervical Flexion: Cervical Extension: Cervical Lateral Flexion: Cervical Rotation: Comments: Shoulder Flexion: Extension: Abduction: Internal Rotation: External Rotation: Comments: WFL Flexion: Extension: Abduction: Internal Rotation: External Rotation: Comments: 3+/5 Elbow Flexion: Extension: Pronation: Supination: Comments: WFL Flexion: Extension: Pronation: Supination: Comments: 3+/5 Wrist Flexion: 75 Extension: 60 Ulnar Deviation: 20 Radial Deviation: 23 Comments: Flexion: Extension: Ulnar Deviation: Radial Deviation: Comments: 3+/5 Thumb Thumb CMC Flexion: Thumb MCP Flexion: Thumb IP Flexion: Radial Abduction: [place] Abduction: [place] ([place] 0-10): Comments: WFL Digits Index MCP: PIP: DIP: Long MCP: PIP: DIP: Ring MCP: PIP: DIP: Small MCP: PIP: DIP: Comments: WFL Gross Grasp: 41.5(R)lbs., 20(L)lbs. Lateral Pinch: 8.5 Two-Point Pinch: 3 Three-Jaw [place]: 3 Comments: Patient Education Primary Language: Health Science Instructor Required: No Current Knowledge: Teaching Method: Education Needs Identified on Evaluation: How did patient/family demonstrate learning? Barriers to Learning: Readiness for Learning: Who was educated? 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 Per skilled OT evaluation patient's current wrist AROM measurements are as follows: 60* extension, 75* flexion, 23* radial deviation, 20* ulna deviation. Patient achieved 36.58 seconds on the Functional Dexterity Test indicating coordination impaired. 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 Quick DASH score=63.6 indicating patient's perceived impairment of the UE during self care tasks. Patient's CLOF is mod (A)self care tasks as patient presents with impaired strength, impaired coordination, impaired ROM and impaired performance during self care tasks. Due to the documented impairments it is recommended that patient receive skilled OT in order for patient to achieve her PLOF of (I) during self care tasks. Thank you for your referral. STG Duration: 2 weeks Short Term Goals: Patient will report 4/10 pain patient will increase (L)wrist extension by 10* Patient will increase (L)linux unix system administrator strength to 25lbs. LTG Duration: 4 weeks Nursing Home Goals: Patient will report 0/10 pain patient will have wrist AROM WFLs patient will be (I) with HEP patient will have decreased Quick DASH score of at least 20% indicating overall improved UE function Frequency and Duration: The patient will be seen 2x a week for 4 weeks Treatment Plan: Therapeutic Exercise Therapeutic Activity Home Exercise Program Splinting Patient Education Edema Control ADL Training Ultrasound Iontophoresis Paraffin Fluidotherapy MHP Cold Packs Joint Mobilization Soft Tissue Mobilization Kinesiotaping OT eval and treat Electronically Signed By: REBEKA La/Russell,SKYLERT Reviewed/agree with student documentation: Therapist: Please sign and return to therapist, Thank you for your referral.
--- NOTE | 2024-02-12 13:38 | MHC.OT.OP ---
[address] [phone] F: [phone] Occupational Therapy Progress Note Patient Name: Lizzie Girard Diagnosis: (L)CTR Date of Surgery: 10/08/23 Date of Evaluation: 01/08/24 Treatments to Date: 9 Cancellations to Date: No Shows to Date: Subjective: It hurts right here. Pain Score: 4 Pain Location: (L)wrist Objective Measures: Monofilament Test - impaired light touch Status: Not Progressing Assessment: Patient has had 9 1:1 sessions for pain in (R)wrist s/p CTR. Patient has actively participate in skilled OT and has decreased her wrist pain and her Quick DASH score has decreased by 13% indicating improvement in the (R)UE during self care tasks. At this time patient continues to presents with impaired wrist AROM as she achieved 45* extension a 15* decrease in extension and impaired strength as she achieved 11.6lbs. a 9lbs. decrease, she also reports pain at the medial epicondyle. Due to the documented impairments it is recommended that patient continue with OT services in order to increase ROM, strength and decrease pain; however if minimal progress towards her goals is achieved patient and therapist will discuss d/c from skilled services. Short Term Goals: Patient will report 4/10 pain- MET patient will increase (L)wrist extension by 10* - NOT MET (45*); Patient will increase (L)ror engineer strength to 25lbs. - NOT MET (11.6lbs.) Lockstitch Binder Goals: Patient will report 0/10 pain- ANTICIPATED BETTER PROGRESS AT THIS TIME patient will have wrist AROM WFLs- ANTICIPATED BETTER PROGRESS AT THIS TIME patient will be (I) with HEP- PROGRESSING patient will have decreased Quick DASH score of at least 20% indicating overall improved UE function - NOT MET (DECREASED SCORE BY 13%) Frequency and Duration: The patient will be seen 2X a week for 4 weeks Treatment Plan: Therapeutic Exercise Therapeutic Activity Home Exercise Program Splinting Patient Education ADL Training Ultrasound NMES Iontophoresis Paraffin Fluidotherapy MHP Cold Packs Joint Mobilization Soft Tissue Mobilization Kinesiotaping Other (see comments) Continue with current POC Electronically Signed By: Elis Bernard, OTR/L, CLT Reviewed/agree with student documentation: Therapist:
--- NOTE | 2024-04-24 11:00 | MHC.OT.DC ---
[address] [phone] F: [phone] Occupational Therapy Discharge Note Patient Name: Lizzie Girard Provider: Roque Vasquez Diagnosis: (L)CTR Date of Surgery: 10/08/23 Date of Evaluation: 01/08/24 Date of Discharge: Treatments to Date: 9 Cancellations to Date: No Shows to Date: Discharge Status: Discharge Summary: Patient did not return to therapy. Electronically Signed By: REBEKA La/Russell, CLT Reviewed/agree with student documentation: Therapist: Please Sign and return to therapist, thank you for your referral.
== END 2024-04-24 11:01 | disposition home or self-care (01) ==
LOC: HO.OT 11:00
PROVIDERS: PCP Registered Nurse
DX: G56.02 Carpal tunnel syndrome, left upper limb (principal); M25.532 Pain in left wrist
CPT/HCPCS: 97035; 97110; 97140; 97165

== ENCOUNTER 2024-03-28 11:19 | Outpatient (REF) | payer OTHER, SELFPAY | END 2024-03-28 11:20 | disposition home or self-care (01) | LOC: HO.US 11:19 | PROVIDERS: PCP Registered Nurse; Visit Provider Advanced Practice Midwife | DX: D21.9 Benign neoplasm of connective and other soft tissue, unspecified (principal) | CPT/HCPCS: 76830; 76856 ==

== ENCOUNTER 2024-04-16 11:56 | Outpatient (REF) | payer OTHER, SELFPAY ==
--- NOTE | ~2024-04-16 | XR_ITS ---
EXAMINATION: XR HAND, RIGHT CLINICAL INFORMATION: Pain. COMPARISON: Radiographs dated 02/07/2023. TECHNIQUE: PA, lateral, and oblique views of the right hand. FINDINGS: Bony alignment and mineralization are normal. There is a mild ulnar minus variance. No fracture or dislocation is seen. There is very mild osteoarthritic change of the second distal interphalangeal joint and of the interphalangeal joint of thumb. There is mild osteoarthritic change of the first, second and fifth metacarpophalangeal joints. There is mild osteoarthritic change of the first carpometacarpal joint. No fracture or dislocation is seen. No abnormal focal bone erosion is noted. No focal soft tissue swelling, gas or foreign body is seen. XR/XR hand RT min 3V IMPRESSION: Mild osteoarthritic change is seen of the right hand and wrist. No focal bone erosion is seen. There is no fracture or dislocation. Electronically signed by: Brayden Bhardwaj MD 04/17/2024 11:48 AM KARENA
== END 2024-04-16 11:57 | disposition home or self-care (01) ==
LOC: HO.HHCX 11:56
PROVIDERS: Visit Provider Registered Nurse
DX: M79.641 Pain in right hand (principal)
CPT/HCPCS: 73130

== ENCOUNTER 2024-06-10 09:53 | Outpatient (AMB) | payer OTHER, SELFPAY ==
[2024-06-10 09:55] VITALS: BMI 29.6
--- NOTE | 2024-06-10 09:55 | MHC.OFFVIS ---
Vital Signs 06/10/24 09:55 Height 5 ft 3 in Weight 167 lb BMI 29.6 Handedness Left Intake Visit Reasons: OV- Right hand pain, s/p RT CTR 07/16/23 AR Intake Note: Lizzie is a 58 year old left hand dominant female who presents today for a follow up of her right hand pain, s/p right CTR 07/16/23 AR. Patient reports after getting the surgery she feels it made her symptoms worse. She emotions that her fingers cramp up through out the day. Patient states that she puts her hand under warm water to relax her fingers, however it is happening to her left hand as well. Patient expresses that her hands started cramping after surgery. Allergies No Known Allergies Allergy (Verified 06/10/24 09:59) HPI HPI OV- Right hand pain, s/p RT CTR 07/16/23 AR: Details: Lizzie is a 58 year old left hand dominant female who presents today for a follow up of her right hand pain, s/p right CTR 07/16/23 AR. Patient reports after getting the surgery she feels it made her symptoms worse. She emotions that her fingers cramp up through out the day. Patient states that she puts her hand under warm water to relax her fingers, however it is happening to her left hand as well. Patient expresses that her hands started cramping after surgery. [facility] Medical History (Updated 03/21/24 @ 09:34 by Eliana Mackay CNM) Fibroid Personal history of nicotine dependence Carpal tunnel syndrome on both sides Carpal tunnel syndrome of left wrist Wrist pain Osteopenia Fracture of distal end of left fibula (~11/2021) Lupus Osteoarthritis History of back pain Asthma Vertigo Hearing deficit Surgical History Hx of shoulder surgery History of colonoscopy (~2019) History of tonsillectomy (~1991) History of nasal septoplasty (~1998) History of ear surgery (~1999) Family History Father Heart problem Heart attack Mother HTN (hypertension) Maternal Aunt Breast cancer Sister Breast cancer Social History (Updated 06/10/24 @ 10:00 by Wu Rosen) Household Members Other:: son Housing: House Alcohol intake: current Alcohol intake frequency: does not drink Patient Tobacco Use Status: Former Tobacco user Years Smoked: (onset 18yo, 1ppd x 39yrs, now 1/2ppd - 35+PYH - quit 11/06/22) Second Hand Smoke Exposure: No Current occupational status: disabled Current occupation: left hand dominant Sexual orientation: Straight/Heterosexual Gender identity: Female Physical Exam Vital Signs: BMI result Body Mass Index 29.6 Extrem Other: Patient is alert, oriented, and in no acute distress. Neuro: Normal sensation of the tips of all digits of the right hand at this time Vascular: Cap refill brisk Pain: Positive CMC grind on the right No tenderness to palpation of the radial styloid, ulnar styloid, DRUJ, or elsewhere in the right hand or wrist Negative Ana Pain With range of motion of the right thumb ROM: Patient is able to make closed fist and extend all digits of the right hand fully Skin: No lacerations or abrasions. General: No ecchymosis, erythema, or evidence of infection. Psych: Appears grossly normal Affect normal Attitude cooperative Office Procedures Joint Inj/Aspir; Non-Pain Clin Joint Injection/Drain Prep: site was prepped using aseptic technique and injection warnings given Elbows, Wrist, Hands, Details: Right basal joint Hand injection Medium joint : Right Hand Coding Procedure code (CPT) selection complete Results Reviewed Results Reviewed: X-rays obtained in the office today and independently reviewed by me, Roque Vasquez PA-C, demonstrate [id number] degenerative changes of the 1st CMC joint of the right hand. Assessment & Plan Assessment & Plan (1) Osteoarthritis of carpometacarpal (CMC) joint of right thumb: Code(s): M18.11 - Unilateral primary osteoarthritis of first carpometacarpal joint, right hand Category: Medical Plan 1. Basal joint arthritis of right hand patient is educated about this condition Patient is educated about the treatment options available Patient would like to proceed with a repeat right basal joint injection at this time The risks and benefits of a steroid injection including but not limited to risk of damage to blood vessels, nerve, tendon, infection, skin bleaching, persistent or worsening pain, and failure to improve symptoms were discussed with the patient and they wish to proceed with the steroid injection. Once consent was obtained the skin over the dorsum of the right basal joint was aseptically prepped. The joint was then injected with a combination of 1 mL of (40 mg/ml} Depo-Medrol and 1% plain Lidocaine. The patient appears to have tolerated the procedure well and with no complications. He had good early relief before leaving clinic today. He knows that they may not have another steroid injection into this joint for least 4 months. Orders: Orders OT Evaluation and Treatment Today M18.11 - Unilateral primary osteoarthritis of first carpometacarpal joint, right hand Coding Level of Care Code Est Pt Level 3 (31262) Diagnoses Osteoarthritis of carpometacarpal (CMC) joint of right thumb M18.11 CPT Codes Elbows, Wrist, Hands, - Hand injection Medium joint 35186: Right Hand ([id number])
--- OUTSIDE RECORDS SUMMARY | 2024-06-10 11:05 | XMS_ITS | Encounter Summary ---
Author Organization [employer] Address [address] [place] [id number] Care Team Providers Care Home Performance Laborer Name Role Phone [facility] Primary Care Provider [phone] Reason for Visit * Reason Comments Med Refill Encounter Details Date Type Department Care Team ([facility] Contact Info) Description 03/11/2024 Refill [facility] [address] [place] [address] [facility] [address] [place] [address] Restless leg syndrome; Dizziness and giddiness Social History Tobacco Use Types Packs/Day Years Used Date Smoking Tobacco: Former Cigarettes Passive Smoke Exposure: Past Smokeless Tobacco: Never Alcohol Use Standard Drinks/Week Comments Never 0 (1 standard drink = 0.6 oz pur e alcohol) Depression Answer Date Recorded Patient Health Questionnaire-9 Score 0 02/08/2024 Patient Health Questionnaire-9 Score 0 02/08/2024 Last PHQ-9: Questionnaire Data Not on file 0 02/08/2024 Housing Stability Answer Date Recorded What is your housing situation today? I have alice juarez 03/13/[address] you li ve. Do you have problems with any of the following? None of the above 03/13/2023 Food Insecurity Answer Date Recorded Within the past 12 months, y ou worried that your food would run out before you got money to buy more: Never True 03/13/2023 Within the past 12 months,th e food you bought just didn't last and you didn't have enough money to get more: Never True Transportation Answer Date Recorded In the past 12 months, has l ack of transportation kept you from medical appts, meetings, work or from getting things needed for daily living? No 03/13/2023 Utilities Answer Date Recorded In the past 12 months, has t he electric, gas, oil or water company threatened to shut off services in your home? No 03/13/2023 Depression Answer Date Recorded Patient Health Questionnaire-2 Score 0 02/08/2024 Comments Unknown Sex and Gender Information Value Date Recorded Sex Assigned at Female 03/20/2022 10:15 AM EDT Legal Sex Female 10:15 AM EDT Gender Identity Female 03/20/2022 10:15 AM EDT Sexual Orientation Straight 03/20/2022 10 :15 AM EDT documented as of this encounter Plan of Treatment Not on file documented as of this encounter Visit Diagnoses Diagnosis Restless leg syndrome Restless legs syndrome (RLS) Dizziness and giddiness documented in this encounter Additional Health Concerns Assessment Noted Time PHQ-9 Depression Total Score: 0 02/08/20 2:03 PM EDT documented as of this encounter Care Teams Home Performance Laborer Relationship Specialty Start Date End Date Alicia Carias FNP [address] [place] [id number] PCP - General Family Medicine 01/17/22 documented as of this encounter
--- OUTSIDE RECORDS SUMMARY | 2024-06-10 11:05 | XMS_ITS | Encounter Summary ---
Author Organization [employer] Address [address] [place] [address] [address] [address] Care Team Providers Care Line Construction Superintendent Name Role Phone [facility] Primary Care Provider [phone] Reason for Visit * Reason Comments Med Refill Encounter Details Date Type Department Care Team ([facility] Contact Info) Description 03/12/2024 Refill [facility] [address] [place] [address] [facility] [address] [place] [address] Dizziness and giddiness; Restless leg syndrome Social History Tobacco Use Types Packs/Day Years [...] as of this encounter Visit Diagnoses Diagnosis Dizziness and giddiness Restless leg syndrome Restless legs syndrome (RLS) documented in this encounter Additional Health Concerns Assessment Noted Time PHQ-9 Depression Total Score: 0 02/08/20 2:03 PM EDT documented as of this encounter Care Teams Line Construction Superintendent Relationship Specialty Start Date End Date Alicia Carias FNP [address] [place] [id number] PCP - General Family Medicine 01/17/22 documented as of this encounter
--- OUTSIDE RECORDS SUMMARY | 2024-06-10 11:05 | XMS_ITS | Clinical Summary ---
Author Organization [employer] Address [address] [place] [address] [place] [address] Care Team Providers Care Manager Professional Development Name Role Phone Alicia Carias CAT CRACKER OPERATOR Primary Care Provider [phone] Allergies No known active allergies Medications methotrexate 2.5 MG tablet TAKE 10 TABLETS BY MOUTH ONCE WEEKLY ON Sunday 3 Active ipratropium-albut yordy (Duo-Neb) 0.5-2.5 mg/3 mL nebulizer solution INHALE 1 AMPULE USING A NEBULIZER FOUR TIMES DAILY 2 Active hydroxychloroquin e (Plaquenil) 200 MG tablet TAKE 2 TABLETS BY MOUTH ONCE DAILY IN THE MORNING 3 Active folic acid (Folvite) 1 MG tablet Take 1,000 mcg by mouth in the morning. 3 Active etodolac (Lodine) 400 MG tablet TAKE 1 TABLET BY MOUTH WITH BREAKFAST AND EVENING MEAL 180 tablet 4 Active fluticasone (Flovent) 110 MCG/ACT inhalerIndication s:COPD exacerbation (CMS/HCC) INHALE 1 PUFF BY MOUTH TWO TIMES A DAY IN THE MORNING AND AT BEDTIME RINSE MOUTH AFTER USING (BULK) 12 g 8 4 Active cholecalciferol VITAMIN D (Vitamin D-3) 50 MCG (1999) capsule TAKE ONE CAPSULE BY MOUTH EVERY MORNING ^1R1 30 capsule 11 4 Active triamcinolone (Nasacort) 55 MCG/ACT nasal inhaler Administer 2 sprays into each nostril Once per day. 16.5 g 11 /16/202 4 08/16/20 25 Active azelastine (Astelin) 0.1 % nasal spray Administer 1 spray into each nostril 2 times daily. Use in each nostril as directed 30 mL 01/04/20 25 Active pseudoephedrine ER (Sudafed-12 Hour) 120 MG 12 hr tablet Take 1 tablet (120 mg) by mouth every 12 (twelve) hours if needed for congestion. Do not crush, chew, or split. 20 tablet 4 01/16/20 25 Active fexofenadine (Afshan) 180 MG tablet Take 1 tablet (180 mg) by mouth Once per day. 30 tablet 01/16/20 25 Active acetaminophen (Tylenol 8 Hour) 650 MG ER tabletIndications :COPD exacerbation (CMS/HCC) TAKE ONE TABLET BY MOUTH EVERY 8 HOURS NEEDED FOR PAIN (VIAL) 40 tablet 3 4 Active buPROPion XL (Wellbutrin XL) 300 MG 24 hr tabletIndications :Anxiety TAKE ONE TABLET BY MOUTH EVERY MORNING . DO NOT CRUSH, CHEW OR SPLIT. ^1R1 30 tablet 5 4 Active albuterol (2.5 MG/3ML) 0.083% nebulizer solutionIndicatio ns:COPD exacerbation (CMS/HCC) INHALE 1 VIAL VIA NEBULIZER EVERY 4 HOURS NEEDED FOR SHORTNESS OF BREATH OR WHEEZING (BULK) 90 mL 5 4 Active gabapentin (Neurontin) 300 MG capsuleIndication s:Restless leg syndrome TAKE ONE TO TWO CAPSULES BY MOUTH EVERY EVENING FOR RESTLESS LEG (VIAL) 60 capsule 5 4 Active montelukast (Singulair) 10 MG tablet TAKE ONE TABLET BY MOUTH EVERY EVENING ^1R4 30 tablet 5 4 Active Atrovent HFA 17 MCG/ACT inhaler INHALE TWO PUFFS BY MOUTH FOUR TIMES A DAY (BULK) 12.9 g 5 4 Active triamcinolone (Kenalog) 0.1 % ointmentIndicatio ns:Rash APPLY A THIN LAYER TOPICALLY TO AFFECTED AREA(S) TWO TIMES A DAY NEEDED FOR 7 DAYS (BULK) 15 g 5 4 Active meclizine (Antivert) 25 MG tablet TAKE 1 TABLET BY MOUTH THREE TIMES DAILY IN THE MORNING, AT NOON, AND AT BEDTIME NEEDED FOR DIZZINESS 60 tablet 3 4 Active meclizine (Antivert) 12.5 MG tabletIndications :Dizziness and giddiness TAKE ONE TABLET BY MOUTH EVERY DAY NEEDED FOR DIZZINESS (VIAL) 30 tablet 5 4 Active mirtazapine (Remeron) 7.5 MG tabletIndications :Insomnia, unspecified type TAKE ONE TABLET BY MOUTH AT BEDTIME ^1R4 28 tablet 5 4 Active Oyster Shell Calcium 500 MG tablet TAKE ONE TABLET BY MOUTH EVERY MORNING ^1R1 28 tablet 5 4 Active omeprazole (PriLOSEC) [address] capsule TAKE ONE CAPSULE BY MOUTH EVERY MORNING WITH FOOD 30 capsule 5 4 Active albuterol (Ventolin HFA) 108 (90 Base) MCG/ACT inhalerIndication s:Shortness of breath INHALE TWO PUFFS BY MOUTH EVERY 4 TO 6 HOURS NEEDED (BULK) 18 g 5 4 Active Active Problems Problem Noted Date Diagnosed Date Dyspnea on exertion 04/23/2024 Overview (04/23/2024): - 11/30/2022 PFT's w/no bstructive or restrictive ventilatory defects, moderate isolated diffusion impairment. CT -12/01/22 CT scan of the lungs showed mild emphysema. - 05/2023- A cardiopulmonary stress test at [facility] showed moderately impaired exercise capacity and mildly impaired aerobic capacity. - 02/2023-Echocardiogram shows EF 55-60%, impaired relaxation, normal valves. - 09/14/23- stress echocardiogram showing no EKG changes, no exercise induced diastolic dysfunction, pulmonary hypertension or wall motion abnormality. No clear cardiac cause for her shortness of breath Carpal tunnel syndrome on both sides 10/18/2023 Restless leg syndrome 07/03/2023 Overview (07/03/2023): Gabapentin-taking 2 capsules qhs Healthcare maintenance 10/04/2022 Overview (07/03/2023): Mammo: 08/2022 Pap: 08/2022 at [facility] [employer]S PAYABLE SUPERVISOR. Results not in chart C-scope: 2019, normal. Due 2029 BMD: 08/2021; osteopenia. Repeat 08/2023 Established with LDLCT screening at [facility] UTD on eye exams-[facility] Assessment & Plan (12/30/2022 9:26 PM EDT): Will request [facility] records for recent pap and mammogram Post-menopausal bleeding 08/06/2022 Overview (04/23/2024): 07/11/2022 pelvic ultrasound with normal EM stripe Followed by [facility] [employer] PA[employer]ABLE SUPERVISOR s/p EMB 09/2023 (negative) Dr. Pearson--pt to call [employer] PAYABLE SUPERVISOR should bleeding reoccur Assessment & Plan (07/03/2023 10:06 PM EST): Follow up for EMB as scheduled No recurrent episodes Assessment & Plan (08/06/2022 4:07 PM EDT): ?? Pt denies recurrent episodes of bleeding. Did not hear regarding previously placed [employer] PA[employer]ABLE SUPERVISOR referral. Will re-refer today to [facility] for EMB if indicated. Anxiety 08/03/2022 Overview (08/06/2022): ?? Buproprion 300mg daily ?? Mirtazipine 7.5mg nightly ?? Established with therapy Assessment & Plan (08/06/2022 4:05 PM EDT): ?? Refills provided ?? Continue current regimen ?? Contact HC if sx worsen Chronic back pain 06/15/2022 Vertigo 06/15/2022 Overview (10/04/2022): ?? Meclizine PRN with improvement Allergic rhinitis 06/15/2022 Osteopenia 06/15/2022 Overview (10/04/2022): ?? 08/2021 DEXA scan- ssteopenia based on the lowest T-score value of -1.6 in the lumbar spine ?? ON calcium and vitamin d supplementation Assessment & Plan (08/06/2022 4:01 PM EDT): ?? START calcium 400mg supplement daily ?? Continue vitamin D supplementation ?? Increase dietary calcium ?? Increase daily weight bearing exercises ?? Encouraged smoking cessation ?? Repeat DEXA 08/2023 Rheumatoid arthritis 06/15/2022 Overview (10/04/2022): ?? Followed by [facility] ?? Etodolac ?? Methotrexate ?? Hydroxychloroquine Tobacco use 06/15/2022 Overview (07/03/2023): Started smoking age 18: 1-2 PPD; decreased to 1/2 PPD over the pasts 1-2 years Quit 12/2022 Followed by [facility] LDLCT Mixed hearing loss, bilateral 06/15/2022 Overview (10/04/2022): ?? Referred to audiology 07/2022 Assessment & Plan (08/06/2022 4:04 PM EDT): ?? New referral placed to audiology Resolved Problems Problem Noted Date Diagnosed Date Resolved Date Exertional shortness of breath 10/21/2023 04/23/2024 Carpal tunnel syndrome of right wrist 10/18/2023 04/23/2024 Osteoarthritis 06/15/2022 08/06/2022 COPD (chronic obstructive pulmonary disease) 3 10/18/2023 Overview (12/30/2022): ?? Currently managed with flovent, atrovent, albuterol , singulair ?? PFT's 11/2022 ?? Negative CXR 05/2022 Assessment & Plan (12/30/2022 9:35 PM EDT): - Will refer to pulmonology for further evaluation Assessment & Plan (08/06/2022 4:03 PM EDT): ?? Pt will bring all inhalers to follow up ?? Will order PFTs and pending results consider pulm referral Encounters Date Type Department Care Team Description 05/30/2024 Orders Only [facility] [place] [address] Alicia Carias [facility] Chronic bilateral low back pain without sciatica (Primary Dx) 05/29/2024 Telephone [facility] [place] [address] Aretha Alicia [facility] Referral 05/19/2024 Refill [facility] [place] [facility] [address] ArethaAlicia [facility] COPD exacerbation ([facility]) 04/30/2024 Telephone [facility] [place] [address] Krala Dick RN 04/25/[address] [address] Minnie Brooks RN PAP POC 04/23/[address] [address] [place] [facility] Dizziness and giddiness; Insomnia, unspecified type; Shortness of breath 04/23/2024 Telephone [facility] [place] [address] [place] [facility] 04/16/2024 11:15 AM EST Office Visit [facility] [place] [address] Aretha Alicia [facility] Chronic bilateral low back pain without sciatica (Primary Dx); Dyspnea on exertion; Right hand pain; Chronic allergic rhinitis; Encounter for immunization 04/16/2024 Travel 04/07/2024 Patient Outreach [facility] [place] [address] [place], Alicia [facility] Pre-visit Planning (SDOH screening was completed on 10/19/2023) 04/03/2024 Refill [facility] [place] [address] Silvia Guadarrama DO 03/28/2024 Orders Only [facility] External Provider, [facility] 03/25/2024 Refill [facility] [place] [address] Alicia Carias, CAT CRACKER OPERATOR Rash 03/24/2024 Telephone [facility] [address] [facility] [place] [address] Alicia Carias FNP PT/OT call 03/18/2024 Telephone [facility] [address] [facility] [place] [address] Alicia Carias CAT CRACKER OPERATOR Med Refill 03/17/2024 Refill [facility] [address] [facility] [place] [address] Alicia Carias FNP COPD exacerbation ([facility]); Restless leg syndrome 03/12/2024 Refill [facility] [address] [facility] [place] [address] Alicia Carias CAT CRACKER OPERATOR Dizziness and giddiness; Restless leg syndrome 03/11/2024 Refill [facility] [address] [facility] [place] [address] Alicia Carias, CAT CRACKER OPERATOR Restless leg syndrome; Dizziness and giddiness 03/11/2024 Refill [facility] [address] [facility] [place] [address] Alicia Carias, CAT CRACKER OPERATOR Restless leg syndrome; Dizziness and giddiness 03/10/2024 Refill [facility] [address] [facility] [place] [address] Alicia Carias, CAT CRACKER OPERATOR Restless leg syndrome from Last 3 Months Immunizations Name Administration Dates Next Due Hep B, adult 10/29/2000 INFLUENZA INJECTABLE QUADRIV ALANT CCIIV4 MDCK Multi-dose vial 05/24/2020,04/23/2018 Influenza injectable quadriv alent preservative free 02/02/2023,05/12/2015 Influenza, IIV3, injectable 02/24/2014, 0 Influenza, Split (incl. racheal fied surface antigen) 01/31/2013,03/27/2012 Influenza, seasonal, injecta ble, preservative free 04/16/2024 Influenza, trivalent, adjuvanted 03/17/2022 Pfizer Covid-19 Vaccine 12+ 04/16/2024,,07/09/2021 Pfizer Covid-19 Vaccine 12+ Bivalent 12/21/2022 Pfizer Covid-19 Vaccine 12+ hannah-sucrose (Russell Cap) 07/09/2021 Pneumococcal Conjugate PCV 20 10/03/2022 Pneumococcal Polysaccharide PPSV23 09/02/2021, TD (adult), 2 Lf tetanus tox oid, preservative free, adsorbed 02/24/2014,12/04/2000 Tdap 10/03/2022 Zoster, Recombinant 12/07/2022,10/03/2022 Family History Medical History Relation Name Comments Heart attack Father Heart disease Mother Hypertension Mother Breast cancer Mother's Sister Heart disease Sister Colon cancer Neg Hx Relation Name Status Comments Father Mother Mother's Sister Paternal Grandmother Alive Sister Social History Tobacco Use Types Packs/Day Years Used Date Smoking Tobacco: Former Cigarettes Passive Smoke Exposure: Past Smokeless Tobacco: Never Tobacco Cessation:Counseling Given: Not Answered Alcohol Use Standard Drinks/Week Comments Never 0 (1 standard drink = 0.6 oz pur e alcohol) Depression Answer Date Recorded Patient Health Questionnaire-9 Score 0 02/08/2024 Patient Health Questionnaire-9 Score 0 02/08/2024 Last PHQ-9: Questionnaire Data Not on file 0 02/08/2024 Housing Stability Answer Date Recorded What is your housing situation today? I have alicemaryse juarez 03/13/[address] you [...] Recorded Patient Health Questionnaire-2 Score 0 02/08/2024 Internet Access Answer Date Recorded Internet Access Q1 Yes 04/07/2024 Internet Access Q2 Not on file 04/07/2024 Comments Unknown Sex and Gender Information Value Date Recorded Sex Assigned at Female 03/20/2022 10:15 AM EDT Legal Sex Female 10:15 AM EDT Gender Identity Female 03/20/2022 10:15 AM EDT Sexual Orientation Straight 03/20/2022 10 :15 AM EDT Last Filed Vital Signs Vital Sign Reading Time Taken Comments Blood Pressure 136/81 04/16/2024 11:05 AM EST Pulse 73 04/16/2024 11:05 AM EST Temperature 36.2 ??C (97.2 ??F) 04/16/2024 11:[address] Respiratory Rate 14 04/16/2024 11:05 AM EST Oxygen Saturation 95% 04/16/2024 11:05 AM EST Inhaled Oxygen Concentration - - Weight 74.7 kg (164 lb 9.6 oz) 04/16/2024 11:05 AM EST Height 162.6 cm (5' 4 ) 04/16/2024 11:05 AM EST Body Mass Index 28.25 04/16/2024 11:05 AM EST Plan of Treatment Health Maintenance Due Date Last Done Comments CT Colonography 1965 FIT DNA/Cologuard 1965 FIT 1965 FOBT 1965 HIV Screening 1965 Sigmoidoscopy 1965 Hepatitis C Screening 1982 Hepatitis B Vaccines (2 of 3 - 19+ 3-dose series) 11/26/2000 10/29/2000 Mammogram 09/20/2024 09/21/2023, 08/20, 09/13/2021, Additional history exists Alcohol/Substance Use Screening 10/18/2024 10/19/2023 SDOH Screening 10/18/2024 10/19/2023 Cervical Cancer Screening 02/07/2025 Depression Screening 02/07/2025 02/08/2024, 02/08/20 Pap Smear 02/07/2025 02/08/2024, 01/19, 10/27/2021 Tobacco Screening 04/23/2025 04/23/2024 Lipid Panel 06/25/2028 06/25/2023 HPV/Cotest 02/07/2029 02/08/2024, 01/19, 10/27/2021, Additional history exists Colonoscopy 04/20/2030 04/20/2020 Colorectal Cancer Screening 04/20/2030 DTaP/Tdap/Td Vaccines (2 - Td or Tdap) 10/03/2032 10/03/2022, 02/24/2014, 12/04/2000 RSV Patients and Patients Aged 60 years or older (1 - 1-dose 75+ series) 2039 Pneumococcal Vaccine: Pediatrics (0 to 5 Years) and At-Risk Patients (6 to 64 Years) Completed 10/03/2022, 09/02/2021, 07/30/2017 Zoster Vaccines Completed 12/07/2022, 10/03/2022 COVID-19 Vaccine Completed 04/16/2024, 09/2023, 12/21/2022, Additional history exists Influenza Vaccine Completed 04/16/2024, , 03/17/2022, Additional history exists HIB Vaccines Aged Out No longer eligi ble based on patient's age to complete this topic HPV Vaccines Aged Out No longer eligi ble based on patient's age to complete this topic Hepatitis A Vaccines Aged Out No long er eligible based on patient's age to complete this topic IPV Vaccines Aged Out No longer eligi ble based on patient's age to complete this topic Meningococcal Vaccine Aged Out No uriel anderson eligible based on patient's age to complete this topic RSV under 20 months Aged Out No longe r eligible based on patient's age to complete this topic Rotavirus Vaccines Aged Out No longer eligible based on patient's age to complete this topic Procedures Procedure Name Priority Date/Time Associated Diagnosis Comments XR HAND 3+ VIEWS RIGHT Routine 4 11:58 AM EST Right hand pain US PELVIS TRANSVAGINAL Routine 4 11:36 AM EST THINPREP IMAGING PAP AND HPV MRNA E6/E7 Routine 02/08/2024 2:23 PM EDT BI MAMMOGRAM SCREENING TOMOSYNTHESIS BILATERAL Routine 09/21/2023 9:35 AM EDT LIPID PANEL, STANDARD Routine 06/25/2023 11:58 AM EST Healthcare maintenance HM COLONOSCOPY Routine 04/20/2020 from Last 3 Months or Most Recently Relevant to Health Maintenance Results * XR Hand 3+ Views Right (04/16/2024 11:58 AM EST) Anatomical Region Laterality Modality Upper Extremities, Hand Right Radiogra phic Imaging 04/16/2024 11:5 8 AM EST Narrative 04/17/2024 11:50 AM EST ?[facility] ?[address] ?[place] [address] ?XRay Report ? Signed ? Patient: EraLizzie ?MR#: [id number] ? : 1965 ?Acct:[id number] ? Age/Sex: 58 / F ?ADM Date: 04/16/24 ? Loc: HO.HHCX ? Attending Dr: Alicia Carias CAT CRACKER OPERATOR ? Ordering Physician: Alicia Carias ?? Date of Service: 04/16/24 ?? Procedure(s): XR hand RT min 3V ?? Accession Number(s): [id number] ? cc: Alicia Carias CAT CRACKER OPERATOR ? EXAMINATION: ?? XR HAND, RIGHT ? CLINICAL INFORMATION: ?? Pain. ? COMPARISON: ?? Radiographs dated 02/07/2023. ? TECHNIQUE: ?? PA, lateral, and oblique views of the right hand. ? FINDINGS: ?? Bony alignment and mineralization are normal. There is a mild ulnar ?? minus variance. No fracture or dislocation is seen. There is very mild ?? osteoarthritic change of the second distal interphalangeal joint and of ?? the interphalangeal joint of thumb. There is mild osteoarthritic change ?? of the first, second and fifth metacarpophalangeal joints. There is ?? mild osteoarthritic change of the first carpometacarpal joint. No ?? fracture or dislocation is seen. No abnormal focal bone erosion is ?? noted. No focal soft tissue swelling, gas or foreign body is seen. ? XR/XR hand RT min 3V ?? IMPRESSION: ?? Mild osteoarthritic change is seen of the right hand and wrist. No ?? focal bone erosion is seen. There is no fracture or dislocation. ? Electronically signed by: ??Brayden Bhardwaj MD ??04/17/2024 11:48 AM EST RP ? Dictated By: ?Brayden Bhardwaj MD ? Signed By: ?<Electronically signed by Brayden Bhardwaj MD in OV> ? 04/17/24 1148 ? DD/ 1158 ? TD/TT: 04/16/24 1204 ? Coffee Grower: EZE ? Procedure Note Donotuseinterpreter, Image - 04/17/[address] [address] XRay Report Signed Patient: Bala Girard#: [id number] : 1965Acct:[id number] Age/Sex: 58 / FADM Date: 04/16/24 Loc: HO.HHCX Attending Dr: Alicia Carias CAT CRACKER OPERATOR Ordering Physician: Alicia Carias Date of Service: 04/16/24 Procedure(s): XR hand RT min 3V Accession Number(s): [id number] cc: Alicia Carias EXAMINATION: XR HAND, RIGHT CLINICAL INFORMATION: Pain. COMPARISON: Radiographs dated 02/07/2023. TECHNIQUE: PA, lateral, and oblique views of the right hand. FINDINGS: Bony alignment and mineralization are normal. There is a mild ulnar minus variance. No fracture or dislocation is seen. There is very mild osteoarthritic change of the second distal interphalangeal joint and of the interphalangeal joint of thumb. There is mild osteoarthritic change of the first, second and fifth metacarpophalangeal joints. There is mild osteoarthritic change of the first carpometacarpal joint. No fracture or dislocation is seen. No abnormal focal bone erosion is noted. No focal soft tissue swelling, gas or foreign body is seen. XR/XR hand RT min 3V IMPRESSION: Mild osteoarthritic change is seen of the right hand and wrist. No focal bone erosion is seen. There is no fracture or dislocation. Electronically signed by: Brayden Bhardwja MD 04/17/2024 11:48 AM EST Dictated By: Brayden Bhardwaj MD Signed By: <Electronically signed by Brayden Bhardwaj MD in OV> 11/28/24 1148 DD/ 1158 TD/TT: 04/16/24 1204 Coffee Grower: EZE Cruz Provider Result Type Result Stat us [facility] CAT CRACKER OPERATOR IMG XR PROCEDURES Final Resul t * US Pelvis Transvaginal (03/28/2024 11:36 AM EST) Anatomical Region Laterality Modality Pelvis Ultrasound 03/28/2024 11:3 6 AM EST Narrative 05/17/2024 3:34 PM EST ? [facility] ?[address] ?[place] [address] ? Ultrasound Report ? Signed ? Patient: Lizzie Girard ?MR#: [id number] ? : 1965 ?Acct:[id number] ? Age/Sex: 58 / F ?ADM Date: 03/28/24 ? Loc: HO.US ? Attending Dr: Eliana Mackay CNM ? Ordering Physician: Eliana Mackay CNM ?? Date of Service: 03/28/24 ?? Procedure(s): US pelvic and transvaginal ?? Accession Number(s): [id number] ? cc: Eliana Mackay CNM; Alicia Carias [facility] ? EXAMINATION:US PELVIS TRANSABDOMINAL AND TRANSVAGINAL ? CLINICAL INFORMATION: ??D21.9 - Benign neoplasm of connective and other ?? soft tissue, unspecified ? COMPARISON: ?? Prior study June 22, 2023 ? LMP: 10-15 years ago ? FINDINGS: ? UTERUS: The uterus is anteverted. ?? Size: 10.8 x 3.3 x 4.1 cm. ?? Uterine mass: Intramural uterine masses likely fibroids the largest in ?? the fundus measure up to 4 cm unchanged. Newly found fibroid in the ?? left wall measure up to 8 x 5 x 5 mm. ?? Cervix: There are nabothian cysts. Grossly unremarkable. ?? Endometrium: No ultrasound evidence of endometrial lesion. endometrial ?? thickness measures borderline thickened measure up to 4 mm abnormal for ?? patient age and postmenopausal status ? ADNEXA: Normal ?? Right ovary: Normal in size. ?? Left ovary: Normal in size. Cystic structure in the left ovary likely a ?? dominant physiologic follicle 2.1 cm. ?? Doppler exam: Normal Doppler flow identified in both ovaries. ? FREE FLUID: Trace amount of free fluid. ? OTHER FINDINGS: None ? US/US pelvic and transvaginal ?? IMPRESSION: ? 1. ??Intramural uterine masses likely fibroids the largest measure up to ?? 4 cm. Unchanged, Smaller new mass like fibroid found on today's exam 8 ?? mm. ? 2. ??Borderline thickened endometrium measuring up to 4 mm, this is ?? abnormal for patient age and postmenopausal status. Consider ?? correlation with follow-up ultrasound in 6 weeks. ? 3. ??Cystic structure in the left ovary 2.1 cm likely physiologic ?? follicle. ? Electronically signed by: ??Nancy Mora MD ??05/17/2024 03:32 PM EST ? Dictated By: ?Nancy Mora MD ? Signed By: ?<Electronically signed by Nancy Mora MD in OV> ?05/17/24 1532 ? DD/ 1136 ? TD/TT: 03/28/24 1146 ? Coffee Grower: HS ? Procedure Note Narda Cerda - 05/17/2024 [place] [address] Ultrasound Report Signed Patient: Bala Girard#: [id number] : 1965Acct:[id number] Age/Sex: 58 / FADM Date: 03/28/24 Loc: HO.US Attending Dr: Eliana Mackay CNM Ordering Physician: Eliana Mackay CNM Date of Service: 03/28/24 Procedure(s): US pelvic and transvaginal Accession Number(s): [id number] cc: Eliana Mackay CNM; Alicia Carias [facility] EXAMINATION:US PELVIS TRANSABDOMINAL AND TRANSVAGINAL CLINICAL INFORMATION: D21.9 - Benign neoplasm of connective and other soft tissue, unspecified COMPARISON: Prior study June 22, 2023 LMP: 10-15 years ago FINDINGS: UTERUS: The uterus is anteverted. Size: 10.8 x 3.3 x 4.1 cm. Uterine mass: Intramural uterine masses likely fibroids the largest in the fundus measure up to 4 cm unchanged. Newly found fibroid in the left wall measure up to 8 x 5 x 5 mm. Cervix: There are nabothian cysts. Grossly unremarkable. Endometrium: No ultrasound evidence of endometrial lesion. endometrial thickness measures borderline thickened measure up to 4 mm abnormal for patient age and postmenopausal status ADNEXA: Normal Right ovary: Normal in size. Left ovary: Normal in size. Cystic structure in the left ovary likely a dominant physiologic follicle 2.1 cm. Doppler exam: Normal Doppler flow identified in both ovaries. FREE FLUID: Trace amount of free fluid. OTHER FINDINGS: None US/US pelvic and transvaginal IMPRESSION: 1. Intramural uterine masses likely fibroids the largest measure up to 4 cm. Unchanged, Smaller new mass like fibroid found on today's exam 8 mm. 2. Borderline thickened endometrium measuring up to 4 mm, this is abnormal for patient age and postmenopausal status. Consider correlation with follow-up ultrasound in 6 weeks. 3. Cystic structure in the left ovary 2.1 cm likely physiologic follicle. Electronically signed by: Nancy Mora MD 05/17/2024 03:32 PM EST Dictated By: Nancy Mora MD Signed By: <Electronically signed by Nancy Mora MD in OV> 05/17/24 1532 DD/ 1136 TD/TT: 03/28/24 1146 Coffee Grower: HS us [facility] External Provider IMG US PROCEDURES Edited Result - Final * ThinPrep Imaging Pap and HPV mRNA E6/E7 (02/08/2024 2:23 PM EDT) HPV nRNA E6/E7 Not Detected Not Detected [facility] Comment:Methodology: Transcr iption-Mediated AmplificationThis assay detects E6/E7 viral messenger RNA (mRNA) from 14high-risk HPV types (16,18,31,33,35,39,45,51,52,56,58,59,66,68).Cervical sources are required for HPV testing.If a vaginal source from a patient who has had atotal hysterectomy with removal of cervix wassubmitted, please contact the testing laboratoryfor alternative testing options.For additional information, please refer tohttp://education.EveryMove/faq/KSG536c5(This link if provided for information/educational purposes only.)THIS TEST WAS PERFORMED AT:[email or web address] [address] [id number] PEOPLES MD SOURCE: SEE NOTE [facility] Comment:Cervix Report Status: [facility] Clinical Information: SEE NOTE [facility] Comment:None given LMP: SEE NOTE [facility] Comment:NONE GIVEN Prev. PAP: SEE NOTE [facility] Comment:NONE GIVEN Prev. BX: SEE NOTE [facility] Comment:NONE GIVEN Statement Of Adequacy: SEE [facility] Comment:Satisfactory for humaira luation.Endocervical/transformation zone componentpresent. General Categorization: [facility] Interpretation/Result: SEE NOTE [facility] Comment:Cytology Results: Ne gative for intraepitheliallesion or malignancy. Cytology Comment SEE NOTE [facility] Comment:This Pap test has be en evaluated with computerassisted technology. Electric Motor Repairman: SEE NOTE [facility] Comment:DMM, CT(ASCP)CT scre ening location: [address] [address] Review Electric Motor Repairman: [facility] Pathologist [facility] PAP Infection [facility] See Note SEE [facility] Comment:EXPLANATORY NOTE:The Pap is a screening test for cervical cancer. It isnot a diagnostic test and is subject to false negativeand false positive results. It is most reliable when asatisfactory sample, regularly obtained, is submittedwith relevant clinical findings and history, and whenthe Pap result is evaluated along with historic andcurrent clinical information. 02/08/2024 2:23 PM EDT 02/08/2024 4:34 PM EDT Narrative [facility] - 02/15/2024 12:08 PM EDT SEE SCANNED RESULTS IN EMRCERVIX [facility] CAT CRACKER OPERATOR LAB PATHOLOGY ORDERABLES Claudette canela Result [facility] [address] [place] [address] [phone] * BI Mammogram Screening Tomosynthesis Bilateral (09/21/2023 9:35 AM EDT) Anatomical Region Laterality Modality Breast Bilateral Mammography 09/21/2023 9:35 AM EDT Narrative 10/22/2023 8:00 AM EDT ? [facility] [place] ? [address] ?[place] [address] ? Mammography Report ? Signed ? Patient: Lizzie Girard ?MR#: [id number] ? : 1965 ?Acct:[id number] ? Age/Sex: 58 / F ?ADM Date: 09/21/23 ? Loc: HO.MAMMO ? Attending Dr: Alicia Aretha CAT CRACKER OPERATOR ? Ordering Physician: [place],Alicia CAT CRACKER OPERATOR ?Results: 1Nega ?? tive ? Date of Service: 09/21/23 ?Follow Up: 1 Year From Orig ?? inal Mammogram ? Procedure(s): MM tomosynthesis screening BI ?? Accession Number(s): [id number] ? cc: [place],Alicia CAT CRACKER OPERATOR ? EXAMINATION: ?? MM SCREENING DIGITAL BREAST TOMOSYNTHESIS, BILATERAL ? CLINICAL INFORMATION: ? Screening. Asymptomatic. ? COMPARISON: ?? Mammography: This study is compared with prior exams dating back to ?? 2018. ? TECHNIQUE: ?? Digital breast tomosynthesis is performed in both the craniocaudal and ?? mediolateral oblique views along with computer-aided detection (CAD). ?? Synthesized 2D images are generated from the tomosynthesis. ? FINDINGS: ?? The breasts are almost entirely fatty (ACR BI-RADS breast composition ?? Category a). ? There are no significant masses, abnormal calcifications, or other ?? abnormalities. ? MM/MM tomosynthesis screening BI ?? IMPRESSION: ?? No mammographic evidence of malignancy. ? ASSESSMENT: ? BI-RADS BI-RADS 1 - Negative ? RECOMMENDATION: ?? Routine annual mammography screening. ? 1 year F/U ? This examination should not preclude the clinical evaluation of a ?? suspicious palpable abnormality. ? This patient's information was entered into a reminder system with a ?? target due date for their next mammogram. ? Dictated By: ?Janessa Rudolph MD ? Signed By: ?<Electronically signed by Janessa Rudolph MD in OV> ? 10/22/23 0757 ? DD/ 0935 ? TD/TT: ? Coffee Grower: ? Procedure Note Prashant, Image - 10/22/2023 [facility] [address] [place] [address] Mammography Report Signed Patient: Bala Girard#: [id number] : 1965Acct:[id number] Age/Sex: 58 / FADM Date: 09/21/23 Loc: MONALISA Attending Dr: Alicia Carias CAT CRACKER OPERATOR Ordering Physician: Alicia Carias FNPResults: 1Nega tive Date of Service: 09/21/23Follow Up: 1 Year From Orig inal Mammogram Procedure(s): MM tomosynthesis screening BI Accession Number(s): [id number] cc: Aretha,Alicia CAT CRACKER OPERATOR EXAMINATION: MM SCREENING DIGITAL BREAST TOMOSYNTHESIS, BILATERAL CLINICAL INFORMATION: Screening. Asymptomatic. COMPARISON: Mammography: This study is compared with prior exams dating back to 2018. TECHNIQUE: Digital breast tomosynthesis is performed in both the craniocaudal and mediolateral oblique views along with computer-aided detection (CAD). Synthesized 2D images are generated from the tomosynthesis. FINDINGS: The breasts are almost entirely fatty (ACR BI-RADS breast composition Category a). There are no significant masses, abnormal calcifications, or other abnormalities. MM/MM tomosynthesis screening BI IMPRESSION: No mammographic evidence of malignancy. ASSESSMENT: BI-RADS BI-RADS 1 - Negative RECOMMENDATION: Routine annual mammography screening. 1 year F/U This examination should not preclude the clinical evaluation of a suspicious palpable abnormality. This patient's information was entered into a reminder system with a target due date for their next mammogram. Dictated By: Janessa Rudolph MD Signed By: <Electronically signed by Janessa Rudolph MD in OV> 10/22/23 0757 DD/ 0935 TD/TT: Coffee Grower: [facility] CAT CRACKER OPERATOR IMG BI PROCEDURES Final Resul t * (ABNORMAL) Lipid Panel, Standard (06/25/2023 11:58 AM EST) Triglycerides 225(H) <150 mg/dL [facility] Comment:Desirable Triglyceri de: less than 150 mg/dLBorderline High Triglyceride 150-199 mg/dLHigh Triglyceride: 200-499 mg/dLVery High Triglyceride: greater than or equal to 5OO mg/dL Cholesterol 177 <200 mg/dL [facility] Comment:Desirable Cholestero l: less than 200 mg/dLBorderline High Cholesterol: 200-239 mg/dLHigh Cholesterol: greater than 239 mg/dL LDL Cholesterol Calculated 80 <100 mg/dL [facility] Comment:Desirable LDL: less than 100 mg/dLNear Optimal/Above Optimal LDL: 110- 129 mg/dLBorderline High LDL: 130-159 mg/dLHigh LDL: 160-189 mg/dLVery High LDL: greater than or equal to 190 mg/dL HDL Cholesterol 52 >40 mg/dL [facility] Comment:Desirable HDL: great er than 40 mg/dL Note: This HDL assay may give artificially low results in patients with liver disease. Blood Venous blood specimen / Unknown 06/25/2023 11:58 AM EST 06/25/2023 1:10 PM EST [facility] LAB BLOOD ORDERABLES Final Re sult [facility] [address] [place] [address] [phone] * Colonoscopy (04/20/2020) Colonoscopy Normal Normal Comment:Repeat in 10 years Historical Provider MD HEALTH MAINTENANCE Final Result from Last 3 Months or Most Recently Relevant to Health Maintenance Insurance [facility] Care Teams Manager Professional Development Relationship Specialty Start Date End Date [facility] [address] [place] [address] PCP - General Family Medicine 01/17/22
--- OUTSIDE RECORDS SUMMARY | 2024-06-10 11:05 | XMS_ITS | Encounter Summary ---
Author Organization [employer] Address [address] [place] [address] Care Team Providers Care Middle School Resource Teacher Name Role Phone [facility] Primary Care Provider [phone] Reason for Visit * Reason Comments Med Refill Encounter Details Date Type Department Care Team ([facility] Contact Info) Description 05/19/2024 Refill [facility] [address] [place] [address] [facility] [address] [place] [address] COPD exacerbation (CMS/[facility]) Social History Tobacco Use Types Packs/Day Years [...] as of this encounter Visit Diagnoses Diagnosis COPD exacerbation (CMS/[facility]) Obstructive chronic bronchitis with exacerbation documented in this encounter Additional Health Concerns Assessment Noted Time PHQ-9 Depression Total Score: 0 02/08/20 24 2:03 PM EDT documented as of this encounter Care Teams Middle School Resource Teacher Relationship Specialty Start Date End Date Alicia Carias FNP [address] [place] [address] PCP - General Family Medicine 01/17/22 documented as of this encounter
--- OUTSIDE RECORDS SUMMARY | 2024-06-10 11:05 | XMS_ITS | Encounter Summary ---
Author Organization [employer] Address [address] [place] [address] Care Team Providers Care Auto Servicer Name Role Phone Alicia Carias [facility] Primary Care Provider [phone] Encounter Details Date Type Department Care Team (Late st Contact Info) Description 03/28/2024 Orders Only [facility] External Provider, [facility] Social History Tobacco Use Types Packs/Day Years [...] on file documented as of this encounter Procedures Procedure Name Priority Date/Time Associated Diagnosis Comments US PELVIS TRANSVAGINAL Routine 03/28/2024 11:36 AM EST documented in this encounter Results * US Pelvis Transvaginal (03/28/2024 11:36 AM EST) Anatomical Region Laterality Modality Pelvis Ultrasound 03/28/2024 11:3 6 AM EST Narrative 05/17/2024 3:34 PM EST ? [facility] ?[address] ?[place] [address] ? Ultrasound Report ? Signed ? Patient: Lizzie Girard ?MR#: [id number] ? : 1965 ?Acct:[id number] ? Age/Sex: 58 / F ?ADM Date: 03/28/24 ? Loc: HO.US ? Attending Dr: Eliana Mackay CNM ? Ordering Physician: Eliana Mackay CNM ?? Date of Service: 03/28/24 ?? Procedure(s): US pelvic and transvaginal ?? Accession Number(s): [id number] ? cc: Eliana MackayM; RossiterAlicia OFFICE SYSTEMS TECHNOLOGY INSTRUCTOR ? EXAMINATION:US PELVIS TRANSABDOMINAL AND TRANSVAGINAL ? [...] DD/ 1136 ? TD/TT: 03/28/24 1146 ? Engineering Mechanic: HS ? Procedure Note Narda Cerda - 05/17/[address] [address] Ultrasound Report Signed Patient: Bala Girard#: [id number] : 1965Acct:[id number] Age/Sex: 58 / FADM Date: 03/28/24 Loc: HO.US Attending Dr: Eliana Mackay CNM Ordering Physician: Eliana Mackay CNM Date of Service: 03/28/24 Procedure(s): US pelvic and transvaginal Accession Number(s): [id number] cc: Eliana Mackay CNM; [facility] EXAMINATION:US PELVIS TRANSABDOMINAL AND TRANSVAGINAL CLINICAL INFORMATION: [...] by: Nancy Mora MD 05/17/2024 03:32 PM [facility] Dictated By: Nancy Mora MD Signed By: <Electronically signed by Nancy Mora MD in OV> 05/17/24 1532 DD/ 1136 TD/TT: 03/28/24 1146 Engineering Mechanic: HS us [facility] External Provider IMG US PROCEDURES Edited Result - Final documented in this encounter Visit Diagnoses Not on filedocumented in this encounter Additional Health Concerns Assessment Noted Time PHQ-9 Depression Total Score: 0 02/08/20 24 2:03 PM EDT documented as of this encounter Care Teams Auto Servicer Relationship Specialty Start Date End Date Alicia Carias FNP [address] [place] [address] PCP - General Family Medicine 01/17/22 documented as of this encounter
--- OUTSIDE RECORDS SUMMARY | 2024-06-10 11:05 | XMS_ITS | Encounter Summary ---
Author Organization [employer] Address [address] [place] [address] Care Team Providers Care Customer Service And Sales Consultant Name Role Phone [facility] Primary Care Provider [phone] Reason for Visit * Reason Comments Med Refill Encounter Details Date Type Department Care Team ([facility] Contact Info) Description 03/07/[address] [facility] [address] [place] [address] [facility] [address] [place] [address] Dizziness and giddiness; Restless leg syndrome Social [...] documented as of this encounter Care Teams Customer Service And Sales Consultant Relationship Specialty Start Date End Date Alicia Carias FNP [address] [place] [address] PCP - General Family Medicine 01/17/22 documented as of this encounter
--- OUTSIDE RECORDS SUMMARY | 2024-06-10 11:05 | XMS_ITS | Encounter Summary ---
Author Organization [employer] Address [address] [place] [address] Care Team Providers Care Fingerprinter Name Role Phone [facility] Primary Care Provider [phone] Reason for Visit * Reason Comments Med Refill Encounter Details Date Type Department Care Team ([facility] Contact Info) Description 03/07/2024 Refill [facility] [address] [place] [address] [facility] [address] [place] [address] Dizziness and giddiness; Restless leg syndrome Social [...] documented as of this encounter Care Teams Fingerprinter Relationship Specialty Start Date End Date Alicia Carias FNP [address] [place] [address] PCP - General Family Medicine 01/17/22 documented as of this encounter
--- OUTSIDE RECORDS SUMMARY | 2024-06-10 11:05 | XMS_ITS | Encounter Summary ---
Author Organization [employer] Address [address] [place] [address] Care Team Providers Care Donor Support Technician Name Role Phone [facility] Primary Care Provider [phone] Reason for Visit * Reason Onset Date Comments Referral 05/29/2024 Encounter Details Date Type Department Care Team ([facility] st Contact Info) Description 05/29/2024 Telephone [facility] [address] [place] [address] [facility] [address] [place] [address] Referral Social History Tobacco Use Types Packs/Day Years [...] AM EDT documented as of this encounter Miscellaneous Notes * Telephone Encounter - Minnie Brooks RN - 05/30/2024 9:16 AM EST TC placed to patient [phone] in regards to below message. Patient aware referral has been placed and she will receive a letter in the mail with appointment date and time or a phone number of theoffice to call and schedule appointment. Patient to f/u PRN. * Telephone Encounter - Lam Rosen - 05/29/2024 11:16 AM EST Tc from pt requesting physical therapy referral for her back. Please contact pt at [phone]. documented in this encounter Plan of Treatment Not on file documented as of this encounter Visit Diagnoses Not on filedocumented in this encounter Additional Health Concerns Assessment Noted Time PHQ-9 Depression Total Score: 0 02/08/20 2:03 PM EDT documented as of this encounter Care Teams Donor Support Technician Relationship Specialty Start Date End Date Alicia Carias FNP [address] [place] [address] PCP - General Family Medicine 01/17/22 documented as of this encounter
--- OUTSIDE RECORDS SUMMARY | 2024-06-10 11:05 | XMS_ITS | Encounter Summary ---
Author Organization [employer] Address [address] [place] [address] 7 [place] [address] Care Team Providers Care Private Eye Name Role Phone Alicia Carias [facility] Primary Care Provider [phone] Reason for Visit * Reason Comments Med Refill Encounter Details Date Type Department Care Team ([facility] st Contact Info) Description 02/29/2024 Refill [facility] [address] [place] [address] Silvia Guadarrama DO [address] [place] [address] Social History Tobacco Use Types Packs/Day Years [...] documented as of this encounter Care Teams Private Eye Relationship Specialty Start Date End Date Alicia Carias FNP [address] [place] [address] PCP - General Family Medicine 01/17/22 documented as of this encounter
--- OUTSIDE RECORDS SUMMARY | 2024-06-10 11:05 | XMS_ITS | Encounter Summary ---
Author Organization [employer] Address [address] [place] [address] [place], [place] [address] Care Team Providers Care Transportation Logistics Internship Name Role Phone Alicia Carias Primary Care Provider [phone] Reason for Referral * Consultation (Routine) - Closed Specialty Diagnoses / Procedures Referred By Sherif samuel Referred To Contact Physical Therapy Diagnoses Chronic bilateral low back pain without sciatica Alicia Carias FNP [address] [place] [address] Phone: tel: fax: [facility] Physical Therapy [address] [place] [address] Phone: tel: fax: Referral ID Status Reason Start Date Expiration Date V isits Requested Visits Authorized [id number] Closed Specialty Services Required 05/30/2024 05/30/2025 1 1 Encounter Details Date Type Department Care Team (Late st Contact Info) Description 05/30/2024 Orders Only [facility] [address] [place] [address] Alicia Carias FNP [address] [place] [address] Chronic bilateral low back pain without sciatica (Primary Dx) Social History Tobacco Use Types Packs/Day Years [...] as of this encounter Plan of Treatment Scheduled Referrals Name Type Priority Associated Diagnoses Orde r Schedule Referral to Physical Therapy Outpatient Referral Routine Chronic bilateral low back pain without sciatica Expected: 05/30/2024 (Approximate), Expires: 05/30/2025 documented as of this encounter Visit Diagnoses Diagnosis Chronic bilateral low back pain without sciatica- Primary documented in this encounter Additional Health Concerns Assessment Noted Time PHQ-9 Depression Total Score: 0 02/08/20 2:03 PM EDT documented as of this encounter Care Teams Transportation Logistics Internship Relationship Specialty Start Date End Date Alicia Carias FNP [address] [place] [address] PCP - General Family Medicine 01/17/22 documented as of this encounter
--- OUTSIDE RECORDS SUMMARY | 2024-06-10 11:05 | XMS_ITS | Encounter Summary ---
Author Organization [employer] Address [address] [place] [address] [address] Care Team Providers Care Client Service Administrator Name Role Phone [facility] Primary Care Provider Reason for Visit * Reason Comments Med Refill Encounter Details Date Type Department Care Team ([facility] Contact Info) Description 03/05/2024 Refill [facility] [address] [place] [address] [facility] [address] [place] [address] Dizziness and giddiness Social History Tobacco Use [...] encounter Visit Diagnoses Diagnosis Dizziness and giddiness documented in this encounter Additional Health Concerns Assessment Noted Time PHQ-9 Depression Total Score: 0 02/08/20 2:03 PM EDT documented as of this encounter Care Teams Client Service Administrator Relationship Specialty Start Date End Date Alicia Carias FNP [address] [place] [address] PCP - General Family Medicine 01/17/22 documented as of this encounter
--- OUTSIDE RECORDS SUMMARY | 2024-06-10 11:05 | XMS_ITS | Encounter Summary ---
Author Organization [employer] Address [address] [place] [address] Care Team Providers Care Envelope Sealer Operator Name Role Phone [facility] Primary Care Provider [phone] Reason for Visit * Reason Comments Med Refill Encounter Details Date Type Department Care Team ([facility] Contact Info) Description 03/11/2024 Refill [facility] [address] [place] [address] [facility] 230 [place] [address] Restless leg syndrome; Dizziness and giddiness Social [...] documented as of this encounter Care Teams Envelope Sealer Operator Relationship Specialty Start Date End Date Alicia Carias FNP [address] [place] [address] PCP - General Family Medicine 01/17/22 documented as of this encounter
--- OUTSIDE RECORDS SUMMARY | 2024-06-10 11:05 | XMS_ITS | Encounter Summary ---
Author Organization [employer] Address [address] [place] [address] [place] [address] Care Team Providers Care Lodge Sales Associate Name Role Phone [facility] Primary Care Provider [phone] Reason for Visit * Reason Comments Med Refill Encounter Details Date Type Department Care Team ([facility] Contact Info) Description 03/10/2024 Refill [facility] [address] [place] [address] [facility] [address] [place] [address] Restless leg syndrome Social History Tobacco Use [...] documented as of this encounter Care Teams Lodge Sales Associate Relationship Specialty Start Date End Date Alicia Carias FNP [address] [place] [address] PCP - General Family Medicine 01/17/22 documented as of this encounter
--- OUTSIDE RECORDS SUMMARY | 2024-06-10 11:06 | XMS_ITS | Encounter Summary ---
Author Organization [employer] Address [address] [place] [address] [place] [address] Care Team Providers Care Flight Engineer Name Role Phone [facility] Primary Care Provider [phone] Reason for Visit * Reason Comments Med Refill Encounter Details Date Type Department Care Team ([facility] Contact Info) Description 02/26/2024 Refill [facility] [address] [place] [address] [facility] [address] [place] [address] Social History Tobacco Use Types Packs/Day Years [...] documented as of this encounter Care Teams Flight Engineer Relationship Specialty Start Date End Date Alicia Carias FNP [address] [place] [address] PCP - General Family Medicine 01/17/22 documented as of this encounter
--- OUTSIDE RECORDS SUMMARY | 2024-06-10 11:06 | XMS_ITS | Encounter Summary ---
Author Organization [employer] Address [address] [place] [address] Care Team Providers Care Size Maker Name Role Phone [facility] Primary Care Provider [phone] Reason for Visit * Reason Comments Med Refill Encounter Details Date Type Department Care Team ([facility] st Contact Info) Description 02/17/2024 Refill [facility] [address] [place] [address] [facility] [address] [place] [address] COPD exacerbation (CMS/[facility]) Social History Tobacco Use Types [...] this encounter Visit Diagnoses Diagnosis COPD exacerbation (CMS/HCC) Obstructive chronic bronchitis with exacerbation documented in this encounter Additional Health Concerns Assessment Noted Time PHQ-9 Depression Total Score: 0 02/08/20 2:03 PM EDT documented as of this encounter Care Teams Size Maker Relationship Specialty Start Date End Date lAicia Carias FNP [address] [place] [address] PCP - General Family Medicine 01/17/22 documented as of this encounter
--- OUTSIDE RECORDS SUMMARY | 2024-06-10 11:06 | XMS_ITS | Encounter Summary ---
Author Organization [employer] Address [address] [facility] 7 [place] [address] Care Team Providers Care Farm Mechanic Name Role Phone Alicia Carias [facility] Primary Care Provider [phone] Reason for Visit * Reason Comments Med Refill Encounter Details Date Type Department Care Team ([facility] st Contact Info) Description 04/03/2023 Refill [facility] MEDICINE 230 [place] [address] Earnestine Norris FNP [address] [place] [address] Social History Tobacco Use Types Packs/Day Years Used Date Smoking Tobacco: Every Day Cigarettes Passive Smoke Exposure: Current Smokeless Tobacco: Never Alcohol Use Standard Drinks/Week Comments Never 0 (1 standard drink = 0.6 oz pur e alcohol) Depression Answer Date Recorded Patient Health Questionnaire-9 Score 0 12/21/2022 Housing Stability Answer Date Recorded What is [...] Date Recorded Patient Health Questionnaire-2 Score 0 12/21/2022 Comments Unknown Sex and Gender Information Value [...] Noted Time PHQ-9 Depression Total Score: 0 12/22/19 23 9:28 AM EDT documented as of this encounter Care Teams Farm Mechanic Relationship Specialty Start Date End Date Alicia Carias FNP [address] [place] [address] PCP - General Family Medicine 01/17/22 documented as of this encounter
--- OUTSIDE RECORDS SUMMARY | 2024-06-10 11:06 | XMS_ITS | Encounter Summary ---
Author Organization [employer] Address [address] [place] [address] [place], [place] [address] Care Team Providers Care Carton Repairer Name Role Phone [facility] Primary Care Provider [phone] Reason for Visit * Reason Comments Med Refill Encounter Details Date Type Department Care Team ([facility] st Contact Info) Description 06/14/2023 Refill [facility] MED[facility]INE 230 [place] [address] [facility] 230 [place] [address] Insomnia, unspecified type Social History Tobacco Use Types Packs/Day Years [...] as of this encounter Visit Diagnoses Diagnosis Insomnia, unspecified type documented in this encounter Additional Health Concerns Assessment Noted Time PHQ-9 Depression Total Score: 0 12/22/19 23 9:28 AM EDT documented as of this encounter Care Teams Carton Repairer Relationship Specialty Start Date End Date Alicia Carias FNP [address] [place] [address] PCP - General Family Medicine 01/17/22 documented as of this encounter
--- OUTSIDE RECORDS SUMMARY | 2024-06-10 11:06 | XMS_ITS | Encounter Summary ---
Author Organization [employer] Address [address] [place] [address] Care Team Providers Care Chemical Lab Technician Name Role Phone [facility] Primary Care Provider [phone] Reason for Visit * Reason Onset Date Comments Nurse Triage 10/24/2022 Encounter Details Date Type Department Care Team ([facility] st Contact Info) Description 10/24/2022 Telephone [facility] MEDICINE 230 [place] [address] [facility] 230 [place] [address] Nurse Triage Social History Tobacco Use Types Packs/Day Years Used Date Smoking Tobacco: Every Day Cigarettes Smokeless Tobacco: Never Alcohol Use Standard Drinks/Week Comments Never 0 (1 standard drink = 0.6 oz pur e alcohol) Comments Unknown Sex and Gender Information Value Date Recorded Sex Assigned at Female 03/20/2022 10:15 AM EDT Legal Sex Female 10:15 AM EDT Gender Identity Female 03/20/2022 10:15 AM EDT Sexual Orientation Straight 03/20/2022 10 :15 AM EDT COVID-19 Exposure Response Date Recorded In the last 10 days, have yo u been in contact with someone who was confirmed or suspected to have Coronavirus/COVID-19? No / Unsure 10/03/2022 1:43 PM EDT documented as of this encounter Miscellaneous Notes * Telephone Encounter - Soniya White RN - 10/24/2022 11:59 AM EDT Triage call Pt reports I want to quit smoking . Pt has been smoking 11/2 packs of cigarettes daily and increasing. Pt has done this for many years and has Dx of COPD. Pt has a smokers cough. Pt is calling to ask for medication to help to stop smoking. Pt is given apt for 10/30 @ 345p with PCP. Home care is reviewed and hand out is sent via text with information covered. Pt stop date will be 10/30when obtains medication to help. No further questions offered. insurance is verified as active prior to booking. Protocol Used: Smoking - Tobacco Use and Problems (Adult) Protocol-Based Disposition: See in Office or Video Visit within 3 Days Override (Final) Disposition: See in Office or Video Visit within 2 Weeks Override Reason: No appointments available Video visit not offered Positive Triage Question: * Requesting prescription medication to help quit smoking * All higher-acuity triage questions were negative Care Advice Discussed: * Quitting Smoking * Smoking - How Does It Hurt You? * Three Steps for Quitting Smoking * STEP 1 - Get Ready * STEP 2 - Get Medicine * STEP 3 - Get Help Smoking - Tobacco Use and Problems handout sent to [phone] * Telephone Encounter - Maryan Bradford - 10/24/2022 11:40 AM EDT Patient calling to report Smoking 1 pack and a half x years. Patient speaks (Honduran). Advised triage nurse will call patient back. Pt asking for Nicotine patches PCP DR. Carias documented in this encounter Plan of Treatment Not on file documented as of this encounter Visit Diagnoses Not on filedocumented in this encounter Additional Health Concerns Assessment Noted Time PHQ-9 Depression Total Score: 0 10/04/19 23 2:27 PM EDT documented as of this encounter Care Teams Chemical Lab Technician Relationship Specialty Start Date End Date Alicia Carias FNP [address] [place] [address] PCP - General Family Medicine 01/17/22 documented as of this encounter
--- OUTSIDE RECORDS SUMMARY | 2024-06-10 11:06 | XMS_ITS | Encounter Summary ---
Author Organization [employer] Address [address] [place] [address] Care Team Providers Care Senior Electronics Technician Name Role Phone [facility] Primary Care Provider [phone] Reason for Visit * Reason Comments Med Refill Encounter Details Date Type Department Care Team ([facility] Contact Info) Description 10/22/2023 Refill [facility] MEDICINE 230 [place] [address] [facility] 230 [place] [address] COPD exacerbation (CMS/HCC); Rash Social History Tobacco Use Types Packs/Day Years Used Date Smoking Tobacco: Every Day Cigarettes Passive Smoke Exposure: Current Smokeless Tobacco: Never Alcohol Use Standard Drinks/Week Comments Never 0 (1 standard drink = 0.6 oz pur e alcohol) Depression Answer Date Recorded Patient Health Questionnaire-9 Score 0 10/19/2023 Patient Health Questionnaire-9 Score 0 10/19/2023 Last PHQ-9: Questionnaire Data Not on file 0 10/19/2023 Housing Stability Answer Date Recorded What is [...] Date Recorded Patient Health Questionnaire-2 Score 0 10/19/2023 Comments Unknown Sex and Gender Information Value [...] exacerbation (CMS/HCC) Obstructive chronic bronchitis with exacerbation Rash Rash and other nonspecific skin eruption documented in this encounter Additional Health Concerns Assessment Noted Time PHQ-9 Depression Total Score: 0 10/19/19 24 10:26 AM EDT documented as of this encounter Care Teams Senior Electronics Technician Relationship Specialty Start Date End Date Alicia Carias FNP [address] [place] [address] PCP - General Family Medicine 01/17/22 documented as of this encounter
--- OUTSIDE RECORDS SUMMARY | 2024-06-10 11:06 | XMS_ITS | Encounter Summary ---
Author Organization [employer] Address [address] [place] [address] [place], [place] [address] Care Team Providers Care Drywall Application Supervisor Name Role Phone Aretha Alicia [facility] Primary Care Provider [phone] Encounter Details Date Type Department Care Team (Late st Contact Info) Description 05/12/[address] [facility] [address] [place] [address] Silvia Hwang LPN Social History Tobacco Use Types Packs/Day Years Used Date Smoking Tobacco: Never Assessed Comments Unknown Sex and Gender Information Value Date Recorded Sex Assigned at Female 03/20/2022 10:15 AM EDT Legal Sex Female 10:15 AM EDT Gender Identity Female 03/20/2022 10:15 AM EDT Sexual Orientation Straight 03/20/2022 10 :15 AM EDT documented as of this encounter Plan of Treatment Not on file documented as of this encounter Visit Diagnoses Not on filedocumented in this encounter Care Teams Drywall Application Supervisor Relationship Specialty Start Date End Date Alicia Carias FNP 230 [place] [address] PCP - General Family Medicine 01/17/22 documented as of this encounter
--- OUTSIDE RECORDS SUMMARY | 2024-06-10 11:06 | XMS_ITS | Encounter Summary ---
Author Organization [employer] Address [address] [place] [address] [place] [address] Care Team Providers Care Rotary Driller Helper Name Role Phone [facility] Primary Care Provider Reason for Visit * Reason Comments Med Refill Encounter Details Date Type Department Care Team ([facility] Contact Info) Description 03/14/2023 Refill [facility] MEDICINE 230 [place] [address] [facility] 230 [place] [address] COPD exacerbation (CMS/HCC); Dizziness and giddiness; Shortness of breath Social History Tobacco Use Types Packs/Day Years [...] exacerbation (CMS/HCC) Obstructive chronic bronchitis with exacerbation Dizziness and giddiness Shortness of breath documented in this encounter Additional Health Concerns Assessment Noted Time PHQ-9 Depression Total Score: 0 12/22/19 23 9:28 AM EDT documented as of this encounter Care Teams Rotary Driller Helper Relationship Specialty Start Date End Date Alicia Carias FNP [address] [place] [address] PCP - General Family Medicine 01/17/22 documented as of this encounter
--- OUTSIDE RECORDS SUMMARY | 2024-06-10 11:06 | XMS_ITS | Encounter Summary ---
Author Organization [employer] Address [address] [place] [address] Care Team Providers Care Medical Record Coder Name Role Phone [facility] Primary Care Provider [phone] Reason for Visit * Reason Comments Med Refill Encounter Details Date Type Department Care Team ([facility] Contact Info) Description 09/21/2023 Refill [facility] MEDICINE 230 [place] [address] [facility] 230 [place] [address] COPD exacerbation (CMS/HCC); Dizziness and giddiness Social History Tobacco Use Types Packs/Day Years Used Date Smoking Tobacco: Every Day Cigarettes Passive Smoke Exposure: Current Smokeless Tobacco: Never Alcohol Use Standard Drinks/Week Comments Never 0 (1 standard drink = 0.6 oz pur e alcohol) Depression Answer Date Recorded Patient Health Questionnaire-9 Score 0 06/25/2023 Patient Health Questionnaire-9 Score 0 06/25/2023 Last PHQ-9: Questionnaire Data Not on file 0 06/25/2023 Housing Stability Answer Date Recorded What is [...] Date Recorded Patient Health Questionnaire-2 Score 0 06/25/2023 Comments Unknown Sex and Gender Information Value Date Recorded Sex Assigned at Female 03/20/2022 10:15 AM EDT Legal Sex Female 10:15 AM EDT Gender Identity Female 03/20/2022 10:15 AM EDT Sexual Orientation Straight 03/20/2022 10 :15 AM EDT documented as of this encounter Plan of Treatment Not on file documented as of this encounter Visit Diagnoses Diagnosis COPD exacerbation (CMS/[facility]) Obstructive chronic bronchitis with exacerbation Dizziness and giddiness documented in this encounter Additional Health Concerns Assessment Noted Time PHQ-9 Depression Total Score: 0 06/25/19 24 11:08 AM EST documented as of this encounter Care Teams Medical Record Coder Relationship Specialty Start Date End Date Alicia Carias FNP [address] [place] [address] PCP - General Family Medicine 01/17/22 documented as of this encounter
--- OUTSIDE RECORDS SUMMARY | 2024-06-10 11:06 | XMS_ITS | Encounter Summary ---
Author Organization [employer] Address [address] [facility] 7 [place] [address] Care Team Providers Care Emergency Dispatch Operator Name Role Phone Alicia Carias [facility] Primary Care Provider [phone] Reason for Visit * Reason Comments Med Refill Encounter Details Date Type Department Care Team ([facility] st Contact Info) Description 03/29/2023 Refill [facility] MEDICINE 230 [place] [address] Earnestine Nroris FNP [address] [place] [address] Social History Tobacco Use Types Packs/Day Years [...] documented as of this encounter Care Teams Emergency Dispatch Operator Relationship Specialty Start Date End Date Alicia Carias FNP [address] [place] [address] PCP - General Family Medicine 01/17/22 documented as of this encounter
--- OUTSIDE RECORDS SUMMARY | 2024-06-10 11:06 | XMS_ITS | Encounter Summary ---
Author Organization [employer] Address [address] [place] [address] Care Team Providers Care Metal Stamping Machine Operator Name Role Phone [facility] Primary Care Provider [phone] Reason for Visit * Reason Comments Med Refill Encounter Details Date Type Department Care Team ([facility] st Contact Info) Description 01/29/[address] [facility] MEDICINE 230 [place] [address] [facility] 230 [place] [address] COPD exacerbation (CMS/[facility]) Social History Tobacco Use Types [...] Time PHQ-9 Depression Total Score: 0 10/19/19 10:26 AM EDT documented as of this encounter Care Teams Metal Stamping Machine Operator Relationship Specialty Start Date End Date Alicia Carias FNP [address] [place] [address] PCP - General Family Medicine 01/17/22 documented as of this encounter
--- OUTSIDE RECORDS SUMMARY | 2024-06-10 11:06 | XMS_ITS | Encounter Summary ---
Author Organization [employer] Address [address] [place] [address] Care Team Providers Care Respiratory Therapy Director Name Role Phone [facility] Primary Care Provider [phone] Reason for Visit * Reason Comments Med Refill Encounter Details Date Type Department Care Team ([facility] st Contact Info) Description 02/11/2024 Refill [facility] MEDICINE 230 [place] [address] [facility] [address] [place] [address] COPD exacerbation (CMS/[facility]) Social History Tobacco Use Types Packs/Day Years [...] documented as of this encounter Care Teams Respiratory Therapy Director Relationship Specialty Start Date End Date Alicia Carias FNP [address] [place] [address] PCP - General Family Medicine 01/17/22 documented as of this encounter
--- OUTSIDE RECORDS SUMMARY | 2024-06-10 11:06 | XMS_ITS | Encounter Summary ---
Author Organization [employer] Address [address] [place] [address] Care Team Providers Care New Car Get Ready Mechanic Name Role Phone [facility] Primary Care Provider [phone] Reason for Visit * Reason Comments Med Refill Encounter Details Date Type Department Care Team ([facility] Contact Info) Description 11/15/2023 Refill [facility] MEDICINE 230 [place] [address] [facility] 230 [place] [address] Dizziness and giddiness; Insomnia, unspecified type; Shortness of breath Social History Tobacco Use [...] encounter Visit Diagnoses Diagnosis Dizziness and giddiness Insomnia, unspecified type Shortness of breath documented in this encounter Additional Health Concerns Assessment Noted Time PHQ-9 Depression Total Score: 0 10/19/19 24 10:26 AM EDT documented as of this encounter Care Teams New Car Get Ready Mechanic Relationship Specialty Start Date End Date Alicia Carias FNP [address] [place] [address] PCP - General Family Medicine 01/17/22 documented as of this encounter
--- OUTSIDE RECORDS SUMMARY | 2024-06-10 11:06 | XMS_ITS | Encounter Summary ---
Author Organization [employer] Address [address] [place] [address] [address] [place] [address] Care Team Providers Care Bi Developer Name Role Phone [facility] Primary Care Provider [phone] Reason for Visit * Reason Comments Med Refill Encounter Details Date Type Department Care Team ([facility] Contact Info) Description 04/26/2023 Refill [facility] MEDICINE 230 [place] [address] [facility] [address] [place] [address] COPD exacerbation (CMS/HCC); Dizziness and giddiness Social [...] documented as of this encounter Care Teams Bi Developer Relationship Specialty Start Date End Date Alicia Carias FNP [address] [place] [address] PCP - General Family Medicine 01/17/22 documented as of this encounter
--- OUTSIDE RECORDS SUMMARY | 2024-06-10 11:06 | XMS_ITS | Encounter Summary ---
Author Organization [employer] Address [address] [place] [address] [place] [address] Care Team Providers Care Watch Supervisor Name Role Phone [facility] Primary Care Provider [phone] Reason for Visit * Reason Comments Med Refill Encounter Details Date Type Department Care Team ([facility] Contact Info) Description 09/29/2023 Refill [facility] MEDICINE 230 [place] [address] [facility] 230 [place] [address] Dizziness and giddiness; COPD exacerbation (CMS/[facility]) Social History Tobacco Use Types [...] encounter Visit Diagnoses Diagnosis Dizziness and giddiness COPD exacerbation ([facility]) Obstructive chronic bronchitis with exacerbation documented in this encounter Additional Health Concerns Assessment Noted Time PHQ-9 Depression Total Score: 0 06/25/19 24 11:08 AM EST documented as of this encounter Care Teams Watch Supervisor Relationship Specialty Start Date End Date Alicia Carias FNP [address] [place] [address] PCP - General Family Medicine 01/17/22 documented as of this encounter
--- OUTSIDE RECORDS SUMMARY | 2024-06-10 11:06 | XMS_ITS | Encounter Summary ---
Author Organization [employer] Address [address] [place] [address] [address] [address] Care Team Providers Care Cream Gatherer Name Role Phone [facility] Primary Care Provider [phone] Reason for Visit * Reason Comments Med Refill Encounter Details Date Type Department Care Team ([facility] Contact Info) Description 01/02/2024 Refill [facility] MEDICINE 230 [place] [address] [facility] 230 [place] [address] Social History Tobacco Use Types Packs/Day Years [...] documented as of this encounter Care Teams Cream Gatherer Relationship Specialty Start Date End Date Alicia Carias FNP 230 [place] [address] PCP - General Family Medicine 01/17/22 documented as of this encounter
--- OUTSIDE RECORDS SUMMARY | 2024-06-10 11:06 | XMS_ITS | Encounter Summary ---
Author Organization [employer] Address [address] [place] [address] [address] [address] Care Team Providers Care Medical Record Administrator Name Role Phone [facility] Primary Care Provider [phone] Reason for Visit * Reason Comments Med Refill Encounter Details Date Type Department Care Team ([facility] Contact Info) Description 02/26/2024 Refill [facility] MEDICINE 230 [place] [address] [facility] 230 [place] [address] Dizziness and giddiness Social History Tobacco Use [...] of this encounter Care Teams Medical Record Administrator Relationship Specialty Start Date End Date Alicia Carias FNP 230 [place] [address] PCP - General Family Medicine 01/17/22 documented as of this encounter
--- OUTSIDE RECORDS SUMMARY | 2024-06-10 11:06 | XMS_ITS | Encounter Summary ---
Author Organization [employer] Address [address] [facility] 7 [place] [address] Care Team Providers Care Books Binder Name Role Phone Alicia Carias [facility] Primary Care Provider [phone] Reason for Visit * Reason Comments Med Refill Encounter Details Date Type Department Care Team ([facility] st Contact Info) Description 03/29/2023 Refill [facility] 230 [place] [address] Silvia Guadarrama DO 230 [place] [address] COPD exacerbation (CMS/HCC) Social History Tobacco Use Types Packs/Day Years [...] documented as of this encounter Care Teams Books Binder Relationship Specialty Start Date End Date Alicia Carias FNP [address] [place] [address] PCP - General Family Medicine 01/17/22 documented as of this encounter
--- OUTSIDE RECORDS SUMMARY | 2024-06-10 11:06 | XMS_ITS | Encounter Summary ---
Author Organization [employer] Address [address] [place] [address] [place] [address] Care Team Providers Care Ditching Machine Operator Name Role Phone [facility] Primary Care Provider [phone] Reason for Visit * Reason Comments Med Refill Encounter Details Date Type Department Care Team ([facility] Contact Info) Description 02/25/2024 Refill [facility] MEDICINE 230 [place] [address] [facility] 230 [place] [address] Dizziness and giddiness; Restless leg syndrome Social [...] documented as of this encounter Care Teams Ditching Machine Operator Relationship Specialty Start Date End Date Alicia Carias FNP [address] [place] [address] PCP - General Family Medicine 01/17/22 documented as of this encounter
--- OUTSIDE RECORDS SUMMARY | 2024-06-10 11:06 | XMS_ITS | Encounter Summary ---
Author Organization [employer] Address [address] [place] [address] [address], [place] [address] Care Team Providers Care Electroneurodiagnostic Technician Name Role Phone [facility] Primary Care Provider Reason for Visit * Reason Comments Med Refill Encounter Details Date Type Department [facility] Description 02/28/2024 Refill [facility] MEDIC[facility] 230 [place] [address] [facility] 230 [place] [address] Dizziness and giddiness; Restless leg syndrome Social [...] documented as of this encounter Care Teams Electroneurodiagnostic Technician Relationship Specialty Start Date End Date Alicia Carias FNP [address] [place] [address] PCP - General Family Medicine 01/17/22 documented as of this encounter
--- OUTSIDE RECORDS SUMMARY | 2024-06-10 11:06 | XMS_ITS | Encounter Summary ---
Author Organization [employer] Address [address] [place] [address] Care Team Providers Care Grade And Center Marker Name Role Phone [facility] Primary Care Provider [phone] Reason for Visit * Reason Comments Med Refill Encounter Details Date Type Department Care Team ([facility] st Contact Info) Description 11/18/2022 Refill [facility] MEDICINE 230 [place] [address] [facility] 230 [place] [address] Dizziness and giddiness; Anxiety Social History Tobacco Use Types Packs/Day Years [...] suspected to have Coronavirus/COVID-19? No / Unsure 10/30/2022 3:22 PM EDT documented as of this encounter Plan of Treatment Not on file documented as of this encounter Visit Diagnoses Diagnosis Dizziness and giddiness Anxiety Anxiety state, unspecified documented in this encounter Additional Health Concerns Assessment Noted Time PHQ-9 Depression Total Score: 0 10/04/19 23 2:27 PM EDT documented as of this encounter Care Teams Grade And Center Marker Relationship Specialty Start Date End Date Alicia Carias FNP [address] [place] [address] PCP - General Family Medicine 01/17/22 documented as of this encounter
--- OUTSIDE RECORDS SUMMARY | 2024-06-10 11:06 | XMS_ITS | Encounter Summary ---
Author Organization [employer] Address [address] [place] [address] [place] [address] Care Team Providers Care Patent Agent Name Role Phone [facility] Primary Care Provider [phone] Reason for Visit * Reason Comments Med Refill Encounter Details Date Type Department Care Team ([facility] Contact Info) Description 09/25/2023 Refill [facility] MEDICINE 230 [place] [address] [facility] 230 [place] [address] Dizziness and giddiness; COPD exacerbation (CMS/[facility]) Social History Tobacco Use Types Packs/Day Years [...] Diagnoses Diagnosis Dizziness and giddiness COPD exacerbation ([facility]) Obstructive chronic bronchitis with exacerbation documented in this encounter Additional Health Concerns Assessment Noted Time PHQ-9 Depression Total Score: 0 06/25/19 24 11:08 AM EST documented as of this encounter Care Teams Patent Agent Relationship Specialty Start Date End Date Alicia Carias FNP [address] [place] [address] PCP - General Family Medicine 01/17/22 documented as of this encounter
== END 2024-06-10 10:32 | disposition home or self-care (01) ==
PROVIDERS: PCP Registered Nurse
DX: M18.11 Unilateral primary osteoarthritis of first carpometacarpal joint, right hand (principal)
CPT/HCPCS: 20600; 99213

== ENCOUNTER → 2024-06-10 09:53 | Outpatient (BNVA) | payer OTHER, SELFPAY | PROVIDERS: PCP Registered Nurse | DX: M18.11 Unilateral primary osteoarthritis of first carpometacarpal joint, right hand (principal) | CPT/HCPCS: 20600; 99212; J1010; J2003 ==

== ENCOUNTER 2024-07-04 12:43 | Outpatient (RCR) | payer OTHER, SELFPAY ==
--- NOTE | 2024-06-20 14:18 | MHC.OT.EP ---
[address] [phone] Occupational Therapy Plan of Care Patient Name: Lizzie Girard Date of Evaluation: 06/20/24 Diagnosis: R BASAL JOINT ARTHRITIS Pain Location: BASE OF THUMB 4/10 AT REST, ACHY 9-10/10 WITH USE SHARP PAIN Pain Score: 4-10/10 Aggravating Factors: OPENING JARS, GRIPPING Alleviating Factors: SOAKING IN HOT WATER Assessment: MS GIRARD REPORTS ONSET OF R THUMB PAIN AFTER UNDERGOING CTR IN 2023. SHE STATES THE PAIN HAS GRADUALLY GOTTEN WORSE. XRAYS INDICATE MILD OA CHANGES IN [facility] JOINT. A SOFT PREFAB ORTHOSIS WAS PROVIDED BY ORTHO PA. SHE EXPRESSES DIFFICULTIES WITH IADLs INCLUDING COOKING, MOPPING AND OPENING TIGHT JARS. SHE HAS A DAILY REAMER HAND THAT HAS BEEN HELPING WITH THESE TASKS. A 59% LIMITATION IS REPORTED PER THE QUICK DASH ASSESSMENT. ONGOING SKILLED OT IS WARRANTED TO ADDRESS JT PROTECTION, ACTIVITY MODIFICATIONS, SAFETY WITH ADLs AND IADLs. Frequency and Duration: The patient will be seen 2X/WEEK FOR 3 WEEKS Short Term Goals: IND HEP IND USE OF HEAT MODALITIES, POSSIBLE HOME PARAFFIN UNIT IND JT PROTECTION AND ACTIVITY MODIFICATIONS REPORT <5/10 PAIN WITH ADLs AND LIGHT IADLs IND USE OF ORTHOSIS Longterm Goals: SEE ABOVE Treatment Plan: Therapeutic Exercise Therapeutic Activity Home Exercise Program Splinting Neuro Re-ed Patient Education Desensitization/Sensory Re-ed Edema Control ADL Training Ultrasound NMES Iontophoresis Paraffin Fluidotherapy MHP Cold Packs Joint Mobilization Soft Tissue Mobilization Kinesiotaping Other (see comments) Electronically Signed By: ELO DIANA OTR/L Please Sign and return to therapist. Thank you once again for your referral.
--- NOTE | 2024-08-08 07:49 | MHC.OT.DC ---
[address] [phone] F: [phone] Occupational Therapy Discharge Note Patient Name: Lizzie Girard Provider: Roque Vasquez Diagnosis: R BASAL JOINT ARTHRITIS Date of Evaluation: 06/20/24 Date of Discharge: 08/08/24 Treatments to Date: 3 Cancellations to Date: 0 No Shows to Date: 0 Discharge Status: Improved Function Independent with HEP Discharge Summary: MS GIRARD HAS PROGRESSED WELL WITH HER OT TREATMENT SESSIONS. SHE WAS EDUCATED ON COMPENSATORY STRATEGIES AND USE OF (PREVIOUSLY OWNED) PREFAB ORTHOSIS. SHE WAS ABLE TO DEMO IND WITH DONNING/DOFFING. EDUCATED Pt TO UTILIZE [employer] SUPER[employer] FOR TASKS THAT PRODUCE INCREASED PAIN/ DIFFICULTIES. NO FURTHER OT WARRANTED. D/C OT. Electronically Signed By: ELO DIANA OTR/Russell Reviewed/agree with student documentation: N/A Therapist: Please Sign and return to therapist, thank you for your referral.
== END 2024-08-08 07:50 | disposition home or self-care (01) ==
LOC: HO.OT 12:43
PROVIDERS: PCP Registered Nurse
DX: M18.11 Unilateral primary osteoarthritis of first carpometacarpal joint, right hand (principal)
CPT/HCPCS: 97110; 97140; 97165

== ENCOUNTER 2024-07-09 09:59 | Outpatient (AMB) | payer OTHER, SELFPAY ==
--- NOTE | 2024-07-09 10:00 | A.OFFVIS_ITS ---
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 Currently sexually active. Denies any vaginal dryness or irritation. STI testing offered; she declined. Attempting to eat a healthy diet with calcium and vitamin D and stays active with exercise in good weather. Last pap smear; 2022. Last mammogram; 2023. Colonoscopy is UTD. Denies any family history of ovarian or colon cancer. FH breast cancer-sister, in her 20's. [facility] Medical History Fibroid Personal history of nicotine dependence Carpal tunnel syndrome on both sides Carpal tunnel syndrome of left wrist Wrist pain Osteopenia Fracture of distal end of left fibula (~11/2021) Lupus Osteoarthritis History of back pain Asthma Vertigo Hearing deficit Surgical History Hx of shoulder surgery History of colonoscopy (~2019) History of tonsillectomy (~1991) History of nasal septoplasty (~1998) History of ear surgery (~1999) Family History Father Heart problem Heart attack Mother HTN (hypertension) Maternal Aunt Breast cancer Sister Breast cancer Social History Household Members Other:: son Housing: House Alcohol intake: current Alcohol intake frequency: does not drink Patient Tobacco Use Status: Former Tobacco user Years Smoked: (onset 18yo, 1ppd x 39yrs, now 1/2ppd - 35+PYH - quit 11/06/22) Second Hand Smoke Exposure: No Current occupational status: disabled Current occupation: left hand dominant Sexual orientation: Straight/Heterosexual Gender identity: Female Female Reproductive History Menstrual Total pregnancies: 3 Full term: 2 Ab spontaneous: 1 Date of last pap smear: 02/02/23 (negative hpv, negative pap smear) Date of Mammogram: 09/21/23 (bi rad 1) Review of Systems Const All systems reviewed & are unremarkable except as noted in HPI and below Reports as per HPI Eyes Reports no additional complaints ENT Reports no additional complaints Card Reports no additional complaints Resp Reports no additional complaints GI Reports as per HPI and Reports no additional complaints Reports as per HPI Musc Reports no additional complaints Skin/Breast Reports as per HPI Neuro Reports no additional complaints Psych Reports no additional complaints Endo Reports no additional complaints Tamir/Lymph Reports no additional complaints Aller/Immun Reports no additional complaints Physical Exam Vital Signs: Last Vital Signs BP 118/72 07/09/24 10:08 BMI result Body Mass Index 29.6 Const General: cooperative, healthy appearing, no acute distress, well developed and alert Orientation/consciousness: patient oriented x3 HEENT Head: Yes normal to inspection Eyes General: appearance normal, both eyes and all related structures Neck Neck: Yes normal visual inspection Thyroid: Thyroid normal Chest Chest palpation & inspection: normal inspection of the chest and other (no puckering, dimpling, peau de orange, retraction, discharge, masses) Breast/axilla inspection: normal inspection of the breasts Breast/axilla palpation: normal palpation of the breasts Resp Effort & Inspection: normal respiratory effort GI Inspection: Yes normal to inspection and Yes scar Palpation (GI): Soft to palpation Rectal Exam - Female: deferred General: Yes bladder normal to palpation External Female Exam: normal external appearance and normal appearance of the urethra Speculum Exam - Vagina: normal appearance of the vagina, normal palpation, normal vaginal discharge and vagina atrophic Speculum Exam - Cervix: normal appearance of the cervix and normal palpation Bimanual exam- vagina & uterus: normal bimanual exam, normal palpation, uterine size normal, bladder normal to palpation, normal palpation and non-tender Bimanual Exam- Adnexa, other: no masses Skin General skin exam: no rashes or lesions noted Rashes: no rashes Neuro General: patient oriented x3 Cognition (Neuro): normal cognition Extrem General: Yes normal to inspection Psych Attitude: cooperative Thought process: Normal thought process present Assessment & Plan Assessment & Plan (1) Encounter for well woman exam with routine gynecological exam: Code(s): Z01.419 - Encounter for gynecological examination (general) (routine) without abnormal findings Category: Medical Plan Discussed: Current recommendations for pap smears per ASCCP guidelines. Breast awareness, periodic self breast exams and yearly mammogram. Maintain a healthy lifestyle, well balanced diet including Calcium 1,200 mg and Vitamin D 600 IU daily, and routine exercise. Contact the office with any postmenopausal bleeding. Patient verbalizes understanding and agrees to the plan of care. She was given opportunity to ask questions and all questions were answered to the best of my ability. 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 This note is constructed using voice recognition software. While every effort has been made to ensure accuracy, practice lead errors may have been included. Coding Level of Care Code Est Pt Prev Care 40-64y(47026) Diagnoses Encounter for well woman exam with routine gynecological exam Z01.419
[2024-07-09 10:08] VITALS: BP 118/72; BMI 29.6
--- OUTSIDE RECORDS SUMMARY | 2024-07-09 10:28 | XMS_ITS | Encounter Summary ---
Author Organization [employer] Address [address] [place] [address] [address] [place] [address] Care Team Providers Care Spiritual Care Coordinator Name Role Phone [facility] Primary Care Provider [phone] Reason for Visit * Reason Comments Med Refill Encounter Details Date Type Department Care Team ([facility] Contact Info) Description 04/26/2023 Refill [facility] MEDICINE 230 [place] [address] [facility] 230 [place] [address] COPD exacerbation (CMS/HCC); Dizziness and giddiness Social [...] documented as of this encounter Care Teams Spiritual Care Coordinator Relationship Specialty Start Date End Date Alicia Carias FNP [address] [place] [address] PCP - General Family Medicine 01/17/22 documented as of this encounter
--- OUTSIDE RECORDS SUMMARY | 2024-07-09 10:28 | XMS_ITS | Encounter Summary ---
Author Organization [employer] Address [address] [place] [address] [place], [place] [address] Care Team Providers Care Director Of Business Services Name Role Phone [facility] Primary Care Provider [phone] Reason for Visit * Reason Comments Med Refill Encounter Details Date Type Department Care Team ([facility] Contact Info) Description 03/14/2023 Refill [facility] MEDICINE 230 [place] [address] [facility] 230 [place] [address] COPD exacerbation (CMS/HCC); Dizziness and giddiness; Shortness [...] documented as of this encounter Care Teams Director Of Business Services Relationship Specialty Start Date End Date Alicia Carias FNP [address] [place] [address] PCP - General Family Medicine 01/17/22 documented as of this encounter
--- OUTSIDE RECORDS SUMMARY | 2024-07-09 10:28 | XMS_ITS | Encounter Summary ---
Author Organization [employer] Address [address] [facility] 7 [place] [address] Care Team Providers Care Manager Philosophy Name Role Phone Alicia Carias [facility] Primary Care Provider [phone] Reason for Visit * Reason Comments Med Refill Encounter Details Date Type Department Care Team ([facility] st Contact Info) Description 03/29/2023 Refill [facility] MEDICINE 230 [place] [address] Earnestine Norris FNP [address] [place] [address] Social History Tobacco Use Types Packs/Day Years [...] documented as of this encounter Care Teams Manager Philosophy Relationship Specialty Start Date End Date Alicia Carias FNP [address] [place] [address] PCP - General Family Medicine 01/17/22 documented as of this encounter
--- OUTSIDE RECORDS SUMMARY | 2024-07-09 10:28 | XMS_ITS | Encounter Summary ---
Author Organization [employer] Address [address] [facility] 7 [place] [address] Care Team Providers Care Electrical Project Manager Name Role Phone Alicia Carias [facility] Primary Care Provider [phone] Reason for Visit * Reason Comments Med Refill Encounter Details Date Type Department Care Team ([facility] st Contact Info) Description 03/29/2023 Refill [facility] 230 [place] [address] Silvia Guadarrama DO 230 [place] [address] COPD exacerbation (CMS/HCC) Social History Tobacco Use [...] documented as of this encounter Care Teams Electrical Project Manager Relationship Specialty Start Date End Date Alicia Carias FNP [address] [place] [address] PCP - General Family Medicine 01/17/22 documented as of this encounter
--- OUTSIDE RECORDS SUMMARY | 2024-07-09 10:28 | XMS_ITS | Encounter Summary ---
Author Organization [employer] Address [address] [facility] 7 [place] [address] Care Team Providers Care Ballet Soloist Name Role Phone Alicia Carias [facility] Primary Care Provider [phone] Reason for Visit * Reason Comments Med Refill Encounter Details Date Type Department Care Team ([facility] st Contact Info) Description 04/03/2023 Refill [facility] MEDICINE 230 [place] [address] Earnestine Norris FNP 505 [place] [address] Social History Tobacco Use Types Packs/Day Years [...] documented as of this encounter Care Teams Ballet Soloist Relationship Specialty Start Date End Date Alicia Carias FNP [address] [place] [address] PCP - General Family Medicine 01/17/22 documented as of this encounter
--- OUTSIDE RECORDS SUMMARY | 2024-07-09 10:29 | XMS_ITS | Encounter Summary ---
Author Organization [employer] Address [address] [place] [address] [place], [place] [address] Care Team Providers Care Parachute Manufacturing Supervisor Name Role Phone [facility] Primary Care Provider [phone] Reason for Visit * Reason Comments Med Refill Encounter Details Date Type Department Care Team ([facility] Contact Info) Description 02/28/2024 Refill [facility] MEDICINE 230 [place] [address] [facility] 230 [place] [address] Dizziness and giddiness; Restless leg syndrome Social [...] documented as of this encounter Care Teams Parachute Manufacturing Supervisor Relationship Specialty Start Date End Date Alicia Carias FNP [address] [place] [address] PCP - General Family Medicine 01/17/22 documented as of this encounter
--- OUTSIDE RECORDS SUMMARY | 2024-07-09 10:29 | XMS_ITS | Encounter Summary ---
Author Organization [employer] Address [address] [place] [address] Care Team Providers Care Fireworks Maker Name Role Phone [facility] Primary Care Provider [phone] Reason for Visit * Reason Comments Med Refill Encounter Details Date Type Department Care Team ([facility] st Contact Info) Description 02/17/2024 Refill [facility] MEDICINE 230 [place] [address] [facility] 230 [place] [address] COPD exacerbation (CMS/[facility]) Social History Tobacco Use Types Packs/Day Years [...] documented as of this encounter Care Teams Fireworks Maker Relationship Specialty Start Date End Date Alicia Carias FNP [address] [place] [address] PCP - General Family Medicine 01/17/22 documented as of this encounter
--- OUTSIDE RECORDS SUMMARY | 2024-07-09 10:29 | XMS_ITS | Encounter Summary ---
Author Organization [employer] Address [address] [place] [address] [place] [address] Care Team Providers Care Continuity Coordinator Name Role Phone [facility] Primary Care Provider [phone] Reason for Visit * Reason Comments Med Refill Encounter Details Date Type Department Care Team ([facility] st Contact Info) Description 06/14/[address] [facility] MEDICINE 230 [place] [address] [facility] 230 [place] [address] Insomnia, unspecified type Social History Tobacco Use [...] documented as of this encounter Care Teams Continuity Coordinator Relationship Specialty Start Date End Date Alicia Carias FNP [address] [place] [address] PCP - General Family Medicine 01/17/22 documented as of this encounter
--- OUTSIDE RECORDS SUMMARY | 2024-07-09 10:29 | XMS_ITS | Encounter Summary ---
Author Organization [employer] Address [address] [place] [address] [place] [address] Care Team Providers Care Internal Medicine Veterinary Technician Name Role Phone [facility] Primary Care Provider Reason for Visit * Reason Comments Med Refill Encounter Details Date Type Department Care Team ([facility] Contact Info) Description 02/26/2024 Refill [facility] MEDICINE 230 [place] [address] [facility] 230 [place] [address] Dizziness and giddiness Social History Tobacco Use [...] documented as of this encounter Care Teams Internal Medicine Veterinary Technician Relationship Specialty Start Date End Date Alicia Carias FNP 230 [place] [address] PCP - General Family Medicine 01/17/22 documented as of this encounter
--- OUTSIDE RECORDS SUMMARY | 2024-07-09 10:29 | XMS_ITS | Encounter Summary ---
Author Organization [employer] Address [address] [place] [address] [place] [address] Care Team Providers Care Server Engineer Name Role Phone [facility] Primary Care Provider [phone] Reason for Visit * Reason Comments Med Refill Encounter Details Date Type Department Care Team ([facility] Contact Info) Description 09/29/2023 Refill [facility] MEDICINE 230 [place] [address] [facility] 230 [place] [address] Dizziness and giddiness; COPD exacerbation (CMS/[facility]) Social History Tobacco Use Types Packs/Day [...] Diagnoses Diagnosis Dizziness and giddiness COPD exacerbation ([facility]) Obstructive chronic bronchitis with exacerbation documented in this encounter Additional Health Concerns Assessment Noted Time PHQ-9 Depression Total Score: 0 06/25/19 24 11:08 AM EST documented as of this encounter Care Teams Server Engineer Relationship Specialty Start Date End Date Alicia Carias FNP [address] [place] [address] PCP - General Family Medicine 01/17/22 documented as of this encounter
--- OUTSIDE RECORDS SUMMARY | 2024-07-09 10:29 | XMS_ITS | Encounter Summary ---
Author Organization [employer] Address [address] [place] [address] Care Team Providers Care Smeller Name Role Phone [facility] Primary Care Provider [phone] Reason for Visit * Reason Comments Med Refill Encounter Details Date Type Department Care Team ([facility] st Contact Info) Description 02/11/2024 Refill [facility] MEDICINE 230 [place] [address] [facility] 230 [place] [address] COPD exacerbation (CMS/[facility] - [...] documented as of this encounter Care Teams Smeller Relationship Specialty Start Date End Date Alicia Carias FNP [address] [place] [address] PCP - General Family Medicine 01/17/22 documented as of this encounter
--- OUTSIDE RECORDS SUMMARY | 2024-07-09 10:29 | XMS_ITS | Encounter Summary ---
Author Organization [employer] Address [address] [place] [address] [place] [address] Care Team Providers Care Tube Coverer Name Role Phone [facility] Primary Care Provider [phone] Reason for Visit * Reason Comments Med Refill Encounter Details Date Type Department Care Team ([facility] Contact Info) Description 03/07/2024 Refill [facility] MEDICINE 230 [place] [address] [facility] 230 [place] [address] Dizziness and giddiness; Restless leg syndrome Social [...] documented as of this encounter Care Teams Tube Coverer Relationship Specialty Start Date End Date Alicia Carias FNP [address] [place] [address] PCP - General Family Medicine 01/17/22 documented as of this encounter
--- OUTSIDE RECORDS SUMMARY | 2024-07-09 10:29 | XMS_ITS | Encounter Summary ---
Author Organization [employer] Address [address] [place] [address] [place] [address] Care Team Providers Care Paedodontist Name Role Phone [facility] Primary Care Provider [phone] Reason for Visit * Reason Comments Med Refill Encounter Details Date Type Department Care Team ([facility] Contact Info) Description 02/25/2024 Refill [facility] MEDICINE 230 [place] [address] [facility] 230 [place] [address] Dizziness and giddiness; Restless leg syndrome Social [...] your housing situation today? I have alice juarze 03/13/[address] you li [...] documented as of this encounter Care Teams Paedodontist Relationship Specialty Start Date End Date Alicia Carias FNP [address] [place] [address] PCP - General Family Medicine 01/17/22 documented as of this encounter
--- OUTSIDE RECORDS SUMMARY | 2024-07-09 10:29 | XMS_ITS | Encounter Summary ---
Author Organization [employer] Address [address] [place] [address] [place] [address] Care Team Providers Care Ob/Gyn Name Role Phone [facility] Primary Care Provider [phone] Reason for Visit * Reason Comments Med Refill Encounter Details Date Type Department Care Team ([facility] Contact Info) Description 03/12/2024 Refill [facility] MEDICINE 230 [place] [address] [facility] 230 [place] [address] Dizziness and giddiness; Restless leg syndrome Social [...] documented as of this encounter Care Teams Ob/Gyn Relationship Specialty Start Date End Date Alicia Carias FNP [address] [place] [address] PCP - General Family Medicine 01/17/22 documented as of this encounter
--- OUTSIDE RECORDS SUMMARY | 2024-07-09 10:29 | XMS_ITS | Encounter Summary ---
Author Organization [employer] Address [address] [place] [address] Care Team Providers Care Fish Farm Manager Name Role Phone [facility] Primary Care Provider [phone] Reason for Visit * Reason Comments Med Refill Encounter Details Date Type Department Care Team ([facility] Contact Info) Description 09/21/2023 Refill [facility] MEDICINE [address] [place] [address] [facility] [address] [place] [address] COPD exacerbation (CMS/HCC); Dizziness and giddiness Social [...] this encounter Visit Diagnoses Diagnosis COPD exacerbation (CMS/[facility]) Obstructive chronic bronchitis with exacerbation Dizziness and giddiness documented in this encounter Additional Health Concerns Assessment Noted Time PHQ-9 Depression Total Score: 0 06/25/19 24 11:08 AM EST documented as of this encounter Care Teams Fish Farm Manager Relationship Specialty Start Date End Date Alicia Carias FNP [address] [place] [id number] PCP - General Family Medicine 01/17/22 documented as of this encounter
--- OUTSIDE RECORDS SUMMARY | 2024-07-09 10:29 | XMS_ITS | Encounter Summary ---
Author Organization [employer] Address [address] [place] [address] [address], [place] [address] Care Team Providers Care Manager Books Name Role Phone [facility] Primary Care Provider [phone] Reason for Visit * Reason Comments Med Refill Encounter Details Date Type Department Care Team ([facility] Contact Info) Description 03/05/2024 Refill [facility] MEDICINE [address] [place] [address] [facility] [address] [place] [address] Dizziness and giddiness Social History Tobacco Use [...] as of this encounter Care Teams Manager Books Relationship Specialty Start Date End Date Alicia Cairas FNP [address] [place] [address] PCP - General Family Medicine 01/17/22 documented as of this encounter
--- OUTSIDE RECORDS SUMMARY | 2024-07-09 10:29 | XMS_ITS | Encounter Summary ---
Author Organization [employer] Address [address] [place] [address] [address] [place] [address] Care Team Providers Care Food Production Supervisor Name Role Phone Alicia Carias [facility] Primary Care Provider [phone] Reason for Visit * Reason Comments Med Refill Encounter Details Date Type Department Care Team ([facility] st Contact Info) Description 02/29/2024 Refill [facility] MEDICINE [address] [place] [address] Silvia Guadarrama DO [address] [place] [address] Social History Tobacco Use Types Packs/Day Years [...] documented as of this encounter Care Teams Food Production Supervisor Relationship Specialty Start Date End Date Alicia Carias FNP [address] [place] [address] PCP - General Family Medicine 01/17/22 documented as of this encounter
--- OUTSIDE RECORDS SUMMARY | 2024-07-09 10:29 | XMS_ITS | Encounter Summary ---
Author Organization [employer] Address [address] [place] [address] [address] [address] Care Team Providers Care Swing Frame Grinder Operator Name Role Phone [facility] Primary Care Provider [phone] Reason for Visit * Reason Comments Med Refill Encounter Details Date Type Department Care Team ([facility] Contact Info) Description 03/10/[address] [facility] MEDICINE 230 [place] [address] [facility] 230 [place] [address] Restless leg syndrome Social History Tobacco Use [...] documented as of this encounter Care Teams Swing Frame Grinder Operator Relationship Specialty Start Date End Date Alicia Carias FNP [address] [place] [id number] PCP - General Family Medicine 01/17/22 documented as of this encounter
--- OUTSIDE RECORDS SUMMARY | 2024-07-09 10:29 | XMS_ITS | Encounter Summary ---
Author Organization [employer] Address [address] [place] [address] Care Team Providers Care Locomotive Engineer Name Role Phone [facility] Primary Care Provider [phone] Reason for Visit * Reason Comments Med Refill Encounter Details Date Type Department Care Team ([facility] Contact Info) Description 03/11/2024 [facility] 230 [place] [address] [facility] 230 [place] [address] Restless leg syndrome; Dizziness and giddiness Social [...] documented as of this encounter Care Teams Locomotive Engineer Relationship Specialty Start Date End Date Alicia Carias FNP [address] [place] [id number] PCP - General Family Medicine 01/17/22 documented as of this encounter
--- OUTSIDE RECORDS SUMMARY | 2024-07-09 10:29 | XMS_ITS | Encounter Summary ---
Author Organization [employer] Address [address] [place] [address] Care Team Providers Care Golf Sales Manager Name Role Phone [facility] Primary Care Provider [phone] Reason for Visit * Reason Comments Med Refill Encounter Details Date Type Department Care Team ([facility] Contact Info) Description 03/11/2024 Refill [facility] MEDICINE 230 [place] [address] [facility] 230 [place] [address] Restless leg syndrome; Dizziness and giddiness Social [...] documented as of this encounter Care Teams Golf Sales Manager Relationship Specialty Start Date End Date Alicia Carias FNP [address] [place] [phone] PCP - General Family Medicine 01/17/22 documented as of this encounter
--- OUTSIDE RECORDS SUMMARY | 2024-07-09 10:29 | XMS_ITS | Encounter Summary ---
Author Organization [employer] Address [address] [place] [address] [address], [place] [address] Care Team Providers Care Stave Saw Operator Name Role Phone [facility] Primary Care Provider [phone] Reason for Visit * Reason Comments Med Refill Encounter Details Date Type Department Care Team ([facility] Contact Info) Description 03/07/2024 Refill [facility] MEDICINE 230 [place] [address] [facility] [address] [place] [address] Dizziness and giddiness; Restless leg syndrome Social [...] documented as of this encounter Care Teams Stave Saw Operator Relationship Specialty Start Date End Date Alicia Carias FNP [address] [place] [id number] PCP - General Family Medicine 01/17/22 documented as of this encounter
--- OUTSIDE RECORDS SUMMARY | 2024-07-09 10:29 | XMS_ITS | Encounter Summary ---
Author Organization [employer] Address [address] [place] [address] [address] [address] Care Team Providers Care Radio Presenter Name Role Phone [facility] Primary Care Provider [phone] Reason for Visit * Reason Comments Med Refill Encounter Details Date Type Department Care Team ([facility] Contact Info) Description 09/25/2023 Refill [facility] MEDICINE 230 [place] [address] [facility] 230 [place] [address] Dizziness and giddiness; COPD exacerbation (CMS/[facility]) Social History Tobacco Use Types Packs/Day Years [...] Diagnoses Diagnosis Dizziness and giddiness COPD exacerbation ([facility]) Obstructive chronic bronchitis with exacerbation documented in this encounter Additional Health Concerns Assessment Noted Time PHQ-9 Depression Total Score: 0 06/25/19 24 11:08 AM EST documented as of this encounter Care Teams Radio Presenter Relationship Specialty Start Date End Date Alicia Carias FNP [address] [place] [id number] PCP - General Family Medicine 01/17/22 documented as of this encounter
--- OUTSIDE RECORDS SUMMARY | 2024-07-09 10:29 | XMS_ITS | Data Portability ---
Author Organization [place] [facility], Allergy Address [address] [place] [address] [place] [id number] Care Team Providers Care Machine Ii Engraver Name Role Phone DEE DEE HADDAD Primary Care Provider Assessment Encounter Date Assessment Date Assessment LastModified by Organization Details LastModified Time 03/12/2024 03/12/2024 Patient with a longstanding history of nasal congestion, allergy and chronic ear disease. Multiple prior ear surgeries with Dr. Rose in the 70s and 80s. She notes chronic left greater than right nasal congestion. CT at [facility] was performed in October which suggested possible anterior polyp due to thickening of the nasal septum. She has been on triamcinolone and Astelin without improvement She has allergy testing pending for May. snot= 79 Nose= 100 Examination shows a twisted septum with evidence of inferior turbinate resection. I did not see any discrete polyps on endoscopy. I suspect she has significant environmental allergies given her history of longstanding nasal congestion and ear disease. Even though she is scheduled for skin testing in May I have suggested an IgE level, [place] panel and a CBC with differential She also has chronic otitis externa from overuse of Q-tips and her fingernails in the right ear canal. I have suggested some topical steroid oil [email or web address] Not available 03/12/2024 14:12:21 Plan of Treatment Reminders Order Date Submit Date Provider Last Modified By Organization Details Last Modified Time Details Appointments None record ed. Lab unlist ed lab - allerg ens, zone 1 2023 024 JAMEE [facility], [address] [facility], [address], [place], [address], 18:10:10 nettle IgE Ab, serum 2023 [email or web address] [facility], [address], [address], [place], [address], 13:04:55 bahia grass IgE Ab, quanti tative , serum [facility]23 [facility], [address], [address], [place], [address], 13:04:55 bermud a grass ige, serum 2023 [email or web address] [facility], [address], [address], [place], [address], 4 13:04:55 englis h planta in ige, serum 2023 [email or web address] [facility], [address], [address], [place], [address], 4 13:04:55 ige, total, serum 2023 JAMEE [facility], [address], [address], [place], [address], 18:10:11 CBC w/ auto diff 2023 [place] [facility], [address] [facility] , [address], [place], [address], 18:10:10 Referral None record ed. Procedures None record ed. Surgeries None record ed. Imaging None record ed. Medication Orders fluoci nolone aceton alexandro oil 0.01 % ear drops 2023 [facility], [address], [place], [id number], 12:36:23 Patient TargetsNo targets recorded. Patient InstructionsNo instructions recorded. Reason for Referral None Reported. Results Created Date Observation Date Name Description Value Unit Range Abnormal Flag Note LastModifiedBy Organization Detail LastModifiedTime 03/12/20 24 03/13/2024 CBC WITH DIFFE RENTI AL/PL ATELE T WBC 6.7 x10e3 /uL 3.4-10 .8 normal Not Available [facility] ([facility]) [address] [facility], [place], [address], 03/17/2024 18:10:10 03/12/2003/13/2024 CBC WITH DIFFE RENTI AL/PL ATELE T RBC 5.04 x10e6 /uL 3.77-5 .28 normal Not Available [facility] ([facility]) [address] [place], [address], 03/17/2024 18:10:10 03/12/2003/13/2024 CBC WITH DIFFE RENTI AL/PL ATELE T hemoglobin 13.1 g/dL 11.1-1 5.9 normal Not Available [facility] ([facility]) [address] [place], [address], 03/17/2024 18:10:10 03/12/2003/13/2024 CBC WITH DIFFE RENTI AL/PL ATELE T hematocrit 41.3 % 34.0-4 6.6 normal Not Available [facility] ([facility]) [address] [place], [address], 03/17/2024 18:10:10 03/12/2003/13/2024 CBC WITH DIFFE RENTI AL/PL ATELE T MCV 82 fL 79-97 normal Not Available [facility] ([facility]) [address] [place], [address], 03/17/2024 18:10:10 03/12/2003/13/2024 CBC WITH DIFFE RENTI AL/PL ATELE T MCH 26.0 pg 26.6-3 3.0 below low normal Not Available [facility] ([facility]) [address] [place], [address], 03/17/2024 18:10:10 03/12/2003/13/2024 CBC WITH DIFFE RENTI AL/PL ATELE T MCHC 31.7 g/dL 31.5-3 5.7 normal Not Available [facility] ([facility]) [address] [facility], [place], [address], 03/17/2024 18:10:10 03/12/2003/13/2024 CBC WITH DIFFE RENTI AL/PL ATELE T RDW 13.7 % 11.7-1 5.4 Not Available [facility] ([facility]) [address] [facility], [place], [address], 03/17/2024 18:10:10 03/12/2003/13/2024 CBC WITH DIFFE RENTI AL/PL ATELE T platelets 227 x10e3 /uL 150-45 0 normal Not Available [facility] ([facility]) [address] [facility], [place], [address], 03/17/2024 18:10:10 03/12/2003/13/2024 CBC WITH DIFFE RENTI AL/PL ATELE T neutrophils 49 % not estab. normal Not Available [facility] ([facility]) [address] [facility], [place], [address], 03/17/2024 18:10:10 03/12/2003/13/2024 CBC WITH DIFFE RENTI AL/PL ATELE T lymphs 39 % not estab. normal Not Available [facility] ([facility]) [address] [facility], [place], [address], 03/17/2024 18:10:10 03/12/2003/13/2024 CBC WITH DIFFE RENTI AL/PL ATELE T monocytes 7 % not estab. normal Not Available [facility] ([facility]) [address] [place], [address], 03/17/2024 18:10:10 03/12/20 24 03/13/2024 CBC WITH DIFFE RENTI AL/PL ATELE T eos 4 % not estab. normal Not Available [facility] ([facility]) [address] [facility], [place], [address], 03/17/2024 18:10:10 03/12/2003/13/2024 CBC WITH DIFFE RENTI AL/PL ATELE T basos 1 % not estab. normal Not Available [facility] ([facility]) [address] [facility], [place], [address], 03/17/2024 18:10:10 03/12/2003/13/2024 CBC WITH DIFFE RENTI AL/PL ATELE T immature cells [employer] Not Available [facility] ([facility]) [address] [facility], [place], [address], 03/17/2024 18:10:10 03/12/2003/13/2024 CBC WITH DIFFE RENTI AL/PL ATELE T neutrophils (absolute) 3.2 x10e3 /uL 1.4-7. 0 normal Not Available [facility] ([facility]) [address] [place], [address], 03/17/2024 18:10:10 03/12/20 24 03/13/2024 CBC WITH DIFFE RENTI AL/PL ATELE T lymphs (absolute) 2.6 x10e3 /uL 0.7-3. 1 normal Not Available [facility] ([facility]) [address] [place], [address], 03/17/2024 18:10:10 03/12/2003/13/2024 CBC WITH DIFFE RENTI AL/PL ATELE T monocytes(ab solute) 0.5 x10e3 /uL 0.1-0. 9 normal Not Available [facility] ([facility]) [address] [place], [address], 03/17/2024 18:10:10 03/12/2003/13/2024 CBC WITH DIFFE RENTI AL/PL ATELE T eos (absolute) 0.3 x10e3 /uL 0.0-0. 4 normal Not Available [facility] ([facility]) [address] [facility], [place], [address], 03/17/2024 18:10:10 03/12/2003/13/2024 CBC WITH DIFFE RENTI AL/PL ATELE T baso (absolute) 0.0 x10e3 /uL 0.0-0. 2 normal Not Available [facility] ([facility]) [address] [facility], [place], [address], 03/17/2024 18:10:10 03/12/2003/13/2024 CBC WITH DIFFE RENTI AL/PL ATELE T immature granulocytes 0 % not estab. Not Available [facility] ([facility]) [address] [facility], [place], [address], 03/17/2024 18:10:10 03/12/2003/13/2024 CBC WITH DIFFE RENTI AL/PL ATELE T immature grans (abs) 0.0 x10e3 /uL 0.0-0. 1 Not Available [facility] ([facility]) [address] [facility], [place], [address], 03/17/2024 18:10:10 03/12/2003/13/2024 CBC WITH DIFFE RENTI AL/PL ATELE T NRBC [employer] Not Available [facility] ([facility]) [address] [facility], [place], [address], 03/17/2024 18:10:10 03/12/2003/13/2024 CBC WITH DIFFE RENTI AL/PL ATELE T hematology comments: [employer] Not Available [facility] ([facility]) [address] [facility], [place], [address], 03/17/2024 18:10:10 03/12/20 24 03/12/2024 ALLER GENS, ZONE 1 class description Commen t Level s of Speci fic IgE Class Descr iptio n of Class ----- ----- ----- ----- ----- -- ----- ----- ----- ----- ----- < 0.10 0 Negat mary 0.10 - 0.31 0/I Equiv ocal/ Low 0.32 - 0.55 I Low 0.56 - 1.40 II Moder ate 1.41 - 3.90 III High 3.91 - 19.00 IV Very High 19.01 - 100.0 0 V Very High >100. 00 Very High Not Available [facility] ([facility]) [address] [place], [address], 03/17/2024 18:10:10 03/12/20 24 03/17/2024 ALLER GENS, ZONE 1 W624-KwK D pteronyssinu s 0.11 kU/L class 0/I abnormal Not Available [facility] ([facility]) [address] [place], [address], 03/17/2024 18:10:10 03/12/20 24 03/17/2024 ALLER GENS, ZONE 1 L059-NjJ D farinae <0.10 kU/L class 0 Not Available [facility] ([facility]) [address] [place], [address], 03/17/2024 18:10:10 03/12/20 24 03/17/2024 ALLER GENS, ZONE 1 X878-UcK CAT dander <0.10 kU/L class 0 Not Available [facility] ([facility]) [address] [place], [address], 03/17/2024 18:10:10 03/12/20 24 03/17/2024 ALLER GENS, ZONE 1 V673-WlC dog dander <0.10 kU/L class 0 Not Available [facility] ([facility]) [address] [facility], [place], [address], 03/17/2024 18:10:10 03/12/20 24 03/17/2024 ALLER GENS, ZONE 1 w098-JcQ bermuda grass <0.10 kU/L class 0 Not Available [facility] ([facility]) [address] [facility], [place], [address], 03/17/2024 18:10:10 03/12/20 24 03/17/2024 ALLER GENS, ZONE 1 t220-EiL bluegrass, [facility] <0.10 kU/L class 0 Not Available [facility] ([facility]) [address] [facility] [place], [address], 03/17/2024 18:10:10 03/12/20 24 03/17/2024 ALLER GENS, ZONE 1 p599-BoK bahia grass <0.10 kU/L class 0 Not Available [facility] ([facility]) [address] [facility] [place], [address], 03/17/2024 18:10:10 03/12/20 24 03/17/2024 ALLER GENS, ZONE 1 Y836-JqP cockroach, vietnamese <0.10 kU/L class 0 Not Available [facility] ([facility]) [address] [place], [address], 03/17/2024 18:10:10 03/12/20 24 03/17/2024 ALLER GENS, ZONE 1 N495-RjE penicillium chrysogen <0.10 kU/L class 0 Not Available [facility] ([facility]) [address] [place], [address], 03/17/2024 18:10:10 03/12/20 24 03/17/2024 ALLER GENS, ZONE 1 X032-JcW cladosporium herbarum <0.10 kU/L class 0 Not Available [facility] ([facility]) [address] [facility], [place], [address], 03/17/2024 18:10:10 03/12/20 24 03/17/2024 ALLER GENS, ZONE 1 D679-EaE aspergillus fumigatus <0.10 kU/L class 0 Not Available [facility] ([facility] [facility]) [address] [facility], [place], [address], 03/17/2024 18:10:10 03/12/2003/17/2024 ALLER GENS, ZONE 1 W687-TtF mucor racemosus <0.10 kU/L class 0 Not Available [facility] ([facility]) [address] [facility], [place], [address], 03/17/2024 18:10:10 03/12/2003/17/2024 ALLER GENS, ZONE 1 K674-ApY alternaria alternata <0.10 kU/L class 0 Not Available [facility] ([facility]) [address] [facility], [place], [address], 03/17/2024 18:10:10 03/12/2003/17/2024 ALLER GENS, ZONE 1 P497-XbE stemphylium herbarum <0.10 kU/L class 0 Not Available [facility] ([facility]) [address] [facility], [place], [address], 03/17/2024 18:10:10 03/12/2003/17/2024 ALLER GENS, ZONE 1 F456-DvW common silver birch <0.10 kU/L class 0 Not Available [facility] ([facility]) [address] [facility], [place], [address], 03/17/2024 18:10:10 03/12/2003/17/2024 ALLER GENS, ZONE 1 K857-JkC oak, white <0.10 kU/L class 0 Not Available [facility] ([facility]) [address] [place], [address], 03/17/2024 18:10:10 03/12/2003/17/2024 ALLER GENS, ZONE 1 Q757-HuF elm, vietnamese <0.10 kU/L class 0 Not Available [facility] ([facility]) [address], [place], [address], 03/17/2024 18:10:10 03/12/2003/17/2024 ALLER GENS, ZONE 1 A935-NmD julieth, white <0.10 kU/L class 0 Not Available [facility] ([facility]) [address], [place], [address], 03/17/2024 18:10:10 03/12/2003/17/2024 ALLER GENS, ZONE 1 O899-KgG maple/box elder <0.10 kU/L class 0 Not Available [facility] ([facility]) [address], [place], [address], 03/17/2024 18:10:10 03/12/2003/17/2024 ALLER GENS, ZONE 1 G285-GxV hazelnut tree <0.10 kU/L class 0 Not Available [facility] ([facility]) [address], [place], [address], 03/17/2024 18:10:10 03/12/2003/17/2024 ALLER GENS, ZONE 1 J858-UoK hickory, white <0.10 kU/L class 0 Not Available [facility] ([facility]) [address], [place], [address], 03/17/2024 18:10:10 03/12/2003/17/2024 ALLER GENS, ZONE 1 P803-BjF white mulberry <0.10 kU/L class 0 Not Available [facility] ([facility]) [address], [place], [address], 03/17/2024 18:10:10 03/12/20 24 03/17/2024 ALLER GENS, ZONE 1 A568-UqT cedar, mountain <0.10 kU/L class 0 Not Available [facility] ([facility]) [address], [place], [address], 03/17/2024 18:10:10 03/12/20 24 03/17/2024 ALLER GENS, ZONE 1 X408-QiW ragweed, short <0.10 kU/L class 0 Not Available [facility] ([facility]) [address], [place], [address], 03/17/2024 18:10:10 03/12/2003/17/2024 ALLER GENS, ZONE 1 D089-PgG mugwort <0.10 kU/L class 0 Not Available [facility] ([facility] [facility]) [address], [place], [address], 03/17/2024 18:10:10 03/12/20 24 03/17/2024 ALLER GENS, ZONE 1 H926-VuA plantain, danish <0.10 kU/L class 0 Not Available [facility] ([facility] [facility]) [address], [place], [address], 03/17/2024 18:10:10 03/12/20 24 03/17/2024 ALLER GENS, ZONE 1 L379-FlS pigweed, common <0.10 kU/L class 0 Not Available [facility] ([facility] [facility]) [address], [place], [address], 03/17/2024 18:10:10 03/12/20 24 03/17/2024 ALLER GENS, ZONE 1 C268-LzV sheep sorrel <0.10 kU/L class 0 Not Available [facility] ([facility] [facility]) [address], [place], [address], 03/17/2024 18:10:10 10/23/03/17/2024 ALLER GENS, ZONE 1 Z725-SyK nettle <0.10 kU/L class 0 Not Available [facility] ([facility]) [address] [facility], [place], [address], 03/17/2024 18:10:10 03/12/20 24 03/17/2024 IMMUN OGLOB ULIN E, TOTAL immunoglobul in E, total 41 IU/mL 6-495 Not Available [facility] ([facility]) [address] [facility], [place], [address], 03/17/2024 18:10:11 05/16/20 24 11/07/2023 CT, sinus es, w/o contr ast No observ ation record ed. [email or web address] Not Available 17:07:00 Result Notes None recorded. Problems Name Problem SNOMED Code Status Onset Date Resolution Date Notes Provider Name and Address Organization Details Recorded Time Mixed conductiv e and sensorine ural hearing loss of left ear 41125701099 107 Active 2017 Mixed conductiv e and sensorine ural hearing loss, unilatera l, left ear with restricte d hearing on the contralat eral side; Note: Date Diagnosed : 10/01/2017 11:20 AM (H90.A32) Not Available [facility] 4 03:08:07 Bilateral temporoma ndibular joint pain 24084458783 060256 Active 2018 Arthralgi a of bilateral temporoma ndibular joint; Note: Date Diagnosed : 02/24/2019 3:09 PM (M26.623) Not Available [facility] 4 03:08:07 Sensorine ural hearing loss in right ear 83215199532 100 Active 2017 Sensorine ural hearing loss, unilatera l, right ear, with restricte d hearing on the contralat eral side; Note: Date Diagnosed : 10/01/2017 11:20 AM (H90.A21) Not Available [facility] 4 03:08:06 Otalgia of right ear 1245834533 Active 2018 Otalgia, right ear; Note: Date Diagnosed : 02/24/2019 3:09 PM (H92.01) Not Available [facility] 4 03:08:06 Bilateral tinnitus 59333957637 02 Active 2017 Tinnitus, bilateral ; Note: Date Diagnosed : 10/01/2017 11:47 AM (H93.13) Not Available [facility] 4 03:08:06 Allergic rhinitis 95825578 Active 2023 DANIELITO STRICKLAND MD [address], [place], [address] , [facility] - [facility] 4 14:10:41 Chronic salpingit is of bilateral eustachia n tubes 34148126068 93592 Active 2023 DANIELITO STRICKLAND MD [address], [place], [address] , [facility] - [facility] 4 14:11:10 Chronic non-infec tive otitis externa 511189848 Active 2023 DANIELITO STRICKLAND MD [address], [place], [address] , [facility] - [facility] 4 14:12:38 Problem Notes None recorded. Procedures Surgical History Date Name Laterality Status Provider Name and Address Organization Details Recorded Time revision of tympanoplasty completed DANIELITO PHILIPPE MD [address] [facility] [place],[address] [facility], [place], [address], [facility] 03/12/2024 14:05:24 Imaging Results Imaging Date Name Status LastModified by Organ [facility] Details LastModified Time 11/07/2023 CT, sinuses, w/o contrast completed emili Information not available 05/16/2024 17:07:00 Procedure Notes None recorded. Medical Equipment None Reported. Allergies No known drug allergies Medications Name Sig Start Date Stop Date Status Note LastModified by Organization Details LastModified Time celecoxib 200 mg capsule TAKE 1 CAPSULE BY MOUTH TWICE DAILY STOP Etodolac active Not Available Not Available No t Available Qvar 80 mcg/actua tion Metered Aerosol oral inhaler 03/12 completed Medicati on ID: [id number] D uration Value: 30 Brand Name: Qkirti Sen d Method: E-Prescr ibed Sub s Allowed: subs OK Speci al Instruct ion: INHALE TWO PUFFS BY MOUTH TWICE DAILY RINSE MOUTH AFTER Me dication GenericN inge: Qvar Not Available Not Available Not Available albuterol sulfate 2.5 mg/3 mL (0.083 %) solution for nebulizat ion active Not Available Not Available Not Available cetirizin e 10 mg tablet TAKE 1 TABLET BY MOUTH EVERY DAY 03/12 completed Not Available Not Available Not Available hydrocodo ne 5 mg-acetam inophen 325 mg tablet TAKE 1 TABLET BY MOUTH EVERY 4 TO 6 HOURS NEEDED FOR PAIN 03/12 completed Not Available Not Available Not Available famotidin e 40 mg tablet 03/12 completed Medicati on ID: [id number] D uration Value: 30 Brand Name: famotidi ne Send Method: E-Prescr ibed Sub s Allowed: subs OK Speci al Instruct ion: TAKE 1 TABLET AT BEDTIME Medicati onGeneri cName: famotidi ne Not Available Not Available Not Available prednison e 20 mg tablet 03/12 completed Medicati on ID: [id number] D uration Value: 5 Brand Name: predniso ne Send Method: E-Prescr ibed Sub s Allowed: subs OK Medic ationGen ericName : predniso ne Not Available Not Available Not Available Seroquel 25 mg tablet 03/12 completed Medicati on ID: [id number] B rand Name: Seroquel Send Method: E-Prescr ibed Sub s Allowed: subs OK Medic ationGen ericName : Seroquel Not Available Not Available Not Available pseudoeph edrine ER 120 mg tablet,ex tended release TAKE 1 TABLET BY MOUTH EVERY TWELVE HOURS NEEDED FOR NASAL CONGESTI ON. DO NOT BREAK, CRUSH, DISSOLVE OR CHEW. active Not Available Not Available No t Available meclizine 12.5 mg tablet active Not Available Not Available Not Available fexofenad ine 180 mg tablet TAKE 1 TABLET BY MOUTH EVERY DAY active Not Available Not Available No t Available tramadol 50 mg tablet TAKE 1 TABLET BY MOUTH FOUR TIMES DAILY NEEDED FOR PAIN active Not Available Not Available No t Available acetamino phen ER 650 mg tablet,ex tended release active Not Available Not Available Not Available oxycodone -acetamin ophen 5 mg-325 mg tablet TAKE 1 TABLET BY MOUTH EVERY 6 HOURS NEEDED FOR PAIN 03/12 completed Not Available Not Available Not Available methotrex ate sodium 2.5 mg tablet active Not Available Not Available Not Available trazodone 100 mg tablet 03/12 completed Medicati on ID: [id number] D uration Value: 30 Brand Name: trazodon e Send Method: E-Prescr ibed Sub s Allowed: subs OK Speci al Instruct ion: TAKE 2 TABLETS EVERY DAY AT BEDTIME Medicati onGeneri cName: trazodon e Not Available Not Available Not Available meclizine 25 mg tablet TAKE 1 TABLET BY MOUTH THREE TIMES DAILY IN THE MORNING, AT NOON, AND AT BEDTIME NEEDED FOR DIZZINES S active Not Available Not Available No t Available triamcino lone acetonide 0.1 % topical ointment active Not Available Not Available Not Available triamcino lone acetonide 55 mcg nasal spray aerosol INSTILL 2 SPRAYS IN EACH NOSTRIL ONCE DAILY active Not Available Not Available No t Available gabapenti n 300 mg capsule active Not Available Not Available Not Available omeprazol e 20 mg capsule,d elayed release active Not Available Not Available Not Available folic acid 1 mg tablet active Not Available Not Available Not Available etodolac 400 mg tablet 2023 active Not Available Not Available Not Avai lable monteluka st 10 mg tablet active Not Available Not Available Not Available azelastin e 137 mcg (0.1 %) nasal spray INSTILL 1 SPRAY IN EACH NOSTRIL TWICE DAILY DIRECTED . active Not Available Not Available No t Available hydroxych loroquine 200 mg tablet active Not Available Not Available Not Available fluticaso ne propionat e 50 mcg/actua tion nasal spray,crow pension active Not Available Not Available Not Available doxycycli ne hyclate 100 mg tablet 1 tablet by mouth 03/12 completed Medicati on ID: [id number] D uration Value: 7 Brand Name: doxycycl ine hyclate Send Method: E-Prescr ibed Sub s Allowed: subs OK Medic ationGen ericName : doxycycl ine hyclate Not Available Not Available Not Available loratadin e 10 mg tablet 03/12 completed Not Available Not Available Not Available fluticaso ne propionat e 110 mcg/actua tion HFA aerosol inhaler active Not Available Not Available Not Available Ventolin HFA 90 mcg/actua tion aerosol inhaler active Not Available Not Available Not Available Benadryl 25 mg capsule 03/12 completed Medicati on ID: [id number] B rand Name: Benadryl Send Method: E-Prescr ibed Sub s Allowed: subs OK Speci al Instruct ion: take 2 caps 2 hrs prior to exam Med icationG enericNa me: Benadryl Not Available Not Available Not Available Oyster Shell Calcium-5 00 500 mg (as carbonate 1,250 mg) tablet active Not Available Not Available Not Available bupropion HCl XL 300 mg 24 hr tablet, extended release active Not Available Not Available Not Available Spiriva with HandiHale r 18 mcg and inhalatio n capsules 03/12 completed Medicati on ID: [id number] D uration Value: 30 Brand Name: Spiriva with HandiHal er Send Method: E-Prescr ibed Sub s Allowed: subs OK Speci al Instruct ion: USE 1 CAPSULE FOR INHALATI ON ONCE A DAY DO NOT SWALLOW CAPSULE Medicati onGeneri cName: Spiriva with HandiHal er Not Available Not Available Not Available mirtazapi ne 7.5 mg tablet active Not Available Not Available Not Available Atrovent HFA 17 mcg/actua tion aerosol inhaler active Not Available Not Available Not Available Chantix 1 mg tablet 03/12 completed Medicati on ID: [id number] D uration Value: 28 Brand Name: Chantix Send Method: E-Prescr ibed Sub s Allowed: subs OK Speci al Instruct ion: TAKE (1) TABLET TWICE DAILY Me dication GenericN inge: Chantix Not Available Not Available Not Available fluocinol one acetonide oil 0.01 % ear drops PLACE 5 DROPS INTO THE AFFECTED EAR(S) TWICE A WEEK active Not Available Not Available No t Available cholecalc iferol (vitamin D3) 50 mcg (2,000 unit) capsule active Not Available Not Available Not Available Anoro Ellipta 62.5 mcg-25 mcg/actua tion powder for inhalatio n INHALE 1 PUFF BY MOUTH EVERY DAY 03/12 completed Not Available Not Available Not Available Flowflex COVID-19 Antigen Home Test kit 03/12 completed Not Available Not Available Not Available Vitals Date Recorded Body height Body weight Provider Name and Address Organization Details Last Updated DateTime 03/12/2024 157.48 cm 84024.52 g Myra Welsh [place] - [facility] 03/12/2024 13:42:44 Social History None recorded. Functional Status None recorded. Mental Status None recorded. Family History Nothing Reported. Medical History Condition Response Allergies/Hayfever Y Anxiety Y Depression Y Asthma Y Gynecological HistoryNo gynecological history recorded. Obstetrics History GPAL:G 0 P 0 0 0 0 Past Encounters Encounter ID Performer Location Encounter Start Date Encounter Closed Date Diagnosis/Indication Diagnosis SNOMED-CT Code Diagnosis ICD10 Code Diagnosis Note [id number] DANIELITO STRICKLAND MD [facility] [address] [address] 03/12/2024 13:23:35 03/12/2024 14:15:07 Allergic rhinitis 63241557 J30.89 Chronic sa lpingitis of bilateral eustachian tubes 1096737123 043013 H68.023 Chronic no n-infective otitis externa 541924351 H60.61 Health Concerns Section Related Observation LastModified by Organization Detai ls LastModified Time None Recorded Concern Status LastModified by Organization Details LastModified Time None Recorded Advance Directives Directive None Recorded Payers Encounter Date Sequence Insurance Name Policy Number Policy Barnes Covered Member ID Barnes Member ID Guarantor Name 03/12/2024 1 [facility] - DOS ON OR AFTER 2022 - MEDICARE [place]ANTAGE [place] RE[place]ACEMENT/ADV ANTAGE - PPO) Lizzie Girard [id number] Lizzie Girard Notes Date Note Type Note Provider Name and Address Organization Details Recorded Time 03/12/2024 text/html Patient with a longstanding history of nasal congestion, allergy and chronic ear disease. Multiple prior ear surgeries with Dr. Rose in the 70s and 80s. She notes chronic left greater than right nasal congestion. CT at [facility] was performed in October which suggested possible anterior polyp due to thickening of the nasal septum. She has been on triamcinolone and Astelin without improvementShe has allergy testing pending for May.snot= 79Nose= 100 DANIELITO PHILIPPE MD [address] [place] [address], [place], [address], [place] - [facility] 03/12/2024 14:14:16 OBGyn Episode No OBEpisode recorded.
--- OUTSIDE RECORDS SUMMARY | 2024-07-09 10:29 | XMS_ITS | Encounter Summary ---
Author Organization [employer] Address [address] [place] [address] [address] [address] Care Team Providers Care Rougher Helper Name Role Phone [facility] Primary Care Provider [phone] Reason for Visit * Reason Comments Med Refill Encounter Details Date Type Department Care Team ([facility] Contact Info) Description 02/26/2024 Refill [facility] MEDICINE [address] [place] [address] [facility] [address] [place] [address] Social History Tobacco Use Types Packs/Day Years [...] documented as of this encounter Care Teams Rougher Helper Relationship Specialty Start Date End Date Alicia Carias FNP [address] [place] [address] PCP - General Family Medicine 01/17/22 documented as of this encounter
--- OUTSIDE RECORDS SUMMARY | 2024-07-09 10:30 | XMS_ITS | Encounter Summary ---
Author Organization [employer] Address [address] [place] [address] [address] [address] Care Team Providers Care Chocolate Refining Roller Name Role Phone Aretha Alicia [facility] Primary Care Provider [phone] Encounter Details Date Type Department Care Team (Late st Contact Info) Description 05/12/2022 Orders Only [facility] MED & PEDS [address] [place] [address] Silvia Hwang LPN Social History Tobacco Use [...] on filedocumented in this encounter Care Teams Chocolate Refining Roller Relationship Specialty Start Date End Date Alicia Carias FNP [address] [place] [address] PCP - General Family Medicine 01/17/22 documented as of this encounter
--- OUTSIDE RECORDS SUMMARY | 2024-07-09 10:30 | XMS_ITS | Encounter Summary ---
Author Organization [employer] Address [address] [place] [address] Care Team Providers Care Foot Roentgenologist Name Role Phone [facility] [place] Primary Care Provider [phone] Reason for Visit * Reason Comments Med Refill Encounter Details Date Type Department Care Team ([facility] st Contact Info) Description 06/11/2024 Refill [facility] MEDICINE [address] [place] [address] [facility] [address] [place] [address] COPD exacerbation (CMS/[facility]) Social History Tobacco Use Types [...] this encounter Visit Diagnoses Diagnosis COPD exacerbation (CMS/[facility]) Obstructive chronic bronchitis with exacerbation documented in this encounter Additional Health Concerns Assessment Noted Time PHQ-9 Depression Total Score: 0 02/08/20 24 2:03 PM EDT documented as of this encounter Care Teams Foot Roentgenologist Relationship Specialty Start Date End Date Alicia Carias FNP [address] [place] [address] PCP - General Family Medicine 01/17/22 documented as of this encounter
--- OUTSIDE RECORDS SUMMARY | 2024-07-09 10:30 | XMS_ITS | Encounter Summary ---
Author Organization [employer] Address [address] [place] [address] [address] [address] Care Team Providers Care It Systems Analyst Consultant Name Role Phone [facility] Primary Care Provider [phone] Reason for Visit * Reason Comments Med Refill Encounter Details Date Type Department Care Team ([facility] Contact Info) Description 11/15/2023 Refill [facility] MEDICINE [address] [place] [address] [facility] [address] [place] [address] Dizziness and giddiness; Insomnia, unspecified type; Shortness [...] documented as of this encounter Care Teams It Systems Analyst Consultant Relationship Specialty Start Date End Date Alicia Carias FNP [address] [place] [address] PCP - General Family Medicine 01/17/22 documented as of this encounter
--- OUTSIDE RECORDS SUMMARY | 2024-07-09 10:30 | XMS_ITS | Encounter Summary ---
Author Organization [employer] Address [address] [place] [address] Care Team Providers Care Engine Generator Assembler Name Role Phone [facility] Primary Care Provider [phone] Reason for Visit * Reason Comments Med Refill Encounter Details Date Type Department Care Team ([facility] st Contact Info) Description 01/29/2024 Refill [facility] MEDICINE [address] [place] [address] [facility] [address] [place] [address] COPD exacerbation (CMS/[facility]) Social History Tobacco Use Types Packs/Day Years [...] documented as of this encounter Care Teams Engine Generator Assembler Relationship Specialty Start Date End Date Alicia Carias FNP [address] [place] [address] PCP - General Family Medicine 01/17/22 documented as of this encounter
--- OUTSIDE RECORDS SUMMARY | 2024-07-09 10:30 | XMS_ITS | Encounter Summary ---
Author Organization [employer] Address [address] [place] [address] [address] [address] Care Team Providers Care Marine Engine Machinist Apprentice Name Role Phone [facility] Primary Care Provider [phone] Reason for Visit * Reason Comments Med Refill Encounter Details Date Type Department Care Team ([facility] Contact Info) Description 01/02/2024 Refill [facility] MEDICINE [address] [place] [address] [facility] [address] [place] [address] Social History Tobacco Use Types Packs/Day Years [...] documented as of this encounter Care Teams Marine Engine Machinist Apprentice Relationship Specialty Start Date End Date Alicia Carias FNP [address] [place] [address] PCP - General Family Medicine 01/17/22 documented as of this encounter
--- OUTSIDE RECORDS SUMMARY | 2024-07-09 10:30 | XMS_ITS | Encounter Summary ---
Author Organization [employer] Address [address] [place] [address] Care Team Providers Care Edge Trimming Machine Operator Name Role Phone [facility] Primary Care Provider [phone] Reason for Visit * Reason Comments Med Refill Encounter Details Date Type Department Care Team ([facility] Contact Info) Description 10/22/2023 Refill [facility] MEDICINE [address] [place] [address] [facility] [address] [place] [address] COPD exacerbation (CMS/HCC); Rash Social History Tobacco [...] documented as of this encounter Care Teams Edge Trimming Machine Operator Relationship Specialty Start Date End Date Alicia Carias FNP [address] [place] [address] PCP - General Family Medicine 01/17/22 documented as of this encounter
--- OUTSIDE RECORDS SUMMARY | 2024-07-09 10:30 | XMS_ITS | Clinical Summary ---
Author Organization [employer] Address [address] [place] [address] [address] [place] [address] Care Team Providers Care Application Assistant Name Role Phone Alicia Carias [facility] Primary Care Provider [phone] Allergies No known active allergies Medications methotrexate 2.5 MG tablet TAKE 10 TABLETS BY MOUTH ONCE WEEKLY ON Sunday07/11/19 23 Active ipratropium-albu terol (Duo-Neb) 0.5-2.5 mg/3 mL nebulizer solution INHALE 1 AMPULE USING A NEBULIZER FOUR TIMES DAILY 11/01/19 22 Active hydroxychloroqui ne (Plaquenil) 200 MG tablet TAKE 2 TABLETS BY MOUTH ONCE DAILY IN THE MORNING 07/11/19 23 Active folic acid (Folvite) 1 MG tablet Take 1,000 mcg by mouth in the morning. 07/11/19 23 Active etodolac (Lodine) 400 MG tablet TAKE 1 TABLET BY MOUTH WITH BREAKFAST AND EVENING MEAL 180 tablet 06/29/19 24 Active fluticasone (Flovent) 110 MCG/ACT inhalerIndicatio ns:COPD exacerbation (CMS/HCC) INHALE 1 PUFF BY MOUTH TWO TIMES A DAY IN THE MORNING AND AT BEDTIME RINSE MOUTH AFTER USING (BULK) 12 g 8 08/01/19 24 Active cholecalciferol VITAMIN D (Vitamin D-3) 50 MCG (1999) capsule TAKE ONE CAPSULE BY MOUTH EVERY MORNING ^1R1 30 capsule 11 01/02/20 24 Active triamcinolone (Nasacort) 55 MCG/ACT nasal inhaler Administer 2 sprays into each nostril Once per day. 16.5 g 11 08/16/20 24 025 Active azelastine (Astelin) 0.1 % nasal spray Administer 1 spray into each nostril 2 times daily. Use in each nostril as directed 30 mL 01/04/20 Active pseudoephedrine ER (Sudafed-12 Hour) 120 MG 12 hr tablet Take 1 tablet (120 mg) by mouth every 12 (twelve) hours if needed for congestion. Do not crush, chew, or split. 20 tablet 01/16/20 24 025 Active fexofenadine (Afshan) 180 MG tablet Take 1 tablet (180 mg) by mouth Once per day. 30 tablet 01/16/20 025 Active buPROPion XL (Wellbutrin XL) 300 MG 24 hr tabletIndication s:Anxiety TAKE ONE TABLET BY MOUTH EVERY MORNING . DO NOT CRUSH, CHEW OR SPLIT. ^1R1 30 tablet 5 01/30/20 24 Active albuterol (2.5 MG/3ML) 0.083% nebulizer solutionIndicati ons:COPD exacerbation (CMS/[facility]) INHALE 1 VIAL VIA NEBULIZER EVERY 4 HOURS NEEDED FOR SHORTNESS OF BREATH OR WHEEZING (BULK) 90 mL 5 03/19/20 24 Active gabapentin (Neurontin) 300 MG capsuleIndicatio ns:Restless leg syndrome TAKE ONE TO TWO CAPSULES BY MOUTH EVERY EVENING FOR RESTLESS LEG (VIAL) 60 capsule 5 03/19/20 24 Active montelukast (Singulair) 10 MG tablet TAKE ONE TABLET BY MOUTH EVERY EVENING ^1R4 30 tablet 5 03/19/20 24 Active Atrovent HFA 17 MCG/ACT inhaler INHALE TWO PUFFS BY MOUTH FOUR TIMES A DAY (BULK) 12.9 g 5 03/25/20 24 Active triamcinolone (Kenalog) 0.1 % ointmentIndicati ons:Rash APPLY A THIN LAYER TOPICALLY TO AFFECTED AREA(S) TWO TIMES A DAY NEEDED FOR 7 DAYS (BULK) 15 g 5 03/25/20 24 Active meclizine (Antivert) 25 MG tablet TAKE 1 TABLET BY MOUTH THREE TIMES DAILY IN THE MORNING, AT NOON, AND AT BEDTIME NEEDED FOR DIZZINESS 60 tablet 3 04/04/20 24 Active meclizine (Antivert) 12.5 MG tabletIndication s:Dizziness and giddiness TAKE ONE TABLET BY MOUTH EVERY DAY NEEDED FOR DIZZINESS (VIAL) 30 tablet 5 04/23/20 24 Active mirtazapine (Remeron) 7.5 MG tabletIndication s:Insomnia, unspecified type TAKE ONE TABLET BY MOUTH AT BEDTIME ^1R4 28 tablet 5 04/23/20 24 Active Oyster Shell Calcium 500 MG tablet TAKE ONE TABLET BY MOUTH EVERY MORNING ^1R1 28 tablet 5 04/23/20 24 Active omeprazole (PriLOSEC) [address] capsule TAKE ONE CAPSULE BY MOUTH EVERY MORNING WITH FOOD 30 capsule 5 04/23/20 24 Active albuterol (Ventolin HFA) 108 (90 Base) MCG/ACT inhalerIndicatio ns:Shortness of breath INHALE TWO PUFFS BY MOUTH EVERY 4 TO 6 HOURS NEEDED (BULK) 18 g 5 04/23/20 24 Active acetaminophen (Tylenol 8 Hour) 650 MG ER tabletIndication s:COPD exacerbation (CMS/HCC) TAKE ONE TABLET BY MOUTH EVERY 8 HOURS NEEDED FOR PAIN (VIAL) 40 tablet 3 06/11/19 25 Active acetaminophen (Tylenol 8 Hour) 650 MG ER tabletIndication s:COPD exacerbation (CMS/HCC) TAKE ONE TABLET BY MOUTH EVERY 8 HOURS NEEDED FOR PAIN (VIAL) 40 tablet 3 01/30/20 24 025 Discontinued Active Problems Problem Noted Date Diagnosed Date Dyspnea on exertion 04/23/2024 Overview (04/23/2024): - 11/30/2022 PFT's w/no bstructive or restrictive ventilatory defects, moderate isolated diffusion impairment. CT -12/01/22 CT scan of the lungs showed mild emphysema. - 05/2023- A cardiopulmonary stress test at [facility] showed moderately impaired exercise capacity and [...] Overview (07/03/2023): Mammo: 08/2022 Pap: 08/2022 at [facility] M[facility]. Results not in chart C-scope: 2019, normal. Due 2029 BMD: 08/2021; osteopenia. Repeat 08/2023 Established with LDLCT screening at [facility] UTD on eye exams-[facility] Assessment & Plan (12/30/2022 9:26 PM EDT): Will request [facility] records for recent pap and mammogram Post-menopausal bleeding 08/06/2022 Overview (04/23/2024): 07/11/2022 pelvic ultrasound with normal EM stripe Followed by [facility] MACHINE SPR[facility]ER s/p EMB 09/2023 (negative) Dr. Pearson--pt to call MACHINE SPRAYER should bleeding reoccur Assessment & Plan (07/03/2023 10:06 PM EST): Follow up for EMB as scheduled No recurrent episodes Assessment & Plan (08/06/2022 4:07 PM EDT): ?? Pt denies recurrent episodes of bleeding. Did not hear regarding previously placed MACHINE SPR[facility]ER referral. Will re-refer today to [facility] for EMB if indicated. Anxiety 08/03/2022 Overview [...] arthritis 06/15/2022 Overview (10/04/2022): ?? Followed by [facility] Rheumatology ?? Etodolac ?? Methotrexate ?? Hydroxychloroquine Tobacco use 06/15/2022 Overview (07/03/2023): Started smoking age 18: 1-2 PPD; decreased to 1/2 PPD over the pasts 1-2 years Quit 12/2022 Followed by [facility] LDLCT Mixed hearing loss, bilateral 06/15/2022 Overview [...] Encounters Date Type Department Care Team Description 06/11/2024 Refill [facility] [address] [facility] [place] [address] ArethaAlicia [facility] COPD exacerbation ([facility]) 05/30/2024 Orders Only [facility] [address] [facility] [place] [address] [facility] Chronic bilateral low back pain without sciatica (Primary Dx) 05/29/2024 Telephone [facility] [address] [facility] [place] [address] DerbyAlicia coon [facility] Referral 05/19/2024 Refill [facility] [place] [address] [facility] COPD exacerbation ([facility]) 04/30/2024 Telephone [facility] [address] [facility] [place] [address] Karla Dick, RN 04/25/2024 Telephone [facility] [address] [place] [address] Minnie Brooks, RN PAP POC 04/23/2024 Refill [facility] [address] [place] [address] [facility] Dizziness and giddiness; Insomnia, unspecified type; Shortness of breath 04/23/2024 Telephone [facility] [address] [facility] [place] [address] ArethaAlicia [facility] 04/16/2024 11:15 AM EST Office Visit [facility] [place] [address] Aretha Alicia [facility] Chronic bilateral low back pain without sciatica (Primary Dx); Dyspnea on exertion; Right hand pain; Chronic allergic rhinitis; Encounter for immunization 04/16/2024 Travel from Last 3 Months Immunizations Name Administration [...] 3 - 19+ 3-dose series) 11/26/2000 10/29/2000 RSV Patients and Patients Aged 60 years or older (1 - Risk 60-74 years 1-dose series) 2024 Mammogram 09/20/2024 09/21/2023, 04/12/2022, 09/13/2021, Additional history exists Alcohol/Substance Use Screening 10/18/2024 10/19/2023 SDOH Screening 10/18/2024 10/19/2023 Cervical Cancer Screening 02/07/2025 Depression Screening 02/07/2025 02/08/2024, 02/08/20 Pap Smear 02/07/2025 02/08/2024, 01/19, 10/27/2021 Tobacco Screening 04/23/2025 04/23/2024 Lipid Panel 06/25/2028 06/25/2023 HPV/Cotest 02/07/2029 02/08/2024, 01/19, 10/27/2021, Additional history exists Colonoscopy 04/20/2030 04/20/2020 Colorectal Cancer Screening 04/20/2030 DTaP/Tdap/Td Vaccines (2 - Td or Tdap) 10/03/2032 10/03/2022, 02/24/2014, 12/04/2000 Pneumococcal Vaccine: 50+ Years Completed 10/03/2022, 09/02/2021, 07/30/2017 Zoster Vaccines Completed [...] Comments XR HAND 3+ VIEWS RIGHT Routine 11:58 AM EST Right hand pain THINPREP IMAGING PAP AND HPV MRNA E6/E7 [...] AM EST Narrative 04/17/2024 11:50 AM EST ?[facility] ?[address] ?[place] [address] ?XRay Report ? Signed ? Patient: Lizzie Girard ?MR#: [id number] ? : 1965 ?Acct:[id number] ? Age/Sex: 58 / F ?ADM Date: 04/16/24 ? Loc: HO.HHCX ? Attending Dr: Alicia Carias SOCK DRIER ? Ordering Physician: Alicia Carias SOCK DRIER ?? Date of Service: 04/16/24 ?? Procedure(s): XR hand RT min 3V ?? Accession Number(s): [id number] ? cc: Aretha,Alicia SOCK [facility]ER ? EXAMINATION: ?? XR HAND, RIGHT ? [...] DD/ 1158 ? TD/TT: 04/16/24 1204 ? Nurse Discharge: EZE ? Procedure Note Donrobi, Image - 04/17/[address] [address] XRay Report Signed Patient: Bala Girard#: [id number] : 1965Acct:[id number] Age/Sex: 58 / FADM Date: 04/16/24 Loc: HO.HHCX Attending Dr: Alicia YADAV Ordering Physician: Alicia Carias Date of Service: 04/16/24 Procedure(s): XR hand RT min 3V Accession Number(s): [id number] cc: Alicia Carias EXAMINATION: XR HAND, RIGHT [...] fracture or dislocation. Electronically signed by: Brayden Bhardwaj MD 04/17/2024 11:48 AM EST Dictated By: Brayden Bhardwaj MD Signed By: <Electronically signed by Brayden Bhardwaj MD in OV> 04/17/24 1148 DD/ 1158 TD/TT: 04/16/24 1204 Nurse Discharge: EZE Authorjarret Provider Result Type Result Stat [facility] IMG XR PROCEDURES Final Resul t * ThinPrep Imaging Pap and HPV mRNA E6/E7 (02/08/2024 2:23 PM EDT) HPV nRNA E6/E7 Not Detected Not Detected [facility] Comment:Methodology: Transcr iption-Mediated AmplificationThis assay detects E6/E7 viral messenger RNA (mRNA) from 14high-risk HPV types (16,18,31,33,35,39,45,51,52,56,58,59,66,68).Cervical sources are required for HPV testing.If a vaginal source from a patient who has had atotal hysterectomy with removal of cervix wassubmitted, please contact the testing laboratoryfor alternative testing options.For additional information, please refer tohttp://education.[employer] Education/faq/FNU136w2(This link if provided for information/educational purposes only.)THIS TEST WAS PERFORMED AT:[employer] [place] [phone] PEOPLES MD SOURCE: SEE NOTE [facility] Comment:Cervix Report Status: TNP [facility] Clinical Information: SEE NOTE [facility] Comment:None given LMP: SEE NOTE [facility] Comment:NONE GIVEN Prev. PAP: SEE NOTE [facility] Comment:NONE GIVEN Prev. BX: SEE NOTE [facility] Comment:NONE GIVEN Statement Of Adequacy: SEE NOTE [facility] Comment:Satisfactory for humaira luation.Endocervical/transformation zone componentpresent. General Categorization: [facility] Interpretation/Result: SEE NOTE [facility] Comment:Cytology Results: Ne gative for intraepitheliallesion or malignancy. Cytology Comment SEE NOTE [facility] Comment:This Pap test has be en evaluated with computerassisted technology. University Registrar: SEE NOTE [facility] Comment:DMM, CT(ASCP)CT scre ening location: [place] [address] Review University Registrar: [facility] Pathologist [facility] PAP Infection [facility] See Note SEE NOTE [facility] Comment:EXPLANATORY NOTE:The Pap is a screening test for cervical cancer. It isnot a diagnostic test and is subject to false negativeand false positive results. It is most reliable when asatisfactory sample, regularly obtained, is submittedwith relevant clinical findings and history, and whenthe Pap result is evaluated along with historic andcurrent clinical information. 02/08/2024 2:23 PM EDT 02/08/2024 4:34 PM EDT Narrative [facility] - 02/15/2024 12:08 PM EDT SEE SCANNED RESULTS IN EMRCERVIX [facility] LAB PATHOLOGY ORDERABLES Claudette l Result Performing Organization Address City/State/[facility] Co de Phone Number [facility] [address] [place] [address] [phone] * BI Mammogram Screening Tomosynthesis Bilateral (09/21/2023 9:35 AM EDT) Anatomical Region Laterality Modality Breast Bilateral Mammography 09/21/2023 9:35 AM EDT Narrative 10/22/2023 8:00 AM EDT ? [facility] ? [address] ?[place] [address] ? Mammography Report ? Signed ? Patient: Era,Lizzie ?MR#: [id number] ? : 1965 ?Acct:[id number] ? Age/Sex: 58 / F ?ADM Date: 05/03/24 ? Loc: HO.MAMMO ? Attending Dr: Alicia Carias S[facility]ER ? Ordering Physician: Alicia Craias [employer]ER ?Results: 1Nega ?? tive ? Date of Service: 09/21/23 ?Follow Up: 1 Year From Orig ?? inal Mammogram ? Procedure(s): MM tomosynthesis screening BI ?? Accession Number(s): [id number] ? cc: Alicia Carias SOCK [employer]RIER ? EXAMINATION: ?? MM SCREENING DIGITAL BREAST [...] 0757 ? DD/ 0935 ? TD/TT: ? Nurse Discharge: ? Procedure Note Donnoelaureninterpreter, Image - 10/22/2023 [facility] [address] [place], [place] [address] Mammography Report Signed Patient: Bala Girard#: [id number] : 1965Acct:[id number] Age/Sex: 58 / FADM Date: 09/21/23 Loc: LYNNEO Attending Dr: Alicia Carias [employer] Ordering Physician: Alicia Carias FNPResults: 1Nega tive Date of Service: 09/21/23Follow Up: 1 Year From Orig inal Mammogram Procedure(s): MM tomosynthesis screening BI Accession Number(s): [id number] cc: Alicia Carias [employer] EXAMINATION: MM SCREENING DIGITAL BREAST TOMOSYNTHESIS, BILATERAL [...] in OV> 10/22/23 0757 DD/ 0935 TD/TT: Nurse Discharge: [facility] IMG BI PROCEDURES Final Resul t * (ABNORMAL) Lipid Panel, Standard (06/25/2023 11:58 AM EST) Triglycerides 225(H) <150 mg/dL [facility] Comment:Desirable Triglyceri de: less than 150 mg/dLBorderline High Triglyceride 150-199 mg/dLHigh Triglyceride: 200-499 mg/dLVery High Triglyceride: greater than or equal to 5OO mg/dL Cholesterol 177 <200 mg/dL [facility] Comment:Desirable Cholestero l: less than 200 mg/dLBorderline High Cholesterol: 200-239 mg/dLHigh Cholesterol: greater than 239 mg/dL LDL Cholesterol Calculated 80 <100 mg/dL [facility] Comment:Desirable LDL: less than 100 mg/dLNear Optimal/Above Optimal LDL: 110- 129 mg/dLBorderline High LDL: 130-159 mg/dLHigh LDL: 160-189 mg/dLVery High LDL: greater than or equal to 190 mg/dL HDL Cholesterol 52 >40 mg/dL [facility] Comment:Desirable HDL: great er than 40 mg/dL Note: This HDL assay may give artificially low results in patients with liver disease. Blood Venous blood specimen / Unknown 06/25/2023 11:58 AM EST 06/25/2023 1:10 PM EST [facility] LAB BLOOD ORDERABLES Final Re sult [facility] [address] [place] [phone] * Hm Colonoscopy (04/20/2020) Colonoscopy Normal Normal Comment:Repeat in 10 years Historical Provider HEALTH MAINTENANCE Final Result from Last 3 Months or Most Recently Relevant to Health Maintenance Insurance [facility] Care Teams Application Assistant Relationship Specialty Start Date End Date Alicia Carias FNP [address] [place] [phone] PCP - General Family Medicine 01/17/22
--- OUTSIDE RECORDS SUMMARY | 2024-07-09 10:30 | XMS_ITS | Encounter Summary ---
Author Organization [employer] Address [address] [place] [address] Care Team Providers Care Floor Framer Name Role Phone [facility] Primary Care Provider [phone] Reason for Visit * Reason Onset Date Comments Nurse Triage 10/24/2022 Encounter Details Date Type Department Care Team ([facility] st Contact Info) Description 10/24/2022 Telephone [facility] [address] [place] [address] [facility] [address] [place] [address] Nurse Triage Social History Tobacco Use Types [...] Tobacco Use and Problems handout sent to [phone] * Telephone Encounter - Maryan Bradford - 10/24/2022 11:40 AM EDT Patient calling to report Smoking 1 pack and a half x years. Patient speaks ([place]). Advised triage nurse will call patient back. Pt asking for Nicotine patches PCP DR. Carias documented in this encounter Plan of Treatment Not on file documented as of this encounter Visit Diagnoses Not on filedocumented in this encounter Additional Health Concerns Assessment Noted Time PHQ-9 Depression Total Score: 0 10/04/19 23 2:27 PM EDT documented as of this encounter Care Teams Floor Framer Relationship Specialty Start Date End Date Alicia Carias FNP [address] [place] [phone] PCP - General Family Medicine 01/17/22 documented as of this encounter
--- OUTSIDE RECORDS SUMMARY | 2024-07-09 10:30 | XMS_ITS | Encounter Summary ---
Author Organization [employer] Address [address] [place] [address] Care Team Providers Care Psychology Tech Name Role Phone [facility] Primary Care Provider [phone] Reason for Visit * Reason Comments Med Refill Encounter Details Date Type Department Care Team ([facility] st Contact Info) Description 11/18/2022 Refill [facility] [address] [place] [address] [facility] [address] [place] [address] Dizziness and giddiness; Anxiety Social History Tobacco [...] documented as of this encounter Care Teams Psychology Tech Relationship Specialty Start Date End Date Alicia Carias FNP [address] [place] [phone] PCP - General Family Medicine 01/17/22 documented as of this encounter
== END 2024-07-09 10:35 | disposition home or self-care (01) ==
LOC: HO.HWS 09:59
PROVIDERS: PCP Registered Nurse; Visit Provider Advanced Practice Midwife
DX: Z01.419 Encounter for gynecological examination (general) (routine) without abnormal findings (principal)
CPT/HCPCS: 99396; 99459

== ENCOUNTER → 2024-07-09 09:59 | Outpatient (BNVA) | payer OTHER, SELFPAY | PROVIDERS: PCP Registered Nurse; Visit Provider Advanced Practice Midwife | DX: Z01.419 Encounter for gynecological examination (general) (routine) without abnormal findings (principal) | CPT/HCPCS: 99396; 99459 ==

== ENCOUNTER 2024-07-16 10:59 | Outpatient (RCR) | payer OTHER, SELFPAY | END 2024-07-25 09:50 | disposition home or self-care (01) | LOC: HO.PT 10:59 | PROVIDERS: PCP Registered Nurse; Visit Provider Registered Nurse | DX: M54.50 Low back pain, unspecified (principal); G89.29 Other chronic pain | CPT/HCPCS: 97110; 97161; 97530 ==

== ENCOUNTER → 2024-08-06 09:53 | Outpatient (BNVA) | payer OTHER, SELFPAY | PROVIDERS: PCP Registered Nurse ==

== ENCOUNTER 2024-09-23 09:14 | Outpatient (AMB) | payer OTHER, SELFPAY ==
[2024-09-23 09:18] VITALS: BMI 29.6
--- NOTE | 2024-09-23 09:18 | MHC.OFFVIS ---
Vital Signs 09/23/24 09:18 Height 5 ft 3 in Weight 167 lb BMI 29.6 Intake Visit Reasons: OV: right basal joint, last inj 06/17/24 Intake Note: Lizzie 59 yr old left hand dominant female presents today for his right hand s/p basal joint injection from 06/10/24 done with Vesta Nevarez. States injection helped very little. States she would like to repeat injection today. States she would like to discuss surgical intervention in the future. Allergies No Known Allergies Allergy (Verified 09/23/24 09:26) HPI HPI OV: right basal joint, last inj 06/17/24: Details: Lizzie is a 59 year old left hand dominant woman who returns to discuss her right basal joint arthritis. She was last seen and received an injection, on 06/10/24 by LYNNE Nevarez, with little relief Her chief complaint today is of right radial sided wrist pain, worse with pinching ripping, or scissoring activities. She also complains of pain at the base of her thumb, worse with pinching or gripping activities. She is requesting a new comfort cool brace today [facility] Medical History Fibroid Personal history of nicotine dependence Carpal tunnel syndrome on both sides Carpal tunnel syndrome of left wrist Wrist pain Osteopenia Fracture of distal end of left fibula (~11/2021) Lupus Osteoarthritis History of back pain Asthma Vertigo Hearing deficit Surgical History Hx of shoulder surgery History of colonoscopy (~2019) History of tonsillectomy (~1991) History of nasal septoplasty (~1998) History of ear surgery (~1999) Family History Father Heart problem Heart attack Mother HTN (hypertension) Maternal Aunt Breast cancer Sister Breast cancer Social History Household Members Other:: son Housing: House Alcohol intake: current Alcohol intake frequency: does not drink Patient Tobacco Use Status: Former Tobacco user Years Smoked: (onset 18yo, 1ppd x 39yrs, now 1/2ppd - 35+PYH - quit 11/06/22) Second Hand Smoke Exposure: No Current occupational status: disabled Current occupation: left hand dominant Sexual orientation: Straight/Heterosexual Gender identity: Female Review of Systems Const All systems reviewed & are unremarkable except as noted in HPI and below Physical Exam Vital Signs: BMI result Body Mass Index 29.6 Const General: no acute distress and alert Orientation/consciousness: patient oriented x3 Neuro General: patient oriented x3 Extrem Other: Evaluation of Right Upper Extremity: The patient is alert, oriented, and in no acute distress Neuro: Median, Ulnar, Radial nerves motor and sensory intact and sensation is normal to the tips of all digits Vascular: Cap refill brisk ROM: She can make a fist and extend all her digits No locking or catching No a1 damian tenderness Most tender over the 1st dorsal compartment Positive Ana test on the right Negative Ana test on the left Mildly tender over the basal joint Radiographs: 3 views of the right hand from 04/16/24 were reviewed by me today in clinic. She has some basal joint arthritis with joint space narrowing & early osteophyte formation, as well as IP joint arthritis, and index finger DIP joint arthritis. Psych Appearance: grossly normal Affect: normal affect Attitude: cooperative Office Procedures AMB Fracture Care Details: No fracture, injection Fracture Billing Code: Fracture Billing Code Assessment & Plan Assessment & Plan (1) Osteoarthritis of carpometacarpal (CMC) joint of right thumb: Code(s): M18.11 - Unilateral primary osteoarthritis of first carpometacarpal joint, right hand Category: Medical (2) Lupus: Code(s): M32.9 - Systemic lupus erythematosus, unspecified Category: Medical (3) De Quervain's tenosynovitis, right: Code(s): M65.4 - Radial styloid tenosynovitis [de Quervain] Category: Medical Plan Assessment & Plan: 1. Right De Quervain's tenosynovitis Positive Ana test I educated her about this condition I discussed operative and non-operative treatment options The patient would like to proceed with an injection I discussed activity modification, they should limit or avoid any heavy or repetitive pinching or gripping activities She was fitted for a comfort cool brace to wear with daily activity She should work on ROM exercises, and avoid any gripping or strengthening activities Injection #1: The risks and benefits of a steroid injection including but not limited to risk of damage to blood vessels, nerves, tendons, infection, skin bleaching, failure to improve symptoms, increased pain, and possible need for further injections or other intervention were discussed with the patient and the patient wishes to proceed with the steroid injection. Once consent was obtained, I sterilely prepped the area over the 1st dorsal compartment of the Right thumb. I then injected the 1st dorsal compartment with a combination of 1 mL of dexamethasone (4mg/ml), and 1% lidocaine. The patient tolerated the procedure well with no complications and good resolution of their symptoms prior to leaving clinic. If the patient continues to have pain 6-8 weeks following this injection, they may call to schedule appointment to discuss alternative treatment options She will follow up prn 2. Right basal joint osteoarthritis, S/P injection Date of Injection: 06/10/24, 08/28/23 I discussed activity modification, they should limit or avoid any heavy or repetitive pinching or gripping activities I discussed the use of assistive devices for daily activity 3. Left Carpal tunnel syndrome, S/P release DOS: 10/08/23 Pre-operative symptoms intermittent & occasional Now with normal sensation 4. Left middle finger pain No complaints today 5. Right Carpal tunnel syndrome, S/P release DOS: 07/16/23 Pre-operatively with dense numbness Now with improved and normal sensation 6. Left dorsal wrist pain No mention today Scribed for aCro Ya MD by Luigi Sepulveda, medical record retrieval specialist, on 09/23/24 at 9:45 AM, EST. Coding Level of Care Code Est Pt Level 3 (08044) Diagnoses Osteoarthritis of carpometacarpal (CMC) joint of right thumb M18.11 Lupus M32.9 De Quervain's tenosynovitis, right M65.4 CPT Codes Fracture Care - Fracture Billing Code: Fracture Billing Code ([id number])
--- OUTSIDE RECORDS SUMMARY | 2024-09-23 10:05 | XMS_ITS | Encounter Summary ---
Author Organization [employer] Address [address] [facility] 7 [place] [address] Care Team Providers Care Direct Selling Counselor Name Role Phone Aretha [facility] Primary Care Provider [phone] Reason for Visit * Reason Comments Med Refill Encounter Details Date Type Department Care Team ([facility] st Contact Info) Description 04/03/2023 Refill [facility] MEDICINE [address] [place] [address] Earnestine Norris FNP [address] [place] [address] Social History Tobacco Use Types Packs/Day Years [...] documented as of this encounter Care Teams Direct Selling Counselor Relationship Specialty Start Date End Date Alicia Carias FNP [address] [place] [address] PCP - General Family Medicine 01/17/22 documented as of this encounter
--- OUTSIDE RECORDS SUMMARY | 2024-09-23 10:05 | XMS_ITS | Encounter Summary ---
Author Organization [employer] Address [address] [facility] 7 [place] [address] Care Team Providers Care Call Circuit Worker Name Role Phone Aretha [facility] Primary Care Provider [phone] Reason for Visit * Reason Comments Med Refill Encounter Details Date Type Department Care Team ([facility] st Contact Info) Description 03/29/2023 Refill [facility] MEDICINE [address] [place] [address] Earnestine Norris FNP [address] [place] [address] Social History Tobacco Use Types Packs/Day Years [...] documented as of this encounter Care Teams Call Circuit Worker Relationship Specialty Start Date End Date Alicia Carias FNP [address] [place] [address] PCP - General Family Medicine 01/17/22 documented as of this encounter
--- OUTSIDE RECORDS SUMMARY | 2024-09-23 10:05 | XMS_ITS | Encounter Summary ---
Author Organization [employer] Address [address] [place] [address] 7 [place] [address] Care Team Providers Care Director River Restoration Name Role Phone [facility] Primary Care Provider [phone] Reason for Visit * Reason Comments Med Refill Encounter Details Date Type Department Care Team ([facility] st Contact Info) Description 04/26/2023 Refill [facility] MEDICINE [address] [place] [address] [facility] [address] [place] [address] COPD exacerbation (CMS/HCC); Dizziness and giddiness Social [...] this encounter Visit Diagnoses Diagnosis COPD exacerbation (CMS/[facility]) Obstructive chronic bronchitis with exacerbation Dizziness and giddiness documented in this encounter Additional Health Concerns Assessment Noted Time PHQ-9 Depression Total Score: 0 12/22/19 23 9:28 AM EDT documented as of this encounter Care Teams Director River Restoration Relationship Specialty Start Date End Date Alicia Carias FNP [address] [place] [address] PCP - General Family Medicine 01/17/22 documented as of this encounter
--- OUTSIDE RECORDS SUMMARY | 2024-09-23 10:05 | XMS_ITS | Encounter Summary ---
Author Organization [employer] Address [address] [place] [address] 7 [place] [address] Care Team Providers Care Life Sciences Teacher Name Role Phone [facility] Primary Care Provider [phone] Reason for Visit * Reason Comments Med Refill Encounter Details Date Type Department Care Team ([facility] st Contact Info) Description 09/22/2024 Refill [facility] MEDICINE [address] [place] [address] [facility] 230 [place] [address] COPD exacerbation (CMS/HCC); Rash Social History Tobacco Use Types Packs/Day Years Used Date Smoking Tobacco: Former Cigarettes Passive Smoke Exposure: Past Smokeless Tobacco: Never Alcohol Use Standard Drinks/Week Comments Never 0 (1 standard drink = 0.6 oz pur e alcohol) Depression Answer Date Recorded Patient Health Questionnaire-9 Score 0 08/11/2024 Patient Health Questionnaire-9 Score 0 08/11/2024 Last PHQ-9: Questionnaire Data Not on file 0 08/11/2024 Housing Stability Answer Date Recorded What is [...] Date Recorded Patient Health Questionnaire-2 Score 0 08/11/2024 Internet Access Answer Date Recorded Internet Access [...] this encounter Visit Diagnoses Diagnosis COPD exacerbation (CMS/[facility]) Obstructive chronic bronchitis with exacerbation Rash Rash and other nonspecific skin eruption documented in this encounter Additional Health Concerns Assessment Noted Time PHQ-9 Depression Total Score: 0 08/12/19 25 9:33 AM EDT documented as of this encounter Care Teams Life Sciences Teacher Relationship Specialty Start Date End Date Alicia Carias FNP [address] [place] [address] PCP - General Family Medicine 01/17/22 documented as of this encounter
--- OUTSIDE RECORDS SUMMARY | 2024-09-23 10:05 | XMS_ITS | Encounter Summary ---
Author Organization [employer] Address [address] [place] [address] 7 [place] [address] Care Team Providers Care Lmsw Name Role Phone [facility] Primary Care Provider [phone] Reason for Visit * Reason Comments Med Refill Encounter Details Date Type Department Care Team ([facility] st Contact Info) Description 09/02/2024 Refill [facility] MEDICINE 230 [place] [address] [facility] [address] [place] [address] COPD exacerbation (CMS/HCC); Rash Social History Tobacco [...] this encounter Visit Diagnoses Diagnosis COPD exacerbation (CMS/[facility]) Obstructive chronic bronchitis with exacerbation Rash Rash and other nonspecific skin eruption documented in this encounter Additional Health Concerns Assessment Noted Time PHQ-9 Depression Total Score: 0 08/12/19 25 9:33 AM EDT documented as of this encounter Care Teams Lmsw Relationship Specialty Start Date End Date Alicia Carias FNP [address] [place] [address] PCP - General Family Medicine 01/17/22 documented as of this encounter
--- OUTSIDE RECORDS SUMMARY | 2024-09-23 10:05 | XMS_ITS | Encounter Summary ---
Author Organization [employer] Address [address] [facility] 7t [place] [address] Care Team Providers Care Biostatistician Name Role Phone Aretha [facility] Primary Care Provider [phone] Reason for Visit * Reason Comments Med Refill Encounter Details Date Type Department Care Team (Late st Contact Info) Description 03/29/2023 Refill [facility] 230 [place] [address] Silvia Guadarrama DO [address] [place] [address] COPD exacerbation (CMS/HCC) Social History Tobacco Use [...] Visit Diagnoses Diagnosis COPD exacerbation (CMS/[facility]) Obstructive chronic bronchitis with exacerbation documented in this encounter Additional Health Concerns Assessment Noted Time PHQ-9 Depression Total Score: 0 12/22/19 23 9:28 AM EDT documented as of this encounter Care Teams Biostatistician Relationship Specialty Start Date End Date Alicia Carias FNP [address] [place] [address] PCP - General Family Medicine 01/17/22 documented as of this encounter
--- OUTSIDE RECORDS SUMMARY | 2024-09-23 10:05 | XMS_ITS | Encounter Summary ---
Author Organization [employer] Address [address] [place] [address] 7 [place] [address] Care Team Providers Care Hardware Trainer Name Role Phone [facility] Primary Care Provider [phone] Reason for Visit * Reason Comments Med Refill Encounter Details Date Type Department Care Team ([facility] st Contact Info) Description 03/14/2023 Refill [facility] MEDICINE 230 [place] [address] [facility] 230 [place] [address] COPD exacerbation (CMS/HCC); Dizziness and giddiness; Shortness [...] documented as of this encounter Care Teams Hardware Trainer Relationship Specialty Start Date End Date Alicia Carias FNP [address] [place] [address] PCP - General Family Medicine 01/17/22 documented as of this encounter
--- OUTSIDE RECORDS SUMMARY | 2024-09-23 10:06 | XMS_ITS | Encounter Summary ---
Author Organization [employer] Address [address] [place] [address] 7 [place] [address] Care Team Providers Care Assistant Passenger Locomotive Engineer Name Role Phone [facility] Primary Care Provider [phone] Reason for Visit * Reason Comments Med Refill Encounter Details Date Type Department Care Team ([facility] st Contact Info) Description 10/22/2023 Refill [facility] MEDICINE [address] [place] [address] [facility] [address] [place] [address] COPD exacerbation (CMS/HCC); Rash Social History Tobacco [...] documented as of this encounter Care Teams Assistant Passenger Locomotive Engineer Relationship Specialty Start Date End Date Alicia Carias FNP [address] [place] [address] PCP - General Family Medicine 01/17/22 documented as of this encounter
--- OUTSIDE RECORDS SUMMARY | 2024-09-23 10:06 | XMS_ITS | Encounter Summary ---
Author Organization [employer] Address [address] [place] [address] 7 [place] [address] Care Team Providers Care Vibrating Screen Operator Name Role Phone [facility] Primary Care Provider [phone] Reason for Visit * Reason Onset Date Comments Nurse Triage 10/24/2022 Encounter Details Date Type Department Care Team ([facility] st Contact Info) Description 10/24/2022 Telephone [facility] MEDICINE [address] [place] [address] [facility] 230 [place] [address] Nurse Triage Social History Tobacco Use Types [...] Tobacco Use and Problems handout sent to [phone] * Telephone Encounter - Maryan Bradford - 10/24/2022 11:40 AM EDT Patient calling to report Smoking 1 pack and a half x years. Patient speaks (Khmer). Advised triage nurse will call patient back. Pt asking for Nicotine patches PCP DR. Carias documented in this encounter Plan of Treatment Not on file documented as of this encounter Visit Diagnoses Not on filedocumented in this encounter Additional Health Concerns Assessment Noted Time PHQ-9 Depression Total Score: 0 10/04/19 23 2:27 PM EDT documented as of this encounter Care Teams Vibrating Screen Operator Relationship Specialty Start Date End Date Alicia Carias FNP [address] [place] [address] PCP - General Family Medicine 01/17/22 documented as of this encounter
--- OUTSIDE RECORDS SUMMARY | 2024-09-23 10:06 | XMS_ITS | Encounter Summary ---
Author Organization [employer] Address [address] [place] [address] 7 [place] [address] Care Team Providers Care Diaphragm Builder Name Role Phone [facility] Primary Care Provider [phone] Reason for Visit * Reason Comments Med Refill Encounter Details Date Type Department Care Team ([facility] st Contact Info) Description 02/28/2024 [facility] [address] [place] [address] [facility] 230 [place] [address] Dizziness and giddiness; Restless leg syndrome Social [...] documented as of this encounter Care Teams Diaphragm Builder Relationship Specialty Start Date End Date Alicia Carias FNP [address] [place] [address] PCP - General Family Medicine 01/17/22 documented as of this encounter
--- OUTSIDE RECORDS SUMMARY | 2024-09-23 10:06 | XMS_ITS | Encounter Summary ---
Author Organization [employer] Address [address] [place] [address] 7 [place] [address] Care Team Providers Care Billposter Name Role Phone [facility] Primary Care Provider [phone] Reason for Visit * Reason Comments Med Refill Encounter Details Date Type Department Care Team ([facility] st Contact Info) Description 11/15/2023 Refill [facility] MEDICINE [address] [place] [address] [facility] [address] [place] [address] Dizziness and giddiness; Insomnia, unspecified type; Shortness [...] documented as of this encounter Care Teams Billposter Relationship Specialty Start Date End Date Alicia Carias FNP [address] [place] [address] PCP - General Family Medicine 01/17/22 documented as of this encounter
--- OUTSIDE RECORDS SUMMARY | 2024-09-23 10:06 | XMS_ITS | Encounter Summary ---
Author Organization [employer] Address [address] [place] [address] 7 [place] [address] Care Team Providers Care Switchboard And Control Room Operator Name Role Phone [facility] Primary Care Provider [phone] Reason for Visit * Reason Comments Med Refill Encounter Details Date Type Department Care Team ([facility] st Contact Info) Description 09/29/2023 Refill [facility] MEDICINE [address] [place] [address] [facility] 230 [place] [address] Dizziness and giddiness; COPD exacerbation (CMS/HCC) Social History Tobacco Use [...] Diagnoses Diagnosis Dizziness and giddiness COPD exacerbation ([facility]) Obstructive chronic bronchitis with exacerbation documented in this encounter Additional Health Concerns Assessment Noted Time PHQ-9 Depression Total Score: 0 06/25/19 24 11:08 AM EST documented as of this encounter Care Teams Switchboard And Control Room Operator Relationship Specialty Start Date End Date Alicia Carias FNP [address] [place] [address] PCP - General Family Medicine 01/17/22 documented as of this encounter
--- OUTSIDE RECORDS SUMMARY | 2024-09-23 10:06 | XMS_ITS | Data Portability ---
Author Organization [place] - [facility], Allergy Address [address] [place] [address] Care Team Providers Care Drywall Hanger Helper Name Role Phone DEE DEE HADDAD Primary Care Provider [phone] Assessment Encounter Date Assessment Date Assessment LastModified [...] lab - allerg ens, zone 1 2023 JAMEE [facility] (Centralized Electronic Ordering - All Locations), Patient Can Go To The Location Of Their Choice, [id number] 18:10:10 nettle IgE Ab, serum 2023 024 [email or web address] [facility] (Centralized [facility] Ordering - All Locations), Patient Can Go To The Location Of Their Choice, [id number] 4 13:04:55 bahia grass IgE Ab, quanti tative , serum [facility] - [facility] Locations), Patient Can Go To The Location Of Their Choice, [id number] 4 13:04:55 bermud a grass ige, serum 2023 [facility] (Centralized [facility] Ordering - All Locations), Patient Can Go To The Location Of Their Choice, [address] 4 13:04:55 englis h planta in ige, serum [facility]23 [facility] ([facility] Order[facility] - All Locations), Patient Can Go To The Location Of Their Choice, [address] 4 13:04:55 ige, total, serum 2023 [facility] ([facility] Ordering - All Locations), Patient Can Go To The Location Of Their Choice, [id number] 4 18:10:11 CBC w/ auto diff 2023 MELDRIM [facility] (Centralized Electronic Ordering - All Locations), Patient Can Go To The Location Of Their Choice, [address] 4 18:10:10 Referral None record ed. Procedures None record ed. Surgeries None record ed. Imaging None record ed. Medication Orders fluoci nolone aceton alexandro oil 0.01 % ear drops 2023 [facility], [address] [place] [address], [phone], 12:36:23 Patient TargetsNo targets recorded. Patient InstructionsNo instructions recorded. Reason for Referral None Reported. Results Created Date Observation Date Name Description Value Unit Range Abnormal Flag Note LastModifiedBy Organization Detail LastModifiedTime 03/12/20 24 03/13/2024 CBC WITH DIFFE RENTI AL/PL ATELE T WBC 6.7 x10e3 /uL 3.4-10 .8 normal Not Available [facility] ([facility]) [address] [facility], [place], [address], 03/17/2024 18:10:10 03/12/2003/13/2024 CBC WITH DIFFE RENTI AL/PL ATELE T RBC 5.04 x10e6 /uL 3.77-5 .28 normal Not Available [facility] ([facility]) [address] [facility], [place], [address], 03/17/2024 18:10:10 03/12/2003/13/2024 CBC WITH DIFFE RENTI AL/PL ATELE T hemoglobin 13.1 g/dL 11.1-1 5.9 normal Not Available [facility] ([facility]) [address] [facility], [place], [address], 03/17/2024 18:10:10 03/12/2003/13/2024 CBC WITH DIFFE RENTI AL/PL ATELE T hematocrit 41.3 % 34.0-4 6.6 normal Not Available [facility] ([facility]) [address] [facility], [place], [address], 03/17/2024 18:10:10 03/12/2003/13/2024 CBC WITH DIFFE RENTI AL/PL ATELE T MCV 82 fL 79-97 normal Not Available [facility] ([facility]) [address] [place], [address], 03/17/2024 18:10:10 03/12/2003/13/2024 CBC WITH DIFFE RENTI AL/PL ATELE T MCH 26.0 pg 26.6-3 3.0 below low normal Not Available [facility] ([facility]) [address] [place], [address], 03/17/2024 18:10:10 03/12/2003/13/2024 CBC WITH DIFFE RENTI AL/PL ATELE T MCHC 31.7 g/dL 31.5-3 5.7 normal Not Available [facility] ([facility]) [address] [facility], [place], [address], 03/17/2024 18:10:10 03/12/20 24 03/13/2024 CBC WITH DIFFE RENTI AL/PL ATELE T RDW 13.7 % 11.7-1 5.4 Not Available [facility] ([facility]) [address] [facility], [place], [address], 03/17/2024 18:10:10 03/12/2003/13/2024 CBC WITH DIFFE RENTI AL/PL ATELE T platelets 227 x10e3 /uL 150-45 0 normal Not Available [facility] ([facility]) [address] [facility], [place], [address], 03/17/2024 18:10:10 03/12/2003/13/2024 CBC WITH DIFFE RENTI AL/PL ATELE T neutrophils 49 % not estab. normal Not Available [facility] ([facility]) [address] [facility], [place], [address], 03/17/2024 18:10:10 03/12/2003/13/2024 CBC WITH DIFFE RENTI AL/PL ATELE T lymphs 39 % not estab. normal Not Available [facility] ([facility]) [address] [facility], [place], [address], 03/17/2024 18:10:10 03/12/2003/13/2024 CBC WITH DIFFE RENTI AL/PL ATELE T monocytes 7 % not estab. normal Not Available [facility] ([facility]) [address] [facility], [place], [address], 03/17/2024 18:10:10 03/12/20 24 03/13/2024 CBC WITH DIFFE RENTI AL/PL ATELE T eos 4 % not estab. normal Not Available [facility] ([facility]) [address] [facility], [place], [address], 03/17/2024 18:10:10 03/12/2003/13/2024 CBC WITH DIFFE RENTI AL/PL ATELE T basos 1 % not estab. normal Not Available [facility] ([facility]) [address] [facility], [place], [address], 03/17/2024 18:10:10 03/12/20 24 03/13/2024 CBC WITH DIFFE RENTI AL/PL ATELE T immature cells CROSS ROLLER Not Available [facility] ([facility]) [address] [facility], [place], [address], 03/17/2024 18:10:10 03/12/2003/13/2024 CBC WITH DIFFE RENTI AL/PL ATELE T neutrophils (absolute) 3.2 x10e3 /uL 1.4-7. 0 normal Not Available [facility] ([facility]) [address] [facility], [place], [address], 03/17/2024 18:10:10 03/12/20 24 03/13/2024 CBC WITH DIFFE RENTI AL/PL ATELE T lymphs (absolute) 2.6 x10e3 /uL 0.7-3. 1 normal Not Available [facility] ([facility]) [address] [place], [address], 03/17/2024 18:10:10 03/12/20 24 03/13/2024 CBC WITH DIFFE RENTI AL/PL ATELE T monocytes(ab solute) 0.5 x10e3 /uL 0.1-0. 9 normal Not Available [facility] ([facility]) [address] [place], [address], 03/17/2024 18:10:10 03/12/20 24 03/13/2024 CBC WITH DIFFE RENTI AL/PL ATELE T eos (absolute) 0.3 x10e3 /uL 0.0-0. 4 normal Not Available [facility] ([facility]) [address] [facility], [place], [address], 03/17/2024 18:10:10 03/12/20 24 03/13/2024 CBC WITH DIFFE RENTI AL/PL ATELE T baso (absolute) 0.0 x10e3 /uL 0.0-0. 2 normal Not Available [facility] ([facility]) [address] [facility], [place], [address], 03/17/2024 18:10:10 03/12/20 24 03/13/2024 CBC WITH DIFFE RENTI AL/PL ATELE T immature granulocytes 0 % not estab. Not Available [facility] ([facility]) [address] [facility], [place], [address], 03/17/2024 18:10:10 03/12/2003/13/2024 CBC WITH DIFFE RENTI AL/PL ATELE T immature grans (abs) 0.0 x10e3 /uL 0.0-0. 1 Not Available [facility] ([facility]) [address] [facility], [place], [address], 03/17/2024 18:10:10 03/12/20 24 03/13/2024 CBC WITH DIFFE RENTI AL/PL ATELE T NRBC CROSS ROLLER Not Available [facility] ([facility]) [address] [facility], [place], [address], 03/17/2024 18:10:10 03/12/2003/13/2024 CBC WITH DIFFE RENTI AL/PL ATELE T hematology comments: CROSS ROLLER Not Available [facility] ([facility]) [address] [facility], [place], [address], 03/17/2024 18:10:10 03/12/20 24 03/12/2024 ALLER GENS, [...] >100. 00 Very High Not Available [facility] ([facility]) [address] [place], [address], 03/17/2024 18:10:10 03/12/20 24 03/17/2024 ALLER GENS, ZONE 1 Z329-YaO D pteronyssinu s 0.11 kU/L class 0/I abnormal Not Available [facility] ([facility]) [address] [place], [address], 03/17/2024 18:10:10 03/12/20 24 03/17/2024 ALLER GENS, ZONE 1 W958-BoR D farinae <0.10 kU/L class 0 Not Available [facility] ([facility]) [address] [place], [address], 03/17/2024 18:10:10 03/12/20 24 03/17/2024 ALLER GENS, ZONE 1 C483-WvV CAT dander <0.10 kU/L class 0 Not Available [facility] ([facility]) [address] [place], [address], 03/17/2024 18:10:10 03/12/20 24 03/17/2024 ALLER GENS, ZONE 1 N423-KxY dog dander <0.10 kU/L class 0 Not Available [facility] ([facility]) [address] [place], [address], 03/17/2024 18:10:10 03/12/20 24 03/17/2024 ALLER GENS, ZONE 1 d607-PqG bermuda grass <0.10 kU/L class 0 Not Available [facility] ([facility]) [address] [facility], [place], [address], 03/17/2024 18:10:10 03/12/20 24 03/17/2024 ALLER GENS, ZONE 1 h210-BfL bluegrass, flor[place] <0.10 kU/L class 0 Not Available [facility] ([facility]) [address] [facility], [place], [address], 03/17/2024 18:10:10 03/12/2003/17/2024 ALLER GENS, ZONE 1 u641-UfC bahia grass <0.10 kU/L class 0 Not Available [facility] ([facility]) [address] [facility] [place], [address], 03/17/2024 18:10:10 03/12/20 24 03/17/2024 ALLER GENS, ZONE 1 M016-AlJ cockroach, eritrean <0.10 kU/L class 0 Not Available [facility] ([facility]) [address] [facility], [place], [address], 03/17/2024 18:10:10 03/12/20 24 03/17/2024 ALLER GENS, ZONE 1 K412-GeJ penicillium chrysogen <0.10 kU/L class 0 Not Available [facility] ([facility]) [address] [place], [address], 03/17/2024 18:10:10 03/12/20 24 03/17/2024 ALLER GENS, ZONE 1 M758-OvU cladosporium herbarum <0.10 kU/L class 0 Not Available [facility] ([facility]) [address] [place], [address], 03/17/2024 18:10:10 10/23/03/17/2024 ALLER GENS, ZONE 1 Z220-ZwX aspergillus fumigatus <0.10 kU/L class 0 Not Available [facility] ([facility]) [address] [facility], [place], [address], 03/17/2024 18:10:10 03/12/2003/17/2024 ALLER GENS, ZONE 1 Y409-LjE mucor racemosus <0.10 kU/L class 0 Not Available [facility] ([facility]) [address] [place], [address], 03/17/2024 18:10:10 03/12/2003/17/2024 ALLER GENS, ZONE 1 M345-JiB alternaria alternata <0.10 kU/L class 0 Not Available [facility] ([facility]) [address] [place], [address], 03/17/2024 18:10:10 03/12/2003/17/2024 ALLER GENS, ZONE 1 E355-ZvK stemphylium herbarum <0.10 kU/L class 0 Not Available [facility] ([facility]) [address] [place], [address], 03/17/2024 18:10:10 03/12/2003/17/2024 ALLER GENS, ZONE 1 M510-RmX common silver birch <0.10 kU/L class 0 Not Available [facility] ([facility]) [address] [place], [address], 03/17/2024 18:10:10 03/12/2003/17/2024 ALLER GENS, ZONE 1 X798-MaD oak, white <0.10 kU/L class 0 Not Available [facility] ([facility]) [address] [place], [address], 03/17/2024 18:10:10 03/12/20 24 03/17/2024 ALLER GENS, ZONE 1 Z654-QnD elm, eritrean <0.10 kU/L class 0 Not Available [facility] ([facility]) [address], [place], [address], 03/17/2024 18:10:10 03/12/20 24 03/17/2024 ALLER GENS, ZONE 1 Z304-QaX julieth, white <0.10 kU/L class 0 Not Available [facility] ([place] [facility]) [address], [place], [address], 03/17/2024 18:10:10 03/12/2003/17/2024 ALLER GENS, ZONE 1 C669-IbB maple/box elder <0.10 kU/L class 0 Not Available [facility] ([place] [facility]) [address], [place], [address], 03/17/2024 18:10:10 03/12/2003/17/2024 ALLER GENS, ZONE 1 P588-WnI hazelnut tree <0.10 kU/L class 0 Not Available [facility] ([place] [facility]) [address], [place], [address], 03/17/2024 18:10:10 03/12/20 24 03/17/2024 ALLER GENS, ZONE 1 B060-JmZ hickory, white <0.10 kU/L class 0 Not Available [facility] ([place] [facility]) [address], [place], [address], 03/17/2024 18:10:10 03/12/2003/17/2024 ALLER GENS, ZONE 1 J424-VdU white mulberry <0.10 kU/L class 0 Not Available [facility] ([place] [facility]) [address], [place], [address], 03/17/2024 18:10:10 03/12/20 24 03/17/2024 ALLER GENS, ZONE 1 G455-SzF cedar, mountain <0.10 kU/L class 0 Not Available [facility] ([place] [facility]) [address] [facility], [place], [address], 03/17/2024 18:10:10 03/12/20 24 03/17/2024 ALLER GENS, ZONE 1 T832-RfE ragweed, short <0.10 kU/L class 0 Not Available [facility] ([facility]) [address] [facility], [place], [address], 03/17/2024 18:10:10 03/12/20 24 03/17/2024 ALLER GENS, ZONE 1 O840-TjD mugwort <0.10 kU/L class 0 Not Available [facility] ([facility]) [address] [facility], [place], [address], 03/17/2024 18:10:10 03/12/20 24 03/17/2024 ALLER GENS, ZONE 1 X535-EpL plantain, amharic <0.10 kU/L class 0 Not Available [facility] ([facility]) [address] [facility], [place], [address], 03/17/2024 18:10:10 03/12/20 24 03/17/2024 ALLER GENS, ZONE 1 T762-PiE pigweed, common <0.10 kU/L class 0 Not Available [facility] ([facility]) [address] [facility], [place], [address], 03/17/2024 18:10:10 03/12/20 24 03/17/2024 ALLER GENS, ZONE 1 B191-UyF sheep sorrel <0.10 kU/L class 0 Not Available [facility] ([place] [facility]) [address] [facility] [place], [address], 03/17/2024 18:10:10 03/12/20 24 03/17/2024 ALLER GENS, ZONE 1 K701-GcU nettle <0.10 kU/L class 0 Not Available [facility] ([facility] [facility]) [address] [place], [address], 03/17/2024 18:10:10 03/12/20 24 03/17/2024 IMMUN OGLOB ULIN E, TOTAL immunoglobul in E, total 41 IU/mL 6-495 Not Available [facility]) [address] [facility], [place], [address], 03/17/2024 18:10:11 05/16/20 24 11/07/2023 CT, sinus es, w/o contr ast No observ ation record ed. [email or web address] Not Available 17:07:00 Result Notes None recorded. Problems Name Problem SNOMED Code Status Onset Date Resolution Date Notes Provider Name and Address Organization Details Recorded Time Mixed conductiv e and sensorine ural hearing loss of left ear 97769320050 107 Active 2017 Mixed conductiv e and sensorine ural hearing loss, unilatera l, left ear with restricte d hearing on the contralat eral side; Note: Date Diagnosed : 10/01/2017 11:20 AM (H90.A32) Not Available [facility] 4 03:08:07 Bilateral temporoma ndibular joint pain 80389789802 558340 Active 2018 Arthralgi a of bilateral temporoma ndibular joint; Note: Date Diagnosed : 02/24/2019 3:09 PM (M26.623) Not Available [facility] 4 03:08:07 Sensorine ural hearing loss in right ear 48863301739 100 Active 2017 Sensorine ural hearing loss, unilatera l, right ear, with restricte d hearing on the contralat eral side; Note: Date Diagnosed : 10/01/2017 11:20 AM (H90.A21) Not Available [facility] 4 03:08:06 Otalgia of right ear 7303084559 Active 2018 Otalgia, right ear; Note: Date Diagnosed : 02/24/2019 3:09 PM (H92.01) Not Available [facility] 4 03:08:06 Bilateral tinnitus 01901939309 02 Active 2017 Tinnitus, bilateral ; Note: Date Diagnosed : 10/01/2017 11:47 AM (H93.13) Not Available [facility] 03:08:06 Allergic rhinitis 51987909 Active 2023 DANIELITO STRICKLAND MD [address], [place], [place], [address] , [facility] - [facility] 4 14:10:41 Chronic salpingit is of bilateral eustachia n tubes 99249498321 [address] Active 2023 DANIELITO STRICKLAND MD [address], [place], [address] , [facility] - [facility] 4 14:11:10 Chronic non-infec tive otitis externa 389313549 Active 2023 DANIELITO STRICKLAND MD [address] [facility] [address] [facility] [place],[address] [facility], [place], [place], [address] , [facility] 4 14:12:38 Problem Notes None recorded. Procedures Surgical History Date Name Laterality Status Provider Name and Address Organization Details Recorded Time revision of tympanoplasty completed DANIELITO PHILIPPE MD [address] [facility],[place] [address], [place], [address], [facility] 03/12/2024 14:05:24 Imaging Results Imaging Date Name Status LastModified by Organiz ation Details LastModified Time 11/07/2023 CT, sinuses, w/o [...] oral inhaler 03/12 completed Medicati on ID: [id number] D uration Value: 30 Brand Name: Tessa Perez d Method: E-Prescr ibed Sub s Allowed: [...] mg tablet 03/12 completed Medicati on ID: [id number] D uration Value: 30 Brand Name: famotidi ne Send Method: E-Prescr ibed Sub s Allowed: subs OK Speci al Instruct ion: TAKE 1 TABLET AT BEDTIME Medicati onGeneri cName: famotidi ne Not Available Not Available Not Available prednison e 20 mg tablet 03/12 completed Medicati on ID: [id number] D uration Value: 5 Brand Name: predniso ne Send Method: E-Prescr ibed Sub s Allowed: subs OK Medic ationGen ericName : predniso ne Not Available Not Available Not Available Seroquel 25 mg tablet 03/12 completed Medicati on ID: [id number] B rand Name: Seroquel Send Method: E-Prescr [...] mg tablet 03/12 completed Medicati on ID: [id number] D uration Value: 30 Brand Name: trazodon [...] by mouth 03/12 completed Medicati on ID: [id number] D uration Value: 7 Brand Name: doxycycl [...] mg capsule 03/12 completed Medicati on ID: [id number] B rand Name: Mameryl Send Method: E-Prescr ibed Sub s Allowed: [...] n capsules 03/12 completed Medicati on ID: [id number] D uration Value: 30 Brand Name: Spiriva with HandiHal er Send Method: E-Prescr ibed Sub s Allowed: subs ELIZABETH Dowell al Instruct ion: USE 1 CAPSULE FOR [...] mg tablet 03/12 completed Medicati on ID: [id number] D uration Value: 28 Brand Name: Chantix Send Method: E-Prescr ibed Sub s Allowed: subs ELIZABETH Dowell al Instruct ion: TAKE (1) TABLET TWICE [...] Details Last Updated DateTime 03/12/2024 157.48 cm 35184.52 g Myra Welsh [place] - [facility] 03/12/2024 13:42:44 Social History None recorded. [...] SNOMED-CT Code Diagnosis ICD10 Code Diagnosis Note [id number] DANIELITO STRICKLAND MD [facility] [address] [address] 03/12/2024 13:23:35 03/12/2024 14:15:07 Allergic rhinitis 01465326 J30.89 Chronic sa lpingitis of bilateral eustachian tubes 2908193922 334944 H68.023 Chronic no n-infective otitis externa 376968305 H60.61 Health Concerns Section Related Observation LastModified by Organization Detai ls LastModified Time None Recorded Concern Status LastModified by Organization Details LastModified Time None Recorded Advance Directives Directive None Recorded Payers Encounter Date Sequence Insurance Name Policy Number Policy Barnes Covered Member ID Barnes Member ID Guarantor Name 03/12/2024 [facility] AFTER 2022 - MEDICARE ADVANTAGE [place] (MEDICARE REPLACEMENT/ADV ANTAGE - PPO) Lizzie Girard [id number] Lizzie Girard Notes Date Note Type Note [...] for May.snot= 79Nose= 100 DANIELITO PHILIPPE MD [address] [place] [address], [place], [address], [facility] - [facility] 03/12/2024 14:14:16 OBGyn Episode No OBEpisode recorded.
--- OUTSIDE RECORDS SUMMARY | 2024-09-23 10:06 | XMS_ITS | Encounter Summary ---
Author Organization [employer] Address [address] [place] [address] [address] [place] [address] Care Team Providers Care Director Of Catering Name Role Phone [facility] Primary Care Provider [phone] Reason for Visit * Reason Comments Med Refill Encounter Details Date Type Department Care Team ([facility] st Contact Info) Description 09/25/2023 Refill [facility] [address] [place] [address] [facility] [address] [place] [address] Dizziness and giddiness; COPD exacerbation (CMS/HCC) Social [...] Diagnoses Diagnosis Dizziness and giddiness COPD exacerbation ([facility]) Obstructive chronic bronchitis with exacerbation documented in this encounter Additional Health Concerns Assessment Noted Time PHQ-9 Depression Total Score: 0 06/25/19 24 11:08 AM EST documented as of this encounter Care Teams Director Of Catering Relationship Specialty Start Date End Date Alicia Carias FNP [address] [place] [address] PCP - General Family Medicine 01/17/22 documented as of this encounter
--- OUTSIDE RECORDS SUMMARY | 2024-09-23 10:06 | XMS_ITS | Encounter Summary ---
Author Organization [employer] Address [address] [place] [address] [address] [place] [address] Care Team Providers Care Hot Metal Crane Operator Name Role Phone [facility] Primary Care Provider [phone] Reason for Visit * Reason Comments Med Refill Encounter Details Date Type Department Care Team ([facility] st Contact Info) Description 09/21/2023 Refill [facility] [address] [place] [address] [facility] [address] [place] [address] COPD exacerbation (CMS/HCC); Dizziness and giddiness Social [...] Visit Diagnoses Diagnosis COPD exacerbation (CMS/[facility]) Obstructive chronic bronchitis with exacerbation Dizziness and giddiness documented in this encounter Additional Health Concerns Assessment Noted Time PHQ-9 Depression Total Score: 0 06/25/19 24 11:08 AM EST documented as of this encounter Care Teams Hot Metal Crane Operator Relationship Specialty Start Date End Date Alicia Carias FNP [address] [place] [address] PCP - General Family Medicine 01/17/22 documented as of this encounter
--- OUTSIDE RECORDS SUMMARY | 2024-09-23 10:06 | XMS_ITS | Encounter Summary ---
Author Organization [employer] Address [address] [place] [address] [address] [place] [address] Care Team Providers Care Special Procedure Tech Name Role Phone [facility] Primary Care Provider [phone] Reason for Visit * Reason Comments Med Refill Encounter Details Date Type Department Care Team ([facility] st Contact Info) Description 11/18/2022 Refill [facility] [address] [place] [address] [facility] [address] [place] [address] Dizziness and giddiness; Anxiety Social History Tobacco [...] Noted Time PHQ-9 Depression Total Score: 0 05/16/20 23 2:27 PM EDT documented as of this encounter Care Teams Special Procedure Tech Relationship Specialty Start Date End Date Alicia Carias FNP [address] [place] [address] PCP - General Family Medicine 01/17/22 documented as of this encounter
--- OUTSIDE RECORDS SUMMARY | 2024-09-23 10:06 | XMS_ITS | Encounter Summary ---
Author Organization [employer] Address [address] [place] [address] [address] [place] [address] Care Team Providers Care Heavy Equipment Operator/Paver Name Role Phone [facility] Primary Care Provider [phone] Reason for Visit * Reason Comments Med Refill Encounter Details Date Type Department Care Team ([facility] st Contact Info) Description 02/26/[address] [facility] [address] [place] [address] [facility] [address] [place] [address] Social History Tobacco Use Types Packs/Day Years [...] documented as of this encounter Care Teams Heavy Equipment Operator/Paver Relationship Specialty Start Date End Date Alicia Carias FNP [address] [place] [address] PCP - General Family Medicine 01/17/22 documented as of this encounter
--- OUTSIDE RECORDS SUMMARY | 2024-09-23 10:06 | XMS_ITS | Encounter Summary ---
Author Organization [employer] Address [address] [place] [address] 7 [place] [address] Care Team Providers Care Income Tax Return Preparer Name Role Phone [facility] Primary Care Provider [phone] Reason for Visit * Reason Comments Med Refill Encounter Details Date Type Department Care Team ([facility] st Contact Info) Description 06/14/2023 Refill [facility] [address] [place] [address] [facility] 230 [place] [address] Insomnia, unspecified type Social History Tobacco Use [...] documented as of this encounter Care Teams Income Tax Return Preparer Relationship Specialty Start Date End Date Alicia Carias FNP [address] [place] [address] PCP - General Family Medicine 01/17/22 documented as of this encounter
--- OUTSIDE RECORDS SUMMARY | 2024-09-23 10:06 | XMS_ITS | Encounter Summary ---
Author Organization [employer] Address [address] [place] [address] 7 [place] [address] Care Team Providers Care Lead Technical Writer Name Role Phone [facility] Primary Care Provider [phone] Reason for Visit * Reason Comments Med Refill Encounter Details Date Type Department Care Team ([facility] st Contact Info) Description 02/11/2024 Refill [facility] 230 [place] [address] [facility] 230 [place] [address] COPD exacerbation (CMS/HCC) Social History Tobacco Use [...] documented as of this encounter Care Teams Lead Technical Writer Relationship Specialty Start Date End Date Alicia Carias FNP [address] [place] [address] PCP - General Family Medicine 01/17/22 documented as of this encounter
--- OUTSIDE RECORDS SUMMARY | 2024-09-23 10:06 | XMS_ITS | Clinical Summary ---
Author Organization [employer] Address [address] [place] [address] 7 [place] [address] Care Team Providers Care Social Science Manager Name Role Phone [facility] Primary Care Provider [phone] Allergies No known active allergies Medications methotrexate [...] mouth in the morning. 07/11/19 23 Active cholecalciferol VITAMIN D (Vitamin D-3) 50 MCG (1999 UT) capsule TAKE ONE CAPSULE BY MOUTH EVERY MORNING ^1R1 30 capsule 01/02/20 24 Active triamcinolone (Nasacort) 55 MCG/ACT nasal inhaler Administer 2 sprays into each nostril Once per day. 16.5 g 01/04/20 24 025 Active azelastine (Astelin) 0.1 % nasal spray Administer 1 spray into each nostril 2 times daily. Use in each nostril as directed 30 mL 01/04/20 025 Active pseudoephedrine ER (Sudafed-12 Hour) 120 MG 12 hr tablet Take 1 tablet (120 mg) by mouth every 12 (twelve) hours if needed for congestion. Do not crush, chew, or split. 20 tablet 01/16/20 24 025 Active fexofenadine (Afshan) 180 MG tablet Take 1 tablet (180 mg) by mouth Once per day. 30 tablet 11 01/16/20 24 025 Active Atrovent HFA 17 MCG/ACT inhaler INHALE TWO PUFFS BY MOUTH FOUR TIMES A DAY (BULK) 12.9 g 5 03/25/20 24 Active triamcinolone (Kenalog) 0.1 % ointmentIndicati ons:Rash APPLY A THIN LAYER TOPICALLY TO AFFECTED AREA(S) TWO TIMES A DAY NEEDED FOR 7 DAYS (BULK) 15 g 5 03/25/20 24 Active mirtazapine (Remeron) 7.5 MG tabletIndication [...] (VIAL) 40 tablet 3 06/11/19 25 Active buPROPion XL (Wellbutrin XL) 300 MG 24 hr tabletIndication s:Anxiety TAKE ONE TABLET BY MOUTH EVERY MORNING . DO NOT CRUSH, CHEW OR SPLIT. ^1R1 30 tablet 5 07/11/19 25 Active fluticasone (Flovent) 110 MCG/ACT inhalerIndicatio ns:COPD exacerbation (CMS/HCC) INHALE 1 PUFF BY MOUTH 2 TIMES A DAY IN THE MORNING AND AT BEDTIME. RINSE MOUTH AFTER USE (BULK) 12 g 8 08/05/19 25 Active albuterol (2.5 MG/3ML) 0.083% nebulizer solutionIndicati ons:COPD exacerbation (CMS/HCC) INHALE 1 VIAL VIA NEBULIZER EVERY 4 HOURS NEEDED FOR SHORTNESS OF BREATH OR WHEEZING (BULK) 90 mL 5 08/07/19 25 Active gabapentin (Neurontin) 300 MG capsuleIndicatio ns:Restless leg syndrome TAKE ONE TO TWO CAPSULES BY MOUTH EVERY EVENING FOR RESTLESS LEG (VIAL) 60 capsule 5 08/28/19 25 Active montelukast (Singulair) 10 MG tablet TAKE ONE TABLET BY MOUTH EVERY EVENING ^1R4 30 tablet 5 08/28/19 25 Active meclizine (Antivert) 25 MG tablet TAKE 1 TABLET BY MOUTH THREE TIMES DAILY IN THE MORNING, AT NOON, AND AT BEDTIME NEEDED FOR FOR DIZZINESS 60 tablet 3 08/30/19 25 Active gabapentin (Neurontin) 300 MG capsuleIndicatio ns:Restless leg syndrome TAKE ONE TO TWO CAPSULES BY MOUTH EVERY EVENING FOR RESTLESS LEG (VIAL) 60 capsule 5 03/19/20 24 025 Discontinued montelukast (Singulair) 10 MG tablet TAKE ONE TABLET BY MOUTH EVERY EVENING ^1R4 30 tablet 5 03/19/20 24 025 Discontinued meclizine (Antivert) 25 MG tablet TAKE 1 TABLET BY MOUTH THREE TIMES DAILY IN THE MORNING, AT NOON, AND AT BEDTIME NEEDED FOR DIZZINESS 60 tablet 3 04/04/20 24 025 Discontinued meclizine (Antivert) 12.5 MG tabletIndication s:Dizziness and giddiness TAKE ONE TABLET BY MOUTH EVERY DAY NEEDED FOR DIZZINESS (VIAL) 30 tablet 5 04/23/20 24 025 Discontinued Active Problems Problem Noted Date Diagnosed Date Dyspnea on exertion 04/23/2024 Overview (04/23/2024): - 11/30/2022 PFT's w/no bstructive or restrictive ventilatory defects, moderate isolated diffusion impairment. CT -12/01/22 CT scan of the lungs showed mild emphysema. - 05/2023- A cardiopulmonary stress test at [facility] showed moderately impaired exercise capacity and mildly impaired aerobic capacity. - 02/2023-Echocardiogram shows EF 55-60%, impaired relaxation, normal valves. - 04/26/24- stress echocardiogram showing no EKG changes, no exercise induced diastolic dysfunction, pulmonary hypertension or wall motion abnormality. No clear cardiac cause for her shortness of breath Carpal tunnel syndrome on both sides 10/18/2023 Restless leg syndrome 07/03/2023 Overview (07/03/2023): Gabapentin-taking 2 capsules qhs Healthcare maintenance 10/04/2022 Overview (07/03/2023): Mammo: 08/2022 Pap: 08/2022 at [facility] LICENSED OCCUPATIONAL THERAPY ASSISTANT. Results not in chart C-scope: 2019, normal. Due 2029 BMD: 08/2021; osteopenia. Repeat 08/2023 Established with LDLCT screening at [facility] UTD on eye exams-[facility] Assessment & Plan (12/30/2022 9:26 PM EDT): Will request [facility] records for recent pap and mammogram Post-menopausal bleeding 08/06/2022 Overview (04/23/2024): 07/11/2022 pelvic ultrasound with normal EM stripe Followed by [facility] LICENSED OCCUPATIONAL THERAPY ASSISTANT s/p EMB 09/2023 (negative) Dr. Pearson--pt to call LICENSED OCCUPATIONAL THERAPY ASSISTANT should bleeding reoccur Assessment & Plan (07/03/2023 10:06 PM EST): Follow up for EMB as scheduled No recurrent episodes Assessment & Plan (08/06/2022 4:07 PM EDT): ?? Pt denies recurrent episodes of bleeding. Did not hear regarding previously placed LICENSED OCCUPATIONAL THERAPY ASSISTANT referral. Will re-refer today to [facility] for EMB if indicated. Anxiety 08/03/2022 [...] arthritis 06/15/2022 Overview (10/04/2022): ?? Followed by [facility] Rheumatology ?? Etodolac ?? Methotrexate ?? Hydroxychloroquine Tobacco use 06/15/2022 Overview (07/03/2023): Started smoking age 18: 1-2 PPD; decreased to 1/2 PPD over the pasts 1-2 years Quit 12/2022 Followed by [facility] LDLCT Mixed hearing loss, bilateral 06/15/2022 Overview (10/04/2022): ?? Referred to audiology 07/2022 Assessment & Plan (08/06/2022 4:04 PM EDT): ?? New referral placed to audiology Resolved Problems Problem Noted Date Diagnosed Date Resolved Date Exertional shortness of breath 10/21/2023 04/23/2024 Carpal tunnel syndrome of right wrist 10/18/2023 04/23/2024 Osteoarthritis 06/15/2022 08/06/2022 COPD (chronic obstructive pulmonary disease) 10/18/2023 Overview (12/30/2022): ?? Currently managed with [...] Encounters Date Type Department Care Team Description 09/22/2024 Refill [facility] [address] [facility] [place] [address] Alicia Carias, LEIF COPD exacerbation ([facility]); Rash 09/02/2024 Refill [facility] [address] [facility] [place] [address] Aretha Alicia, SANDBLASTING SUPERVISOR COPD exacerbation ([facility]); Rash 08/28/2024 Refill [facility] [address] [facility] [place] [address] Van TassellAlicia coon, SANDBLASTING SUPERVISOR 08/26/2024 Refill [facility] [address] [facility] [place] [address] ArethaAlicia, SANDBLASTING SUPERVISOR Restless leg syndrome 08/12/2024 Telephone [facility] [address] [facility] [place] [address] Aretha LEIF [employer] 08/11/2024 9:45 AM EDT Office Visit [facility] [address] [facility] [place] [address] Alicia Carias FNP Urge incontinence of urine (Primary Dx); Other chronic pain; Tobacco use; Dietary counseling; Exercise counseling 08/11/2024 Travel 08/10/2024 Refill [facility] [address] [facility] [place] [address] Alicia Carais, LEIF Restless leg syndrome 08/06/2024 Refill [facility] 230 [place] [address] Van TassellAlicia coon, SANDBLASTING SUPERVISOR COPD exacerbation (CMS/HCC) 08/04/2024 Travel 08/01/2024 Refill [facility] 230 [place] [address] Alicia Carias, [facility] COPD exacerbation ([facility]/HCC) 07/11/2024 Refill [facility] [address] [place] [address] Alicia Carias [facility] Anxiety from Last 3 Months Immunizations Name Administration Dates Next Due Hep B, adult 10/29/2000 INFLUENZA INJECTABLE QUADRIV ALANT CCIIV4 MDCK Multi-dose vial 05/24/2020,04/23/2018 Influenza injectable quadriv alent preservative free 02/02/2023,05/12/2015 Influenza, IIV3, injectable 02/24/2014, 0 Influenza, Split (incl. racheal fied surface antigen) 01/31/2013,03/27/2012 Influenza, seasonal, injecta ble, preservative free 04/16/2024 Influenza, trivalent, adjuvanted 03/17/2022 Pfizer Covid-19 Vaccine 12+ 04/16/2024, 4,07/09/2021 Pfizer Covid-19 Vaccine 12+ Bivalent 12/21/2022 Pfizer [...] Sign Reading Time Taken Comments Blood Pressure 120/70 08/11/2024 9:49 AM EDT Pulse 84 08/11/2024 9:27 AM EDT Temperature 36.6 ??C (97.8 ??F) 08/11/2024 9:27 AM ED T Respiratory Rate 20 08/11/2024 9:27 AM EDT Oxygen Saturation 99% 08/11/2024 9:27 AM EDT Inhaled Oxygen Concentration - - Weight 73.9 kg (163 lb) 08/11/2024 9:27 AM EDT Height 162.6 cm (5' 4 ) 08/11/2024 9:27 AM EDT Body Mass Index 27.98 08/11/2024 9:27 AM EDT Plan of Treatment Health Maintenance Due Date Last Done Comments CT Colonography 1965 FIT DNA/Cologuard 1965 FIT 1965 FOBT 1965 HIV Screening 1965 Sigmoidoscopy 1965 Hepatitis C Screening 1982 Hepatitis B Vaccines (2 of 3 - 19+ 3-dose series) 11/26/2000 10/29/2000 RSV Patients and Patients Aged 60 years or older (1 - Risk 60-74 years 1-dose series) 2024 Mammogram 09/20/2024 09/21/2023, 08/20, 09/13/2021, Additional history exists Alcohol/Substance Use Screening 10/18/2024 10/19/2023 SDOH Screening 10/18/2024 10/19/2023 Cervical Cancer Screening 02/07/2025 Pap Smear 02/07/2025 02/08/2024, 01/19, 10/27/2021 Depression Screening 08/11/2025 08/11/2024, 08/12/19 25 Tobacco Screening 08/12/2025 08/12/2024 Lipid Panel 06/25/2028 06/25/2023 HPV/Cotest 02/07/2029 02/08/2024, [...] Procedure Name Priority Date/Time Associated Diagnosis Comments THINPREP IMAGING PAP AND HPV MRNA E6/E7 Routine 02/08/2024 2:23 PM EDT BI MAMMOGRAM SCREENING TOMOSYNTHESIS BILATERAL Routine 09/21/2023 9:35 AM EDT LIPID PANEL, STANDARD Routine 06/25/2023 11:58 AM EST Healthcare maintenance HM COLONOSCOPY Routine 04/20/2020 from Last 3 Months or Most Recently Relevant to Health Maintenance Results * ThinPrep Imaging Pap and HPV mRNA E6/E7 (02/08/2024 2:23 PM EDT) HPV nRNA E6/E7 Not Detected Not Detected [facility] Comment:Methodology: Transcr iption-Mediated AmplificationThis assay detects E6/E7 viral messenger RNA (mRNA) from 14high-risk HPV types (16,18,31,33,35,39,45,51,52,56,58,59,66,68).Cervical sources are required for HPV testing.If a vaginal source from a patient who has had atotal hysterectomy with removal of cervix wassubmitted, please contact the testing laboratoryfor alternative testing options.For additional information, please refer tohttp://education.Consignd/faq/TAG241x2(This link if provided for information/educational purposes only.)THIS TEST WAS PERFORMED AT:[facility] [place] [phone] PEOPLES MD SOURCE: SEE NOTE [facility] Comment:Cervix Report Status: TNP [facility] Clinical Information: SEE NOTE [facility] Comment:None given LMP: SEE NOTE [facility] Comment:NONE GIVEN Prev. PAP: SEE NOTE [facility] Comment:NONE GIVEN Prev. BX: SEE NOTE [facility] Comment:NONE GIVEN Statement Of Adequacy: SEE NOTE [facility] Comment:Satisfactory for humaira luation.Endocervical/transformation zone componentpresent. General Categorization: [facility] Interpretation/Result: SEE NOTE [facility] Comment:Cytology Results: Ne gative for intraepitheliallesion or malignancy. Cytology Comment SEE NOTE [facility] Comment:This Pap test has be en evaluated with computerassisted technology. Stem Cutter: SEE NOTE [facility] Comment:DMM, CT(ASCP)CT scre ening location: [place] [address] Review Stem Cutter: [facility] Pathologist [facility] PAP Infection [facility] See Note SEE NOTE [facility] Comment:EXPLANATORY NOTE:The Pap is [...] PM EDT 02/08/2024 4:34 PM EDT Narrative [facility] - 02/15/2024 12:08 PM EDT SEE SCANNED RESULTS IN EMRCERVIX [facility] SANDBLASTING SUPERVISOR LAB PATHOLOGY ORDERABLES Claudette l Result [facility] [address] [place] [address] [phone] * BI Mammogram Screening Tomosynthesis Bilateral (09/21/2023 9:35 AM EDT) Anatomical Region Laterality Modality Breast Bilateral Mammography 09/21/2023 9:35 AM EDT Narrative 10/22/2023 8:00 AM EDT ? [place] [facility] ? [address] ?[place] [address] ? Mammography Report ? Signed ? Patient: Era,Lizzie ?MR#: [id number] ? : 1965 ?Acct:[id number] ? Age/Sex: 58 / F ?ADM Date: 09/21/23 ? Loc: HO.MAMMO ? Attending Dr: Alicia Carias SANDBLASTING SUPERVISOR ? Ordering Physician: Alicia Carias SANDBLASTING SUPERVISOR ?Results: 1Nega ?? tive ? Date of Service: 09/21/23 ?Follow Up: 1 Year From Orig ?? inal Mammogram ? Procedure(s): MM tomosynthesis screening BI ?? Accession Number(s): [id number] ? cc: Alicia Carias SANDBLASTING SUPERVISOR ? EXAMINATION: ?? MM SCREENING DIGITAL BREAST [...] 0757 ? DD/ 0935 ? TD/TT: ? Supervisor Brake Repair: ? Procedure Note Donsharifter, Image - 10/22/2023 Poly [facility] [address] [place] [address] Mammography Report Signed Patient: Bala Girard#: [id number] : 1965Acct:[id number] Age/Sex: 58 / FADM Date: 09/21/23 Loc: LYNNEO Attending Dr: Alicia Carias SANDBLASTING SUPERVISOR Ordering Physician: Alicia Carias FNPResults: 1Nega tive Date of Service: 09/21/23Follow Up: 1 Year From Orig inal Mammogram Procedure(s): MM tomosynthesis screening BI Accession Number(s): [id number] cc: Alicia Carias SANDBLASTING SUPERVISOR EXAMINATION: MM SCREENING DIGITAL BREAST TOMOSYNTHESIS, BILATERAL [...] in OV> 10/22/23 0757 DD/ 0935 TD/TT: Supervisor Brake Repair: [facility] SANDBLASTING SUPERVISOR IMG BI PROCEDURES Final Resul t * (ABNORMAL) Lipid Panel, Standard (06/25/2023 11:58 AM EST) Triglycerides 225(H) <150 mg/dL [facility] Comment:Desirable Triglyceri de: less than 150 mg/dLBorderline High Triglyceride 150-199 mg/dLHigh Triglyceride: 200-499 mg/dLVery High Triglyceride: greater than or equal to 5OO mg/dL Cholesterol 177 <200 mg/dL [facility] Comment:Desirable Cholestero l: less than 200 mg/dLBorderline High Cholesterol: 200-239 mg/dLHigh Cholesterol: greater than 239 mg/dL LDL Cholesterol Calculated 80 <100 mg/dL [facility] Comment:Desirable LDL: less than 100 mg/dLNear Optimal/Above Optimal LDL: 110- 129 mg/dLBorderline High LDL: 130-159 mg/dLHigh LDL: 160-189 mg/dLVery High LDL: greater than or equal to 190 mg/dL HDL Cholesterol 52 >40 mg/dL [facility] Comment:Desirable HDL: great er than 40 mg/dL Note: This HDL assay may give artificially low results in patients with liver disease. Blood Venous blood specimen / Unknown 06/25/2023 11:58 AM EST 06/25/2023 1:10 PM EST [facility] LAB BLOOD ORDERABLES Final Re sult [facility] [address] [place] [phone] * Hm Colonoscopy (04/20/2020) Colonoscopy Normal Normal Comment:Repeat in 10 years us Historical Provider MD HEALTH MAINTENANCE Final Result from Last 3 Months or Most Recently Relevant to Health Maintenance Insurance [facility] < 65 [place] [phone] * Guarantor: Lizzie Girard Account Type Relation to Patient Date of Phone Billing Address Personal/Family Self [address] [phone] Care Teams Social Science Manager Relationship Specialty Start Date End Date Alicia Carias FNP [address] [place] [address] PCP - General Family Medicine 01/17/22
--- OUTSIDE RECORDS SUMMARY | 2024-09-23 10:07 | XMS_ITS | Encounter Summary ---
Author Organization [employer] Address [address] [facility] 7 [place] [address] Care Team Providers Care Car Hiker Name Role Phone Aretha [facility] Primary Care Provider [phone] Reason for Visit * Reason Comments Med Refill Encounter Details Date Type Department Care Team ([facility] st Contact Info) Description 02/29/[address] [facility] MED[facility] [address] [place] [address] Silvia Guadarrama DO [address] [place] [address] Social History Tobacco Use Types Packs/Day Years [...] documented as of this encounter Care Teams Car Hiker Relationship Specialty Start Date End Date Alicia Carias FNP [address] [place] [address] PCP - General Family Medicine 01/17/22 documented as of this encounter
--- OUTSIDE RECORDS SUMMARY | 2024-09-23 10:07 | XMS_ITS | Encounter Summary ---
Author Organization [employer] Address [address] [place] [address] 7 [place] [address] Care Team Providers Care Urban Planning Teacher Name Role Phone [facility] Primary Care Provider [phone] Reason for Visit * Reason Comments Med Refill Encounter Details Date Type Department Care Team ([facility] st Contact Info) Description 03/12/2024 Refill [facility] [address] [place] [address] [facility] [address] [place] [address] Dizziness and giddiness; Restless leg syndrome Social [...] documented as of this encounter Care Teams Urban Planning Teacher Relationship Specialty Start Date End Date Alicia Carias FNP [address] [place] [address] PCP - General Family Medicine 01/17/22 documented as of this encounter
--- OUTSIDE RECORDS SUMMARY | 2024-09-23 10:07 | XMS_ITS | Encounter Summary ---
Author Organization [employer] Address [address] [place] [address] 7 [place] [address] Care Team Providers Care Outcomes Manager Name Role Phone [facility] Primary Care Provider [phone] Reason for Visit * Reason Comments Med Refill Encounter Details Date Type Department Care Team ([facility] st Contact Info) Description 01/29/2024 Refill [facility] MED[facility] [address] [place] [address] [facility] 230 [place] [address] COPD exacerbation (CMS/HCC) Social History Tobacco Use [...] documented as of this encounter Care Teams Outcomes Manager Relationship Specialty Start Date End Date Alicia Carias FNP [address] [place] [address] PCP - General Family Medicine 01/17/22 documented as of this encounter
--- OUTSIDE RECORDS SUMMARY | 2024-09-23 10:07 | XMS_ITS | Encounter Summary ---
Author Organization [employer] Address [address] [place] [address] 7 [place] [address] Care Team Providers Care Squeak Rattle And Leak Repairer Name Role Phone [facility] Primary Care Provider [phone] Reason for Visit * Reason Comments Med Refill Encounter Details Date Type Department Care Team ([facility] st Contact Info) Description 03/11/2024 Refill [facility] [address] [place] [address] [facility] [address] [place] [address] Restless leg syndrome; Dizziness and giddiness Social [...] documented as of this encounter Care Teams Squeak Rattle And Leak Repairer Relationship Specialty Start Date End Date Alicia Carias FNP [address] [place] [address] PCP - General Family Medicine 01/17/22 documented as of this encounter
--- OUTSIDE RECORDS SUMMARY | 2024-09-23 10:07 | XMS_ITS | Encounter Summary ---
Author Organization [employer] Address [address] [place] [address] 7 [place] [address] Care Team Providers Care Elementary Vocal Music Teacher Name Role Phone [facility] Primary Care Provider [phone] Reason for Visit * Reason Comments Med Refill Encounter Details Date Type Department Care Team ([facility] st Contact Info) Description 03/10/2024 Refill [facility] MED[facility]INE [address] [place] [address] [facility] [address] [place] [address] Restless leg syndrome Social History Tobacco Use [...] documented as of this encounter Care Teams Elementary Vocal Music Teacher Relationship Specialty Start Date End Date Alicia Carias FNP [address] [place] [address] PCP - General Family Medicine 01/17/22 documented as of this encounter
--- OUTSIDE RECORDS SUMMARY | 2024-09-23 10:07 | XMS_ITS | Encounter Summary ---
Author Organization [employer] Address [address] [place] [address] 7 [place] [address] Care Team Providers Care Crm Functional Analyst Name Role Phone [facility] Primary Care Provider [phone] Reason for Visit * Reason Comments Med Refill Encounter Details Date Type Department Care Team ([facility] st Contact Info) Description 03/11/2024 Refill [facility] MED[facility] [address] [place] [address] [facility] 230 [place] [address] Restless leg syndrome; Dizziness and giddiness Social [...] documented as of this encounter Care Teams Crm Functional Analyst Relationship Specialty Start Date End Date Alicia Carias FNP [address] [place] [address] PCP - General Family Medicine 01/17/22 documented as of this encounter
--- OUTSIDE RECORDS SUMMARY | 2024-09-23 10:07 | XMS_ITS | Encounter Summary ---
Author Organization [employer] Address [address] [place] [address] 7 [place] [address] Care Team Providers Care Business Technology Analyst Name Role Phone [facility] Primary Care Provider [phone] Reason for Visit * Reason Comments Med Refill Encounter Details Date Type Department Care Team ([facility] st Contact Info) Description 02/17/2024 Refill [facility] MED[facility]INE [address] [place] [address] [facility] [address] [place] [address] COPD exacerbation (CMS/HCC) Social History Tobacco Use [...] documented as of this encounter Care Teams Business Technology Analyst Relationship Specialty Start Date End Date Alicia Carias FNP [address] [place] [address] PCP - General Family Medicine 01/17/22 documented as of this encounter
--- OUTSIDE RECORDS SUMMARY | 2024-09-23 10:07 | XMS_ITS | Encounter Summary ---
Author Organization [employer] Address [address] [place] [address] 7 [place] [address] Care Team Providers Care Street Railway Line Installer Name Role Phone [facility] Primary Care Provider Reason for Visit * Reason Comments Med Refill Encounter Details Date Type Department Care Team ([facility] st Contact Info) Description 01/02/2024 Refill [facility] MEDICINE [address] [place] [address] [facility] 230 [place] [address] Social History Tobacco Use Types Packs/Day Years [...] documented as of this encounter Care Teams Street Railway Line Installer Relationship Specialty Start Date End Date Alicia Carias FNP [address] [place] [address] PCP - General Family Medicine 01/17/22 documented as of this encounter
--- OUTSIDE RECORDS SUMMARY | 2024-09-23 10:07 | XMS_ITS | Encounter Summary ---
Author Organization [employer] Address [address] [place] [address] 7 [place] [address] Care Team Providers Care Architect Naval Name Role Phone [facility] Primary Care Provider [phone] Reason for Visit * Reason Comments Med Refill Encounter Details Date Type Department Care Team ([facility] st Contact Info) Description 03/07/2024 Refill [facility] 230 [place] [address] [facility] [address] [place] [address] Dizziness and giddiness; Restless leg syndrome Social [...] your housing situation today? I have alice juaerz 03/13/[address] you li [...] documented as of this encounter Care Teams Architect Naval Relationship Specialty Start Date End Date Alicia Carias FNP [address] [place] [address] PCP - General Family Medicine 01/17/22 documented as of this encounter
--- OUTSIDE RECORDS SUMMARY | 2024-09-23 10:07 | XMS_ITS | Encounter Summary ---
Author Organization [employer] Address [address] [place] [address] 7 [place] [address] Care Team Providers Care Junior Network Engineer Name Role Phone [facility] Primary Care Provider [phone] Reason for Visit * Reason Comments Med Refill Encounter Details Date Type Department Care Team ([facility] st Contact Info) Description 08/10/2024 Refill [facility] MED[facility]INE [address] [place] [address] [facility] 230 [place] [address] Restless leg syndrome Social History Tobacco Use [...] documented as of this encounter Care Teams Junior Network Engineer Relationship Specialty Start Date End Date Alicia Carias FNP [address] [place] [id number] PCP - General Family Medicine 01/17/22 documented as of this encounter
--- OUTSIDE RECORDS SUMMARY | 2024-09-23 10:07 | XMS_ITS | Encounter Summary ---
Author Organization [employer] Address [address] [place] [address] 7 [place] [address] Care Team Providers Care Punch Press Setter Name Role Phone Aretha Alicia YADAV Primary Care Provider [phone] Encounter Details Date Type Department Care Team ([facility] st Contact Info) Description 05/12/2022 Orders Only [facility] [address] [place] [address] Silvia Hwang LPN Social History Tobacco Use [...] on filedocumented in this encounter Care Teams Punch Press Setter Relationship Specialty Start Date End Date Alicia Carias FNP 230 [place] [address] PCP - General Family Medicine 01/17/22 documented as of this encounter
--- OUTSIDE RECORDS SUMMARY | 2024-09-23 10:07 | XMS_ITS | Encounter Summary ---
Author Organization [employer] Address [address] [place] [address] 7 [place] [address] Care Team Providers Care Supervisor Sulfuric Acid Plant Name Role Phone [facility] Primary Care Provider [phone] Reason for Visit * Reason Comments Med Refill Encounter Details Date Type Department Care Team ([facility] st Contact Info) Description 02/25/2024 Refill [facility] MEDICINE 230 [place] [address] [facility] 230 [place] [address] Dizziness and giddiness; Restless leg syndrome Social [...] documented as of this encounter Care Teams Supervisor Sulfuric Acid Plant Relationship Specialty Start Date End Date Alicia Carias FNP [address] [place] [address] PCP - General Family Medicine 01/17/22 documented as of this encounter
--- OUTSIDE RECORDS SUMMARY | 2024-09-23 10:07 | XMS_ITS | Encounter Summary ---
Author Organization [employer] Address [address] [place] [address] 7 [place] [address] Care Team Providers Care Tire Service Technician Name Role Phone [facility] Primary Care Provider [phone] Reason for Visit * Reason Comments Med Refill Encounter Details Date Type Department Care Team ([facility] st Contact Info) Description 03/05/2024 Refill [facility] MEDICINE [address] [place] [address] [employer] [address] [place] [address] Dizziness and giddiness Social History Tobacco Use [...] documented as of this encounter Care Teams Tire Service Technician Relationship Specialty Start Date End Date Alicia Carias FNP [address] [place] [address] PCP - General Family Medicine 01/17/22 documented as of this encounter
--- OUTSIDE RECORDS SUMMARY | 2024-09-23 10:07 | XMS_ITS | Encounter Summary ---
Author Organization [employer] Address [address] [place] [address] 7 [place] [address] Care Team Providers Care Retina Subspecialist Name Role Phone [facility] Primary Care Provider [phone] Reason for Visit * Reason Comments Med Refill Encounter Details Date Type Department Care Team ([facility] st Contact Info) Description 02/26/2024 Refill [facility] MEDICINE [address] [place] [address] [facility] 230 [place] [address] Dizziness and giddiness Social History Tobacco Use [...] documented as of this encounter Care Teams Retina Subspecialist Relationship Specialty Start Date End Date Alicia Carias FNP [address] [place] [address] PCP - General Family Medicine 01/17/22 documented as of this encounter
--- OUTSIDE RECORDS SUMMARY | 2024-09-23 10:07 | XMS_ITS | Encounter Summary ---
Author Organization [employer] Address [address] [place] [address] 7 [place] [address] Care Team Providers Care Shake Feeder Name Role Phone [facility] Primary Care Provider [phone] Reason for Visit * Reason Comments Med Refill Encounter Details Date Type Department Care Team ([facility] st Contact Info) Description 03/07/2024 Refill [facility] MEDICINE 230 [place] [address] [facility] 230 [place] [address] Dizziness and giddiness; Restless leg syndrome Social [...] documented as of this encounter Care Teams Shake Feeder Relationship Specialty Start Date End Date Alicia Carias FNP [address] [place] [address] PCP - General Family Medicine 01/17/22 documented as of this encounter
== END 2024-09-23 10:18 | disposition home or self-care (01) ==
LOC: HO.HOS 09:15
PROVIDERS: PCP Registered Nurse; Visit Provider Orthopaedic Surgery
DX: M18.11 Unilateral primary osteoarthritis of first carpometacarpal joint, right hand (principal); M32.9 Systemic lupus erythematosus, unspecified; M65.4 Radial styloid tenosynovitis [de Quervain]
CPT/HCPCS: 20550; 99213

== ENCOUNTER → 2024-09-23 09:14 | Outpatient (BNVA) | payer OTHER, SELFPAY | PROVIDERS: PCP Registered Nurse; Visit Provider Orthopaedic Surgery | DX: M18.11 Unilateral primary osteoarthritis of first carpometacarpal joint, right hand (principal); M32.9 Systemic lupus erythematosus, unspecified; M65.4 Radial styloid tenosynovitis [de Quervain]; Z98.890 Other specified postprocedural states | CPT/HCPCS: 20550; 99212; J1010; J1100; J2003 ==

== ENCOUNTER 2024-12-23 09:58 | Outpatient (AMB) | payer OTHER, SELFPAY ==
--- NOTE | 2024-12-23 10:02 | A.OFFVIS_ITS ---
Vital Signs 12/23/24 10:03 Height 5 ft 3 in Weight 167 lb BMI 29.6 Intake Visit Reasons: OV: Right basal joint Intake Note: Lizzie 59 yr old left hand dominant female presents today for his right hand s/p dequervain injection from 09/23/[address] Ya. At her last visit she was advise if she continues to have pain in 6-8 weeks following this injection, to call and schedule to discuss alterative treatment. Currently states she continues to have pain and injection did not help at all. Allergies No Known Allergies Allergy (Verified 12/23/24 10:06) HPI HPI OV: Right basal joint: Details: The patient is a 59-year-old left-hand dominant woman who was last seen by me on 09/23/2024 and received a steroid injection for her right de Quervain tenosynovitis. Unfortunately this injection did not help. She also has a history of right basal joint osteoarthritis, and has had injections for this in the past. [facility] Medical History Fibroid Personal history of nicotine dependence Carpal tunnel syndrome on both sides Carpal tunnel syndrome of left wrist Wrist pain Osteopenia Fracture of distal end of left fibula (~11/2021) Lupus Osteoarthritis History of back pain Asthma Vertigo Hearing deficit Surgical History Hx of shoulder surgery History of colonoscopy (~2019) History of tonsillectomy (~1991) History of nasal septoplasty (~1998) History of ear surgery (~1999) Family History Father Heart problem Heart attack Mother HTN (hypertension) Maternal Aunt Breast cancer Sister Breast cancer Social History Household Members Other:: son Housing: House Alcohol intake: current Alcohol intake frequency: does not drink Patient Tobacco Use Status: Former Tobacco user Years Smoked: (onset 18yo, 1ppd x 39yrs, now 1/2ppd - 35+PYH - quit 11/06/22) Second Hand Smoke Exposure: No Current occupational status: disabled Current occupation: left hand dominant Sexual orientation: Straight/Heterosexual Gender identity: Female Physical Exam Vital Signs: BMI result Body Mass Index 29.6 Extrem Other: The patient was alert oriented and in no acute distress. She can make a fist and actively extend all of her digits. No locking or catching. Sensation intact and cap refill brisk. She was mildly tender to palpation over the right basal joint She had a significantly positive right Ana test with a negative left Ana test. Importantly, the Ana test replicated the pain that she is experiencing day-to-day that is bothering her. She was tender over the 1st dorsal compartment over the radial styloid, particularly after the Ana test. Not particularly tender over the MCP joint or A1 damian. No locking or catching Assessment & Plan Assessment & Plan (1) Osteoarthritis of carpometacarpal (CMC) joint of right thumb: Code(s): M18.11 - Unilateral primary osteoarthritis of first carpometacarpal joint, right hand Category: Medical (2) De Quervain's tenosynovitis, right: Code(s): M65.4 - Radial styloid tenosynovitis [de Quervain] Category: Medical Plan Assessment & Plan: 1. Right De Quervain's tenosynovitis Status post injection 09/23/2024 with no relief Positive Ana test I educated her about this condition I discussed operative and non-operative treatment options The patient would like to proceed with surgery The risks and benefits of operative treatment were discussed with the patient and the patient wishes to proceed with surgery. These risks include, but are not limited to risk of damage to blood vessels, nerves, tendons, infection, recurrence, incomplete relief of preoperative symptoms, persistent pain, possible need for further surgery and the risks associated with regional blocks and anesthesia. The plan is to take the patient to the operating room sometime in the next few weeks for the following procedures: 1. Right 1st dorsal compartment release under local 2. [ ] All of the preoperative paperwork including the consent was filled out today. All the patient's questions were answered. The patient understands that they will be contacted by our care team coordinator scheduler soon to schedule this procedure 2. Right basal joint osteoarthritis, S/P injection Date of Injection: 06/10/24, 08/28/23 Only mildly tender today. I discussed activity modification, they should limit or avoid any heavy or repetitive pinching or gripping activities I discussed the use of assistive devices for daily activity 3. Left Carpal tunnel syndrome, S/P release DOS: 10/08/23 Pre-operative symptoms intermittent & occasional Now with normal sensation 4. Left middle finger pain No complaints today 5. Right Carpal tunnel syndrome, S/P release DOS: 07/16/23 Pre-operatively with dense numbness Now with improved and normal sensation 6. Left dorsal wrist pain No mention today Coding Level of Care Code Est Pt Level 4 (84544) Diagnoses Osteoarthritis of carpometacarpal (CMC) joint of right thumb M18.11 De Quervain's tenosynovitis, right M65.4
[2024-12-23 10:03] VITALS: BMI 29.6
--- OUTSIDE RECORDS SUMMARY | 2024-12-23 10:31 | XMS_ITS | Encounter Summary ---
Author Organization [employer] Address [address] [place] [address] 7 [place] [address] Care Team Providers Care Tetryl Boiling Tub Operator Name Role Phone [facility] Primary Care Provider [phone] Reason for Visit * Reason Comments Med Refill Encounter Details Date Type Department Care Team ([facility] Contact Info) Description 03/14/2023 Refill [facility] MEDICINE [address] [place] [address] [facility] [address] [place] [address] COPD exacerbation (CMS/HCC); Dizziness and giddiness; Shortness [...] as of this encounter Plan of Treatment Upcoming Encounters Date Type Department Care Team (Late st Contact Info) Description 01/30/2025 9:30 AM EDT Office Visit [facility] MEDICINE [address] [place] [address] Alicia Carias FNP 230 [place] [address] documented as of this encounter Visit Diagnoses Diagnosis COPD exacerbation ([facility]) Obstructive chronic bronchitis with exacerbation Dizziness and giddiness Shortness of breath documented in this encounter Additional Health Concerns Assessment Noted Time PHQ-9 Depression Total Score: 0 12/22/19 23 9:28 AM EDT documented as of this encounter Care Teams Tetryl Boiling Tub Operator Relationship Specialty Start Date End Date Alicia Carias FNP [address] [place] [address] PCP - General Family Medicine 01/17/22 documented as of this encounter
== END 2024-12-23 11:03 | disposition home or self-care (01) ==
LOC: HO.HOS 10:00
PROVIDERS: PCP Registered Nurse; Visit Provider Orthopaedic Surgery
DX: M18.11 Unilateral primary osteoarthritis of first carpometacarpal joint, right hand (principal); M65.4 Radial styloid tenosynovitis [de Quervain]
CPT/HCPCS: 99214

== ENCOUNTER → 2024-12-23 09:58 | Outpatient (BNVA) | payer OTHER, SELFPAY | PROVIDERS: PCP Registered Nurse; Visit Provider Orthopaedic Surgery | DX: M18.11 Unilateral primary osteoarthritis of first carpometacarpal joint, right hand (principal); M65.4 Radial styloid tenosynovitis [de Quervain] | CPT/HCPCS: 99212 ==

== ENCOUNTER 2025-01-30 10:19 | Outpatient (REF) | payer OTHER, SELFPAY ==
[2025-01-30 11:28] LABS: MANUAL DIFF FLAG NO
[2025-01-30 11:34] LABS: Hematocrit 41.7 % (37.0-47.0); Hemoglobin 13.4 g/dl (12.0-16.0); Imm Gran Abs Auto 0.04 X10*3/uL (0.00-0.03); Imm Gran Pct Auto 0.6 % (0.0-0.4); Lymphocytes Absolute Auto 2.0 X10*3/uL (1.2-4.9); Mean Corpuscular HGB Conc 32.1 g/dl (31.0-35.0); Mean Corpuscular Hemoglobin 26.4 pg (27.0-33.0); Mean Corpuscular Volume 82.1 fL (80.0-98.0); NRBC Abs Auto 0.000 X10*3/uL (0.0-0.012); NRBC Pct Auto 0.0 /100WBC (0.0-0.2); Platelet Count 234 X10*3/uL (160-400); Red Blood Count 5.08 X10*6/uL (4.20-5.50); White Blood Count 6.9 X10*3/uL (4.8-10.8)
[2025-01-30 11:49] LABS: Hemoglobin A1C 153.4009 umol/L; Total Hemoglobin (HGBA1C) 3428.5727 umol/L
[2025-01-30 12:31] LABS: Alanine Aminotransferase 30 U/L (0-31); Albumin Level 4.4 g/dL (3.5-5.0); Alkaline Phosphatase 86 U/L (39-117); Anion Gap 15 (12-20); Aspartate Amino Transferase 29 U/L (5-31); Blood Urea Nitrogen 16 mg/dL (9-16); Calcium 9.3 mg/dL (8.4-10.2); Carbon Dioxide 26 mmol/L (22-29); Chloride 108 mmol/L (96-108); Cholesterol 194 mg/dL (<200); Estimated Glomerular Filt Rate > 60; HDL Cholesterol 54 mg/dL (>40); Potassium 4.8 mmol/L (3.3-5.1); Sodium 144 mmol/L (135-145); Total Protein 7.4 g/dL (6.5-8.0); Triglycerides 139 mg/dL (<150)
[2025-01-31 08:48] LABS: HBS Num1 0.00 mIU/mL (0-7.99); HBc Num1 0.09 S/CO (0.00-0.79); HBsAGNum1 0.45 S/CO (0.00-0.99); HIV Num 1 0.05 S/CO (0.00-0.99); Hepatitis A Antibody IgM 0.16 Index (0-0.79); Hepatitis B Surface Antigen Negative (Negative); ~HepC Num1 0.10 S/CO (0.00-0.79); ~Hepatitis A Antibody IgM Nonreactive (Nonreactive); ~Hepatitis B Surface Antibody NONREACTIVE (Nonreactive); ~Hepatitis C Antibody Nonreactive (Nonreactive)
== END 2025-01-30 10:20 | disposition home or self-care (01) ==
LOC: HO.HHCL 10:19
PROVIDERS: PCP Registered Nurse; Visit Provider Registered Nurse
DX: Z00.00 Encounter for general adult medical examination without abnormal findings (principal); Z13.1 Encounter for screening for diabetes mellitus; Z13.6 Encounter for screening for cardiovascular disorders; Z11.4 Encounter for screening for human immunodeficiency virus [HIV]
CPT/HCPCS: 36415; 80053; 80061; 83036; 85025; 86704; 86706; 86709; 86803; 87340; 87389

== ENCOUNTER 2025-03-06 15:37 | Outpatient (REF) | payer OTHER, SELFPAY ==
--- NOTE | ~2025-03-06 | CT_ITS ---
EXAMINATION: CT LUNG SCREENING HISTORY: Z87.891 - Personal history of nicotine dependence TECHNIQUE: Low dose axial images were obtained from the sternal notch to upper abdomen without IV contrast per standard departmental protocol. Sagittal and coronal reformatted images were also obtained and reviewed. One or more of the following techniques was used for dose reduction: Automated exposure control, adjustment of the mA and/or kV according to patient size, use of iterative reconstruction technique. DLP: 48 mGy-cm COMPARISON: Previous chest CT scans December 2023 and November 2022 FINDINGS: Lung nodules: Stable 3 mm peripheral or subpleural left lower lobe nodule axial image 91 series 5. No new or enlarging pulmonary nodule. Central airways are clear. Emphysema: moderate Coronary Calcification: mild Aortic Arch Calcification: mild Potentially Significant Incidentals : none Additional Chest Findings: There is no pleural or pericardial effusion. No mediastinal or axillary lymphadenopathy is identified. Visualized upper abdomen: The visualized portions of the liver, spleen, and adrenals have an unremarkable unenhanced appearance. Degenerative changes of the spine. CT/CT lung screening IMPRESSION: Moderate emphysema. Stable 3 mm left lower lobe pulmonary nodule from prior exams. No new or suspicious pulmonary nodule. LUNG-RADS ASSESSMENT: Lung-RADS 2: Benign MANAGEMENT: Continue annual screening with LDCT in 12 months Category S: N/A Electronically signed by: Katelyn Baxter MD 03/06/2025 04:27 PM EDT
--- OUTSIDE RECORDS SUMMARY | 2025-03-06 18:02 | XMS_ITS | Data Portability ---
Author Organization [place] - [facility], Allergy Address [address] [place] [phone] Care Team Providers Care [place] Tower Loader Name Role Phone CATIE DEE DEE Primary Care Provider [phone] Assessment Encounter Date Assessment Date Assessment LastModified by Organization Details LastModified Time 03/12/2024 03/12/2024 Patient with a longstanding history of nasal congestion, allergy and chronic ear disease. Multiple prior ear surgeries with Dr. Rose in the 70s and 80s. She notes chronic left greater than right nasal congestion. CT at [facility] was performed in October which suggested [...] ens, zone 1 2023 024 JAM[facility] (Centralized Electronic Ordering - All Locations), Patient Can Go To The Location Of Their Choice, [id number] 18:10:10 nettle IgE Ab, serum 2023 [employer] [facility] (Centralized [facility] Ordering - All Locations), Patient Can Go To The Location Of Their Choice, [id number] 4 13:04:55 bahia grass IgE Ab, quanti tative , serum 2023 [employer] [facility] (Centralized Electronic Ordering - All Locations), Patient Can Go To The Location Of Their Choice, [address] 4 13:04:55 bermud a grass ige, serum 2023 [employer] [facility] (Centralized Electronic Ordering - All Locations), Patient Can Go To The Location Of Their Choice, [address] 4 13:04:55 englis h planta in ige, serum 2023 [employer] [facility] (Centralized Electronic Ordering - All Locations), Patient Can Go To The Location Of Their Choice, [id number] 4 13:04:55 ige, total, serum 2023 [employer] [facility] (Centralized Electronic Ordering - All Locations), Patient Can Go To The Location Of Their Choice, [address] 4 18:10:11 CBC w/ auto diff 2023 [place] [facility] (Centralized [facility] Ordering - All Locations), Patient Can Go To The Location Of Their Choice, [address] 4 18:10:10 Referral None record ed. Procedures None record ed. Surgeries None record ed. Imaging None record ed. Medication Orders fluoci nolone aceton alexandro oil 0.01 % ear drops 2023 [facility], [address], [place], [id number], 5 16:36:19 Patient TargetsNo targets recorded. Patient InstructionsNo instructions recorded. Reason for Referral None Reported. Results Created Date Observation Date Name Description Value Unit Range Abnormal Flag Note LastModifiedBy Organization Detail LastModifiedTime 03/12/20 24 03/13/2024 CBC WITH DIFFE RENTI AL/PL ATELE T WBC 6.7 x10e3 /uL 3.4-10 .8 normal Not Available [facility] ([facility]) [address] [place], [address], 03/17/2024 18:10:10 03/12/2003/13/2024 CBC WITH DIFFE RENTI AL/PL ATELE T RBC 5.04 x10e6 /uL 3.77-5 .28 normal Not Available [facility] ([facility]) [address] [place], [address], 03/17/2024 18:10:10 03/12/2003/13/2024 CBC WITH DIFFE RENTI AL/PL ATELE T hemoglobin 13.1 g/dL 11.1-1 5.9 normal Not Available [facility] ([facility]) [address] [place], [address], 03/17/2024 18:10:10 03/12/2003/13/2024 CBC WITH DIFFE RENTI AL/PL ATELE T hematocrit 41.3 % 34.0-4 6.6 normal Not Available [facility] ([facility]) [address] [place], [address], 03/17/2024 18:10:10 03/12/2003/13/2024 CBC WITH DIFFE RENTI AL/PL ATELE T MCV 82 fL 79-97 normal Not Available [facility] ([facility]) [address] [place], [address], 03/17/2024 18:10:10 03/12/2003/13/2024 CBC WITH DIFFE RENTI AL/PL ATELE T MCH 26.0 pg 26.6-3 3.0 below low normal Not Available [facility] ([facility]) [address] [place], [address], 03/17/2024 18:10:10 03/12/2003/13/2024 CBC WITH DIFFE RENTI AL/PL ATELE T MCHC 31.7 g/dL 31.5-3 5.7 normal Not Available [facility] ([facility]) [address] [facility], [place], [address], 03/17/2024 18:10:10 03/12/20 24 03/13/2024 CBC WITH DIFFE RENTI AL/PL ATELE T RDW 13.7 % 11.7-1 5.4 Not Available [facility] ([facility]) [address] [facility], [place], [address], 03/17/2024 18:10:10 03/12/2003/13/2024 CBC WITH DIFFE RENTI AL/PL ATELE T platelets 227 x10e3 /uL 150-45 0 normal Not Available [facility] ([facility]) [address] [facility], [place], [address], 03/17/2024 18:10:10 03/12/2003/13/2024 CBC WITH DIFFE RENTI AL/PL ATELE T neutrophils 49 % not estab. normal Not Available [facility] ([facility]) [address] [place], [address], 03/17/2024 18:10:10 03/12/20 24 03/13/2024 CBC WITH DIFFE RENTI AL/PL ATELE T lymphs 39 % not estab. normal Not Available [facility] ([facility]) [address] [facility], [place], [address], 03/17/2024 18:10:10 03/12/20 24 03/13/2024 CBC WITH DIFFE RENTI AL/PL ATELE T monocytes 7 % not estab. normal Not Available [facility] ([facility]) [address] [place], [address], 03/17/2024 18:10:10 03/12/2003/13/2024 CBC WITH DIFFE RENTI AL/PL ATELE T eos 4 % not estab. normal Not Available [facility] ([facility]) [address] [facility], [place], [address], 03/17/2024 18:10:10 03/12/2003/13/2024 CBC WITH DIFFE RENTI AL/PL ATELE T basos 1 % not estab. normal Not Available [facility] ([facility]) [address] [facility], [place], [address], 03/17/2024 18:10:10 03/12/2003/13/2024 CBC WITH DIFFE RENTI AL/PL ATELE T immature cells PIER HAND HELPER Not Available [facility] ([facility]) [address] [facility], [place], [address], 03/17/2024 18:10:10 03/12/2003/13/2024 CBC WITH DIFFE RENTI AL/PL ATELE T neutrophils (absolute) 3.2 x10e3 /uL 1.4-7. 0 normal Not Available [facility] ([facility]) [address] [facility], [place], [address], 03/17/2024 18:10:10 03/12/2003/13/2024 CBC WITH DIFFE RENTI AL/PL ATELE T lymphs (absolute) 2.6 x10e3 /uL 0.7-3. 1 normal Not Available [facility] ([facility]) [address] [place], [address], 03/17/2024 18:10:10 03/12/2003/13/2024 CBC WITH DIFFE RENTI AL/PL ATELE T monocytes(ab solute) 0.5 x10e3 /uL 0.1-0. 9 normal Not Available [facility] ([facility]) [address] [place], [address], 03/17/2024 18:10:10 03/12/2003/13/2024 CBC WITH DIFFE RENTI AL/PL ATELE T eos (absolute) 0.3 x10e3 /uL 0.0-0. 4 normal Not Available [facility] ([facility]) [address] [facility], [place], [address], 03/17/2024 18:10:10 03/12/20 24 03/13/2024 CBC WITH DIFFE RENTI AL/PL ATELE T baso (absolute) 0.0 x10e3 /uL 0.0-0. 2 normal Not Available [facility] ([facility]) [address] [facility], [place], [address], 03/17/2024 18:10:10 03/12/2003/13/2024 CBC WITH DIFFE RENTI AL/PL ATELE T immature granulocytes 0 % not estab. Not Available [facility] ([facility]) [address] [facility], [place], [address], 03/17/2024 18:10:10 03/12/2003/13/2024 CBC WITH DIFFE RENTI AL/PL ATELE T immature grans (abs) 0.0 x10e3 /uL 0.0-0. 1 Not Available [facility] ([facility]) [address] [facility], [place], [address], 03/17/2024 18:10:10 03/12/20 24 03/13/2024 CBC WITH DIFFE RENTI AL/PL ATELE T NRBC PIER HAND HELPER Not Available [facility] ([facility]) [address] [facility], [place], [address], 03/17/2024 18:10:10 03/12/2003/13/2024 CBC WITH DIFFE RENTI AL/PL ATELE T hematology comments: PIER HAND HELPER Not Available [facility] ([facility]) [address] [facility], [place], [address], 03/17/2024 18:10:10 03/12/2003/12/2024 ALLER GENS, ZONE 1 class description Commen [...] >100. 00 Very High Not Available [facility] ([facility]) [address] [place], [address], 03/17/2024 18:10:10 03/12/20 24 03/17/2024 ALLER GENS, ZONE 1 N637-LdE D pteronyssinu s 0.11 kU/L class 0/I abnormal Not Available [facility] ([facility]) [address] [place], [address], 03/17/2024 18:10:10 03/12/20 24 03/17/2024 ALLER GENS, ZONE 1 P519-AtS D farinae <0.10 kU/L class 0 Not Available [facility] ([facility]) [address] [place], [address], 03/17/2024 18:10:10 03/12/20 24 03/17/2024 ALLER GENS, ZONE 1 A300-DpN CAT dander <0.10 kU/L class 0 Not Available [facility] ([facility]) [address] [place], [address], 03/17/2024 18:10:10 03/12/20 24 03/17/2024 ALLER GENS, ZONE 1 C791-EjD dog dander <0.10 kU/L class 0 Not Available [facility] ([facility]) [address] [place], [address], 03/17/2024 18:10:10 03/12/20 24 03/17/2024 ALLER GENS, ZONE 1 s784-HeS bermuda grass <0.10 kU/L class 0 Not Available [facility] ([facility]) [address] [facility], [place], [address], 03/17/2024 18:10:10 03/12/20 24 03/17/2024 ALLER GENS, ZONE 1 n385-FnX bluegrass, [place] <0.10 kU/L class 0 Not Available [facility] ([facility]) [address] [facility], [place], [address], 03/17/2024 18:10:10 03/12/2003/17/2024 ALLER GENS, ZONE 1 l985-XtD bahia grass <0.10 kU/L class 0 Not Available [facility] ([facility]) [address] [place], [address], 03/17/2024 18:10:10 03/12/20 24 03/17/2024 ALLER GENS, ZONE 1 P360-DpA cockroach, malawian <0.10 kU/L class 0 Not Available [facility] ([facility]) [address] [place], [address], 03/17/2024 18:10:10 03/12/20 24 03/17/2024 ALLER GENS, ZONE 1 J439-YxP penicillium chrysogen <0.10 kU/L class 0 Not Available [facility] ([facility]) [address] [place], [address], 03/17/2024 18:10:10 03/12/20 24 03/17/2024 ALLER GENS, ZONE 1 R043-MwR cladosporium herbarum <0.10 kU/L class 0 Not Available [facility] ([facility]) [address] [place], [address], 03/17/2024 18:10:10 03/12/20 24 03/17/2024 ALLER GENS, ZONE 1 J705-ShT aspergillus fumigatus <0.10 kU/L class 0 Not Available [facility] ([facility]) [address] [facility], [place], [address], 03/17/2024 18:10:10 03/12/2003/17/2024 ALLER GENS, ZONE 1 Z789-SoK mucor racemosus <0.10 kU/L class 0 Not Available [facility] ([facility]) [address] [facility], [place], [address], 03/17/2024 18:10:10 03/12/2003/17/2024 ALLER GENS, ZONE 1 D490-DlZ alternaria alternata <0.10 kU/L class 0 Not Available [facility] ([facility]) [address] [facility], [place], [address], 03/17/2024 18:10:10 03/12/2003/17/2024 ALLER GENS, ZONE 1 D924-HaM stemphylium herbarum <0.10 kU/L class 0 Not Available [facility] ([facility]) [address] [facility], [place], [address], 03/17/2024 18:10:10 03/12/2003/17/2024 ALLER GENS, ZONE 1 L175-PjQ common silver birch <0.10 kU/L class 0 Not Available [facility] ([facility]) [address] [facility], [place], [address], 03/17/2024 18:10:10 03/12/2003/17/2024 ALLER GENS, ZONE 1 A996-DtE oak, white <0.10 kU/L class 0 Not Available [facility] ([facility] [place] [facility]) [address] [facility], [place], [address], 03/17/2024 18:10:10 03/12/2003/17/2024 ALLER GENS, ZONE 1 E402-MwE elm, malawian <0.10 kU/L class 0 Not Available [facility] ([facility]) [address], [place], [address], 03/17/2024 18:10:10 03/12/20 24 03/17/2024 ALLER GENS, ZONE 1 U324-XtQ julieth, white <0.10 kU/L class 0 Not Available [facility] ([place] [facility]) [address], [place], [address], 03/17/2024 18:10:10 03/12/2003/17/2024 ALLER GENS, ZONE 1 W868-HfR maple/box elder <0.10 kU/L class 0 Not Available [facility] ([facility] [place] [facility]) [address], [place], [address], 03/17/2024 18:10:10 03/12/2003/17/2024 ALLER GENS, ZONE 1 V696-PvL hazelnut tree <0.10 kU/L class 0 Not Available [facility] ([place] [facility]) [address], [place], [address], 03/17/2024 18:10:10 03/12/20 24 03/17/2024 ALLER GENS, ZONE 1 O876-WlJ hickory, white <0.10 kU/L class 0 Not Available [facility] ([place] [facility]) [address], [place], [address], 03/17/2024 18:10:10 03/12/20 24 03/17/2024 ALLER GENS, ZONE 1 T985-QmS white mulberry <0.10 kU/L class 0 Not Available [facility] ([place] [facility]) [address], [place], [address], 03/17/2024 18:10:10 03/12/2003/17/2024 ALLER GENS, ZONE 1 Q382-GnN cedar, mountain <0.10 kU/L class 0 Not Available [facility] ([place] [facility]) [address] [facility], [place], [address], 03/17/2024 18:10:10 03/12/20 24 03/17/2024 ALLER GENS, ZONE 1 I060-FbD ragweed, short <0.10 kU/L class 0 Not Available [facility] ([place] [facility]) [address] [facility], [place], [address], 03/17/2024 18:10:10 03/12/20 24 03/17/2024 ALLER GENS, ZONE 1 U885-VlJ mugwort <0.10 kU/L class 0 Not Available [facility] ([place] [facility]) [address] [facility], [place], [address], 03/17/2024 18:10:10 03/12/20 24 03/17/2024 ALLER GENS, ZONE 1 N503-LsW plantain, indonesian <0.10 kU/L class 0 Not Available [facility] ([place] [facility]) [address] [facility], [place], [address], 03/17/2024 18:10:10 03/12/20 24 03/17/2024 ALLER GENS, ZONE 1 J521-IuP pigweed, common <0.10 kU/L class 0 Not Available [facility] ([place] [facility]) [address] [facility], [place], [address], 03/17/2024 18:10:10 03/12/20 24 03/17/2024 ALLER GENS, ZONE 1 F438-XoR sheep sorrel <0.10 kU/L class 0 Not Available [facility] ([facility] [place] [facility]) [address] [facility], [place], [address], 03/17/2024 18:10:10 03/12/20 24 03/17/2024 ALLER GENS, ZONE 1 C884-MwY nettle <0.10 kU/L class 0 Not Available [facility] ([facility] [place] [facility]) [address] [facility], [place], [address], 03/17/2024 18:10:10 03/12/20 24 03/17/2024 IMMUN OGLOB ULIN E, TOTAL immunoglobul in E, total 41 IU/mL 6-495 Not Available [facility]) [address] [facility], [place], [address], 03/17/2024 18:10:11 05/16/20 24 11/07/2023 CT, sinus es, w/o contr ast No observ ation record ed. [email or web address] Not Available 17:07:00 Result Notes None recorded. Problems Name Problem SNOMED Code Status Onset Date Resolution Date Notes Provider Name and Address Organization Details Recorded Time Mixed conductiv e and sensorine ural hearing loss of left ear 47335906328 107 Active 2017 Mixed conductiv e and sensorine ural hearing loss, unilatera l, left ear with restricte d hearing on the contralat eral side; Note: Date Diagnosed : 10/01/2017 11:20 AM (H90.A32) Not Available [facility] 4 03:08:07 Sensorine ural hearing loss in right ear 92333581736 100 Active 2017 Sensorine ural hearing loss, unilatera l, right ear, with restricte d hearing on the contralat eral side; Note: Date Diagnosed : 10/01/2017 11:20 AM (H90.A21) Not Available [facility] 4 03:08:06 Bilateral tinnitus 62441946837 02 Active 2017 Tinnitus, bilateral ; Note: Date Diagnosed : 10/01/2017 11:47 AM (H93.13) Not Available [facility] 4 03:08:06 Bilateral temporoma ndibular joint pain 82809919397 909258 Active 2018 Arthralgi a of bilateral temporoma ndibular joint; Note: Date Diagnosed : 02/24/2019 3:09 PM (M26.623) Not Available [facility] 4 03:08:07 Otalgia of right ear 3936794872 Active 2018 Otalgia, right ear; Note: Date Diagnosed : 02/24/2019 3:09 PM (H92.01) Not Available [facility] 4 03:08:06 Allergic rhinitis 91035305 Active 2023 DANIELITO STRICKLAND MD [address] [facility] [place] [facility], [place], [address] , [facility] - [facility] 4 14:10:41 Chronic salpingit is of bilateral eustachia n tubes 50003772851 16705 Active 2023 DANIELITO STRICKLAND MD [address] [facility],[place] [facility], [place], [address] , [facility] - [facility] 4 14:11:10 Chronic non-infec tive otitis externa 593886651 Active 2023 DANIELITO STRICKLAND MD [address] [place] [address],[place] [address], [place], [address] , [facility] 4 14:12:38 Problem Notes None recorded. Procedures Surgical History Date Name Laterality Status Provider Name and Address Organization Details Recorded Time revision of tympanoplasty completed DANIELITO PHILIPPE MD [address] [facility],[place] [address], [place], [address], [facility] 03/12/2024 14:05:24 Imaging Results None recorded. Procedure Notes None recorded. Medical Equipment None Reported. Allergies No known drug allergies Medications Name Sig Start Date Stop Date Status Note LastModified by Organization Details LastModified Time celecoxib 200 mg capsule TAKE 1 CAPSULE BY MOUTH TWICE DAILY STOP Etodolac active Not Available Not Available No t Available Qvar 80 mcg/actua tion Metered Aerosol oral inhaler 03/12 completed Medicati on ID: [id number] D uration Value: 30 Brand Name: Tessa [place] Method: E-Prescr ibed Sub s Allowed: subs [...] mg tablet 03/12 completed Medicati on ID: [id number] D uration Value: 30 Brand Name: famotidi ne Send Method: E-Prescr ibed Sub s Allowed: subs OK Speci al Instruct ion: TAKE 1 TABLET AT BEDTIME Medicati onGeneri cName: famotidi ne Not Available Not Available Not Available prednison e 20 mg tablet 03/12 completed Medicati on ID: [id number] D uration Value: 5 Brand Name: predniso ne Send Method: E-Prescr ibed Sub s Allowed: subs OK Medic ationGen ericName : predniso ne Not Available Not Available Not Available Seroquel 25 mg tablet 03/12 completed Medicati on ID: [id number] B rand Name: Seroquel Send Method: E-Prescr [...] mg tablet 03/12 completed Medicati on ID: [id number] D uration Value: 30 Brand Name: trazodon [...] by mouth 03/12 completed Medicati on ID: [id number] D uration Value: 7 Brand Name: doxycycl [...] Available Not Available Benadryl 25 mg capsule 05/14/ 2018 10/23 /2024 completed Medicati on ID: [id number] B rand Name: Benadryl Send Method: E-Prescr ibed Sub s Allowed: subs ELIZABETH Dowell al Instruct ion: take 2 caps 2 [...] n capsules 03/12 completed Medicati on ID: [id number] D uration Value: 30 Brand Name: Spiriva [...] mg tablet 03/12 completed Medicati on ID: [id number] D uration Value: 28 Brand Name: Chantix Send Method: E-Prescr ibed Sub s Allowed: subs ELIZABETH Dowell al Instruct ion: TAKE (1) TABLET TWICE DAILY Me dication GenericN inge: Chantix Not Available Not Available Not Available fluocinol one acetonide oil 0.01 % ear drops PLACE 5 DROPS INTO THE AFFECTED EAR(S) TWICE A WEEK 2024 active Not Available Not Available Not Avai lable cholecalc iferol (vitamin D3) 50 mcg (2,000 [...] Details Last Updated DateTime 03/12/2024 157.48 cm 16531.52 g Myra Welsh [place] - [facility] 03/12/2024 13:42:44 Social History None recorded. Functional [...] Diagnosis SNOMED-CT Code Diagnosis ICD10 Code Diagnosis IMO Codes Diagnosis Note [id number] DANIELITO STRICKLAND MD [facility] [address] [address] 03/12/2024 13:23:35 03/12/2024 14:15:07 Allergic rhinitis 68095333 J30.89 Chronic sa lpingitis of bilateral eustachian tubes 2159186678 189831 H68.023 Chronic no n-infective otitis externa 420306169 H60.61 Health Concerns Section Related Observation LastModified by Organization Detai ls LastModified Time None Recorded Concern Status LastModified by Organization Details LastModified Time None Recorded Advance Directives Directive None Recorded Payers Insurance Date Sequence Insurance Name Policy Number Policy Barnes Covered Member ID Barnes Member ID Guarantor Name 03/12/2024 1 [facility] - DOS ON OR AFTER 2022 - MEDICARE ADVANTAGE [place] (MEDICARE REPLACEMENT/ADV ANTAGE - PPO) Lizzie Girard [id number] Lizzie Girard Notes Date Note Type Note Provider Name and Address Organization Details Recorded Time 03/12/2024 text/html Patient with a longstanding history of nasal congestion, allergy and chronic ear disease. Multiple prior ear surgeries with Dr. Rose in the 70s and 80s. She notes chronic left greater than right nasal congestion. CT at [facility] was performed in October which suggested possible anterior polyp due to thickening of the nasal septum. She has been on triamcinolone and Astelin without improvementShe has allergy testing pending for May.snot= 79Nose= 100 DANIELITO PHILIPPE MD [address] [place] [address],[place] [address], [place], [address], [facility] - [facility] 03/12/2024 14:14:16 OBGyn Episode No OBEpisode recorded.
== END 2025-03-06 15:38 | disposition home or self-care (01) ==
LOC: HO.CT 15:37
PROVIDERS: PCP Registered Nurse; Visit Provider Physician Assistant Medical
DX: Z12.2 Encounter for screening for malignant neoplasm of respiratory organs (principal); Z87.891 Personal history of nicotine dependence
CPT/HCPCS: 71271

== ENCOUNTER → 2025-03-06 15:39 | Outpatient (BNV) | payer OTHER, SELFPAY | PROVIDERS: PCP Registered Nurse; Visit Provider Radiology Diagnostic Radiology | DX: F17.210 Nicotine dependence, cigarettes, uncomplicated (principal) | CPT/HCPCS: 71271 ==

== ENCOUNTER 2025-03-09 08:42 | Day surgery (SDC) | payer OTHER, SELFPAY ==
--- NOTE | 2025-03-09 08:59 | MHC.SHP ---
Pre-Procedural Eval Section A - 24 Hr Update-Section A only Date of Service: 03/09/25 The patient is an INPATIENT: No Changes since office visit: No Cold of Flu in the past 2 weeks, No New Medical Problems, No Changes in Medication and No Patient answered all questions The patient has been examined within 24 hours of the surgical procedure. The History & Physical has been completed within 30 days and I have reviewed it.: Yes Section B - Complete if H&P > 30 days Chief Complaint: Radial styloid tenosynovitis [de Quervain] Allergies: Allergies Allergy/AdvReac Type Severity Reaction Status Date / Time No Known Allergies Allergy Verified 12/23/24 10:06 Plan Diagnosis/Plan: Unchanged I have reviewed the history and physical and performed a pertinent physical examination on my patient. No changes have occurred unless specified. Time Spent With Patient Time: Total time managing care of this patient today ____ minutes.
--- NOTE | 2025-03-09 09:00 | W.PM.OPN ---
Operative Note Operative Note Date of Service: 03/09/25 Narrative: Operative Note Preop diagnosis: 1. Right DeQuervain's tenosynovitis Postop diagnosis: 1. Right DeQuervain's tenosynovitis Procedure: 1. Right 1st dorsal compartment release Surgeon: Caro Ya MD Vice President Mission Integration: Roque BATISTA Anesthesia: local block using 1% lidocaine with epinephrine Findings: Thickened 1st dorsal compartment. EPB found in its separate compartment EBL: Less than 5 mL Tourniquet time: None Specimens: None Complications: None Disposition: Brought to recovery room in stable condition Plan: Follow-up for 7-10 days for wound check and suture removal Indications: The patient is 59 years old, with right DeQuervain's tenosynovitis that has been unresponsive to nonoperative management. The risks and benefits of operative treatment including but not limited to risk of damage to blood vessels, nerves, tendons, infection, persistent pain, persistent symptoms, recurrence or possible need for additional surgery were discussed with the patient and the patient wishes to proceed with surgery. Procedure: Once consent was obtained a local block was performed in the preop area using a combination of 1% lidocaine with epinephrine. The patient was then brought back to the operating suite and placed on the operative table in supine position. The right upper extremity was prepped and draped in a standard surgical fashion. Once assured that we had a good block, a 1.5 cm longitudinal incision was made centered over the 1st dorsal compartment as it passed over the radial styloid of the right wrist. The incision was made through the skin to the subcutaneous tissues using a #15 blade. Careful dissection was made down to the level of the 1st dorsal compartment using tenotomy scissors, with care being taken to protect the nearby branches of the superficial radial nerve. Once the 1st dorsal compartment was exposed, A longitudinal incision was made in the 1st dorsal compartment 1st using a #15 blade, then using tenotomy scissors under direct visualization. The 1st dorsal compartment was noted to be thickened, and the extensor pollicis brevis tendon was noted to be in a separate compartment. We also released the EPB tendon longitudinally under direct visualization.. Following our release, we saw smooth gliding abductor pollicis longus and extensor pollicis brevis tendons. Once satisfied with our 1st dorsal compartment release the wound was copiously irrigated with normal saline and hemostasis was obtained with a brief period of local pressure. The subcutaneous layer was closed with some 4-0 Vicryl suture, and the skin edges were reapproximated with some 5.0 nylon suture material. A sterile dressing was applied. The patient appears to have tolerated the procedure well and with no complications. All digits were well vascularized at the conclusion of the case.
[2025-03-09 10:08] VITALS: BP 133/69; PULSE 76; RESP 16; TEMP 36.1; O2SAT 94
== END 2025-03-09 10:15 | disposition home or self-care (01) ==
PROVIDERS: PCP Registered Nurse; Visit Provider Orthopaedic Surgery
PROC: (CPT 25000; principal; 2025-03-09 10:30)
DX: M65.4 Radial styloid tenosynovitis [de Quervain] (principal); M79.641 Pain in right hand; M18.11 Unilateral primary osteoarthritis of first carpometacarpal joint, right hand; M32.9 Systemic lupus erythematosus, unspecified; M85.80 Other specified disorders of bone density and structure, unspecified site; Z98.890 Other specified postprocedural states; Z87.891 Personal history of nicotine dependence
CPT/HCPCS: 25000; J0165; J2003

== ENCOUNTER → 2025-03-09 08:42 | Outpatient (BNV) | payer OTHER, SELFPAY | PROVIDERS: PCP Registered Nurse; Visit Provider Orthopaedic Surgery | DX: M65.4 Radial styloid tenosynovitis [de Quervain] (principal) | CPT/HCPCS: 25000 ==

== ENCOUNTER 2025-03-17 13:21 | Outpatient (REF) | payer OTHER, SELFPAY ==
[2025-03-17 13:32] LABS: MANUAL DIFF FLAG NO
[2025-03-17 14:22] LABS: Hematocrit 39.9 % (37.0-47.0); Hemoglobin 12.5 g/dl (12.0-16.0); Imm Gran Abs Auto 0.02 X10*3/uL (0.00-0.03); Imm Gran Pct Auto 0.3 % (0.0-0.4); Lymphocytes Absolute Auto 2.0 X10*3/uL (1.2-4.9); Mean Corpuscular HGB Conc 31.3 g/dl (31.0-35.0); Mean Corpuscular Hemoglobin 26.0 pg (27.0-33.0); Mean Corpuscular Volume 83.1 fL (80.0-98.0); NRBC Abs Auto 0.000 X10*3/uL (0.0-0.012); NRBC Pct Auto 0.0 /100WBC (0.0-0.2); Platelet Count 253 X10*3/uL (160-400); Red Blood Count 4.80 X10*6/uL (4.20-5.50); White Blood Count 7.4 X10*3/uL (4.8-10.8)
[2025-03-17 14:51] LABS: Alanine Aminotransferase 23 U/L (0-31); Albumin Level 4.4 g/dL (3.5-5.0); Aspartate Amino Transferase 22 U/L (5-31); Estimated Glomerular Filt Rate > 60
--- OUTSIDE RECORDS SUMMARY | 2025-03-17 17:10 | XMS_ITS | Data Portability ---
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 Multiple prior ear surgeries with Dr. Rose in the 70s and 80s. She notes chronic left greater than right nasal congestion. CT at [facility] was performed in October which suggested possible [...] Go To The Location Of Their Choice, [address] 18:10:10 nettle IgE Ab, serum 2023 [facility] (Centralized Electronic Ordering - All Locations), Patient Can Go To The Location Of Their Choice, [id number] 4 13:04:55 bahia grass IgE Ab, quanti tative , serum 2023 [facility] ([facility] Ordering - All Locations), Patient Can Go To The Location Of Their Choice, [id number] 4 13:04:55 bermud a grass ige, serum 2023 [facility] ([facility]ized [facility] Ordering - All Locations), Patient Can Go To The Location Of Their Choice, [id number] 4 13:04:55 englis h planta in ige, serum 2023 [facility] ([facility] Ordering - All Locations), Patient Can Go To The Location Of Their Choice, [address] 4 13:04:55 ige, total, serum 2023 [facility] (Centralized Electronic Ordering - All Locations), Patient Can Go To The Location Of Their Choice, [id number] 4 18:10:11 CBC w/ auto diff 2023 [facility] (Centralized Electronic Ordering - All Locations), Patient Can Go To The Location Of Their Choice, [id number] 4 18:10:10 Referral None record ed. Procedures None record ed. Surgeries None record ed. Imaging None record ed. Medication Orders fluoci nolone aceton alexandro oil 0.01 % ear drops 2023 [facility], [address], [place], [id number], 5 16:36:19 Patient TargetsNo targets recorded. Patient InstructionsNo instructions recorded. Reason for Referral None Reported. Results Created Date Observation Date Name Description Value Unit Range Abnormal Flag Note LastModifiedBy Organization Detail LastModifiedTime 03/12/20 24 03/13/2024 CBC WITH DIFFE RENTI AL/PL ATELE T WBC 6.7 x10e3 /uL 3.4-10 .8 normal Not Available [facility] ([facility]) [address] [place], [address], 03/17/2024 18:10:10 03/12/2003/13/2024 CBC WITH DIFFE RENTI AL/PL ATELE T RBC 5.04 x10e6 /uL 3.77-5 .28 normal Not Available [facility] ([facility]) [address] [place], [address], 03/17/2024 18:10:10 03/12/2003/13/2024 CBC WITH DIFFE RENTI AL/PL ATELE T hemoglobin 13.1 g/dL 11.1-1 5.9 normal Not Available [facility] ([facility]) [address] [place], [address], 03/17/2024 18:10:10 03/12/2003/13/2024 CBC WITH DIFFE RENTI AL/PL ATELE T hematocrit 41.3 % 34.0-4 6.6 normal Not Available [facility] ([facility]) [address] [place], [address], 03/17/2024 18:10:10 03/12/2003/13/2024 CBC WITH DIFFE RENTI AL/PL ATELE T MCV 82 fL 79-97 normal Not Available [facility] ([facility]) [address] [place], [address], 03/17/2024 18:10:10 03/12/2003/13/2024 CBC WITH DIFFE RENTI AL/PL ATELE T MCH 26.0 pg 26.6-3 3.0 below low normal Not Available [facility] ([facility]) [address] [place], [address], 03/17/2024 18:10:10 03/12/2003/13/2024 CBC WITH DIFFE RENTI AL/PL ATELE T MCHC 31.7 g/dL 31.5-3 5.7 normal Not Available [facility] ([facility]) [address] [facility], [place], [address], 03/17/2024 18:10:10 03/12/20 24 03/13/2024 CBC WITH DIFFE RENTI AL/PL ATELE T RDW 13.7 % 11.7-1 5.4 Not Available [facility] ([facility]) [address] [facility], [place], [address], 03/17/2024 18:10:10 03/12/2003/13/2024 CBC WITH DIFFE RENTI AL/PL ATELE T platelets 227 x10e3 /uL 150-45 0 normal Not Available [facility] ([facility]) [address] [facility], [place], [address], 03/17/2024 18:10:10 03/12/2003/13/2024 CBC WITH DIFFE RENTI AL/PL ATELE T neutrophils 49 % not estab. normal Not Available [facility] ([facility]) [address] [place], [address], 03/17/2024 18:10:10 03/12/20 24 03/13/2024 CBC WITH DIFFE RENTI AL/PL ATELE T lymphs 39 % not estab. normal Not Available [facility] ([facility]) [address] [facility], [place], [address], 03/17/2024 18:10:10 03/12/20 24 03/13/2024 CBC WITH DIFFE RENTI AL/PL ATELE T monocytes 7 % not estab. normal Not Available [facility] ([facility]) [address] [place], [address], 03/17/2024 18:10:10 03/12/2003/13/2024 CBC WITH DIFFE RENTI AL/PL ATELE T eos 4 % not estab. normal Not Available [facility] ([facility]) [address] [facility], [place], [address], 03/17/2024 18:10:10 03/12/2003/13/2024 CBC WITH DIFFE RENTI AL/PL ATELE T basos 1 % not estab. normal Not Available [facility] ([facility]) [address] [facility], [place], [address], 03/17/2024 18:10:10 03/12/2003/13/2024 CBC WITH DIFFE RENTI AL/PL ATELE T immature cells BACKBREAKER Not Available [facility] ([facility]) [address] [facility], [place], [address], 03/17/2024 18:10:10 03/12/2003/13/2024 CBC WITH DIFFE RENTI AL/PL ATELE T neutrophils (absolute) 3.2 x10e3 /uL 1.4-7. 0 normal Not Available [facility] ([facility]) [address] [facility], [place], [address], 03/17/2024 18:10:10 03/12/2003/13/2024 CBC WITH DIFFE RENTI AL/PL ATELE T lymphs (absolute) 2.6 x10e3 /uL 0.7-3. 1 normal Not Available [facility] ([facility]) [address] [place], [address], 03/17/2024 18:10:10 03/12/2003/13/2024 CBC WITH DIFFE RENTI AL/PL ATELE T monocytes(ab solute) 0.5 x10e3 /uL 0.1-0. 9 normal Not Available [facility] ([facility]) [address] [place], [address], 03/17/2024 18:10:10 03/12/2003/13/2024 CBC WITH DIFFE RENTI AL/PL ATELE T eos (absolute) 0.3 x10e3 /uL 0.0-0. 4 normal Not Available [facility] ([facility]) [address] [facility], [place], [address], 03/17/2024 18:10:10 03/12/20 24 03/13/2024 CBC WITH DIFFE RENTI AL/PL ATELE T baso (absolute) 0.0 x10e3 /uL 0.0-0. 2 normal Not Available [facility] ([facility]) [address] [facility], [place], [address], 03/17/2024 18:10:10 03/12/2003/13/2024 CBC WITH DIFFE RENTI AL/PL ATELE T immature granulocytes 0 % not estab. Not Available [facility] ([facility]) [address] [facility], [place], [address], 03/17/2024 18:10:10 03/12/2003/13/2024 CBC WITH DIFFE RENTI AL/PL ATELE T immature grans (abs) 0.0 x10e3 /uL 0.0-0. 1 Not Available [facility] ([facility]) [address] [facility], [place], [address], 03/17/2024 18:10:10 03/12/20 24 03/13/2024 CBC WITH DIFFE RENTI AL/PL ATELE T NRBC BACKBREAKER Not Available [facility] ([facility]) [address] [facility], [place], [address], 03/17/2024 18:10:10 03/12/2003/13/2024 CBC WITH DIFFE RENTI AL/PL ATELE T hematology comments: BACKBREAKER Not Available [facility] ([facility]) [address] [facility], [place], [address], 03/17/2024 18:10:10 03/12/2003/12/2024 ALLER GENS, ZONE 1 [...] >100. 00 Very High Not Available [facility] ([facility]) [address] [place], [address], 03/17/2024 18:10:10 03/12/20 24 03/17/2024 ALLER GENS, ZONE 1 V762-ZxT D pteronyssinu s 0.11 kU/L class 0/I abnormal Not Available [facility] ([facility]) [address] [place], [address], 03/17/2024 18:10:10 03/12/20 24 03/17/2024 ALLER GENS, ZONE 1 V345-DtD D farinae <0.10 kU/L class 0 Not Available [facility] ([facility]) [address] [place], [address], 03/17/2024 18:10:10 03/12/20 24 03/17/2024 ALLER GENS, ZONE 1 F030-WeI CAT dander <0.10 kU/L class 0 Not Available [facility] ([facility]) [address] [place], [address], 03/17/2024 18:10:10 03/12/20 24 03/17/2024 ALLER GENS, ZONE 1 V427-ItM dog dander <0.10 kU/L class 0 Not Available [facility] ([facility]) [address] [place], [address], 03/17/2024 18:10:10 03/12/20 24 03/17/2024 ALLER GENS, ZONE 1 o794-WtH bermuda grass <0.10 kU/L class 0 Not Available [facility] ([facility]) [address] [facility], [place], [address], 03/17/2024 18:10:10 03/12/20 24 03/17/2024 ALLER GENS, ZONE 1 s436-SsE bluegrass, [place] <0.10 kU/L class 0 Not Available [facility] ([facility]) [address] [facility], [place], [address], 03/17/2024 18:10:10 03/12/2003/17/2024 ALLER GENS, ZONE 1 q340-JsD bahia grass <0.10 kU/L class 0 Not Available [facility] ([facility]) [address] [place], [address], 03/17/2024 18:10:10 03/12/20 24 03/17/2024 ALLER GENS, ZONE 1 O486-HgY cockroach, hong konger <0.10 kU/L class 0 Not Available [facility] ([facility]) [address] [place], [address], 03/17/2024 18:10:10 03/12/20 24 03/17/2024 ALLER GENS, ZONE 1 I896-RmR penicillium chrysogen <0.10 kU/L class 0 Not Available [facility] ([facility]) [address] [place], [address], 03/17/2024 18:10:10 03/12/20 24 03/17/2024 ALLER GENS, ZONE 1 S694-OzU cladosporium herbarum <0.10 kU/L class 0 Not Available [facility] ([facility]) [address] [place], [address], 03/17/2024 18:10:10 03/12/20 24 03/17/2024 ALLER GENS, ZONE 1 Q310-CmF aspergillus fumigatus <0.10 kU/L class 0 Not Available [facility] ([facility]) [address] [facility], [place], [address], 03/17/2024 18:10:10 03/12/2003/17/2024 ALLER GENS, ZONE 1 G089-RnA mucor racemosus <0.10 kU/L class 0 Not Available [facility] ([facility]) [address] [facility], [place], [address], 03/17/2024 18:10:10 03/12/2003/17/2024 ALLER GENS, ZONE 1 A297-JmH alternaria alternata <0.10 kU/L class 0 Not Available [facility] ([facility]) [address] [facility], [place], [address], 03/17/2024 18:10:10 03/12/2003/17/2024 ALLER GENS, ZONE 1 D997-IfY stemphylium herbarum <0.10 kU/L class 0 Not Available [facility] ([facility]) [address] [facility], [place], [address], 03/17/2024 18:10:10 03/12/2003/17/2024 ALLER GENS, ZONE 1 P721-ThL common silver birch <0.10 kU/L class 0 Not Available [facility] ([facility]) [address] [facility], [place], [address], 03/17/2024 18:10:10 03/12/2003/17/2024 ALLER GENS, ZONE 1 W183-SqX oak, white <0.10 kU/L class 0 Not Available [facility] ([facility] [facility]) [address] [facility], [place], [address], 03/17/2024 18:10:10 03/12/2003/17/2024 ALLER GENS, ZONE 1 Q528-RaP elm, hong konger <0.10 kU/L class 0 Not Available [facility] ([facility] [facility]) [address], [place], [address], 03/17/2024 18:10:10 03/12/20 24 03/17/2024 ALLER GENS, ZONE 1 C876-XeA julieth, white <0.10 kU/L class 0 Not Available [facility] ([place] [facility]) [address], [place], [address], 03/17/2024 18:10:10 03/12/2003/17/2024 ALLER GENS, ZONE 1 R301-QiX maple/box elder <0.10 kU/L class 0 Not Available [facility] ([facility]) [address], [place], [address], 03/17/2024 18:10:10 03/12/2003/17/2024 ALLER GENS, ZONE 1 L460-EdL hazelnut tree <0.10 kU/L class 0 Not Available [facility] ([facility] [facility]) [address], [place], [address], 03/17/2024 18:10:10 03/12/20 24 03/17/2024 ALLER GENS, ZONE 1 F683-GxW hickory, white <0.10 kU/L class 0 Not Available [facility] ([place] [facility]) [address], [place], [address], 03/17/2024 18:10:10 03/12/20 24 03/17/2024 ALLER GENS, ZONE 1 G461-FoL white mulberry <0.10 kU/L class 0 Not Available [facility] ([facility] [facility]) [address], [place], [address], 03/17/2024 18:10:10 03/12/2003/17/2024 ALLER GENS, ZONE 1 C090-EqB cedar, mountain <0.10 kU/L class 0 Not Available [facility] ([facility] [facility]) [address] [facility], [place], [address], 03/17/2024 18:10:10 03/12/20 24 03/17/2024 ALLER GENS, ZONE 1 M267-OdB ragweed, short <0.10 kU/L class 0 Not Available [facility] ([place] [facility]) [address] [facility], [place], [address], 03/17/2024 18:10:10 03/12/20 24 03/17/2024 ALLER GENS, ZONE 1 I074-SbS mugwort <0.10 kU/L class 0 Not Available [facility] ([place] [facility]) [address] [facility], [place], [address], 03/17/2024 18:10:10 03/12/20 24 03/17/2024 ALLER GENS, ZONE 1 S432-WqO plantain, lithuanian <0.10 kU/L class 0 Not Available [facility] ([place] [facility]) [address] [facility], [place], [address], 03/17/2024 18:10:10 03/12/20 24 03/17/2024 ALLER GENS, ZONE 1 L393-XrZ pigweed, common <0.10 kU/L class 0 Not Available [facility] ([facility] [facility]) [address] [facility], [place], [address], 03/17/2024 18:10:10 03/12/20 24 03/17/2024 ALLER GENS, ZONE 1 V098-BzA sheep sorrel <0.10 kU/L class 0 Not Available [facility] ([facility]) [address] [facility], [place], [address], 03/17/2024 18:10:10 03/12/20 24 03/17/2024 ALLER GENS, ZONE 1 C909-InB nettle <0.10 kU/L class 0 Not Available [facility] ([facility]) [address] [facility], [place], [address], 03/17/2024 18:10:10 03/12/20 24 03/17/2024 IMMUN OGLOB ULIN E, TOTAL immunoglobul in E, total 41 IU/mL 6-495 Not Available [facility] ([facility]) [address] [facility], [place], [address], 03/17/2024 18:10:11 05/16/20 24 11/07/2023 CT, sinus es, w/o contr ast No observ ation record ed. [email or web address] Not Available 17:07:00 Result Notes None recorded. Problems Name Problem SNOMED Code Status Onset Date Resolution Date Notes Provider Name and Address Organization Details Recorded Time Mixed conductiv e and sensorine ural hearing loss of left ear 93541979569 107 Active 2017 Mixed conductiv e and sensorine ural hearing loss, unilatera l, left ear with restricte d hearing on the contralat eral side; Note: Date Diagnosed : 10/01/2017 11:20 AM (H90.A32) Not Available [facility] 4 03:08:07 Sensorine ural hearing loss in right ear 85019759812 100 Active 2017 Sensorine ural hearing loss, unilatera l, right ear, with restricte d hearing on the contralat eral side; Note: Date Diagnosed : 10/01/2017 11:20 AM (H90.A21) Not Available [facility] 4 03:08:06 Bilateral tinnitus 99669457429 02 Active 2017 Tinnitus, bilateral ; Note: Date Diagnosed : 10/01/2017 11:47 AM (H93.13) Not Available [facility] 4 03:08:06 Bilateral temporoma ndibular joint pain 12053042810 734899 Active 2018 Arthralgi a of bilateral temporoma ndibular joint; Note: Date Diagnosed : 02/24/2019 3:09 PM (M26.623) Not Available [facility] 4 03:08:07 Otalgia of right ear 2674978825 Active 2018 Otalgia, right ear; Note: Date Diagnosed : 02/24/2019 3:09 PM (H92.01) Not Available [facility] 4 03:08:06 Allergic rhinitis 40866664 Active 2023 DANIELITO STRICKLAND MD [address] [facility] [place] [facility], [place], [address] , [facility] - [facility] 4 14:10:41 Chronic salpingit is of bilateral eustachia n tubes 91664452542 94788 Active 2023 DANIELITO STRICKLAND MD [address] [facility],[place] [facility], [place], [address] , [facility] - [facility] 4 14:11:10 Chronic non-infec tive otitis externa 770309396 Active 2023 DANIELITO STRICKLAND MD [address] [place] [address],[place] [address], [place], [address] , [facility] 4 14:12:38 Problem Notes None recorded. Procedures Surgical History Date Name Laterality Status Provider Name and Address Organization Details Recorded Time revision of tympanoplasty completed DANIELITO PHILIPPE MD [address] [facility],[place] [address], [place], [address], [facility] 03/12/2024 14:05:24 Imaging Results None recorded. [...] oral inhaler 03/12 completed Medicati on ID: [id number] D uration Value: 30 Brand Name: Tessa [...] mg tablet 03/12 completed Medicati on ID: [id number] D uration Value: 30 Brand Name: famotidi ne Send Method: E-Prescr ibed Sub s Allowed: subs OK Speci al Instruct ion: TAKE 1 TABLET AT BEDTIME Medicati onGeneri cName: famotidi ne Not Available Not Available Not Available prednison e 20 mg tablet 03/12 completed Medicati on ID: [id number] D uration Value: 5 Brand Name: predniso ne Send Method: E-Prescr ibed Sub s Allowed: subs OK Medic ationGen ericName : predniso ne Not Available Not Available Not Available Seroquel 25 mg tablet 03/12 completed Medicati on ID: [id number] B rand Name: Seroquel Send Method: E-Prescr [...] mg tablet 03/12 completed Medicati on ID: [id number] D uration Value: 30 Brand Name: trazodon [...] by mouth 03/12 completed Medicati on ID: [id number] D uration Value: 7 Brand Name: doxycycl [...] 2018 10/23 /2024 completed Medicati on ID: [id number] B rand Name: Benadryl Send Method: E-Prescr [...] n capsules 03/12 completed Medicati on ID: [id number] D uration Value: 30 Brand Name: Spiriva [...] mg tablet 03/12 completed Medicati on ID: [id number] D uration Value: 28 Brand Name: Chantix [...] Details Last Updated DateTime 03/12/2024 157.48 cm 03590.52 g Myra Welsh [place] - [facility] 03/12/2024 13:42:44 Social History None recorded. Functional [...] ICD10 Code Diagnosis IMO Codes Diagnosis Note [id number] DANIELITO STRICKLAND MD [facility] [address] [address] 03/12/2024 13:23:35 03/12/2024 14:15:07 Allergic rhinitis 18986163 J30.89 Chronic sa lpingitis of bilateral eustachian tubes 5343238101 011354 H68.023 Chronic no n-infective otitis externa 107618538 H60.61 Health Concerns Section Related Observation LastModified by Organization Detai ls LastModified Time None Recorded Concern Status LastModified by Organization Details LastModified Time None Recorded Advance Directives Directive None Recorded Payers Insurance Date Sequence Insurance Name Policy Number Policy Barnes Covered Member ID Barnes Member ID Guarantor Name 03/12/2024 1 [facility] - DOS ON OR AFTER 2022 - MEDICARE ADVANTAGE [place] (MEDICARE REPLACEMENT/ADV ANTAGE - PPO) Lizzie Girard [id number] Lizzie Girard Notes Date Note Type Note Provider Name and Address Organization Details Recorded Time 03/12/2024 text/html Patient with a longstanding history of nasal congestion, allergy and chronic ear disease. Multiple prior ear surgeries with Dr. Rose in the 70s and 80s. She notes chronic left greater than right nasal congestion. CT at [facility] was performed in October which suggested possible anterior polyp due to thickening of the nasal septum. She has been on triamcinolone and Astelin without improvementShe has allergy testing pending for May.snot= 79Nose= 100 DANIELITO PHILIPPE MD [address] [place] [address],[place] [address], [place], [address], [facility] - [facility] 03/12/2024 14:14:16 OBGyn Episode No OBEpisode recorded.
== END 2025-03-17 13:22 | disposition home or self-care (01) ==
LOC: HO.LAB 13:21
PROVIDERS: PCP Registered Nurse; Visit Provider Internal Medicine Rheumatology
DX: M06.09 Rheumatoid arthritis without rheumatoid factor, multiple sites (principal); Z79.899 Other long term (current) drug therapy
CPT/HCPCS: 36415; 82040; 82565; 84450; 84460; 85025; 85652; 86140

== ENCOUNTER 2025-03-20 13:03 | Outpatient (AMB) | payer OTHER, SELFPAY ==
--- NOTE | 2025-03-20 13:27 | MHC.OFFVIS ---
Vital Signs 03/20/25 13:28 Height 5 ft 3 in Weight 167 lb BMI 29.6 Intake Visit Reasons: PO RT FCD Release 03/09/25 Intake Note: Lizzie is a 59 year old left hand dominant female who presents today for a Post-Operative Visit status post Right First Dorsal Compartment Release performed by Dr. Ya on 03/09/25. Patient complains of pain on the radial aspect of the right thumb. She denies numbness, tingling, finger locking. Sutures removed and steri strips applied. Allergies No Known Allergies Allergy (Verified 03/20/25 13:29) HPI HPI PO RT FCD Release 03/09/25: Details: Lizzie is a 59 year old left hand dominant female who presents today for a Post-Operative Visit status post Right First Dorsal Compartment Release performed by Dr. Ya on 03/09/25. Patient complains of pain on the radial aspect of the right thumb. She denies numbness, tingling, finger locking. Sutures removed and steri strips applied. [facility] Medical History Fibroid Personal history of nicotine dependence Carpal tunnel syndrome on both sides Carpal tunnel syndrome of left wrist Wrist pain Osteopenia Fracture of distal end of left fibula (~11/2021) Lupus Osteoarthritis History of back pain Asthma Vertigo Hearing deficit Surgical History Hx of shoulder surgery History of colonoscopy (~2019) History of tonsillectomy (~1991) History of nasal septoplasty (~1998) History of ear surgery (~1999) Family History Father Heart problem Heart attack Mother HTN (hypertension) Maternal Aunt Breast cancer Sister Breast cancer Social History Household Members Other:: son Housing: House Alcohol intake: current Alcohol intake frequency: does not drink Patient Tobacco Use Status: Former Tobacco user Years Smoked: (onset 18yo, 1ppd x 39yrs, now 1/2ppd - 35+PYH - quit 11/06/22) Second Hand Smoke Exposure: No Current occupational status: disabled Current occupation: left hand dominant Sexual orientation: Straight/Heterosexual Gender identity: Female Review of Systems Const All systems reviewed & are unremarkable except as noted in HPI and below Physical Exam Vital Signs: BMI result Body Mass Index 29.6 Extrem Other: Patient is alert, oriented, and in no acute distress. Neuro: Normal sensation of the tips of all digits of the right hand at this time Vascular: Cap refill brisk Pain: No tenderness to palpation over the 1st dorsal compartment of the right wrist Negative Ana on the right ROM: Patient is able to make a closed fist and extend all digits of the right hand fully, but with significant discomfort in the basal joint of the right thumb Skin: Well approximated and well healing incision site noted over the 1st dorsal compartment of the right wrist No lacerations or abrasions. General: No ecchymosis, erythema, or evidence of infection. Psych: Appears grossly normal Affect normal Attitude cooperative Assessment & Plan Assessment & Plan (1) De Quervain's tenosynovitis, right: Code(s): M65.4 - Radial styloid tenosynovitis [de Quervain] Category: Medical (2) Osteoarthritis of carpometacarpal (CMC) joint of right thumb: Code(s): M18.11 - Unilateral primary osteoarthritis of first carpometacarpal joint, right hand Category: Medical Plan 1. Status post right 1st dorsal compartment release DOS 03/09/2025 Patient appears to be recovering very well postoperatively Patient is educated about the typical recovery course At this time, due to be absence of pain, I do not feel the patient requires any additional occupational therapy at this time No under water times one-week, 2 lb weight limit x2 weeks Patient understands this and is amenable to this plan Of note, the patient reports that her right basal joint arthritis has been particularly bothersome, and she has had approximately 2-3 injections with no help, therefore I feel it is best for the patient to follow-up with Dr. Ya for discussion of potential LRTI procedure Coding Level of Care Code Global (77209) Diagnoses De Quervain's tenosynovitis, right M65.4 Osteoarthritis of carpometacarpal (CMC) joint of right thumb M18.11
[2025-03-20 13:28] VITALS: BMI 29.6
--- OUTSIDE RECORDS SUMMARY | 2025-03-20 14:10 | XMS_ITS | Encounter Summary ---
Author Organization [employer] Address [address] [facility] 7 [place] [address] Care Team Providers Care Transmission Inspector Name Role Phone Alicia Carias [employer] Primary Care Provider [phone] Reason for Visit * Reason Comments Med Refill Encounter Details Date Type Department Care Team ([facility] st Contact Info) Description 04/03/2023 Refill [facility] [address] [place] [address] Earnestine Norris FNP [address] [place] [address] Social History Tobacco Use Types Packs/Day Years [...] documented as of this encounter Care Teams Transmission Inspector Relationship Specialty Start Date End Date Alicia aCrias FNP [address] [place] [id number] PCP - General Family Medicine 01/17/22 documented as of this encounter
--- OUTSIDE RECORDS SUMMARY | 2025-03-20 14:10 | XMS_ITS | Encounter Summary ---
Author Organization [employer] Address [address] [place] [address] 7 [place] [address] Care Team Providers Care Job Checker Name Role Phone [facility] Primary Care Provider [phone] Reason for Visit * Reason Comments Med Refill Encounter Details Date Type Department Care Team ([facility] Contact Info) Description 09/21/2023 Refill [facility]INE [address] [place] [address] [facility] [address] [place] [address] COPD exacerbation (CMS/HCC); Dizziness and giddiness Social [...] encounter Visit Diagnoses Diagnosis COPD exacerbation (CMS/HCC) (HCC) Obstructive chronic bronchitis with exacerbation Dizziness and giddiness documented in this encounter Additional Health Concerns Assessment Noted Time PHQ-9 Depression Total Score: 0 06/25/19 24 11:08 AM EST documented as of this encounter Care Teams Job Checker Relationship Specialty Start Date End Date Alicia Carias FNP [address] [place] [id number] PCP - General Family Medicine 01/17/22 documented as of this encounter
--- OUTSIDE RECORDS SUMMARY | 2025-03-20 14:10 | XMS_ITS | Encounter Summary ---
Author Organization [employer] Address [address] [place] [address] 7 [place] [address] Care Team Providers Care Computerized Table Cutter Name Role Phone [facility] Primary Care Provider [phone] Reason for Visit * Reason Comments Med Refill Encounter Details Date Type Department Care Team ([facility] st Contact Info) Description 06/14/2023 Refill [facility] [address] [place] [address] [facility] [address] [place] [address] Insomnia, unspecified type Social History Tobacco Use [...] documented as of this encounter Care Teams Computerized Table Cutter Relationship Specialty Start Date End Date Alicia Carias FNP [address] [place] [id number] PCP - General Family Medicine 01/17/22 documented as of this encounter
--- OUTSIDE RECORDS SUMMARY | 2025-03-20 14:10 | XMS_ITS | Encounter Summary ---
Author Organization [employer] Address [address] [place] [address] 7 [place] [address] Care Team Providers Care Packaging Sales Representative Name Role Phone [facility] Primary Care Provider [phone] Reason for Visit * Reason Comments Med Refill Encounter Details Date Type Department Care Team ([facility] Contact Info) Description 09/29/2023 Refill [facility] MEDICINE [address] [place] [address] [facility] [address] [place] [address] Dizziness and giddiness; COPD exacerbation (CMS/[facility]) Social History Tobacco Use Types [...] Diagnoses Diagnosis Dizziness and giddiness COPD exacerbation (CMS/HCC) (HCC) Obstructive chronic bronchitis with exacerbation documented in this encounter Additional Health Concerns Assessment Noted Time PHQ-9 Depression Total Score: 0 06/25/19 24 11:08 AM EST documented as of this encounter Care Teams Packaging Sales Representative Relationship Specialty Start Date End Date Alicia Carias FNP [address] [place] [id number] PCP - General Family Medicine 01/17/22 documented as of this encounter
--- OUTSIDE RECORDS SUMMARY | 2025-03-20 14:10 | XMS_ITS | Encounter Summary ---
Author Organization [employer] Address [address] [place] [address] 7 [place] [address] Care Team Providers Care Mortgage Branch Manager Name Role Phone [facility] Primary Care Provider [phone] Reason for Visit * Reason Comments Med Refill Encounter Details Date Type Department Care Team ([facility] st Contact Info) Description 09/25/2023 Refill [facility] [address] [place] [address] [facility] [address] [place] [address] Dizziness and giddiness; COPD exacerbation (CMS/[facility]) Social History Tobacco Use Types Packs/Day [...] documented as of this encounter Care Teams Mortgage Branch Manager Relationship Specialty Start Date End Date Alicia Carias FNP [address] [place] [phone] PCP - General Family Medicine 01/17/22 documented as of this encounter
--- OUTSIDE RECORDS SUMMARY | 2025-03-20 14:10 | XMS_ITS | Encounter Summary ---
Author Organization [employer] Address [address] [facility] 7 [place] [address] Care Team Providers Care Electro Optical Engineer Name Role Phone Alicia Carias ENTERPRISE MOBILITY ARCHITECT Primary Care Provider [phone] Reason for Visit * Reason Comments Med Refill Encounter Details Date Type Department Care Team ([facility] st Contact Info) Description 03/29/2023 Refill [facility] MEDICINE [address] [place] [address] Earnestine Norris FNP [address] [place] [address] Social History Tobacco Use Types Packs/Day Years [...] documented as of this encounter Care Teams Electro Optical Engineer Relationship Specialty Start Date End Date Alicia Carias FNP [address] [place] [phone] PCP - General Family Medicine 01/17/22 documented as of this encounter
--- OUTSIDE RECORDS SUMMARY | 2025-03-20 14:10 | XMS_ITS | Encounter Summary ---
Author Organization [employer] Address [address] [facility] 7 [place] [address] Care Team Providers Care Director Of Clinical Trials Name Role Phone Alicia Carias MONOTYPE SETTER Primary Care Provider Reason for Visit * Reason Comments Med Refill Encounter Details Date Type Department Care Team ([facility] st Contact Info) Description 03/29/2023 Refill [facility] [address] [place] [address] Silvia Guadarrama DO [address] [place] [address] COPD exacerbation (CMS/HCC) Social History Tobacco Use [...] of this encounter Care Teams Director Of Clinical Trials Relationship Specialty Start Date End Date Alicia Carias FNP [address] [place] [address] PCP - General Family Medicine 01/17/22 documented as of this encounter
--- OUTSIDE RECORDS SUMMARY | 2025-03-20 14:10 | XMS_ITS | Encounter Summary ---
Author Organization [employer] Address [address] [place] [address] 7 [place] [address] Care Team Providers Care Rip Tailer Name Role Phone [facility] Primary Care Provider [phone] Reason for Visit * Reason Comments Med Refill Encounter Details Date Type Department Care Team ([facility] st Contact Info) Description 09/02/2024 Refill [facility] MEDICINE [address] [place] [address] [facility] [address] [place] [address] COPD exacerbation (CMS/HCC); Rash Social History Tobacco [...] (CMS/HCC) (HCC) Obstructive chronic bronchitis with exacerbation Rash Rash and other nonspecific skin eruption documented in this encounter Additional Health Concerns Assessment Noted Time PHQ-9 Depression Total Score: 0 08/12/19 25 9:33 AM EDT documented as of this encounter Care Teams Rip Tailer Relationship Specialty Start Date End Date Alicia Carias FNP [address] [place] [id number] PCP - General Family Medicine 01/17/22 documented as of this encounter
--- OUTSIDE RECORDS SUMMARY | 2025-03-20 14:10 | XMS_ITS | Encounter Summary ---
Author Organization [employer] Address [address] [place] [address] 7 [place] [address] Care Team Providers Care Deputy Chief Sheriff Name Role Phone [facility] Primary Care Provider [phone] Reason for Visit * Reason Comments Med Refill Encounter Details Date Type Department Care Team ([facility] Contact Info) Description 04/26/2023 Refill [facility] MEDICINE [address] [place] [address] [facility] [address] [place] [address] COPD exacerbation (CMS/HCC); Dizziness and giddiness Social [...] documented as of this encounter Care Teams Deputy Chief Sheriff Relationship Specialty Start Date End Date Alicia Carias FNP [address] [place] [address] PCP - General Family Medicine 01/17/22 documented as of this encounter
--- OUTSIDE RECORDS SUMMARY | 2025-03-20 14:10 | XMS_ITS | Data Portability ---
Author Organization MD - [facility], Allergy Address [address] [place] [phone] Care Team Providers Care Dermatologist Name Role Phone CATIE DEE DEE Primary Care Provider Assessment Encounter Date Assessment Date Assessment LastModified by Organization Details LastModified Time 03/12/2024 03/12/2024 Patient with a longstanding history of nasal congestion, allergy and chronic ear disease. Multiple prior ear surgeries with Dr. Rose in the 70s and 80s. She notes chronic left greater than right nasal congestion. CT at [facility] was performed in October which suggested [...] Go To The Location Of Their Choice, [address] 18:10:10 nettle IgE Ab, serum 2023 [facility] (Centralized Electronic Ordering - All Locations), Patient Can Go To The Location Of Their Choice, [address] 4 13:04:55 bahia grass IgE Ab, quanti tative , serum 2023 [facility] (Centralized [facility] Ordering - All Locations), Patient Can Go To The Location Of Their Choice, [address] 4 13:04:55 bermud a grass ige, serum 2023 [facility] (Centralized [facility] Ordering - All Locations), Patient Can Go To The Location Of Their Choice, [address] 4 13:04:55 englis h planta in ige, serum 2023 [facility] ([facility]ized [facility] Ordering - All Locations), Patient Can Go To The Location Of Their Choice, [address] 4 13:04:55 ige, total, serum 2023 [employer] (Centralized Electronic Ordering - All Locations), Patient Can Go To The Location Of Their Choice, [address] 4 18:10:11 CBC w/ auto diff 2023 [facility] (Centralized [facility] Ordering - All Locations), Patient Can Go To The Location Of Their Choice, [address] 4 18:10:10 Referral None record ed. Procedures None record ed. Surgeries None record ed. Imaging None record ed. Medication Orders fluoci nolone aceton alexandro oil 0.01 % ear drops 2023 [facility], [address], [place], [id number], 5 16:36:19 Patient TargetsNo targets recorded. Patient InstructionsNo instructions recorded. Reason for Referral None Reported. Results Created Date Observation Date Name Description Value Unit Range Abnormal Flag Note LastModifiedBy Organization Detail LastModifiedTime 03/12/20 24 03/13/2024 CBC WITH DIFFE RENTI AL/PL ATELE T WBC 6.7 x10e3 /uL 3.4-10 .8 normal Not Available [facility] ([facility]) [address] [place], [address], 03/17/2024 18:10:10 03/12/2003/13/2024 CBC WITH DIFFE RENTI AL/PL ATELE T RBC 5.04 x10e6 /uL 3.77-5 .28 normal Not Available [facility] ([facility]) [address] [place], [address], 03/17/2024 18:10:10 03/12/2003/13/2024 CBC WITH DIFFE RENTI AL/PL ATELE T hemoglobin 13.1 g/dL 11.1-1 5.9 normal Not Available [facility] ([facility]) [address] [place], [address], 03/17/2024 18:10:10 03/12/2003/13/2024 CBC WITH DIFFE RENTI AL/PL ATELE T hematocrit 41.3 % 34.0-4 6.6 normal Not Available [facility] ([facility]) [address] [place], [address], 03/17/2024 18:10:10 03/12/2003/13/2024 CBC WITH DIFFE RENTI AL/PL ATELE T MCV 82 fL 79-97 normal Not Available [facility] ([facility]) [address] [place], [address], 03/17/2024 18:10:10 03/12/2003/13/2024 CBC WITH DIFFE RENTI AL/PL ATELE T MCH 26.0 pg 26.6-3 3.0 below low normal Not Available [facility] ([facility]) [address] [place], [address], 03/17/2024 18:10:10 03/12/2003/13/2024 CBC WITH DIFFE RENTI AL/PL ATELE T MCHC 31.7 g/dL 31.5-3 5.7 normal Not Available [facility] ([facility]) [address] [facility], [place], [address], 03/17/2024 18:10:10 03/12/20 24 03/13/2024 CBC WITH DIFFE RENTI AL/PL ATELE T RDW 13.7 % 11.7-1 5.4 Not Available [facility] ([facility]) [address] [facility], [place], [address], 03/17/2024 18:10:10 03/12/2003/13/2024 CBC WITH DIFFE RENTI AL/PL ATELE T platelets 227 x10e3 /uL 150-45 0 normal Not Available [facility] ([facility]) [address] [facility], [place], [address], 03/17/2024 18:10:10 03/12/2003/13/2024 CBC WITH DIFFE RENTI AL/PL ATELE T neutrophils 49 % not estab. normal Not Available [facility] ([facility]) [address] [place], [address], 03/17/2024 18:10:10 03/12/20 24 03/13/2024 CBC WITH DIFFE RENTI AL/PL ATELE T lymphs 39 % not estab. normal Not Available [facility] ([facility]) [address] [facility], [place], [address], 03/17/2024 18:10:10 03/12/20 24 03/13/2024 CBC WITH DIFFE RENTI AL/PL ATELE T monocytes 7 % not estab. normal Not Available [facility] ([facility]) [address] [place], [address], 03/17/2024 18:10:10 03/12/2003/13/2024 CBC WITH DIFFE RENTI AL/PL ATELE T eos 4 % not estab. normal Not Available [facility] ([facility]) [address] [facility], [place], [address], 03/17/2024 18:10:10 03/12/2003/13/2024 CBC WITH DIFFE RENTI AL/PL ATELE T basos 1 % not estab. normal Not Available [facility] ([facility]) [address] [facility], [place], [address], 03/17/2024 18:10:10 03/12/2003/13/2024 CBC WITH DIFFE RENTI AL/PL ATELE T immature cells SECURITY OPERATIONS SPECIALIST Not Available [facility] ([facility]) [address] [facility], [place], [address], 03/17/2024 18:10:10 03/12/2003/13/2024 CBC WITH DIFFE RENTI AL/PL ATELE T neutrophils (absolute) 3.2 x10e3 /uL 1.4-7. 0 normal Not Available [facility] ([facility]) [address] [facility], [place], [address], 03/17/2024 18:10:10 03/12/2003/13/2024 CBC WITH DIFFE RENTI AL/PL ATELE T lymphs (absolute) 2.6 x10e3 /uL 0.7-3. 1 normal Not Available [facility] ([facility]) [address] [place], [address], 03/17/2024 18:10:10 03/12/2003/13/2024 CBC WITH DIFFE RENTI AL/PL ATELE T monocytes(ab solute) 0.5 x10e3 /uL 0.1-0. 9 normal Not Available [facility] ([facility]) [address] [place], [address], 03/17/2024 18:10:10 03/12/2003/13/2024 CBC WITH DIFFE RENTI AL/PL ATELE T eos (absolute) 0.3 x10e3 /uL 0.0-0. 4 normal Not Available [facility] ([facility]) [address] [facility], [place], [address], 03/17/2024 18:10:10 03/12/20 24 03/13/2024 CBC WITH DIFFE RENTI AL/PL ATELE T baso (absolute) 0.0 x10e3 /uL 0.0-0. 2 normal Not Available [facility] ([facility]) [address] [facility], [place], [address], 03/17/2024 18:10:10 03/12/2003/13/2024 CBC WITH DIFFE RENTI AL/PL ATELE T immature granulocytes 0 % not estab. Not Available [facility] ([facility]) [address] [facility], [place], [address], 03/17/2024 18:10:10 03/12/2003/13/2024 CBC WITH DIFFE RENTI AL/PL ATELE T immature grans (abs) 0.0 x10e3 /uL 0.0-0. 1 Not Available [facility] ([facility]) [address] [facility], [place], [address], 03/17/2024 18:10:10 03/12/20 24 03/13/2024 CBC WITH DIFFE RENTI AL/PL ATELE T NRBC SECURITY OPERATIONS SPECIALIST Not Available [facility] ([facility]) [address] [facility], [place], [address], 03/17/2024 18:10:10 03/12/2003/13/2024 CBC WITH DIFFE RENTI AL/PL ATELE T hematology comments: SECURITY OPERATIONS SPECIALIST Not Available [facility] ([facility]) [address] [facility], [place], [address], 03/17/2024 18:10:10 03/12/2003/12/2024 ALLER GENS, ZONE 1 [...] >100. 00 Very High Not Available [facility] ([facility]) [address] [place], [address], 03/17/2024 18:10:10 03/12/20 24 03/17/2024 ALLER GENS, ZONE 1 Y111-ZqF D pteronyssinu s 0.11 kU/L class 0/I abnormal Not Available [facility] ([facility]) [address] [place], [address], 03/17/2024 18:10:10 03/12/20 24 03/17/2024 ALLER GENS, ZONE 1 L731-LnS D farinae <0.10 kU/L class 0 Not Available [facility] ([facility]) [address] [place], [address], 03/17/2024 18:10:10 03/12/20 24 03/17/2024 ALLER GENS, ZONE 1 T566-WjY CAT dander <0.10 kU/L class 0 Not Available [facility] ([facility]) [address] [place], [address], 03/17/2024 18:10:10 03/12/20 24 03/17/2024 ALLER GENS, ZONE 1 O202-EtC dog dander <0.10 kU/L class 0 Not Available [facility] ([facility]) [address] [place], [address], 03/17/2024 18:10:10 03/12/20 24 03/17/2024 ALLER GENS, ZONE 1 u681-DfJ bermuda grass <0.10 kU/L class 0 Not Available [facility] ([facility]) [address] [facility], [place], [address], 03/17/2024 18:10:10 03/12/20 24 03/17/2024 ALLER GENS, ZONE 1 p116-LwB bluegrass, [place] <0.10 kU/L class 0 Not Available [facility] ([facility]) [address] [facility], [place], [address], 03/17/2024 18:10:10 03/12/2003/17/2024 ALLER GENS, ZONE 1 f525-FvI bahia grass <0.10 kU/L class 0 Not Available [facility] ([facility]) [address] [place], [address], 03/17/2024 18:10:10 03/12/20 24 03/17/2024 ALLER GENS, ZONE 1 G106-MfX cockroach, georgian <0.10 kU/L class 0 Not Available [facility] ([facility]) [address] [place], [address], 03/17/2024 18:10:10 03/12/20 24 03/17/2024 ALLER GENS, ZONE 1 E798-XjT penicillium chrysogen <0.10 kU/L class 0 Not Available [facility] ([facility]) [address] [place], [address], 03/17/2024 18:10:10 03/12/20 24 03/17/2024 ALLER GENS, ZONE 1 D241-BbO cladosporium herbarum <0.10 kU/L class 0 Not Available [facility] ([facility]) [address] [place], [address], 03/17/2024 18:10:10 03/12/20 24 03/17/2024 ALLER GENS, ZONE 1 G163-OoA aspergillus fumigatus <0.10 kU/L class 0 Not Available [facility] ([facility] [facility]) [address] [facility], [place], [address], 03/17/2024 18:10:10 03/12/2003/17/2024 ALLER GENS, ZONE 1 V416-KiV mucor racemosus <0.10 kU/L class 0 Not Available [facility] ([facility] [facility]) [address] [facility], [place], [address], 03/17/2024 18:10:10 03/12/2003/17/2024 ALLER GENS, ZONE 1 Z680-XgN alternaria alternata <0.10 kU/L class 0 Not Available [facility] ([facility]) [address] [facility], [place], [address], 03/17/2024 18:10:10 03/12/2003/17/2024 ALLER GENS, ZONE 1 K792-GjD stemphylium herbarum <0.10 kU/L class 0 Not Available [facility] ([facility]) [address] [facility], [place], [address], 03/17/2024 18:10:10 03/12/2003/17/2024 ALLER GENS, ZONE 1 J916-RlQ common silver birch <0.10 kU/L class 0 Not Available [facility] ([facility]) [address] [facility], [place], [address], 03/17/2024 18:10:10 03/12/2003/17/2024 ALLER GENS, ZONE 1 R484-ShT oak, white <0.10 kU/L class 0 Not Available [facility] ([facility]) [address] [facility], [place], [address], 03/17/2024 18:10:10 03/12/2003/17/2024 ALLER GENS, ZONE 1 U601-EpI elm, georgian <0.10 kU/L class 0 Not Available [facility] ([place] [facility]) [address], [place], [address], 03/17/2024 18:10:10 03/12/20 24 03/17/2024 ALLER GENS, ZONE 1 E678-HgW julieth, white <0.10 kU/L class 0 Not Available [facility] ([place] [facility]) [address], [place], [address], 03/17/2024 18:10:10 03/12/2003/17/2024 ALLER GENS, ZONE 1 Q770-WvQ maple/box elder <0.10 kU/L class 0 Not Available [facility] ([facility]) [address], [place], [address], 03/17/2024 18:10:10 03/12/2003/17/2024 ALLER GENS, ZONE 1 E724-EqT hazelnut tree <0.10 kU/L class 0 Not Available [facility] ([place] [facility]) [address], [place], [address], 03/17/2024 18:10:10 03/12/20 24 03/17/2024 ALLER GENS, ZONE 1 E552-OjB hickory, white <0.10 kU/L class 0 Not Available [facility] ([place] [facility]) [address], [place], [address], 03/17/2024 18:10:10 03/12/20 24 03/17/2024 ALLER GENS, ZONE 1 V277-ZdA white mulberry <0.10 kU/L class 0 Not Available [facility] ([place] [facility]) [address], [place], [address], 03/17/2024 18:10:10 03/12/2003/17/2024 ALLER GENS, ZONE 1 Z575-TyM cedar, mountain <0.10 kU/L class 0 Not Available [facility] ([place] [facility]) [address] [facility], [place], [address], 03/17/2024 18:10:10 03/12/20 24 03/17/2024 ALLER GENS, ZONE 1 R612-QwU ragweed, short <0.10 kU/L class 0 Not Available [facility] ([place] [facility]) [address] [facility], [place], [address], 03/17/2024 18:10:10 03/12/20 24 03/17/2024 ALLER GENS, ZONE 1 H808-TvO mugwort <0.10 kU/L class 0 Not Available [facility] ([place] [facility]) [address] [facility], [place], [address], 03/17/2024 18:10:10 03/12/20 24 03/17/2024 ALLER GENS, ZONE 1 T965-UbF plantain, grenadian <0.10 kU/L class 0 Not Available [facility] ([place] [facility]) [address] [facility], [place], [address], 03/17/2024 18:10:10 03/12/20 24 03/17/2024 ALLER GENS, ZONE 1 Y323-ArO pigweed, common <0.10 kU/L class 0 Not Available [facility] ([place] [facility]) [address] [facility], [place], [address], 03/17/2024 18:10:10 03/12/20 24 03/17/2024 ALLER GENS, ZONE 1 I160-BuN sheep sorrel <0.10 kU/L class 0 Not Available [facility] ([facility] [facility]) [address] [facility], [place], [address], 03/17/2024 18:10:10 03/12/20 24 03/17/2024 ALLER GENS, ZONE 1 U890-RbB nettle <0.10 kU/L class 0 Not Available [facility] ([facility] [facility]) [address] [facility], [place], [address], 03/17/2024 18:10:10 03/12/20 24 03/17/2024 IMMUN OGLOB ULIN E, TOTAL immunoglobul in E, total 41 IU/mL 6-495 Not Available [facility]) [address] [facility], [place], [address], 03/17/2024 18:10:11 05/16/20 24 11/07/2023 CT, sinus es, w/o contr ast No observ ation record ed. [email or web address] Not Available 17:07:00 Result Notes None recorded. Problems Name Problem SNOMED Code Status Onset Date Resolution Date Notes Provider Name and Address Organization Details Recorded Time Mixed conductiv e and sensorine ural hearing loss of left ear 08087591752 107 Active 2017 Mixed conductiv e and sensorine ural hearing loss, unilatera l, left ear with restricte d hearing on the contralat eral side; Note: Date Diagnosed : 10/01/2017 11:20 AM (H90.A32) Not Available [facility] 4 03:08:07 Sensorine ural hearing loss in right ear 29387768152 100 Active 2017 Sensorine ural hearing loss, unilatera l, right ear, with restricte d hearing on the contralat eral side; Note: Date Diagnosed : 10/01/2017 11:20 AM (H90.A21) Not Available [facility] 4 03:08:06 Bilateral tinnitus 08185422674 02 Active 2017 Tinnitus, bilateral ; Note: Date Diagnosed : 10/01/2017 11:47 AM (H93.13) Not Available [facility] 4 03:08:06 Bilateral temporoma ndibular joint pain 47278617276 976692 Active 2018 Arthralgi a of bilateral temporoma ndibular joint; Note: Date Diagnosed : 02/24/2019 3:09 PM (M26.623) Not Available [facility] 4 03:08:07 Otalgia of right ear 1528097574 Active 2018 Otalgia, right ear; Note: Date Diagnosed : 02/24/2019 3:09 PM (H92.01) Not Available [facility] 4 03:08:06 Allergic rhinitis 86417550 Active 2023 DANIELITO STRICKLAND MD [address] [facility],[place] [facility], [place], [address] , [facility] - [facility] 4 14:10:41 Chronic salpingit is of bilateral eustachia n tubes 02374447710 23693 Active 2023 DANIELITO STRICKLAND MD [address] [facility],[place] [facility], [place], [address] , [facility] - [facility] 4 14:11:10 Chronic non-infec tive otitis externa 477309532 Active 2023 DANIELITO STRICKLAND MD [address] [place] [address],[place] [address], [place], [address] , [facility] 4 14:12:38 Problem Notes None recorded. Procedures Surgical History Date Name Laterality Status Provider Name and Address Organization Details Recorded Time revision of tympanoplasty completed DANIELITO PHILIPPE MD [address] [facility],[place] [address], [place], [address], [facility] 03/12/2024 14:05:24 Imaging Results None recorded. Procedure [...] oral inhaler 03/12 completed Medicati on ID: [id number] D uration Value: 30 Brand Name: Tessa [...] mg tablet 03/12 completed Medicati on ID: [id number] D uration Value: 30 Brand Name: famotidi ne Send Method: E-Prescr ibed Sub s Allowed: subs OK Speci al Instruct ion: TAKE 1 TABLET AT BEDTIME Medicati onGeneri cName: famotidi ne Not Available Not Available Not Available prednison e 20 mg tablet 03/12 completed Medicati on ID: [id number] D uration Value: 5 Brand Name: predniso ne Send Method: E-Prescr ibed Sub s Allowed: subs OK Medic ationGen ericName : predniso ne Not Available Not Available Not Available Seroquel 25 mg tablet 03/12 completed Medicati on ID: [id number] B rand Name: Seroquel Send Method: E-Prescr [...] mg tablet 03/12 completed Medicati on ID: [id number] D uration Value: 30 Brand Name: trazodon [...] by mouth 03/12 completed Medicati on ID: [id number] D uration Value: 7 Brand Name: doxycycl [...] 2018 10/23 /2024 completed Medicati on ID: [id number] B rand Name: Benadryl Send Method: E-Prescr [...] n capsules 03/12 completed Medicati on ID: [id number] D uration Value: 30 Brand Name: Spiriva [...] mg tablet 03/12 completed Medicati on ID: [id number] D uration Value: 28 Brand Name: Chantix [...] Details Last Updated DateTime 03/12/2024 157.48 cm 54294.52 g Myra Welsh [place] - [facility] 03/12/2024 13:42:44 Social History None recorded. Functional [...] ICD10 Code Diagnosis IMO Codes Diagnosis Note [id number] DANIELITO STRICKLAND MD [facility] [address] [address] 03/12/2024 13:23:35 03/12/2024 14:15:07 Allergic rhinitis 43851733 J30.89 Chronic sa lpingitis of bilateral eustachian tubes 5159641629 755116 H68.023 Chronic no n-infective otitis externa 219506435 H60.61 Health Concerns Section Related Observation LastModified by Organization Detai ls LastModified Time None Recorded Concern Status LastModified by Organization Details LastModified Time None Recorded Advance Directives Directive None Recorded Payers Insurance Date Sequence Insurance Name Policy Number Policy Barnes Covered Member ID Barnes Member ID Guarantor Name 03/12/2024 1 [facility] - DOS ON OR AFTER 2022 - MEDICARE ADVANTAGE [place] (MEDICARE REPLACEMENT/ADV ANTAGE - PPO) Lizzie Girard [id number] Lizzie Girard Notes Date Note Type Note Provider Name and Address Organization Details Recorded Time 03/12/2024 text/html Patient with a longstanding history of nasal congestion, allergy and chronic ear disease. Multiple prior ear surgeries with Dr. Rose in the 70s and 80s. She notes chronic left greater than right nasal congestion. CT at [facility] was performed in October which suggested possible anterior polyp due to thickening of the nasal septum. She has been on triamcinolone and Astelin without improvementShe has allergy testing pending for May.snot= 79Nose= 100 DANIELITO PHILIPPE MD [address] [place] [address],[place] [address], [place], [address], [facility] - [facility] 03/12/2024 14:14:16 OBGyn Episode No OBEpisode recorded.
--- OUTSIDE RECORDS SUMMARY | 2025-03-20 14:10 | XMS_ITS | Encounter Summary ---
Author Organization [employer] Address [address] [place] [address] [address] [place] [address] Care Team Providers Care Tire Builder Heavy Service Name Role Phone [facility] Primary Care Provider [phone] Reason for Visit * Reason Comments Med Refill Encounter Details Date Type Department Care Team ([facility] Contact Info) Description 03/14/2023 Refill [facility] MED[facility]INE [address] [place] [address] [facility] [address] [place] [address] COPD exacerbation (CMS/HCC); Dizziness and giddiness; Shortness [...] as of this encounter Care Teams Tire Builder Heavy Service Relationship Specialty Start Date End Date Aliica Carias FNP [address] [place] [address] PCP - General Family Medicine 01/17/22 documented as of this encounter
--- OUTSIDE RECORDS SUMMARY | 2025-03-20 14:11 | XMS_ITS | Encounter Summary ---
Author Organization [employer] Address [address] [place] [address] [place] [address] Care Team Providers Care Radio Station Manager Name Role Phone [facility] Primary Care Provider [phone] Reason for Visit * Reason Onset Date Comments Nurse Triage 10/24/2022 Encounter Details Date Type Department Care Team ([facility] st Contact Info) Description 10/24/2022 Telephone [facility] MEDICINE [address] [place] [address] [facility] [address] [place] [address] Nurse Triage Social History Tobacco Use Types [...] Tobacco Use and Problems handout sent to [phone] * Telephone Encounter - Maryan Bradford - 10/24/2022 11:40 AM EDT Patient calling to report Smoking 1 pack and a half x years. Patient speaks (Faroese). Advised triage nurse will call patient back. Pt asking for Nicotine patches PCP DR. Carias documented in this encounter Plan of Treatment Not on file documented as of this encounter Visit Diagnoses Not on filedocumented in this encounter Additional Health Concerns Assessment Noted Time PHQ-9 Depression Total Score: 0 10/04/19 23 2:27 PM EDT documented as of this encounter Care Teams Radio Station Manager Relationship Specialty Start Date End Date Alicia Carias FNP [address] [place] [address] PCP - General Family Medicine 01/17/22 documented as of this encounter
--- OUTSIDE RECORDS SUMMARY | 2025-03-20 14:11 | XMS_ITS | Encounter Summary ---
Author Organization [employer] Address [address] [place] [address] 7 [place] [address] Care Team Providers Care Septic Pump Truck Driver Name Role Phone [facility] Primary Care Provider [phone] Reason for Visit * Reason Comments Med Refill Encounter Details Date Type Department Care Team ([facility] st Contact Info) Description 03/11/2024 Refill [facility] MEDICINE [address] [place] [address] [facility] [address] [place] [address] Restless leg syndrome; Dizziness and giddiness Social [...] documented as of this encounter Care Teams Septic Pump Truck Driver Relationship Specialty Start Date End Date Alicia Carias FNP [address] [place] [address] PCP - General Family Medicine 01/17/22 documented as of this encounter
--- OUTSIDE RECORDS SUMMARY | 2025-03-20 14:11 | XMS_ITS | Encounter Summary ---
Author Organization [employer] Address [address] [place] [address] [address] [place] [address] Care Team Providers Care Breadman Name Role Phone [facility] Primary Care Provider [phone] Reason for Visit * Reason Comments Med Refill Encounter Details Date Type Department Care Team ([facility] Contact Info) Description 02/26/2024 Refill [facility] MEDICINE [address] [place] [address] [facility] [address] [place] [address] Dizziness and giddiness Social History Tobacco Use [...] documented as of this encounter Care Teams Breadman Relationship Specialty Start Date End Date Alicia Carias FNP [address] [place] [address] PCP - General Family Medicine 01/17/22 documented as of this encounter
--- OUTSIDE RECORDS SUMMARY | 2025-03-20 14:11 | XMS_ITS | Encounter Summary ---
Author Organization [employer] Address [address] [place] [address] 7 [place] [address] Care Team Providers Care Social Media Editor Name Role Phone [facility] Primary Care Provider [phone] Reason for Visit * Reason Comments Med Refill Encounter Details Date Type Department Care Team ([facility] Contact Info) Description 03/05/2024 Refill [facility] MED[facility]INE [address] [place] [address] [facility] 230 [place] [address] Dizziness and giddiness Social History Tobacco Use [...] documented as of this encounter Care Teams Social Media Editor Relationship Specialty Start Date End Date Alicia Carias FNP 230 [place] [address] PCP - General Family Medicine 01/17/22 documented as of this encounter
--- OUTSIDE RECORDS SUMMARY | 2025-03-20 14:11 | XMS_ITS | Encounter Summary ---
Author Organization [employer] Address [address] [facility] 7 [place] [address] Care Team Providers Care Business Analyst Name Role Phone Aretha, [facility] Primary Care Provider [phone] Encounter Details Date Type Department Care Team (Latest Contact Info) Description 02/02/2025 Results Follow-Up [facility] 230 [place] [address] [facility] 230 [place] [address] CBC auto differential, Comprehensive Metabolic Panel, Lipid Panel, Standard, Additional followed-up results: 3 Social History Tobacco Use Types Packs/Day Years Used Date Smoking Tobacco: Former Cigarettes Passive Smoke Exposure: Past Smokeless Tobacco: Never Alcohol Use Standard Drinks/Week Comments Never 0 (1 standard drink = 0.6 oz pur e alcohol) Depression Answer Date Recorded Patient Health Questionnaire-9 Score 14 01/30/2025 Patient Health Questionnaire-9 Score 14 01/30/2025 Last PHQ-9: Questionnaire Data Not on file 0 01/30/2025 Housing Stability Answer Date Recorded What is your housing situation today? I have alice juarez 01/30/[address] you li ve. Do you have problems with any of the following? None of the above 01/30/2025 Food Insecurity Answer Date Recorded Within the past 12 months, y ou worried that your food would run out before you got money to buy more: Never True 01/30/2025 Within the past 12 months,th e food you bought just didn't last and you didn't have enough money to get more: Never True 04/2025 Transportation Answer Date Recorded In the past 12 months, has l ack of transportation kept you from medical appts, meetings, work or from getting things needed for daily living? No 01/30/2025 Utilities Answer Date Recorded In the past 12 months, has t he electric, gas, oil or water company threatened to shut off services in your home? No 01/30/2025 Depression Answer Date Recorded Patient Health Questionnaire-2 Score 3 01/30/2025 Internet Access Answer Date Recorded Internet Access [...] Assessment Noted Time PHQ-9 Depression Total Score: 14 025 9:39 AM EDT documented as of this encounter Care Teams Business Analyst Relationship Specialty Start Date End Date Alicia Carias FNP [address] [place] [address] PCP - General Family Medicine 01/17/22 documented as of this encounter
--- OUTSIDE RECORDS SUMMARY | 2025-03-20 14:11 | XMS_ITS | Encounter Summary ---
Author Organization [employer] Address [address] [facility] 7 [place] [address] Care Team Providers Care Public Affairs Specialist Name Role Phone Alicia Carias [facility] Primary Care Provider [phone] Reason for Visit * Reason Comments Med Refill Encounter Details Date Type Department Care Team ([facility] st Contact Info) Description 03/17/2025 Refill [facility] MEDICINE 230 [place] [address] Silvia Guadarrama DO 230 [place] [address] Social History Tobacco Use Types Packs/Day Years [...] documented as of this encounter Care Teams Public Affairs Specialist Relationship Specialty Start Date End Date Alicia Carias FNP [address] [place] [address] PCP - General Family Medicine 01/17/22 documented as of this encounter
--- OUTSIDE RECORDS SUMMARY | 2025-03-20 14:11 | XMS_ITS | Encounter Summary ---
Author Organization [employer] Address [address] [place] [address] 7 [place] [address] Care Team Providers Care Local Company Truck Driver Name Role Phone [facility] Primary Care Provider [phone] Reason for Visit * Reason Comments Med Refill Encounter Details Date Type Department Care Team ([facility] st Contact Info) Description 03/11/2024 Refill [facility] MEDICINE 230 [place] [address] [facility] 230 [place] [address] Restless leg syndrome; Dizziness and giddiness Social [...] documented as of this encounter Care Teams Local Company Truck Driver Relationship Specialty Start Date End Date Alicia Carias FNP [address] [place] [address] PCP - General Family Medicine 01/17/22 documented as of this encounter
--- OUTSIDE RECORDS SUMMARY | 2025-03-20 14:11 | XMS_ITS | Encounter Summary ---
Author Organization [employer] Address [address] [place] [address] 7 [place] [address] Care Team Providers Care Access Services Assistant Name Role Phone [facility] Primary Care Provider [phone] Reason for Visit * Reason Comments Med Refill Encounter Details Date Type Department Care Team ([facility] st Contact Info) Description 03/07/2024 Refill [facility] MEDICINE 230 [place] [address] [facility] 230 [place] [address] Dizziness and giddiness; Restless leg syndrome Social [...] documented as of this encounter Care Teams Access Services Assistant Relationship Specialty Start Date End Date Alicia Carias FNP [address] [place] [address] PCP - General Family Medicine 01/17/22 documented as of this encounter
--- OUTSIDE RECORDS SUMMARY | 2025-03-20 14:11 | XMS_ITS | Encounter Summary ---
Author Organization [employer] Address [address] [place] [address] 7 [place] [address] Care Team Providers Care Airplane Designer Name Role Phone [facility] Primary Care Provider [phone] Reason for Visit * Reason Comments Med Refill Encounter Details Date Type Department Care Team ([facility] st Contact Info) Description 03/07/2024 Refill [facility] MED[facility]INE 230 [place] [address] [facility] 230 [place] [address] Dizziness and giddiness; Restless leg syndrome Social [...] documented as of this encounter Care Teams Airplane Designer Relationship Specialty Start Date End Date Alicia Carias FNP [address] [place] [address] PCP - General Family Medicine 01/17/22 documented as of this encounter
--- OUTSIDE RECORDS SUMMARY | 2025-03-20 14:11 | XMS_ITS | Encounter Summary ---
Author Organization [employer] Address [address] [place] [address] 7 [place] [address] Care Team Providers Care Tooler Name Role Phone [facility] Primary Care Provider [phone] Reason for Visit * Reason Comments Med Refill Encounter Details Date Type Department Care Team ([facility] Contact Info) Description 11/27/2024 Refill [facility] MEDICINE 230 [place] [address] [facility] 230 [place] [address] Social History Tobacco Use Types Packs/Day Years [...] documented as of this encounter Care Teams Tooler Relationship Specialty Start Date End Date Alicia Carias FNP [address] [place] [address] PCP - General Family Medicine 01/17/22 documented as of this encounter
--- OUTSIDE RECORDS SUMMARY | 2025-03-20 14:11 | XMS_ITS | Encounter Summary ---
Author Organization [employer] Address [address] [place] [address] 7 [place] [address] Care Team Providers Care Form Setter Supervisor Name Role Phone [facility] Primary Care Provider [phone] Reason for Visit * Reason Comments Med Refill Encounter Details Date Type Department Care Team ([facility] Contact Info) Description 08/10/2024 Refill [facility] 230 [place] [address] [facility] 230 [place] [address] Restless leg syndrome Social History Tobacco Use [...] AM EDT documented as of this encounter Functional Status * Over the past 2 weeks, how often have you been bothered by any of the following problems? Question Answer Date of Assessment Author Patient Health Questionnaire-2 Score 0 08/11/2024 9:33 AM EDT Carlie Castañeda MA * Little interest or pleasure in doing things Answer Date of Assessment Author Not at all 08/11/2024 9:33 AM EDT Carlie Isbell MA * Feeling down, depressed, or hopeless Answer Date of Assessment Author Not at all 08/11/2024 9:33 AM EDT Carlie Isbell MA * Trouble falling or staying asleep, or sleeping too much Answer Date of Assessment Author Not at all 08/11/2024 9:33 AM EDT Carlie Isbell MA * Feeling tired or having little energy Answer Date of Assessment Author Not at all 08/11/2024 9:33 AM EDT Carlie Isbell MA * Poor appetite or overeating Answer Date of Assessment Author Not at all 08/11/2024 9:33 AM EDT Carlie Isbell MA * Feeling bad about yourself - or that you are a failure or have let yourself or your family down Answer Date of Assessment Author Not at all 08/11/2024 9:33 AM EDT Carlie Isbell MA * Trouble concentrating on things, such as reading the newspaper or watching television Answer Date of Assessment Author Not at all 08/11/2024 9:33 AM EDCarlie Deshpande MA * Moving or speaking so slowly that other people could have noticed? Or the opposite - being so fidgety or restless that you have been moving around a lot more than usual. Answer Date of Assessment Author Not at all 08/11/2024 9:33 AM EDT Carlie Isbell MA * Thoughts that you would be better off or hurting yourself in some way Answer Date of Assessment Author Not at all 08/11/2024 9:33 AM EDCarlie Deshpande MA * Patient Health Questionnaire-9 Score Answer Date of Assessment Author 0 08/11/2024 9:33 AM EDT Carlie Isbell MA documented as of this encounter Plan of Treatment Not on file documented as of this encounter Visit Diagnoses Diagnosis Restless leg syndrome Restless legs syndrome (RLS) documented in this encounter Additional Health Concerns Assessment Noted Time PHQ-9 Depression Total Score: 0 02/08/20 2:03 PM EDT documented as of this encounter Care Teams Form Setter Supervisor Relationship Specialty Start Date End Date Alicia Carias FNP [address] [place] [address] PCP - General Family Medicine 01/17/22 documented as of this encounter
--- OUTSIDE RECORDS SUMMARY | 2025-03-20 14:11 | XMS_ITS | Encounter Summary ---
Author Organization [employer] Address [address] [place] [address] 7 [place] [address] Care Team Providers Care Editor Name Role Phone [facility] Primary Care Provider [phone] Reason for Visit * Reason Comments Med Refill Encounter Details Date Type Department Care Team ([facility] Contact Info) Description 02/26/2024 Refill [facility] MEDICINE 230 [place] [address] [facility] 230 [place] [address] Social History Tobacco Use Types Packs/Day Years [...] documented as of this encounter Care Teams Editor Relationship Specialty Start Date End Date Alciia Carias FNP 230 [place] [address] PCP - General Family Medicine 01/17/22 documented as of this encounter
--- OUTSIDE RECORDS SUMMARY | 2025-03-20 14:11 | XMS_ITS | Encounter Summary ---
Author Organization [employer] Address [address] [place] [address] 7 [place] [address] Care Team Providers Care Draw Fire Operator Name Role Phone [facility] Primary Care Provider [phone] Reason for Visit * Reason Comments Med Refill Encounter Details Date Type Department Care Team ([facility] Contact Info) Description 10/22/2023 Refill [facility] MEDICINE 230 [place] [address] [facility] 230 [place] [address] COPD exacerbation (CMS/HCC); Rash Social History Tobacco [...] documented as of this encounter Care Teams Draw Fire Operator Relationship Specialty Start Date End Date Alicia Carias FNP [address] [place] [address] PCP - General Family Medicine 01/17/22 documented as of this encounter
--- OUTSIDE RECORDS SUMMARY | 2025-03-20 14:11 | XMS_ITS | Encounter Summary ---
Author Organization [employer] Address [address] [place] [address] 7 [place] [address] Care Team Providers Care Feather Mixer Name Role Phone [facility] Primary Care Provider [phone] Reason for Visit * Reason Comments Med Refill Encounter Details Date Type Department Care Team ([facility] st Contact Info) Description 02/25/2024 Refill [facility] MEDICINE [address] [place] [address] [facility] 230 [place] [address] Dizziness and giddiness; Restless leg syndrome Social [...] documented as of this encounter Care Teams Feather Mixer Relationship Specialty Start Date End Date Alicia Carias FNP [address] [place] [address] PCP - General Family Medicine 01/17/22 documented as of this encounter
--- OUTSIDE RECORDS SUMMARY | 2025-03-20 14:11 | XMS_ITS | Encounter Summary ---
Author Organization [employer] Address [address] [place] [address] 7 [place] [address] Care Team Providers Care Motel Operator Name Role Phone [facility] Primary Care Provider [phone] Reason for Visit * Reason Comments Med Refill Encounter Details Date Type Department Care Team ([facility] Contact Info) Description 03/10/2024 Refill [facility] MEDICINE 230 [place] [address] [facility] 230 [place] [address] Restless leg syndrome Social History Tobacco Use [...] documented as of this encounter Care Teams Motel Operator Relationship Specialty Start Date End Date Alicia Carias FNP [address] [place] [address] PCP - General Family Medicine 01/17/22 documented as of this encounter
--- OUTSIDE RECORDS SUMMARY | 2025-03-20 14:11 | XMS_ITS | Encounter Summary ---
Author Organization [employer] Address [address] [place] [address] 7 [place] [address] Care Team Providers Care Cabinet Abrasive Sandblaster Name Role Phone [facility] Primary Care Provider [phone] Reason for Visit * Reason Comments Med Refill Encounter Details Date Type Department Care Team ([facility] Contact Info) Description 03/12/2024 Refill [facility] MEDICINE 230 [place] [address] [facility] 230 [place] [address] Dizziness and giddiness; Restless leg syndrome Social [...] documented as of this encounter Care Teams Cabinet Abrasive Sandblaster Relationship Specialty Start Date End Date Alicia Carias FNP [address] [place] [address] PCP - General Family Medicine 01/17/22 documented as of this encounter
--- OUTSIDE RECORDS SUMMARY | 2025-03-20 14:11 | XMS_ITS | Encounter Summary ---
Author Organization [employer] Address [address] [place] [address] 7 [place] [address] Care Team Providers Care Care Rep Name Role Phone [facility] Primary Care Provider Reason for Visit * Reason Comments Med Refill Encounter Details Date Type Department Care Team ([facility] Contact Info) Description 10/02/2024 Refill [facility] MEDICINE 230 [place] [address] [facility] 230 [place] [address] Dizziness and giddiness; Insomnia, unspecified type; Shortness [...] documented as of this encounter Care Teams Care Rep Relationship Specialty Start Date End Date Alicia Carias FNP [address] [place] [address] PCP - General Family Medicine 01/17/22 documented as of this encounter
--- OUTSIDE RECORDS SUMMARY | 2025-03-20 14:11 | XMS_ITS | Encounter Summary ---
Author Organization [employer] Address [address] [place] [address] [place] [address] Care Team Providers Care Snorkelling Instructor Name Role Phone [facility] Primary Care Provider [phone] Reason for Visit * Reason Comments Med Refill Encounter Details Date Type Department Care Team ([facility] st Contact Info) Description 11/18/2022 Refill [facility] MEDICINE 230 [place] [address] [facility] 230 [place] [address] Dizziness and giddiness; Anxiety Social History Tobacco [...] documented as of this encounter Care Teams Snorkelling Instructor Relationship Specialty Start Date End Date Alicia Carias FNP [address] [place] [address] PCP - General Family Medicine 01/17/22 documented as of this encounter
--- OUTSIDE RECORDS SUMMARY | 2025-03-20 14:11 | XMS_ITS | Encounter Summary ---
Author Organization [employer] Address [address] [place] [address] 7 [place] [address] Care Team Providers Care Public Transportation Inspector Name Role Phone Aretha Alicia YADAV Primary Care Provider [phone] Encounter Details Date Type Department Care Team (Late st Contact Info) Description 05/12/2022 Orders Only [facility] [address] [place] [address] Silvia Hwang LPN Social History Tobacco Use [...] on filedocumented in this encounter Care Teams Public Transportation Inspector Relationship Specialty Start Date End Date Alicia Carias FNP 230 [place] [address] PCP - General Family Medicine 01/17/22 documented as of this encounter
--- OUTSIDE RECORDS SUMMARY | 2025-03-20 14:11 | XMS_ITS | Encounter Summary ---
Author Organization [employer] Address [address] [place] [address] 7 [place] [address] Care Team Providers Care Carbon Cleaner Name Role Phone [facility] Primary Care Provider [phone] Reason for Visit * Reason Comments Med Refill Encounter Details Date Type Department Care Team ([facility] st Contact Info) Description 02/28/2024 Refill [facility] MEDICINE 230 [place] [address] [facility] 230 [place] [address] Dizziness and giddiness; Restless leg syndrome Social [...] documented as of this encounter Care Teams Carbon Cleaner Relationship Specialty Start Date End Date Alicia Carias FNP [address] [place] [address] PCP - General Family Medicine 01/17/22 documented as of this encounter
--- OUTSIDE RECORDS SUMMARY | 2025-03-20 14:11 | XMS_ITS | Encounter Summary ---
Author Organization [employer] Address [address] [place] [address] 7 [place] [address] Care Team Providers Care Fork Assembler Name Role Phone [facility] Primary Care Provider [phone] Reason for Visit * Reason Comments Med Refill Encounter Details Date Type Department Care Team ([facility] Contact Info) Description 01/02/[address] [facility] MEDICINE 230 [place] [address] [facility] 230 [place] [address] Social History Tobacco Use Types Packs/Day Years [...] documented as of this encounter Care Teams Fork Assembler Relationship Specialty Start Date End Date Alicia Carias FNP 230 [place] [address] PCP - General Family Medicine 01/17/22 documented as of this encounter
--- OUTSIDE RECORDS SUMMARY | 2025-03-20 14:11 | XMS_ITS | Encounter Summary ---
Author Organization [employer] Address [address] [place] [address] 7 [place] [address] Care Team Providers Care Elementary Reading Tutor Name Role Phone [facility] Primary Care Provider [phone] Reason for Visit * Reason Comments Med Refill Encounter Details Date Type Department Care Team ([facility] st Contact Info) Description 01/22/2025 Refill [facility] MEDICINE 230 [place] [address] [facility] 230 [place] [address] COPD exacerbation (CMS/HCC); Restless leg syndrome Social History Tobacco Use [...] (CMS/HCC) (HCC) Obstructive chronic bronchitis with exacerbation Restless leg syndrome Restless legs syndrome (RLS) documented in this encounter Additional Health Concerns Assessment Noted Time PHQ-9 Depression Total Score: 0 08/12/19 25 9:33 AM EDT documented as of this encounter Care Teams Elementary Reading Tutor Relationship Specialty Start Date End Date Alicia Carias FNP 230 [place] [address] PCP - General Family Medicine 01/17/22 documented as of this encounter
--- OUTSIDE RECORDS SUMMARY | 2025-03-20 14:11 | XMS_ITS | Clinical Summary ---
Author Organization [employer] Address [address] [place] [address] 7 [place] [address] Care Team Providers Care Credit And Collections Representative Name Role Phone Alicia Cairas BUTTONER Primary Care Provider Allergies No known active allergies Medications methotrexate 2.5 MG tablet TAKE 10 TABLETS BY MOUTH ONCE WEEKLY ON Sunday07/11/19 23 Active ipratropium-alb uterol (Duo-Neb) 0.5-2.5 mg/3 mL nebulizer solution INHALE 1 AMPULE USING A NEBULIZER FOUR TIMES DAILY 11/01/19 22 Active hydroxychloroqu ine (Plaquenil) 200 MG tablet TAKE 2 TABLETS BY MOUTH ONCE DAILY IN THE MORNING 07/11/19 23 Active folic acid (Folvite) 1 MG tablet Take 1,000 mcg by mouth in the morning. 07/11/19 23 Active pseudoephedrine ER (Sudafed-12 Hour) 120 MG 12 hr tablet Take 1 tablet (120 mg) by mouth every 12 (twelve) hours if needed for congestion. Do not crush, chew, or split. 20 tablet 01/16/20 24 Active fluticasone (Flovent) 110 MCG/ACT inhalerIndicati ons:COPD exacerbation (CMS/HCC) ([facility]) INHALE 1 PUFF BY MOUTH 2 TIMES A DAY IN THE MORNING AND AT BEDTIME. RINSE MOUTH AFTER USE (BULK) 12 g 8 08/05/19 25 Active albuterol (2.5 MG/3ML) 0.083% nebulizer solutionIndicat ions:COPD exacerbation (CMS/HCC) ([facility]) INHALE 1 VIAL VIA NEBULIZER EVERY 4 HOURS NEEDED FOR SHORTNESS OF BREATH OR WHEEZING (BULK) 90 mL 08/07/19 25 Active omeprazole (PriLOSEC) [address] capsule TAKE ONE CAPSULE BY MOUTH EVERY MORNING WITH FOOD 30 capsule 10/23/19 25 Active cholecalciferol VITAMIN D (Vitamin D-3) 50 MCG (2000 UT) capsule TAKE ONE CAPSULE BY MOUTH EVERY MORNING ^1R1 30 capsule 12/20/19 25 Active buPROPion XL (Wellbutrin XL) 300 MG 24 hr tabletIndicatio ns:Anxiety TAKE ONE TABLET BY MOUTH EVERY MORNING . DO NOT CRUSH, CHEW OR SPLIT. ^1R1 30 tablet 12/25/19 25 Active acetaminophen (Tylenol 8 Hour) 650 MG ER tabletIndicatio ns:COPD exacerbation (CMS/HCC) ([facility]) TAKE ONE TABLET BY MOUTH EVERY 8 HOURS NEEDED FOR PAIN (VIAL) 40 tablet 12/25/19 25 Active mirtazapine (Remeron) 15 MG tabletIndicatio ns:Mood disorder (CMS/HCC) Take 1 tablet (15 mg) by mouth at bedtime. TAKE ONE TABLET BY MOUTH AT BEDTIME 30 tablet 01/31/20 25 Active Magnesium 400 MG capsuleIndicati ons:Restless leg syndrome Take 1 capsule by mouth at bedtime. 90 capsule 01/31/20 25 Active gabapentin (Neurontin) 300 MG capsuleIndicati ons:Restless leg syndrome Take 2 capsules (600 mg) by mouth 3 times daily. 60 capsule 01/31/20 25 Active montelukast (Singulair) 10 MG tablet TAKE ONE TABLET BY MOUTH EVERY EVENING 30 tablet 02/14/20 25 Active Azelastine HCl 137 MCG/SPRAY solution INSTILL 1 SPRAY IN EACH NOSTRIL TWICE DAILY DIRECTED. 30 mL 02/17/20 25 Active triamcinolone (Kenalog) 0.1 % ointmentIndicat ions:Rash APPLY A THIN LAYER TOPICALLY TO AFFECTED AREA(S) TWO TIMES A DAY NEEDED FOR 7 DAYS (BULK) 15 g 03/11/20 25 Active albuterol (Ventolin HFA) 108 (90 Base) MCG/ACT inhalerIndicati ons:Shortness of breath INHALE TWO PUFFS BY MOUTH EVERY 4 TO 6 HOURS NEEDED 18 g 03/11/20 25 Active ipratropium (Atrovent HFA) 17 MCG/ACT inhaler Inhale 2 puffs if needed in the morning, at noon, in the evening, and at bedtime for wheezing or shortness of breath. INHALE TWO PUFFS BY MOUTH FOUR TIMES A DAY (BULK) 12.9 g 5 03/11/20 25 Active meclizine (Antivert) 25 MG tablet TAKE 1 TABLET BY MOUTH THREE TIMES DAILY IN THE MORNING, AT NOON, AND AT BEDTIME NEEDED FOR FOR DIZZINESS 60 tablet 3 03/11/20 25 Active fexofenadine (Afshan) 180 MG tablet TAKE 1 TABLET BY MOUTH EVERY DAY 90 tablet 1 03/18/20 Active Oyster Shell Calcium 500 MG tablet TAKE ONE TABLET BY MOUTH EVERY MORNING 28 tablet 5 03/20/20 Active fexofenadine (Afshan) 180 MG tablet Take 1 tablet (180 mg) by mouth Once per day. 30 tablet 11 01/16/20 24 Discontinued Atrovent HFA 17 MCG/ACT inhaler INHALE TWO PUFFS BY MOUTH FOUR TIMES A DAY (BULK) 12.9 g 5 09/30/19 25 025 Discontinued(Re order (will not trigger notification to Pharmacy)) triamcinolone (Kenalog) 0.1 % ointmentIndicat ions:Rash APPLY A THIN LAYER TOPICALLY TO AFFECTED AREA(S) TWO TIMES A DAY NEEDED FOR 7 DAYS (BULK) 15 g 5 09/30/19 25 025 Discontinued(Re order (will not trigger notification to Pharmacy)) albuterol (Ventolin HFA) 108 (90 Base) MCG/ACT inhalerIndicati ons:Shortness of breath INHALE TWO PUFFS BY MOUTH EVERY 4 TO 6 HOURS NEEDED 18 g 5 10/23/19 25 025 Discontinued(Re order (will not trigger notification to Pharmacy)) Oyster Shell Calcium 500 MG tablet TAKE ONE TABLET BY MOUTH EVERY MORNING 28 tablet 5 10/23/19 25 025 Discontinued meclizine (Antivert) 25 MG tablet TAKE 1 TABLET BY MOUTH THREE TIMES DAILY IN THE MORNING, AT NOON, AND AT BEDTIME NEEDED FOR FOR DIZZINESS 60 tablet 3 10/23/19 25 025 Discontinued(Re order (will not trigger notification to Pharmacy)) Active Problems Problem Noted Date Diagnosed Date Dyspnea on exertion 04/23/2024 Overview (04/23/2024): - 11/30/2022 PFT's w/no bstructive or restrictive ventilatory defects, moderate isolated diffusion impairment. CT -12/01/22 CT scan of the lungs showed mild emphysema. - 05/2023- A cardiopulmonary stress test at [facility] showed moderately impaired exercise capacity and [...] Overview (07/03/2023): Mammo: 08/2022 Pap: 08/2022 at [facility]. Results not in chart C-scope: 2019, normal. Due 2029 BMD: 08/2021; osteopenia. Repeat 08/2023 Established with LDLCT screening at [facility] UTD on eye exams-[facility] Assessment & Plan (12/30/2022 9:26 PM EDT): Will request [facility] records for recent pap and mammogram Post-menopausal bleeding 08/06/2022 Overview (04/23/2024): 07/11/2022 pelvic ultrasound with normal EM stripe Followed by [facility] s/p EMB 09/2023 (negative) Dr. Pearson--pt to call [facility] should bleeding reoccur Assessment & Plan (07/03/2023 10:06 PM EST): Follow up for EMB as scheduled No recurrent episodes Assessment & Plan (08/06/2022 4:07 PM EDT): Pt denies recurrent episodes of bleeding. Did not hear regarding previously placed [facility] referral. Will re-refer today to [facility] for EMB if indicated. Anxiety 08/03/2022 Overview (08/06/2022): Buproprion 300mg daily Mirtazipine 7.5mg nightly Established with therapy Assessment & Plan (08/06/2022 4:05 PM EDT): Refills provided Continue current regimen Contact HC if sx worsen Chronic back pain 06/15/2022 Vertigo 06/15/2022 Overview (10/04/2022): Meclizine PRN with improvement Allergic rhinitis 06/15/2022 Osteopenia 06/15/2022 Overview (10/04/2022): 08/2021 DEXA scan- ssteopenia based on the lowest T-score value of -1.6 in the lumbar spine ON calcium and vitamin d supplementation Assessment & Plan (08/06/2022 4:01 PM EDT): START calcium 400mg supplement daily Continue vitamin D supplementation Increase dietary calcium Increase daily weight bearing exercises Encouraged smoking cessation Repeat DEXA 08/2023 Rheumatoid arthritis ([facility]/HCC) 06/15/2022 Overview (10/04/2022): Followed by [facility] Rheumatology Etodolac Methotrexate Hydroxychloroquine Tobacco use 06/15/2022 Overview (07/03/2023): Started smoking age 18: 1-2 PPD; decreased to 1/2 PPD over the pasts 1-2 years Quit 12/2022 Followed by [facility] LDLCT Mixed hearing loss, bilateral 06/15/2022 Overview (10/04/2022): Referred to audiology 07/2022 Assessment & Plan (08/06/2022 4:04 PM EDT): New referral placed to audiology Resolved Problems Problem Noted Date Diagnosed Date Resolved Date Exertional shortness of breath 10/21/2023 04/23/2024 Carpal tunnel syndrome of right wrist 10/18/2023 04/23/2024 Osteoarthritis 06/15/2022 08/06/2022 COPD (chronic obstructive pulmonary disease) 3 10/18/2023 Overview (12/30/2022): Currently managed with flovent, atrovent, albuterol , singulair PFT's 11/2022 Negative CXR 05/2022 Assessment & Plan (12/30/2022 9:35 PM EDT): - Will refer to pulmonology for further evaluation Assessment & Plan (08/06/2022 4:03 PM EDT): Pt will bring all inhalers to follow up Will order PFTs and pending results consider pulm referral Encounters Date Type Department Care Team Description 03/19/2025 Refill [facility] [address] [place] [address] Alicia Carias FNP Shortness of breath; Insomnia, unspecified type 03/17/2025 Refill [facility] [address] [place] [address] Silvia Guadarrama DO 03/11/2025 Refill [facility] [address] [place] [address] Alicia Carias FNP Rash; Shortness of breath 03/09/2025 11:15 AM EDT Telemedicine [facility] [address] [place] [address] Alicia Carias FNP Acute recurrent maxillary sinusitis (Primary Dx); Mood disorder ([facility]) 03/09/2025 Travel 03/06/2025 Orders Only [facility] External Provider, [facility] 03/06/2025 Telephone [facility] [address] [place] [address] Alicia Carias FNP chart prep 03/02/2025 Travel 02/19/2025 Refill [facility] [address] [place] [address] Alicia Carias [facility] COPD exacerbation (CMS/HCC) (HCC); Restless leg syndrome 02/19/2025 Refill [facility] [address] [facility] [place] [address] Alicia Carias [facility] 02/13/2025 Refill [facility] [address] [facility] [place] [address] Silvia Guadarrama DO 02/12/2025 Refill [facility] [address] [place] [address] [place] [facility] 02/02/2025 Results Follow-Up [facility] [address] [place] [address] [place] co[place] [facility] CBC auto differential, Comprehensive Metabolic Panel, Lipid Panel, Standard, Additional followed-up results: 3 01/30/2025 9:30 AM EDT Office Visit [facility] [address] [facility] [address] Alicia Carias [facility] Healthcare maintenance (Primary Dx); Acute recurrent maxillary sinusitis; Mood disorder (CMS/[facility]); Restless leg syndrome; Osteopenia, unspecified location; Other chronic pain; Rheumatoid arthritis, involving unspecified site, unspecified whether rheumatoid factor present (CMS/HCC) 01/30/2025 Travel 01/29/2025 Telephone [facility] [address] [facility] [place] [address] ArethaAlicia coon [facility] chart prep 01/23/2025 Travel 01/22/2025 Refill [facility] [address] [place] [address] Alicia Carias [facility] COPD exacerbation ([facility]); Restless leg syndrome 01/13/2025 1:40 PM EDT Office Visit [facility] [address] [facility] [address] Yajaira Barbosa MD COPD exacerbation ([facility]) (Primary Dx); Acute URI 01/13/2025 Travel 12/24/2024 Refill [facility] [address] [facility] [address] lAicia Carias [facility] Anxiety; COPD exacerbation (CMS/HCC) 12/18/2024 Refill [facility] [address] [place] [address] [place], [place], [facility] from Last 3 Months Immunizations Immunization Administration Dates Next Due Hep B, adult [...] housing situation today? I have alice juarze 01/30/[address] you li [...] Sign Reading Time Taken Comments Blood Pressure 124/78 01/30/2025 9:37 AM EDT Pulse 80 01/30/2025 9:37 AM EDT Temperature 36.2 C (97.2 F) 01/30/2025 9:37 AM EDT Respiratory Rate 20 01/30/2025 9:37 AM EDT Oxygen Saturation 98% 01/13/2025 1:52 PM EDT Inhaled Oxygen Concentration - - Weight 73.5 kg (162 lb 2 oz) 01/30/2025 9:37 AM EDT Height 157.5 cm (5' 2 ) 01/30/2025 9:37 AM EDT Body Mass Index 29.65 01/30/2025 9:37 AM EDT Plan of Treatment Health Maintenance Due Date Last Done Comments CT Colonography 1965 FIT DNA/Cologuard 1965 FIT 1965 FOBT 1965 Sigmoidoscopy 1965 Hepatitis B Vaccines (2 of 3 - 19+ 3-dose series) 11/26/2000 10/29/2000 RSV Patients and Patients Aged 60 years or older (1 - Risk 60-74 years 1-dose series) 2024 Mammogram 09/20/2024 09/21/2023, 08/20, 09/13/2021, Additional history exists Influenza Vaccine (#1) 2025 , 02/02/2023, 03/17/2022, Additional history exists Cervical Cancer Screening 02/07/2025 Pap Smear 02/07/2025 02/08/2024, 01/19, 10/27/2021 Depression Monitoring 07/30/2025 01/30/2025, 025 Disability Screening 01/23/2026 01/23/2025 Alcohol/Substance Use Screening 01/30/2026 01/30/2025 Diabetes: Hemoglobin A1C 01/30/2026 01/30/2025 SDOH Screening 01/30/2026 01/30/2025 Tobacco Screening 03/09/2026 03/09/2025 HPV/Cotest 02/07/2029 02/08/2024, 01/19, 10/27/2021, Additional history exists Colonoscopy 04/20/2030 04/20/2020 Colorectal Cancer Screening 04/20/2030 DTaP/Tdap/Td Vaccines (2 - Td or Tdap) 10/03/2032 10/03/2022, 02/24/2014, 12/04/2000 Pneumococcal Vaccine: 50+ Years Completed 10/03/2022, 09/02/2021, 07/30/2017 Zoster Vaccines Completed 12/07/2022, 10/03/2022 COVID-19 Vaccine Completed 04/16/2024, 09/2023, 12/21/2022, Additional history exists HIV Screening Completed 01/30/2025 Hepatitis C Screening Completed 01/30/2025 HIB Vaccines Aged Out No longer eligi [...] patient's age to complete this topic Meningococcal B Vaccine Aged Out No l onger eligible based on patient's age to complete [...] Procedure Name Priority Date/Time Associated Diagnosis Comments LDCT LUNG SCREENING Routine 03/06/2025 3 :45 PM EDT HIV 1/2 ANTIGEN/ANTIBODY, FOURTH GENERATION W/RFL Routine 01/30/2025 10:25 AM EDT Healthcare maintenance HEPATITIS PANEL, GENERAL Routine 01/30/2025 10:25 AM EDT Healthcare maintenance HEMOGLOBIN A1C Routine 01/30/2025 10:25 AM EDT Healthcare maintenance LIPID PANEL, STANDARD Routine 01/30/2025 10:25 AM EDT Healthcare maintenance COMPREHENSIVE METABOLIC PANEL Routine 01/30/2025 10:25 AM EDT Healthcare maintenance CBC WITH AUTO DIFFERENTIAL Routine 01/30/2025 10:25 AM EDT Healthcare maintenance POCT INFLUENZA A Routine 01/13/2025 2:19 PM EDT Acute URI POCT RAPID COVID ANTIGEN Routine 01/13/2025 2:18 PM EDT Acute URI POCT INFLUENZA B Routine 01/13/2025 2:18 PM EDT Acute URI POCT RAPID STREP A Routine 01/13/2025 2: 17 PM EDT Acute URI THINPREP IMAGING PAP AND HPV MRNA E6/E7 Routine 02/08/2024 2:23 PM EDT BI MAMMOGRAM SCREENING TOMOSYNTHESIS BILATERAL Routine 09/21/2023 9:35 AM EDT HM COLONOSCOPY Routine 04/20/2020 from Last 3 Months or Most Recently Relevant to Health Maintenance Results * CT Lung Screening Low dose (03/06/2025 3:45 PM EDT) Anatomical Region Laterality Modality Lung Computed Tomogra phy 03/06/2025 3:45 PM EDT Narrative 03/06/2025 4:30 PM EDT [address] [address] [address] Scan Report Signed Patient: Lizzie Girard MR#: [id number] : 1965 Acct:[id number] Age/Sex: 59 / F ADM Date: 03/06/25 Loc: .CT Attending Dr: Brittany Arnold PA-C Ordering Physician: Brittany Arnold PA-C Date of Service: 03/06/25 Procedure(s): CT lung screening Accession Number(s): [id number] cc: Brittany Arnold PA-C; [facility] Report Number: [id number]: Total DLP = 48.00 mGy-cm Reason for Exam: Z87.891 - Personal history of nicotine dependence EXAMINATION: CT LUNG SCREENING HISTORY: Z87.891 - Personal history of nicotine dependence TECHNIQUE: Low dose axial images were obtained from the sternal notch to upper abdomen without IV contrast per standard departmental protocol. Sagittal and coronal reformatted images were also obtained and reviewed. One or more of the following techniques was used for dose reduction: Automated exposure control, adjustment of the mA and/or kV according to patient size, use of iterative reconstruction technique. DLP: 48 mGy-cm COMPARISON: Previous chest CT scans December 2023 and November 2022 FINDINGS: Lung nodules: Stable 3 mm peripheral or subpleural left lower lobe nodule axial image 91 series 5. No new or enlarging pulmonary nodule. Central airways are clear. Emphysema: moderate Coronary Calcification: mild Aortic Arch Calcification: mild Potentially Significant Incidentals : none Additional Chest Findings: There is no pleural or pericardial effusion. No mediastinal or axillary lymphadenopathy is identified. Visualized upper abdomen: The visualized portions of the liver, spleen, and adrenals have an unremarkable unenhanced appearance. Degenerative changes of the spine. CT/CT lung screening IMPRESSION: Moderate emphysema. Stable 3 mm left lower lobe pulmonary nodule from prior exams. No new or suspicious pulmonary nodule. LUNG-RADS ASSESSMENT: Lung-RADS 2: Benign MANAGEMENT: Continue annual screening with LDCT in 12 months Category S: N/A Electronically signed by: Katelyn Baxter MD 03/06/2025 04:27 PM EDT RP Dictated By: Katelyn Baxter MD Signed By: <Electronically signed by Katelyn Baxter MD in OV> 03/06/25 1627 DD/ 1545 TD/TT: 03/06/25 1555 Crane Operator Cab: SEBASTIEN Procedure Note Donotuseinterpreter, Image - 03/06/[address] [place] [address] [address] Scan Report Signed Patient: Bala Girard#: [id number] : 1965Acct:[id number] Age/Sex: 59 / FADM Date: 03/06/25 Loc: .CT Attending Dr: Brittany Arnold PA-C Ordering Physician: Brittany Arnold PA-C Date of Service: 03/06/25 Procedure(s): CT lung screening Accession Number(s): [id number] cc: Brittany Arnold PA-C; [facility] Report Number: [id number]: Total DLP = 48.00 mGy-cm Reason for Exam: Z87.891 - Personal history of nicotine dependence EXAMINATION: CT LUNG SCREENING HISTORY: Z87.891 - Personal history of nicotine dependence TECHNIQUE: Low dose axial images were obtained from the sternal notch to upper abdomen without IV contrast per standard departmental protocol. Sagittal and coronal reformatted images were also obtained and reviewed. One or more of the following techniques was used for dose reduction: Automated exposure control, adjustment of the mA and/or kV according to patient size, use of iterative reconstruction technique. DLP: 48 mGy-cm COMPARISON: Previous chest CT scans December 2023 and November 2022 FINDINGS: Lung nodules: Stable 3 mm peripheral or subpleural left lower lobe nodule axial image 91 series 5. No new or enlarging pulmonary nodule. Central airways are clear. Emphysema: moderate Coronary Calcification: mild Aortic Arch Calcification: mild Potentially Significant Incidentals : none Additional Chest Findings: There is no pleural or pericardial effusion. No mediastinal or axillary lymphadenopathy is identified. Visualized upper abdomen: The visualized portions of the liver, spleen, and adrenals have an unremarkable unenhanced appearance. Degenerative changes of the spine. CT/CT lung screening IMPRESSION: Moderate emphysema. Stable 3 mm left lower lobe pulmonary nodule from prior exams. No new or suspicious pulmonary nodule. LUNG-RADS ASSESSMENT: Lung-RADS 2: Benign MANAGEMENT: Continue annual screening with LDCT in 12 months Category S: N/A Electronically signed by: Katelyn Baxter MD 03/06/2025 04:27 PM EDT Dictated By: Katelyn Baxter MD Signed By: <Electronically signed by Katelyn Baxter MD in OV> 03/06/25 1627 DD/ 1545 TD/TT: 03/06/25 1555 Crane Operator Cab: SEBASTIEN Authorjarret Provider Result Type Result Stat [facility] External Provider IMG CT PROCEDURES Final Result * Hepatitis A,B,C Profile (01/30/2025 10:25 AM EDT) Hepatitis A IgM Nonreactive Nonreactive [facility] Comment:IgM antibodies to HUA V not detected; does not exclude earlyacute or recovered HAV infection. ~Hepatitis B Surface Antibody NONREACTIVE Nonreactive [facility] Comment:Nonreactive: < 8.00 mIU/mL Hepatitis B Core Antibody Nonreactive Nonreactive [facility] Hepatitis C Antibody Nonreactive Nonreactive [facility] Comment:Antibodies to HCV no t detected; does not exclude early acuteHCV infection. Hepatitis B Surface Ag Negative Negative [facility] Blood Venous blood specimen / Unknown 01/30/2025 10:25 AM EDT 01/30/2025 11:27 AM EDT [facility] LAB BLOOD ORDERABLES Final Re sult [facility] [address] [place] [address] [phone] * (ABNORMAL) CBC auto differential (01/30/2025 10:25 AM EDT) White Blood Count 6.9 4.8 - 10.8 X10*3/uL [facility] Red Blood Count 5.08 4.20 - 5.50 X10*6/uL [facility] Hemoglobin 13.4 12.0 - 16.0 g/dl [facility] Hematocrit 41.7 37.0 - 47.0 % [facility] Mean Corpuscular Volume 82.1 80.0 - 98.0 fL [facility] Mean Corpuscular Hemoglobin 26.4(L) 27.0 - 33.0 pg [facility] Mean Corpuscular HGB Conc 32.1 31.0 - 35.0 g/dl [facility] Red Cell Distribution Width 14.3 11.0 - 16.0 % [facility] Platelet Count 234 160 - 400 X10*3/uL [facility] Mean Platelet Volume 10.3 9.4 - 12.3 fL [facility] Neutrophils Percent Auto 55.6 45 - 73 % [facility] Imm Gran Pct Auto 0.6(H) 0.0 - 0.4 % [facility] Lymphocytes Percent Auto 28.6 20 - 40 % [facility] Monocytes Percent Auto 10.0 2 - 11 % [facility] Eosinophils Percent Auto 4.8(H) 0 - 4 % [facility] Basophils Percent Auto 0.4 0 - 2 % [facility] NRBC Pct Auto 0.0 0.0 - 0.2 /100WBC [facility] Neutrophils Absolute Auto 3.9 2.0 - 8.3 x10*3/uL [facility] Imm Gran Abs Auto 0.04(H) 0.00 - 0.03 X10*3/uL [facility] Lymphocytes Absolute Auto 2.0 1.2 - 4.9 X10*3/uL [facility] Monocytes Absolute Auto 0.7 0.1 - 1.2 X10*3/uL [facility] Eosinophils Absolute Auto 0.3 0.0 - 0.4 X10*3/uL [facility] Basophils Absolute Auto 0.0 0.0 - 0.2 X10*3/uL [facility] NRBC Abs Auto 0.000 0.0 - 0.012 X10*3/uL [facility] Blood Venous blood specimen / Unknown 01/30/2025 10:25 AM EDT 01/30/2025 11:24 AM EDT [facility] LAB BLOOD ORDERABLES Final Re sult [facility] [address] [place] [address] [phone] * HIV-1/2 Antigen and Antibodies, Fourth Generation, with Reflexes (01/30/2025 10:25 AM EDT) HIV AB/AG Nonreactive Nonreactive [facility] Comment:HIV-1 p24 Ag and/or HIV-1/HIV-2 Ab not detected.A test result that is nonreactive does not exclude thepossibility of exposure to or infection with HIV-1 and/orHIV-2. Nonreactive results in this assay for individualswith prior exposure to HIV-1 and/or HIV-2 may be due toantigen and antibody levels that are below the limit ofdetection of this assay.The [employer] HIV Ag/Ab Combo assay result andsupplemental assay results should be interpreted inconjunction with the patient's clinical presentation,history and other laboratory results. If the results areinconsistent with clinical evidence, additional testing issuggested to confirm the result. Blood Venous blood specimen / Unknown 01/30/2025 10:25 AM EDT 01/30/2025 11:27 AM EDT [facility] LAB BLOOD ORDERABLES Final Re sult Performing Organization Address [facility] Co de Phone Number [facility] [address] [place] [phone] * (ABNORMAL) Hemoglobin A1c (01/30/2025 10:25 AM EDT) Hemoglobin A1c 6.2(H) <6.0 % [facility] Comment:Hemoglobin A1C Refer ence Range Adults: 4.8 - 6.0 % Non diabetic: < 6.0 % Goal: < 7.0 %Additional Action Suggested: > 8.0 %Note: Hemoglobin A1c results are invalid for patients with abnormal amounts of HbF. Blood transfusions may impact the HbA1c concentration in the patient sample. Estimated Average Glucose 131 mg/dL [facility] Comment:eAG = Estimated ave rage glucose which is %A1C expressed asaverage glucose, using the formula of the X0V-SfwcpusCbsuytz Glucose study (ADAG), Diabetes Care, Vol.31,#8,Dec. 2007 Blood Venous blood specimen / Unknown 01/30/2025 10:25 AM EDT 01/30/2025 11:24 AM EDT [facility] LAB BLOOD ORDERABLES Final Re sult Performing Organization Address [facility] Co de Phone Number [facility] [address] [place] [address] [phone] * (ABNORMAL) Lipid Panel, Standard (01/30/2025 10:25 AM EDT) Triglycerides 139 <150 mg/dL [facility] Comment:Desirable Triglyceri de: less than 150 mg/dLBorderline High Triglyceride 150-199 mg/dLHigh Triglyceride: 200-499 mg/dLVery High Triglyceride: greater than or equal to 5OO mg/dL Cholesterol 194 <200 mg/dL [facility] Comment:Desirable Cholestero l: less than 200 mg/dLBorderline High Cholesterol: 200-239 mg/dLHigh Cholesterol: greater than 239 mg/dL LDL Cholesterol Calculated 113(H) <100 mg/dL [facility] Comment:Desirable LDL: less than 100 mg/dLNear Optimal/Above Optimal LDL: 110- 129 mg/dLBorderline High LDL: 130-159 mg/dLHigh LDL: 160-189 mg/dLVery High LDL: greater than or equal to 190 mg/dL HDL Cholesterol 54 >40 mg/dL [facility] Comment:Desirable HDL: great er than 40 mg/dL Note: This HDL assay may give artificially low results in patients with liver disease. Blood Venous blood specimen / Unknown 01/30/2025 10:25 AM EDT 01/30/2025 11:27 AM EDT [facility] LAB BLOOD ORDERABLES Final Re sult [facility] [address] [place] [address] [phone] * Comprehensive Metabolic Panel (01/30/2025 10:25 AM EDT) Sodium 144 135 - 145 mmol/L [facility] Potassium 4.8 3.3 - 5.1 mmol/L [facility] Chloride 108 96 - 108 mmol/L [facility] Carbon Dioxide 26 22 - 29 mmol/L [facility] Anion Gap 15 12 - 20 [facility] Urea Nitrogen (BUN) 16 9 - 16 mg/dL [facility] Creatinine, Serum 0.62 0.5 - 1.4 mg/dL [facility] Estimated Glomerular Filt Rate >60 [facility] Comment:Chronic Kidney Disea se: Estimated GFR < 60 mL/min/1.72b2Gwbzyk Kidney Disease: Estimated GFR < 15 mL/min/1.73m2 Glucose 81 60 - 115 mg/dL [facility] Calcium 9.3 8.4 - 10.2 mg/dL [facility] Bilirubin, Total 0.4 0.0 - 1.0 mg/dL [facility] Aspartate Amino Transferase 29 5 - 31 U/L [facility] Alanine Aminotransferase 30 0 - 31 U/L [facility] Total Protein 7.4 6.5 - 8.0 g/dL [facility] Albumin Level 4.4 3.5 - 5.0 g/dL [facility] Alkaline Phosphatase 86 39 - 117 U/L [facility] Blood Venous blood specimen / Unknown 01/30/2025 10:25 AM EDT 01/30/2025 11:27 AM EDT [facility] LAB BLOOD ORDERABLES Final Re sult [facility] [address] [place] [phone] * POCT Influenza A manually resulted (01/13/2025 2:19 PM EDT) [facility] Rapid Influenza A Ag Negative Negative, Indeterminate QC Media Lot # [id number] Lot# Expiration Date 100,826 Swab Nasopharyngeal structure / Unknown 01/13/2025 2:19 PM EDT Yajaira Barbosa MD POINT OF CARE TEST ENTER/E DIT ORDERABLES Final Result * POCT Rapid COVID Ag (01/13/2025 2:18 PM EDT) [facility] Rapid COVID Ag Negative QC Media Lot # [id number] Lot# Expiration Date ,826 Swab 01/13/2025 2:18 PM EDT Yajaira Barbosa MD POINT OF CARE TEST ENTER/E DIT ORDERABLES Final Result * POCT Influenza B manually resulted (01/13/2025 2:18 PM EDT) [facility] Rapid Influenza B Ag Negative Negative, Indeterminate QC Media Lot # [id number] Lot# Expiration Date 100,826 Swab 01/13/2025 2:18 PM EDT Yajaira Barbosa MD POINT OF CARE TEST ENTER/E DIT ORDERABLES Final Result * POCT rapid strep A manually resulted (01/13/2025 2:17 PM EDT) Rapid Strep A Screen Negative Negative, None Detected QC Media Lot # [id number] Lot# Expiration Date Swab 01/13/2025 2:17 PM EDT Yajaira Barbosa MD POINT OF CARE TEST ENTER/E DIT ORDERABLES Final Result * ThinPrep Imaging Pap and HPV mRNA E6/E7 (02/08/2024 2:23 PM EDT) Pathologist [facility] HPV nRNA E6/E7 Not Detected Not Detected [facility] Comment:Methodology: Transcr iption-Mediated AmplificationThis assay detects E6/E7 viral messenger RNA (mRNA) from 14high-risk HPV types (16,18,31,33,35,39,45,51,52,56,58,59,66,68).Cervical sources are required for HPV testing.If a vaginal source from a patient who has had atotal hysterectomy with removal of cervix wassubmitted, please contact the testing laboratoryfor alternative testing options.For additional information, please refer tohttp://education.[employer]/faq/OME984y8(This link if provided for information/educational purposes only.)THIS TEST WAS PERFORMED AT:[employer] [place] [phone] PEOPLES MD SOURCE: SEE NOTE [facility] Comment:Cervix Report Status: TNP [facility] Clinical Information: SEE NOTE [facility] Comment:None given LMP: SEE NOTE [facility] Comment:NONE GIVEN Prev. PAP: SEE NOTE [facility] Comment:NONE GIVEN Prev. BX: SEE NOTE [facility] Comment:NONE GIVEN Statement Of Adequacy: SEE NOTE [facility] Comment:Satisfactory for humaira luation.Endocervical/transformation zone componentpresent. General Categorization: [facility] Interpretation/Result: SEE NOTE [facility] Comment:Cytology Results: Ne gative for intraepitheliallesion or malignancy. Cytology Comment SEE NOTE [facility] Comment:This Pap test has be en evaluated with computerassisted technology. Death Clearance Coordinator: SEE NOTE [facility] Comment:DMM, CT(ASCP)CT scre ening location: [place] [address] Review Death Clearance Coordinator: [facility] Pathologist [facility] PAP Infection [facility] See Note SEE NOTE [facility] Comment:EXPLANATORY NOTE:The Pap is a screening test for cervical cancer. It isnot a diagnostic test and is subject to false negativeand false positive results. It is most reliable when asatisfactory sample, regularly obtained, is submittedwith relevant clinical findings and history, and whenthe Pap result is evaluated along with historic andcurrent clinical information. 02/08/2024 2:23 PM EDT 02/08/2024 4:34 PM EDT Narrative [facility] - 02/15/2024 12:08 PM EDT SEE SCANNED RESULTS IN EMRCERVIX [facility] LAB PATHOLOGY ORDERABLES Claudette l Result [facility] [address] [place] [address] [phone] * BI Mammogram Screening Tomosynthesis Bilateral (09/21/2023 9:35 AM EDT) Anatomical Region Laterality Modality Breast Bilateral Mammography 09/21/2023 9:35 AM EDT Narrative 10/22/2023 8:00 AM EDT [facility] [address] [place] [address] Mammography Report Signed Patient: Lizzie Girard MR#: [id number] : 1965 Acct:[id number] Age/Sex: 58 / F ADM Date: 09/21/23 Loc: [facility] Attending Dr: Alicia YADAV Ordering Physician: Alicia Carias Results: 1Nega tive Date of Service: 09/21/23 Follow Up: 1 Year From Orig inal Mammogram Procedure(s): MM tomosynthesis screening BI Accession Number(s): [id number] cc: Alicia Carias [facility] EXAMINATION: MM SCREENING DIGITAL BREAST TOMOSYNTHESIS, BILATERAL [...] in OV> 10/22/23 0757 DD/ 0935 TD/TT: Crane Operator Cab: Procedure Note Donotuseinterpreter, Image - 10/22/2023 [facility] [address] [place] [address] Dr. [place], [place] [address] Mammography Report Signed Patient: Bala Girard#: [id number] : 1965Acct:[id number] Age/Sex: 58 / FADM Date: 09/21/23 Loc: [facility] Attending Dr: Alicia YADAV Ordering Physician: Alicia Carias FNPResults: 1Nega tive Date of Service: 09/21/23Follow Up: 1 Year From Orig inal Mammogram Procedure(s): MM tomosynthesis screening BI Accession Number(s): [id number] cc: [facility] EXAMINATION: MM SCREENING DIGITAL BREAST TOMOSYNTHESIS, BILATERAL [...] in OV> 10/22/23 0757 DD/ 0935 TD/TT: Crane Operator Cab: [facility] IMG BI PROCEDURES Final Resul t * Hm Colonoscopy (04/20/2020) Colonoscopy Normal Normal Comment:Repeat in 10 years Historical Provider HEALTH MAINTENANCE Final Result from Last 3 Months or Most Recently Relevant to Health Maintenance Insurance [facility] < 65 Care Teams Credit And Collections Representative Relationship Specialty Start Date End Date Alicia Carias FNP [address] [place] [address] PCP - General Family Medicine 01/17/22
--- OUTSIDE RECORDS SUMMARY | 2025-03-20 14:11 | XMS_ITS | Encounter Summary ---
Author Organization [employer] Address [address] [place] [address] 7 [place] [address] Care Team Providers Care Artillery Or Naval Gunfire Observer Name Role Phone [facility] Primary Care Provider [phone] Reason for Visit * Reason Comments Med Refill Encounter Details Date Type Department Care Team ([facility] st Contact Info) Description 02/17/2024 Refill [facility] [address] [place] [address] [facility] 230 [place] [address] COPD exacerbation (CMS/[facility]) Social History Tobacco Use Types Packs/Day Years [...] documented as of this encounter Care Teams Artillery Or Naval Gunfire Observer Relationship Specialty Start Date End Date Alicia Carias FNP [address] [place] [address] PCP - General Family Medicine 01/17/22 documented as of this encounter
--- OUTSIDE RECORDS SUMMARY | 2025-03-20 14:11 | XMS_ITS | Encounter Summary ---
Author Organization [employer] Address [address] [place] [address] 7 [place] [address] Care Team Providers Care Rotary Filter Operator Name Role Phone [facility] Primary Care Provider Reason for Visit * Reason Comments Med Refill Encounter Details Date Type Department Care Team ([facility] Contact Info) Description 11/15/2023 Refill [facility] [address] [place] [address] [facility] 230 [place] [address] Dizziness and giddiness; Insomnia, unspecified type; Shortness [...] as of this encounter Care Teams Rotary Filter Operator Relationship Specialty Start Date End Date Alicia Carias FNP [address] [place] [address] PCP - General Family Medicine 01/17/22 documented as of this encounter
--- OUTSIDE RECORDS SUMMARY | 2025-03-20 14:11 | XMS_ITS | Encounter Summary ---
Author Organization [employer] Address [address] [place] [address] 7 [place] [address] Care Team Providers Care Auto Air Conditioning Mechanic Name Role Phone [employer] [facility] Primary Care Provider [phone] Reason for Visit * Reason Comments Med Refill Encounter Details Date Type Department Care Team ([facility] st Contact Info) Description 02/11/2024 Refill [facility] 230 [place] [address] [facility] 230 [place] [address] COPD exacerbation (CMS/[facility]) Social History Tobacco Use Types [...] as of this encounter Care Teams Auto Air Conditioning Mechanic Relationship Specialty Start Date End Date Alicia Carias FNP [address] [place] [address] PCP - General Family Medicine 01/17/22 documented as of this encounter
--- OUTSIDE RECORDS SUMMARY | 2025-03-20 14:11 | XMS_ITS | Encounter Summary ---
Author Organization [employer] Address [address] [place] [address] 7 [place] [address] Care Team Providers Care Touch Up Edger Name Role Phone Alicia Carias [employer] Primary Care Provider [phone] Reason for Visit * Reason Comments Med Refill Encounter Details Date Type Department Care Team ([facility] st Contact Info) Description 02/29/2024 Refill [facility] 230 [place] [address] Silvia Guadarrama DO [address] [place] [address] Social History Tobacco Use Types Packs/Day Years [...] documented as of this encounter Care Teams Touch Up Edger Relationship Specialty Start Date End Date Aliica Carias FNP [address] [place] [address] PCP - General Family Medicine 01/17/22 documented as of this encounter
--- OUTSIDE RECORDS SUMMARY | 2025-03-20 14:11 | XMS_ITS | Encounter Summary ---
Author Organization [employer] Address [address] [place] [address] 7 [place] [address] Care Team Providers Care Detacker Name Role Phone [facility] Primary Care Provider [phone] Reason for Visit * Reason Comments Med Refill Encounter Details Date Type Department Care Team ([facility] Contact Info) Description 03/19/2025 Refill [facility] 230 [place] [address] [facility] 230 [place] [address] Shortness of breath; Insomnia, unspecified type Social History Tobacco Use [...] as of this encounter Visit Diagnoses Diagnosis Shortness of breath Insomnia, unspecified type documented in this encounter Additional Health Concerns Assessment Noted Time PHQ-9 Depression Total Score: 14 025 9:39 AM EDT documented as of this encounter Care Teams Detacker Relationship Specialty Start Date End Date Alicia Carias FNP [address] [place] [address] PCP - General Family Medicine 01/17/22 documented as of this encounter
--- OUTSIDE RECORDS SUMMARY | 2025-03-20 14:11 | XMS_ITS | Encounter Summary ---
Author Organization [employer] Address [address] [place] [address] 7 [place] [address] Care Team Providers Care Director Traffic And Planning Name Role Phone [facility] Primary Care Provider Reason for Visit * Reason Comments Med Refill Encounter Details Date Type Department Care Team ([facility] st Contact Info) Description 01/29/2024 Refill [facility] 230 [place] [address] [facility] 230 [place] [address] COPD exacerbation (CMS/[facility]) Social History Tobacco Use [...] as of this encounter Care Teams Director Traffic And Planning Relationship Specialty Start Date End Date Alicia Carias FNP [address] [place] [address] PCP - General Family Medicine 01/17/22 documented as of this encounter
--- OUTSIDE RECORDS SUMMARY | 2025-03-20 14:12 | XMS_ITS | Encounter Summary ---
Author Organization [employer] Address [address] [place] [address] 7 [place] [address] Care Team Providers Care Invoice Checker Name Role Phone [facility] Primary Care Provider [phone] Reason for Visit * Reason Comments Med Refill Encounter Details Date Type Department Care Team ([facility] Contact Info) Description 02/19/2025 Refill [facility] 230 [place] [address] [facility] 230 [place] [address] Social History Tobacco Use Types Packs/Day Years [...] documented as of this encounter Care Teams Invoice Checker Relationship Specialty Start Date End Date Alicia Carias FNP [address] [place] [address] PCP - General Family Medicine 01/17/22 documented as of this encounter
--- OUTSIDE RECORDS SUMMARY | 2025-03-20 14:12 | XMS_ITS | Encounter Summary ---
Author Organization [employer] Address [address] [place] [address] 7 [place] [address] Care Team Providers Care Police Service Technician Name Role Phone [facility] Primary Care Provider [phone] Reason for Visit * Reason Comments Med Refill Encounter Details Date Type Department Care Team ([facility] st Contact Info) Description 02/19/2025 Refill [facility] 230 [place] [address] [facility] 230 [place] [address] COPD exacerbation (CMS/HCC) ([facility]); Restless leg syndrome Social History Tobacco Use [...] documented as of this encounter Care Teams Police Service Technician Relationship Specialty Start Date End Date Alicia Carias FNP [address] [place] [address] PCP - General Family Medicine 01/17/22 documented as of this encounter
== END 2025-03-20 13:45 | disposition home or self-care (01) ==
LOC: HO.HOS 13:04
PROVIDERS: PCP Registered Nurse
DX: M65.4 Radial styloid tenosynovitis [de Quervain] (principal); M18.11 Unilateral primary osteoarthritis of first carpometacarpal joint, right hand
CPT/HCPCS: 99024

== ENCOUNTER → 2025-03-20 13:03 | Outpatient (BNVA) | payer OTHER, SELFPAY | PROVIDERS: PCP Registered Nurse | DX: Z48.811 Encounter for surgical aftercare following surgery on the nervous system (principal); M65.4 Radial styloid tenosynovitis [de Quervain]; M18.11 Unilateral primary osteoarthritis of first carpometacarpal joint, right hand; Z98.890 Other specified postprocedural states | CPT/HCPCS: 99212 ==

== ENCOUNTER 2025-04-01 12:52 | Outpatient (REF) | payer OTHER, SELFPAY ==
--- NOTE | ~2025-04-01 | MM_ITS ---
EXAMINATION: DXA BONE DENSITY AXIAL HISTORY: 59y.o F with known osteopenia m85.80 TECHNIQUE: Emprivo Dual energy absorptiometry (DEXA) of the lumbar spine, total left hip, and femoral neck was performed. COMPARISON: Comparison is made with the prior examination dated August 2021. FINDINGS: The bone mineral density of the lumbar spine is 1.072 g/cm2, corresponding to a T-score of -1.2, and a Z-score of -0.2. This is indicative of normal bone mineral density. This represents a BMD change of free 0.6% compared to the prior exam. The bone mineral density of the left total hip is 0.846 g/cm2, corresponding to a T-score of -1.3, and a Z-score of -0.5. This is indicative of osteopenia. This represents a BMD change of -0.7%% compared to the prior exam. This is not statistically significant. The bone mineral density of the left femoral neck is 0.880 g/cm2, corresponding to a T-score of -1.1, and a Z-score of 0. This is indicative of osteopenia. This represents a BMD change of -3.7% compared to the prior exam. This is not statistically significant. FRACTURE RISK: The FRAX index suggests a ten year probability of major osteoporotic fracture of 6.9%, and of hip fracture 0.5%. MM/XR DEXA axial skeleton IMPRESSION: Based on bone mineral density, and according to World Health Organization (WHO) criteria, the diagnosis is consistent with osteopenia based on lowest T score of -1.3 in the left femur. Treatment Recommendations: NOF guidelines recommend consideration for treatment in postmenopausal women and men age 50 and older presenting with the following: -A hip or vertebral (clinical or morphometric) fracture. -T-score less than or equal to -2.5 at the femoral neck or spine after appropriate evaluation to exclude secondary causes. -Low bone mass at the hip or spine and a 10-year fracture probability by FRAX of greater than or equal to 3% for hip fracture or greater than or equal to 20% for major osteoporotic fracture based on the [place] adapted WHO algorithm. Other Recommendations: All treatment decisions require clinical judgment and consideration of individual patient factors, including patient preferences, comorbidities, previous drug use, risk factors not captured in the FRAX model (e.g. frailty, falls, vitamin D deficiency, increased bone turnover, interval significant decline in bone density) and possible under or overestimation of fracture risk by FRAX. Additional medical evaluation for secondary cause of low bone mineral density may be appropriate. FUTURE SCAN RECOMMENDATION: People with diagnosed cases of osteoporosis or at high risk for fracture should have regular bone mineral density tests. For patients eligible for Medicare, routine testing is allowed once every 2 years. The testing frequency can be increased to one year for patients who have rapidly progres Statistically, 68% of repeat scans fall within 1 SD (+/- 0.010 g/cm2 for AP spine L1-L4) and 1 SD (+/- 0.012 g/cm2 for femur total) FRAX is a trademark of the [employer] [place] for Metabolic Bone Disease, a World Health Organization (WHO) Collaborating Center. Electronically signed by: Katelyn Baxter MD 04/01/2025 02:33 PM KARENA CALL
--- OUTSIDE RECORDS SUMMARY | 2025-04-01 15:29 | XMS_ITS | Encounter Summary ---
Author Organization [employer] Address [address] [place] [address] 7 [place] [address] Care Team Providers Care Health Tech Name Role Phone [facility] Primary Care Provider [phone] Reason for Visit * Reason Comments Med Refill Encounter Details Date Type Department Care Team ([facility] st Contact Info) Description 02/28/2024 Refill [facility] 230 [place] [address] [facility] 230 [place] [address] Dizziness and giddiness; Restless leg syndrome Social [...] documented as of this encounter Care Teams Health Tech Relationship Specialty Start Date End Date Alicia Carias FNP [address] [place] [address] PCP - General Family Medicine 01/17/22 documented as of this encounter
--- OUTSIDE RECORDS SUMMARY | 2025-04-01 15:29 | XMS_ITS | Encounter Summary ---
Author Organization [employer] Address [address] [place] [address] 7 [place] [address] Care Team Providers Care Shoe Ironer Name Role Phone [facility] Primary Care Provider [phone] Reason for Visit * Reason Comments Med Refill Encounter Details Date Type Department Care Team ([facility] Contact Info) Description 02/26/2024 Refill [facility] 230 [place] [address] [facility] 230 [place] [address] Social History Tobacco Use Types Packs/Day Years [...] documented as of this encounter Care Teams Shoe Ironer Relationship Specialty Start Date End Date Alicia Carias FNP 230 [place] [address] PCP - General Family Medicine 01/17/22 documented as of this encounter
--- OUTSIDE RECORDS SUMMARY | 2025-04-01 15:29 | XMS_ITS | Encounter Summary ---
Author Organization [employer] Address [address] [place] [address] 7 [place] [address] Care Team Providers Care Department Of Sociology Chair Name Role Phone [facility] Primary Care Provider [phone] Reason for Visit * Reason Comments Med Refill Encounter Details Date Type Department Care Team ([facility] Contact Info) Description 03/05/2024 Refill [facility] 230 [place] [address] [facility] 230 [place] [address] Dizziness and giddiness Social History Tobacco Use [...] documented as of this encounter Care Teams Department Of Sociology Chair Relationship Specialty Start Date End Date Alicia Carias FNP [address] [place] [address] PCP - General Family Medicine 01/17/22 documented as of this encounter
--- OUTSIDE RECORDS SUMMARY | 2025-04-01 15:29 | XMS_ITS | Encounter Summary ---
Author Organization [employer] Address [address] [place] [address] 7 [place] [address] Care Team Providers Care Licensed Esthetician Name Role Phone [facility] Primary Care Provider Reason for Visit * Reason Comments Med Refill Encounter Details Date Type Department Care Team ([facility] Contact Info) Description 11/15/2023 Refill [facility] 230 [place] [address] [facility] 230 [place] [address] Dizziness and giddiness; Insomnia, unspecified type; Shortness [...] documented as of this encounter Care Teams Licensed Esthetician Relationship Specialty Start Date End Date Alicia Carias FNP [address] [place] [address] PCP - General Family Medicine 01/17/22 documented as of this encounter
--- OUTSIDE RECORDS SUMMARY | 2025-04-01 15:29 | XMS_ITS | Encounter Summary ---
Author Organization [employer] Address [address] [place] [address] 7 [place] [address] Care Team Providers Care Stroboscope Operator Name Role Phone [facility] Primary Care Provider [phone] Reason for Visit * Reason Comments Med Refill Encounter Details Date Type Department Care Team ([facility] st Contact Info) Description 03/11/2024 Refill [facility] 230 [place] [address] [facility] 230 [place] [address] Restless leg syndrome; Dizziness and giddiness Social [...] documented as of this encounter Care Teams Stroboscope Operator Relationship Specialty Start Date End Date Alicia Carias FNP [address] [place] [address] PCP - General Family Medicine 01/17/22 documented as of this encounter
--- OUTSIDE RECORDS SUMMARY | 2025-04-01 15:29 | XMS_ITS | Encounter Summary ---
Author Organization [employer] Address [address] [place] [address] 7 [place] [address] Care Team Providers Care Hand Sprayer Name Role Phone [facility] Primary Care Provider [phone] Reason for Visit * Reason Comments Med Refill Encounter Details Date Type Department Care Team ([facility] st Contact Info) Description 09/02/2024 Refill [facility] 230 [place] [address] [facility] 230 [place] [address] COPD exacerbation (CMS/HCC); Rash Social History Tobacco [...] documented as of this encounter Care Teams Hand Sprayer Relationship Specialty Start Date End Date Alicia Carias FNP [address] [place] [address] PCP - General Family Medicine 01/17/22 documented as of this encounter
--- OUTSIDE RECORDS SUMMARY | 2025-04-01 15:29 | XMS_ITS | Encounter Summary ---
Author Organization [facility] [employer] Address [address] [place] [address] 7 [place] [address] Care Team Providers Care Senior Data Mining Analyst Name Role Phone [facility] Primary Care Provider [phone] Reason for Visit * Reason Comments Med Refill Encounter Details Date Type Department Care Team ([facility] Contact Info) Description 09/21/[address] [facility] 230 [place] [address] [facility] 230 [place] [address] COPD exacerbation (CMS/HCC); Dizziness and giddiness Social [...] as of this encounter Care Teams Senior Data Mining Analyst Relationship Specialty Start Date End Date Alicia Carias FNP [address] [place] [address] PCP - General Family Medicine 01/17/22 documented as of this encounter
--- OUTSIDE RECORDS SUMMARY | 2025-04-01 15:29 | XMS_ITS | Encounter Summary ---
Author Organization [employer] Address [address] [place] [address] 7 [place] [address] Care Team Providers Care Hospital Chief Financial Officer Name Role Phone [facility] Primary Care Provider [phone] Reason for Visit * Reason Comments Med Refill Encounter Details Date Type Department Care Team ([facility] st Contact Info) Description 03/07/2024 Refill [facility] MED[facility]INE 230 [place] [address] [facility] 230 [place] [address] Dizziness and giddiness; Restless leg syndrome Social [...] documented as of this encounter Care Teams Hospital Chief Financial Officer Relationship Specialty Start Date End Date Alicia Carais FNP [address] [place] [address] PCP - General Family Medicine 01/17/22 documented as of this encounter
--- OUTSIDE RECORDS SUMMARY | 2025-04-01 15:29 | XMS_ITS | Encounter Summary ---
Author Organization [employer] Address [address] [place] [address] [place] [address] Care Team Providers Care Checker Bakery Products Name Role Phone [facility] Primary Care Provider [phone] Reason for Visit * Reason Onset Date Comments Nurse Triage 10/24/2022 Encounter Details Date Type Department Care Team ([facility] st Contact Info) Description 10/24/2022 Telephone [facility] MEDICINE 230 [place] [address] [facility] 230 [place] [address] Nurse Triage Social History Tobacco Use Types [...] information covered. Pt stop date will be 10/30 when obtains medication to help. No further questions [...] Tobacco Use and Problems handout sent to [phone] * Telephone Encounter - Maryan Bradford - 10/24/2022 11:40 AM EDT Patient calling to report Smoking 1 pack and a half x years. Patient speaks (Comoran). Advised triage nurse will call patient back. Pt asking for Nicotine patches PCP DR. Carias documented in this encounter Plan of Treatment Not on file documented as of this encounter Visit Diagnoses Not on filedocumented in this encounter Additional Health Concerns Assessment Noted Time PHQ-9 Depression Total Score: 0 10/04/19 23 2:27 PM EDT documented as of this encounter Care Teams Checker Bakery Products Relationship Specialty Start Date End Date Alicia Carias FNP [address] [place] [address] PCP - General Family Medicine 01/17/22 documented as of this encounter
--- OUTSIDE RECORDS SUMMARY | 2025-04-01 15:29 | XMS_ITS | Encounter Summary ---
Author Organization [employer] Address [address] [place] [address] 7 [place] [address] Care Team Providers Care Family Services Worker Name Role Phone [facility] Primary Care Provider [phone] Reason for Visit * Reason Comments Med Refill Encounter Details Date Type Department Care Team ([facility] st Contact Info) Description 02/25/2024 Refill [facility] MED[facility]INE 230 [place] [address] [facility] 230 [place] [address] Dizziness and giddiness; Restless leg syndrome Social [...] documented as of this encounter Care Teams Family Services Worker Relationship Specialty Start Date End Date Alicia Carias FNP [address] [place] [address] PCP - General Family Medicine 01/17/22 documented as of this encounter
--- OUTSIDE RECORDS SUMMARY | 2025-04-01 15:29 | XMS_ITS | Encounter Summary ---
Author Organization [employer] Address [address] [place] [address] 7 [place] [address] Care Team Providers Care Economic Forecaster Name Role Phone [facility] Primary Care Provider [phone] Reason for Visit * Reason Comments Med Refill Encounter Details Date Type Department Care Team ([facility] Contact Info) Description 02/26/2024 Refill [facility] 230 [place] [address] [facility] 230 [place] [address] Dizziness and giddiness Social History Tobacco Use [...] documented as of this encounter Care Teams Economic Forecaster Relationship Specialty Start Date End Date Alicia Carias FNP 230 [place] [address] PCP - General Family Medicine 01/17/22 documented as of this encounter
--- OUTSIDE RECORDS SUMMARY | 2025-04-01 15:29 | XMS_ITS | Encounter Summary ---
Author Organization [employer] Address [address] [place] [address] 7 [place] [address] Care Team Providers Care Curb Builder Name Role Phone [facility] Primary Care Provider [phone] Reason for Visit * Reason Comments Med Refill Encounter Details Date Type Department Care Team ([facility] Contact Info) Description 03/10/2024 Refill [facility] MED[facility]INE 230 [place] [address] [facility] 230 [place] [address] Restless leg syndrome Social History Tobacco Use [...] documented as of this encounter Care Teams Curb Builder Relationship Specialty Start Date End Date Alicia Carias FNP [address] [place] [address] PCP - General Family Medicine 01/17/22 documented as of this encounter
--- OUTSIDE RECORDS SUMMARY | 2025-04-01 15:29 | XMS_ITS | Encounter Summary ---
Author Organization [employer] Address [address] [place] [address] 7 [place] [address] Care Team Providers Care Corrosion Engineer Name Role Phone [facility] Primary Care Provider [phone] Reason for Visit * Reason Comments Med Refill Encounter Details Date Type Department Care Team ([facility] Contact Info) Description 04/26/2023 Refill [facility] MEDICINE 230 [place] [address] [facility] 230 [place] [address] COPD exacerbation (CMS/HCC); Dizziness and giddiness Social [...] documented as of this encounter Care Teams Corrosion Engineer Relationship Specialty Start Date End Date Alicia Carias FNP 230 [place] [address] PCP - General Family Medicine 01/17/22 documented as of this encounter
--- OUTSIDE RECORDS SUMMARY | 2025-04-01 15:29 | XMS_ITS | Encounter Summary ---
Author Organization [employer] Address [address] [place] [address] 7 [place] [address] Care Team Providers Care Gymnastics Coach Or Instructor Name Role Phone [facility] Primary Care Provider [phone] Reason for Visit * Reason Comments Med Refill Encounter Details Date Type Department Care Team ([facility] Contact Info) Description 03/14/2023 Refill [facility] 230 [place] [address] [facility] 230 [place] [address] COPD exacerbation (CMS/HCC); Dizziness and giddiness; Shortness [...] is your housing situation today? I have ailce juarez 03/13/[address] you [...] documented as of this encounter Care Teams Gymnastics Coach Or Instructor Relationship Specialty Start Date End Date Alicia Carias FNP 230 [place] [address] PCP - General Family Medicine 01/17/22 documented as of this encounter
--- OUTSIDE RECORDS SUMMARY | 2025-04-01 15:29 | XMS_ITS | Encounter Summary ---
Author Organization [employer] Address [address] [facility] 7 [place] [address] Care Team Providers Care School Bus Driver/Teacher Assistant Name Role Phone Alicia Carias REED DIPPER Primary Care Provider [phone] Reason for Visit * Reason Comments Med Refill Encounter Details Date Type Department Care Team ([facility] st Contact Info) Description 04/03/2023 Refill [facility] MEDICINE 230 [place] [address] Earnestine Norris FNP 505 [place] [address] Social History Tobacco Use Types Packs/Day Years [...] documented as of this encounter Care Teams School Bus Driver/Teacher Assistant Relationship Specialty Start Date End Date Alicia Carias FNP [address] [place] [address] PCP - General Family Medicine 01/17/22 documented as of this encounter
--- OUTSIDE RECORDS SUMMARY | 2025-04-01 15:29 | XMS_ITS | Encounter Summary ---
Author Organization [employer] Address [address] [facility] 7 [place] [address] Care Team Providers Care Snuff Grinder Name Role Phone Alicia Carias PROCESS CONTROL ENGINEER Primary Care Provider [phone] Reason for Visit * Reason Comments Med Refill Encounter Details Date Type Department Care Team ([facility] st Contact Info) Description 03/29/2023 Refill [facility] 230 [place] [address] Silvia Guadarrama DO 230 [place] [address] COPD exacerbation (CMS/HCC) Social History Tobacco Use [...] documented as of this encounter Care Teams Snuff Grinder Relationship Specialty Start Date End Date Alicia Carias FNP [address] [place] [address] PCP - General Family Medicine 01/17/22 documented as of this encounter
--- OUTSIDE RECORDS SUMMARY | 2025-04-01 15:29 | XMS_ITS | Encounter Summary ---
Author Organization [employer] Address [address] [place] [address] 7 [place] [address] Care Team Providers Care Physician Assistant Name Role Phone [facility] Primary Care Provider [phone] Reason for Visit * Reason Comments Med Refill Encounter Details Date Type Department Care Team ([facility] Contact Info) Description 03/12/2024 [facility]ill [facility] 230 [place] [address] [facility] 230 [place] [address] Dizziness and giddiness; Restless leg syndrome Social [...] documented as of this encounter Care Teams Physician Assistant Relationship Specialty Start Date End Date Alicia Carias FNP [address] [place] [address] PCP - General Family Medicine 01/17/22 documented as of this encounter
--- OUTSIDE RECORDS SUMMARY | 2025-04-01 15:29 | XMS_ITS | Encounter Summary ---
Author Organization [employer] Address [address] [place] [address] 7 [place] [address] Care Team Providers Care Loss Control Technician Name Role Phone [facility] Primary Care Provider [phone] Reason for Visit * Reason Comments Med Refill Encounter Details Date Type Department Care Team ([facility] Contact Info) Description 10/22/2023 Refill [facility] 230 [place] [address] [facility] 230 [place] [address] COPD exacerbation (CMS/HCC); Rash Social History Tobacco [...] is your housing situation today? I have laice juarez 03/13/[address] you [...] documented as of this encounter Care Teams Loss Control Technician Relationship Specialty Start Date End Date Alicia Carias FNP [address] [place] [address] PCP - General Family Medicine 01/17/22 documented as of this encounter
--- OUTSIDE RECORDS SUMMARY | 2025-04-01 15:29 | XMS_ITS | Encounter Summary ---
Author Organization [employer] Address [address] [place] [address] 7 [place] [address] Care Team Providers Care Software Developer Intern Name Role Phone [facility] Primary Care Provider [phone] Reason for Visit * Reason Comments Med Refill Encounter Details Date Type Department Care Team ([facility] st Contact Info) Description 03/11/2024 Refill [facility] MEDICINE 230 [place] [address] [facility] 230 [place] [address] Restless leg syndrome; Dizziness and giddiness Social [...] documented as of this encounter Care Teams Software Developer Intern Relationship Specialty Start Date End Date Alicia Carias FNP [address] [place] [address] PCP - General Family Medicine 01/17/22 documented as of this encounter
--- OUTSIDE RECORDS SUMMARY | 2025-04-01 15:29 | XMS_ITS | Encounter Summary ---
Author Organization [employer] Address [address] [place] [address] 7 [place] [address] Care Team Providers Care Service Desk Team Lead Name Role Phone [facility] Primary Care Provider [phone] Reason for Visit * Reason Comments Med Refill Encounter Details Date Type Department Care Team ([facility] Contact Info) Description 11/27/2024 Refill [facility] MED[facility] 230 [place] [address] [facility] [address] [place] [address] Social History Tobacco Use Types Packs/Day Years [...] documented as of this encounter Care Teams Service Desk Team Lead Relationship Specialty Start Date End Date Alicia Carias FNP [address] [place] [address] PCP - General Family Medicine 01/17/22 documented as of this encounter
--- OUTSIDE RECORDS SUMMARY | 2025-04-01 15:29 | XMS_ITS | Encounter Summary ---
Author Organization [employer] Address [address] [place] [address] 7 [place] [address] Care Team Providers Care Fine Jewelry Sales Associate Name Role Phone [facility] Primary Care Provider [phone] Reason for Visit * Reason Comments Med Refill Encounter Details Date Type Department Care Team ([facility] Contact Info) Description 10/02/2024 Refill [facility] 230 [place] [address] [employer] 230 [place] [address] Dizziness and giddiness; Insomnia, unspecified type; Shortness [...] documented as of this encounter Care Teams Fine Jewelry Sales Associate Relationship Specialty Start Date End Date lAicia Carias FNP [address] [place] [address] PCP - General Family Medicine 01/17/22 documented as of this encounter
--- OUTSIDE RECORDS SUMMARY | 2025-04-01 15:29 | XMS_ITS | Encounter Summary ---
Author Organization [employer] Address [address] [place] [address] 7 [place] [address] Care Team Providers Care Wireless Sales Associate Name Role Phone Alicia Carias SHIPPER/RECEIVER Primary Care Provider [phone] Reason for Visit * Reason Comments Med Refill Encounter Details Date Type Department Care Team ([facility] st Contact Info) Description 02/29/2024 Refill [facility] 230 [place] [address] Silvia Guadarrama DO 230 [place] [address] Social History Tobacco Use Types Packs/Day Years [...] documented as of this encounter Care Teams Wireless Sales Associate Relationship Specialty Start Date End Date Alicia Carias FNP 230 [place] [address] PCP - General Family Medicine 01/17/22 documented as of this encounter
--- OUTSIDE RECORDS SUMMARY | 2025-04-01 15:29 | XMS_ITS | Encounter Summary ---
Author Organization [employer] Address [address] [place] [address] 7 [place] [address] Care Team Providers Care Sheet Metal Journeyman Name Role Phone [facility] Primary Care Provider [phone] Reason for Visit * Reason Comments Med Refill Encounter Details Date Type Department Care Team ([facility] st Contact Info) Description 02/11/2024 Refill [facility] MEDICINE 230 [place] [address] [facility] 230 [place] [address] COPD exacerbation (CMS/[facility]) Social History Tobacco Use Types Packs/Day [...] documented as of this encounter Care Teams Sheet Metal Journeyman Relationship Specialty Start Date End Date Alicia Carias FNP [address] [place] [address] PCP - General Family Medicine 01/17/22 documented as of this encounter
--- OUTSIDE RECORDS SUMMARY | 2025-04-01 15:29 | XMS_ITS | Encounter Summary ---
Author Organization [employer] Address [address] [facility] 7 [place] [address] Care Team Providers Care Electric Blasting Cap Assembler Name Role Phone Alicia Carias STAFF RADIOLOGIST Primary Care Provider [phone] Reason for Visit * Reason Comments Med Refill Encounter Details Date Type Department Care Team ([facility] st Contact Info) Description 03/29/2023 Refill [facility] MEDICINE 230 [place] [address] Earnestine Norris FNP 505 [place] [address] Social History Tobacco Use Types Packs/Day Years [...] documented as of this encounter Care Teams Electric Blasting Cap Assembler Relationship Specialty Start Date End Date Alicia Carias FNP [address] [place] [address] PCP - General Family Medicine 01/17/22 documented as of this encounter
--- OUTSIDE RECORDS SUMMARY | 2025-04-01 15:29 | XMS_ITS | Encounter Summary ---
Author Organization [employer] Address [address] [place] [address] 7 [place] [address] Care Team Providers Care Mud Mixer Name Role Phone [facility] Primary Care Provider [phone] Reason for Visit * Reason Comments Med Refill Encounter Details Date Type Department Care Team ([facility] st Contact Info) Description 11/18/2022 Refill [facility] MEDICINE 230 [place] [address] [facility] 230 [place] [address] Dizziness and giddiness; Anxiety Social History Tobacco [...] documented as of this encounter Care Teams Mud Mixer Relationship Specialty Start Date End Date Alicia Carias FNP [address] [place] [address] PCP - General Family Medicine 01/17/22 documented as of this encounter
--- OUTSIDE RECORDS SUMMARY | 2025-04-01 15:29 | XMS_ITS | Encounter Summary ---
Author Organization [employer] Address [address] [place] [address] 7 [place] [address] Care Team Providers Care Teenage Program Director Name Role Phone [facility] Primary Care Provider [phone] Reason for Visit * Reason Comments Med Refill Encounter Details Date Type Department Care Team ([facility] Contact Info) Description 09/29/2023 Refill [facility] MEDICINE 230 [place] [address] [facility] 230 [place] [address] Dizziness and giddiness; COPD exacerbation (CMS/[facility]) Social History Tobacco Use Types Packs/Day [...] documented as of this encounter Care Teams Teenage Program Director Relationship Specialty Start Date End Date Alicia Carias FNP [address] [place] [address] PCP - General Family Medicine 01/17/22 documented as of this encounter
--- OUTSIDE RECORDS SUMMARY | 2025-04-01 15:29 | XMS_ITS | Encounter Summary ---
Author Organization [employer] Address [address] [place] [address] 7 [place] [address] Care Team Providers Care Mud Cleaner Operator Name Role Phone [facility] Primary Care Provider [phone] Reason for Visit * Reason Comments Med Refill Encounter Details Date Type Department Care Team ([facility] st Contact Info) Description 02/17/2024 Refill [facility] MEDICINE 230 [place] [address] [facility] 230 [place] [address] COPD exacerbation (CMS/[facility]) Social History Tobacco Use Types Packs/Day [...] as of this encounter Care Teams Mud Cleaner Operator Relationship Specialty Start Date End Date Alicia Carias FNP [address] [place] [address] PCP - General Family Medicine 01/17/22 documented as of this encounter
--- OUTSIDE RECORDS SUMMARY | 2025-04-01 15:29 | XMS_ITS | Encounter Summary ---
Author Organization [id number] Address [address] [place] [address] 7 [place] [address] Care Team Providers Care Home Decorator Name Role Phone [facility] Primary Care Provider [phone] Reason for Visit * Reason Comments Med Refill Encounter Details Date Type Department Care Team ([facility] st Contact Info) Description 03/07/[address] [facility] MEDICINE 230 [place] [address] [facility] 230 [place] [address] Dizziness and giddiness; Restless leg syndrome Social [...] as of this encounter Care Teams Home Decorator Relationship Specialty Start Date End Date Alicia Carias FNP [address] [place] [address] PCP - General Family Medicine 01/17/22 documented as of this encounter
--- OUTSIDE RECORDS SUMMARY | 2025-04-01 15:29 | XMS_ITS | Encounter Summary ---
Author Organization [employer] Address [address] [place] [address] 7 [place] [address] Care Team Providers Care Microbial Specialist Name Role Phone [facility] Primary Care Provider [phone] Reason for Visit * Reason Comments Med Refill Encounter Details Date Type Department Care Team ([facility] st Contact Info) Description 09/25/2023 Refill [facility] 230 [place] [address] [facility] 230 [place] [address] Dizziness and giddiness; COPD exacerbation (CMS/[facility]) Social History Tobacco Use Types [...] documented as of this encounter Care Teams Microbial Specialist Relationship Specialty Start Date End Date Alicia Carias FNP [address] [place] [address] PCP - General Family Medicine 01/17/22 documented as of this encounter
--- OUTSIDE RECORDS SUMMARY | 2025-04-01 15:29 | XMS_ITS | Clinical Summary ---
Author Organization [employer] Address [address] [place] [address] [address] [place] [address] Care Team Providers [employer] Process Hand Name Role Phone Alicia Carias SPREADER OPERATOR AUTOMATIC Primary Care Provider [phone] Allergies No known active allergies Medications methotrexate [...] (Flovent) 110 MCG/ACT inhalerIndicati ons:COPD exacerbation (CMS/HCC) ([facility]) INHALE 1 PUFF BY MOUTH 2 TIMES A DAY IN THE MORNING AND AT BEDTIME. RINSE MOUTH AFTER USE (BULK) 12 g 8 08/05/19 25 Active albuterol (2.5 MG/3ML) 0.083% nebulizer solutionIndicat ions:COPD exacerbation (CMS/HCC) ([facility]) INHALE 1 VIAL VIA NEBULIZER EVERY 4 [...] 650 MG ER tabletIndicatio ns:COPD exacerbation (CMS/HCC) ([facility]) TAKE ONE TABLET BY MOUTH EVERY 8 [...] - 05/2023- A cardiopulmonary stress test at [facility] showed moderately impaired exercise capacity and mildly [...] Overview (07/03/2023): Mammo: 08/2022 Pap: 08/2022 at [facility] DESIGN SUPERVISOR. Results not in chart C-scope: 2019, normal. Due 2029 BMD: 08/2021; osteopenia. Repeat 08/2023 Established with LDLCT screening at [facility] UTD on eye exams-[facility] Assessment & Plan (12/30/2022 9:26 PM EDT): Will request [facility] records for recent pap and mammogram Post-menopausal bleeding 08/06/2022 Overview (04/23/2024): 07/11/2022 pelvic ultrasound with normal EM stripe Followed by [facility] DESIGN SUPERVISOR s/p EMB 09/2023 (negative) Dr. Pearson--pt to call DESIGN SUPERVISOR should bleeding reoccur Assessment & Plan (07/03/2023 10:06 PM EST): Follow up for EMB as scheduled No recurrent episodes Assessment & Plan (08/06/2022 4:07 PM EDT): Pt denies recurrent episodes of bleeding. Did not hear regarding previously placed DESIGN SUPERVISOR referral. Will re-refer today to [facility] for EMB if [...] smoking cessation Repeat DEXA 08/2023 Rheumatoid arthritis ([facility]/HCC) 06/15/2022 Overview (10/04/2022): Followed by [facility] Rheumatology Etodolac Methotrexate Hydroxychloroquine Tobacco use 06/15/2022 Overview (07/03/2023): Started smoking age 18: 1-2 PPD; decreased to 1/2 PPD over the pasts 1-2 years Quit 12/2022 Followed by [facility] LDLCT Mixed hearing [...] Type Department Care Team Description 03/19/2025 Refill [facility] [address] [place] [address] Alicia Carias FNP Shortness of breath; Insomnia, unspecified type 03/17/2025 Refill [facility] [address] [place] [address] Silvia Guadarrama DO 03/11/2025 Refill [facility] [address] [place] [address] Alicia Carias FNP Rash; Shortness of breath 03/09/2025 11:15 AM EDT Telemedicine [facility] [address] [place] [address] Alicia Carias FNP Acute recurrent maxillary sinusitis (Primary Dx); Mood disorder ([facility]) 03/09/2025 Travel 03/06/2025 Orders Only [facility] External Provider, [facility] 03/06/2025 Telephone [facility] [address] [place] [address] Alicia Carias FNP chart prep 03/02/2025 Travel 02/19/2025 Refill [facility] [address] [place] [address] [facility] COPD exacerbation ([facility]/HCC) (HCC); Restless leg syndrome 02/19/2025 Refill [facility] [address] [place] [address] [facility] 02/13/2025 Refill [facility] [address] [place] [address] Silvia Guadarrama DO 02/12/2025 Refill [facility] [address] [place] [address] [facility] 02/02/2025 Results Follow-Up [facility] [address] [place] [address] [facility] CBC auto differential, Comprehensive Metabolic Panel, Lipid Panel, Standard, Additional followed-up results: 3 01/30/2025 9:30 AM EDT Office Visit [facility] [address] [place] [phone] [facility] Healthcare maintenance (Primary Dx); Acute recurrent maxillary sinusitis; Mood disorder (CMS/[facility]); Restless leg syndrome; Osteopenia, unspecified location; Other chronic pain; Rheumatoid arthritis, involving unspecified site, unspecified whether rheumatoid factor present (CMS/HCC) 01/30/2025 Travel 01/29/2025 Telephone [facility] [address] [place] [address] [facility] chart prep 01/23/2025 Travel 01/22/2025 Refill [facility] [address] [place] [phone] [facility] COPD exacerbation ([facility]); Restless leg syndrome 01/13/2025 1:40 PM EDT Office Visit [facility] [address] [place] [address] Yajaira Barbosa MD COPD exacerbation ([facility]) (Primary Dx); Acute URI 01/13/2025 Travel from Last 3 Months Immunizations Immunization Administration [...] 60 years or older (1 - Risk 50-74 years 1-dose series) 2014 Mammogram 09/20/2024 09/21/2023, 04/2 12/2022, 09/13/2021, Additional history exists COVID-19 Vaccine ( season) 2025 04/16/2024, 06/25/2023, 12/21/2022, Additional history exists Influenza Vaccine (#1) 2025 [...] 09/02/2021, 07/30/2017 Zoster Vaccines Completed 12/07/2022, 10/03/2022 HIV Screening Completed 01/30/2025 Hepatitis C Screening [...] Procedure Name Priority Date/Time Associated Diagnosis Comments BD DEXA AXIAL Routine 04/01/2025 1:32 PM EST Osteopenia, unspecified location LDCT LUNG SCREENING Routine 03/06/2025 3 :45 [...] Recently Relevant to Health Maintenance Results * BD DEXA Axial (04/01/2025 1:32 PM EST) Anatomical Region Laterality Modality Body Radiographic Darlene ging 04/01/2025 1:32 PM EST Narrative 04/01/2025 2:36 PM EST [facility] [address] [place] [address] Mammography Report Signed Patient: Lizzie Girard MR#: [id number] : 1965 Acct:[id number] Age/Sex: 59 / F ADM Date: 04/01/25 Loc: MAMMO Attending Dr: Alicia YADAV Ordering Physician: Alicia Carias Results: Date of Service: 04/01/25 Follow Up: Procedure(s): XR DEXA axial skeleton Accession Number(s): [id number] cc: Alicia Carias Reason For Exam: 59y.o F with known osteopenia m85.80 EXAMINATION: DXA BONE DENSITY AXIAL HISTORY: 59y.o F with known osteopenia m85.80 TECHNIQUE: 2U Dual energy absorptiometry (DEXA) of the lumbar spine, total left hip, and femoral neck was performed. COMPARISON: Comparison is made with the prior examination dated August 2021. FINDINGS: The bone mineral density of the lumbar spine is 1.072 g/cm2, corresponding to a T-score of -1.2, and a Z-score of -0.2. This is indicative of normal bone mineral density. This represents a BMD change of free 0.6% compared to the prior exam. The bone mineral density of the left total hip is 0.846 g/cm2, corresponding to a T-score of -1.3, and a Z-score of -0.5. This is indicative of osteopenia. This represents a BMD change of -0.7%% compared to the prior exam. This is not statistically significant. The bone mineral density of the left femoral neck is 0.880 g/cm2, corresponding to a T-score of -1.1, and a Z-score of 0. This is indicative of osteopenia. This represents a BMD change of -3.7% compared to the prior exam. This is not statistically significant. FRACTURE RISK: The FRAX index suggests a ten year probability of major osteoporotic fracture of 6.9%, and of hip fracture 0.5%. MM/XR DEXA axial skeleton IMPRESSION: Based on bone mineral density, and according to World Health Organization (WHO) criteria, the diagnosis is consistent with osteopenia based on lowest T score of -1.3 in the left femur. Treatment Recommendations: NOF guidelines recommend consideration for treatment in postmenopausal women and men age 50 and older presenting with the following: -A hip or vertebral (clinical or morphometric) fracture. -T-score less than or equal to -2.5 at the femoral neck or spine after appropriate evaluation to exclude secondary causes. -Low bone mass at the hip or spine and a 10-year fracture probability by FRAX of greater than or equal to 3% for hip fracture or greater than or equal to 20% for major osteoporotic fracture based on the [place] adapted WHO algorithm. Other Recommendations: All treatment decisions require clinical judgment and consideration of individual patient factors, including patient preferences, comorbidities, previous drug use, risk factors not captured in the FRAX model (e.g. frailty, falls, vitamin D deficiency, increased bone turnover, interval significant decline in bone density) and possible under or overestimation of fracture risk by FRAX. Additional medical evaluation for secondary cause of low bone mineral density may be appropriate. FUTURE SCAN RECOMMENDATION: People with diagnosed cases of osteoporosis or at high risk for fracture should have regular bone mineral density tests. For patients eligible for Medicare, routine testing is allowed once every 2 years. The testing frequency can be increased to one year for patients who have rapidly progres Statistically, 68% of repeat scans fall within 1 SD (+/- 0.010 g/cm2 for AP spine L1-L4) and 1 SD (+/- 0.012 g/cm2 for femur total) FRAX is a trademark of the [employer] [place] for Metabolic Bone Disease, a World Health Organization (WHO) Collaborating Center. Electronically signed by: Katelyn Baxter MD 04/01/2025 02:33 PM EST RP Dictated By: Katelyn Baxter MD Signed By: <Electronically signed by Katelyn Baxter MD in OV> 04/01/25 1433 DD/ 1332 TD/TT: 04/01/25 1330 Health Advisor: SEBASTIEN Procedure Note Donotuseinterpreter, Image - 04/01/2025 [facility] [address] [place] [address] Mammography Report Signed Patient: Bala Girard#: [id number] : 1965Acct:[id number] Age/Sex: 59 / FADM Date: 04/01/25 Loc: LYNNEO Attending Dr: Alicia SANTIAGOP Ordering Physician: Alicia CariasPResults: Date of Service: 04/01/25Follow Up: Procedure(s): XR DEXA axial skeleton Accession Number(s): [id number] cc: Alicia Carias Reason For Exam: 59y.o F with known osteopenia m85.80 EXAMINATION: DXA BONE DENSITY AXIAL HISTORY: 59y.o F with known osteopenia m85.80 TECHNIQUE: 2U Dual energy absorptiometry (DEXA) of the lumbar spine, total left hip, and femoral neck was performed. COMPARISON: Comparison is made with the prior examination dated August 2021. FINDINGS: The bone mineral density of the lumbar spine is 1.072 g/cm2, corresponding to a T-score of -1.2, and a Z-score of -0.2. This is indicative of normal bone mineral density. This represents a BMD change of free 0.6% compared to the prior exam. The bone mineral density of the left total hip is 0.846 g/cm2, corresponding to a T-score of -1.3, and a Z-score of -0.5. This is indicative of osteopenia. This represents a BMD change of -0.7%% compared to the prior exam. This is not statistically significant. The bone mineral density of the left femoral neck is 0.880 g/cm2, corresponding to a T-score of -1.1, and a Z-score of 0. This is indicative of osteopenia. This represents a BMD change of -3.7% compared to the prior exam. This is not statistically significant. FRACTURE RISK: The FRAX index suggests a ten year probability of major osteoporotic fracture of 6.9%, and of hip fracture 0.5%. MM/XR DEXA axial skeleton IMPRESSION: Based on bone mineral density, and according to World Health Organization (WHO) criteria, the diagnosis is consistent with osteopenia based on lowest T score of -1.3 in the left femur. Treatment Recommendations: NOF guidelines recommend consideration for treatment in postmenopausal women and men age 50 and older presenting with the following: -A hip or vertebral (clinical or morphometric) fracture. -T-score less than or equal to -2.5 at the femoral neck or spine after appropriate evaluation to exclude secondary causes. -Low bone mass at the hip or spine and a 10-year fracture probability by FRAX of greater than or equal to 3% for hip fracture or greater than or equal to 20% for major osteoporotic fracture based on the [place] adapted WHO algorithm. Other Recommendations: All treatment decisions require clinical judgment and consideration of individual patient factors, including patient preferences, comorbidities, previous drug use, risk factors not captured in the FRAX model (e.g. frailty, falls, vitamin D deficiency, increased bone turnover, interval significant decline in bone density) and possible under or overestimation of fracture risk by FRAX. Additional medical evaluation for secondary cause of low bone mineral density may be appropriate. FUTURE SCAN RECOMMENDATION: People with diagnosed cases of osteoporosis or at high risk for fracture should have regular bone mineral density tests. For patients eligible for Medicare, routine testing is allowed once every 2 years. The testing frequency can be increased to one year for patients who have rapidly progres Statistically, 68% of repeat scans fall within 1 SD (+/- 0.010 g/cm2 for AP spine L1-L4) and 1 SD (+/- 0.012 g/cm2 for femur total) FRAX is a trademark of the [employer] [place] for Metabolic Bone Disease, a World Health Organization (WHO) Collaborating Center. Electronically signed by: Katelyn Baxter MD 04/01/2025 02:33 PM EST Dictated By: Katelyn Baxter MD Signed By: <Electronically signed by Katelyn Baxter MD in OV> 04/01/25 1433 DD/ 1332 TD/TT: 04/01/25 1330 Health Advisor: SEBASTIEN [facility] SPREADER OPERATOR AUTOMATIC IMG DXA PROCEDURES Final Resu lt * CT Lung Screening Low dose (03/06/2025 3:45 PM EDT) Anatomical Region Laterality Modality Lung Computed Tomogra phy 03/06/2025 3:45 PM EDT Narrative 03/06/2025 4:30 PM EDT [place] [address] CT Scan Report Signed Patient: Lizzie Girard MR#: [id number] : 1965 Acct:[id number] Age/Sex: 59 / F ADM Date: 03/06/25 Loc: HO.CT Attending Dr: Brittany Arnold PA-C Ordering Physician: Brittany Arnold PA-C Date of Service: 03/06/25 Procedure(s): CT lung screening Accession Number(s): [id number] cc: Brittany Arnold PA-C; [facility] Report Number: [id number]: Total DLP = 48.00 mGy-cm Reason for [...] 03/06/25 1627 DD/ 1545 TD/TT: 03/06/25 1555 Health Advisor: SEBASTIEN Procedure Note Donotuseinterpreter, Image - 03/06/[address] [place] [address] [address] Scan Report Signed Patient: Bala Girard#: [id number] : 1965Acct:[id number] Age/Sex: 59 / FADM Date: 03/06/25 Loc: HO.CT Attending Dr: Brittany Arnold PA-C Ordering Physician: Brittany Arnold PA-C Date of Service: 03/06/25 Procedure(s): CT lung screening Accession Number(s): [id number] cc: Brittany Arnold PA-C; [facility] Report Number: [id number]: Total DLP = 48.00 mGy-cm Reason for Exam: Z87.89 - Personal history of nicotine dependence EXAMINATION: CT LUNG SCREENING HISTORY: Z. - Personal history of nicotine dependence TECHNIQUE: [...] 03/06/25 1627 DD/ 1545 TD/TT: 03/06/25 1555 Health Advisor: SEBASTIEN [facility] External Provider IMG CT PROCEDURES Final Result * Hepatitis A,B,C Profile (01/30/2025 10:25 AM EDT) Hepatitis A IgM Nonreactive Nonreactive [facility] Comment:IgM antibodies to HUA V not detected; does not exclude earlyacute or recovered HAV infection. ~Hepatitis B Surface Antibody NONREACTIVE Nonreactive [facility] Comment:Nonreactive: < 8.00 mIU/mL Hepatitis B Core Antibody Nonreactive Nonreactive [facility] Hepatitis C Antibody Nonreactive Nonreactive [facility] Comment:Antibodies to HCV no t detected; does not exclude early acuteHCV infection. Hepatitis B Surface Ag Negative Negative [facility] Blood Venous blood specimen / Unknown 01/30/2025 10:25 AM EDT 01/30/2025 11:27 AM EDT [facility] SPREADER OPERATOR AUTOMATIC LAB BLOOD ORDERABLES Final Re sult [facility] [address] [place] [address] [phone] * (ABNORMAL) CBC auto differential (01/30/2025 10:25 AM EDT) White Blood Count 6.9 4.8 - 10.8 X10*3/uL [facility] Red Blood Count 5.08 4.20 - 5.50 X10*6/uL [facility] Hemoglobin 13.4 12.0 - 16.0 g/dl [facility] Hematocrit 41.7 37.0 - 47.0 % [facility] Mean Corpuscular Volume 82.1 80.0 - 98.0 fL [facility] Mean Corpuscular Hemoglobin 26.4(L) 27.0 - 33.0 pg [facility] Mean Corpuscular HGB Conc 32.1 31.0 - 35.0 g/dl [facility] Red Cell Distribution Width 14.3 11.0 - 16.0 % [facility] Platelet Count 234 160 - 400 X10*3/uL [facility] Mean Platelet Volume 10.3 9.4 - 12.3 fL [facility] Neutrophils Percent Auto 55.6 45 - 73 % [facility] Imm Gran Pct Auto 0.6(H) 0.0 - 0.4 % [facility] Lymphocytes Percent Auto 28.6 20 - 40 % [facility] Monocytes Percent Auto 10.0 2 - 11 % [facility] Eosinophils Percent Auto 4.8(H) 0 - 4 % [facility] Basophils Percent Auto 0.4 0 - 2 % [facility] NRBC Pct Auto 0.0 0.0 - 0.2 /100WBC [facility] Neutrophils Absolute Auto 3.9 2.0 - 8.3 x10*3/uL [facility] Imm Gran Abs Auto 0.04(H) 0.00 - 0.03 X10*3/uL [facility] Lymphocytes Absolute Auto 2.0 1.2 - 4.9 X10*3/uL [facility] Monocytes Absolute Auto 0.7 0.1 - 1.2 X10*3/uL [facility] Eosinophils Absolute Auto 0.3 0.0 - 0.4 X10*3/uL [facility] Basophils Absolute Auto 0.0 0.0 - 0.2 X10*3/uL [facility] NRBC Abs Auto 0.000 0.0 - 0.012 X10*3/uL [facility] Blood Venous blood specimen / Unknown 01/30/2025 10:25 AM EDT 01/30/2025 11:24 AM EDT [facility] LAB BLOOD ORDERABLES Final Re sult [facility] [address] [place] [address] [phone] * HIV-1/2 Antigen and Antibodies, Fourth Generation, with Reflexes (01/30/2025 10:25 AM EDT) HIV AB/AG Nonreactive Nonreactive [facility] Comment:HIV-1 p24 Ag and/or HIV-1/HIV-2 Ab not detected.A test result that is nonreactive does not exclude thepossibility of exposure to or infection with HIV-1 and/orHIV-2. Nonreactive results in this assay for individualswith prior exposure to HIV-1 and/or HIV-2 may be due toantigen and antibody levels that are below the limit ofdetection of this assay.The Squrl HIV Ag/Ab Combo assay result andsupplemental assay results should be interpreted inconjunction with the patient's clinical presentation,history and other laboratory results. If the results areinconsistent with clinical evidence, additional testing issuggested to confirm the result. Blood Venous blood specimen / Unknown 01/30/2025 10:25 AM EDT 01/30/2025 11:27 AM EDT [facility] LAB BLOOD ORDERABLES Final Re sult Performing Organization Address [facility] Co de Phone Number [facility] [address] [place] [address] [phone] * (ABNORMAL) Hemoglobin A1c (01/30/2025 10:25 AM EDT) Hemoglobin A1c 6.2(H) <6.0 % [facility] Comment:Hemoglobin A1C Refer ence Range Adults: 4.8 - 6.0 % Non diabetic: < 6.0 % Goal: < 7.0 %Additional Action Suggested: > 8.0 %Note: Hemoglobin A1c results are invalid for patients with abnormal amounts of HbF. Blood transfusions may impact the HbA1c concentration in the patient sample. Estimated Average Glucose 131 mg/dL [facility] Comment:eAG = Estimated ave rage glucose which is %A1C expressed asaverage glucose, using the formula of the [id number] Glucose study (ADAG), Diabetes Care, Vol.31,#8,Dec. 2007 Blood Venous blood specimen / Unknown 01/30/2025 10:25 AM EDT 01/30/2025 11:24 AM EDT [facility] LAB BLOOD ORDERABLES Final Re sult Performing Organization Address City/[facility]/ZIP Co de Phone Number [facility] [address] [place] [address] [phone] * (ABNORMAL) Lipid Panel, Standard (01/30/2025 10:25 AM EDT) Triglycerides 139 <150 mg/dL [facility] Comment:Desirable Triglyceri de: less than 150 mg/dLBorderline High Triglyceride 150-199 mg/dLHigh Triglyceride: 200-499 mg/dLVery High Triglyceride: greater than or equal to 5OO mg/dL Cholesterol 194 <200 mg/dL [facility] Comment:Desirable Cholestero l: less than 200 mg/dLBorderline High Cholesterol: 200-239 mg/dLHigh Cholesterol: greater than 239 mg/dL LDL Cholesterol Calculated 113(H) <100 mg/dL [facility] Comment:Desirable LDL: less than 100 mg/dLNear Optimal/Above Optimal LDL: 110- 129 mg/dLBorderline High LDL: 130-159 mg/dLHigh LDL: 160-189 mg/dLVery High LDL: greater than or equal to 190 mg/dL HDL Cholesterol 54 >40 mg/dL [facility] Comment:Desirable HDL: great er than 40 mg/dL Note: This HDL assay may give artificially low results in patients with liver disease. Blood Venous blood specimen / Unknown 01/30/2025 10:25 AM EDT 01/30/2025 11:27 AM EDT [facility] LAB BLOOD ORDERABLES Final Re sult [facility] [address] [place] [address] [phone] * Comprehensive Metabolic Panel (01/30/2025 10:25 AM EDT) Sodium 144 135 - 145 mmol/L [facility] Potassium 4.8 3.3 - 5.1 mmol/L [facility] Chloride 108 96 - 108 mmol/L [facility] Carbon Dioxide 26 22 - 29 mmol/L [facility] Anion Gap 15 12 - 20 [facility] Urea Nitrogen (BUN) 16 9 - 16 mg/dL [facility] Creatinine, Serum 0.62 0.5 - 1.4 mg/dL [facility] Estimated Glomerular Filt Rate >60 [facility] Comment:Chronic Kidney Disea se: Estimated GFR < 60 mL/min/1.07w5Fyqwbz Kidney Disease: Estimated GFR < 15 mL/min/1.73m2 Glucose 81 60 - 115 mg/dL [facility] Calcium 9.3 8.4 - 10.2 mg/dL [facility] Bilirubin, Total 0.4 0.0 - 1.0 mg/dL [facility] Aspartate Amino Transferase 29 5 - 31 U/L [facility] Alanine Aminotransferase 30 0 - 31 U/L [facility] Total Protein 7.4 6.5 - 8.0 g/dL [facility] Albumin Level 4.4 3.5 - 5.0 g/dL [facility] Alkaline Phosphatase 86 39 - 117 U/L [facility] Blood Venous blood specimen / Unknown 01/30/2025 10:25 AM EDT 01/30/2025 11:27 AM EDT [facility] SPREADER OPERATOR AUTOMATIC LAB BLOOD ORDERABLES Final Re sult [facility] [address] [place] [phone] * POCT Influenza A manually resulted (01/13/2025 2:19 PM EDT) [facility] Rapid Influenza A Ag Negative Negative, Indeterminate QC Media Lot # [id number] Lot# Expiration Date 100,826 Swab Nasopharyngeal structure / Unknown 01/13/2025 2:19 PM EDT Yajaira Barbosa MD POINT OF CARE TEST ENTER/E DIT ORDERABLES Final Result * POCT Rapid COVID Ag (01/13/2025 2:18 PM EDT) [facility] Rapid COVID Ag Negative QC Media Lot # [id number] Lot# Expiration Date 102,826 Swab 01/13/2025 2:18 PM EDT Yajaira Barbosa MD POINT OF CARE TEST ENTER/E DIT ORDERABLES Final Result * POCT Influenza B manually resulted (01/13/2025 2:18 PM EDT) [facility] Rapid Influenza B Ag Negative Negative, Indeterminate QC Media Lot # [id number] Lot# Expiration Date 100,826 Swab 01/13/2025 2:18 PM EDT Yajaira Barbosa MD POINT OF CARE TEST ENTER/E DIT ORDERABLES Final Result * POCT rapid strep A manually resulted (01/13/2025 2:17 PM EDT) [facility] Rapid Strep A Screen Negative Negative, None Detected QC Media Lot # [id number] Lot# Expiration Date [id number] Swab 01/13/2025 2:17 PM EDT Yajaira Barbosa MD POINT OF CARE TEST ENTER/E DIT ORDERABLES Final Result * [facility] Pap and HPV mRNA E6/E7 (02/08/2024 2:23 PM EDT) [facility] HPV nRNA E6/E7 Not Detected Not Detected [facility] Comment:Methodology: Transcr iption-Mediated AmplificationThis assay detects E6/E7 viral messenger RNA (mRNA) from 14high-risk HPV types (16,18,31,33,35,39,45,51,52,56,58,59,66,68).Cervical sources are required for HPV testing.If a vaginal source from a patient who has had atotal hysterectomy with removal of cervix wassubmitted, please contact the testing laboratoryfor alternative testing options.For additional information, please refer [email or web address](This link if provided for information/educational purposes only.)THIS TEST WAS PERFORMED AT:[facility] [place] [id number] PEOPLES MD SOURCE: SEE NOTE [facility] Comment:Cervix Report Status: TNP [facility] Clinical Information: SEE NOTE [facility] Comment:None given LMP: SEE NOTE [facility] Comment:NONE GIVEN Prev. PAP: SEE NOTE [facility] Comment:NONE GIVEN Prev. BX: SEE NOTE [facility] Comment:NONE GIVEN Statement Of Adequacy: SEE NOTE [facility] Comment:Satisfactory for humaira luation.Endocervical/transformation zone componentpresent. General Categorization: [facility] Interpretation/Result: SEE NOTE [facility] Comment:Cytology Results: Ne gative for intraepitheliallesion or malignancy. Cytology Comment SEE NOTE [facility] Comment:This Pap test has be en evaluated with computerassisted technology. Machine Design Checker: SEE NOTE [facility] Comment:DMM, CT(ASCP)CT scre ening location: [place] [address] Review Machine Design Checker: [facility] Pathologist [facility] PAP Infection [facility] See Note SEE NOTE [facility] Comment:EXPLANATORY NOTE:The Pap is a screening test for cervical cancer. It isnot a diagnostic test and is subject to false negativeand false positive results. It is most reliable when asatisfactory sample, regularly obtained, is submittedwith relevant clinical findings and history, and whenthe Pap result is evaluated along with historic andcurrent clinical information. 02/08/2024 2:23 PM EDT 02/08/2024 4:34 PM EDT Narrative [facility] - 02/15/2024 12:08 PM EDT SEE SCANNED RESULTS IN EMRCERVIX [facility] SPREADER OPERATOR AUTOMATIC LAB PATHOLOGY ORDERABLES Claudette l Result [facility] [address] [place] [address] [phone] * BI Mammogram Screening Tomosynthesis Bilateral (09/21/2023 9:35 AM EDT) Anatomical Region Laterality Modality Breast Bilateral Mammography 09/21/2023 9:35 AM EDT Narrative 10/22/2023 8:00 AM EDT [facility] [address] [place] [address] Mammography Report Signed Patient: Lizzie Girard MR#: [id number] : 1965 Acct:[id number] Age/Sex: 58 / F ADM Date: 09/21/23 Loc: [facility] Attending Dr: Alicia YADAV Ordering Physician: Alicia Carias Results: 1Nega tive Date of Service: 09/21/23 Follow Up: 1 Year From Orig inal Mammogram Procedure(s): MM tomosynthesis screening BI Accession Number(s): [id number] cc: Alicia Carias SPREADER OPERATOR AUTOMATIC EXAMINATION: MM SCREENING DIGITAL BREAST TOMOSYNTHESIS, BILATERAL [...] in OV> 10/22/23 0757 DD/ 0935 TD/TT: Health Advisor: Procedure Note Donotuseinterpreter, Image - 10/22/2023 [facility] [address] [place] [address] Mammography Report Signed Patient: Antonio GirardR#: [id number] : 1965Acct:[id number] Age/Sex: 58 / FADM Date: 09/21/23 Loc: [facility] Attending Dr: Alicia YADAV Ordering Physician: Alicia Carias FNPResults: 1Nega tive Date of Service: 09/21/23Follow Up: 1 Year From Orig inal Mammogram Procedure(s): MM tomosynthesis screening BI Accession Number(s): [id number] cc: Alicia Carias SPREADER OPERATOR AUTOMATIC EXAMINATION: MM SCREENING DIGITAL BREAST TOMOSYNTHESIS, BILATERAL [...] in OV> 10/22/23 0757 DD/ 0935 TD/TT: Health Advisor: [facility] SPREADER OPERATOR AUTOMATIC IMG BI PROCEDURES Final Resul t * Hm Colonoscopy (04/20/2020) Colonoscopy Normal Normal Comment:Repeat in 10 years Historical Provider HEALTH MAINTENANCE Final Result from Last 3 Months or Most Recently Relevant to Health Maintenance Insurance [facility] ONE CARE < 65 Care Teams Plastics Process Hand Relationship Specialty Start Date End Date Alicia Carias FNP [address] [place] [address] PCP - General Family Medicine 01/17/22
--- OUTSIDE RECORDS SUMMARY | 2025-04-01 15:29 | XMS_ITS | Encounter Summary ---
Author Organization [employer] Address [address] [place] [address] 7 [place] [address] Care Team Providers Care Pulley Man Name Role Phone [facility] Primary Care Provider [phone] Reason for Visit * Reason Comments Med Refill Encounter Details Date Type Department Care Team ([facility] st Contact Info) Description 06/14/2023 Refill [facility] [address] [place] [address] [facility] [address] [place] [address] Insomnia, unspecified type Social History Tobacco Use [...] documented as of this encounter Care Teams Pulley Man Relationship Specialty Start Date End Date Alicia Carias FNP [address] [place] [address] PCP - General Family Medicine 01/17/22 documented as of this encounter
--- OUTSIDE RECORDS SUMMARY | 2025-04-01 15:30 | XMS_ITS | Encounter Summary ---
Author Organization [employer] Address [address] [facility] 7 [place] [address] Care Team Providers Care Unix Architect Name Role Phone Aretha, [facility] Primary Care Provider [phone] Encounter Details Date Type Department Care Team (Latest Contact Info) Description 02/02/2025 Results Follow-Up [facility] [address] [place] [address] [facility] [address] [place] [address] CBC auto differential, Comprehensive Metabolic Panel, Lipid [...] documented as of this encounter Care Teams Unix Architect Relationship Specialty Start Date End Date Alicia Carias FNP [address] [place] [address] PCP - General Family Medicine 01/17/22 documented as of this encounter
--- OUTSIDE RECORDS SUMMARY | 2025-04-01 15:30 | XMS_ITS | Encounter Summary ---
Author Organization [employer] Address [address] [place] [address] 7 [place] [address] Care Team Providers Care Adobe Flex Developer Name Role Phone Aretha Alicia YADAV Primary Care Provider [phone] Encounter Details Date Type Department Care Team (Late st Contact Info) Description 05/12/2022 Orders Only [facility] [address] [place] [address] Silvia Hwang LPN Social History Tobacco Use [...] on filedocumented in this encounter Care Teams Adobe Flex Developer Relationship Specialty Start Date End Date Alicia Carias FNP [address] [place] [address] PCP - General Family Medicine 01/17/22 documented as of this encounter
--- OUTSIDE RECORDS SUMMARY | 2025-04-01 15:30 | XMS_ITS | Encounter Summary ---
Author Organization [employer] Address [address] [place] [address] 7 [place] [address] Care Team Providers Care Hair Weaver Name Role Phone [facility] Primary Care Provider [phone] Reason for Visit * Reason Comments Med Refill Encounter Details Date Type Department Care Team ([facility] Contact Info) Description 02/19/2025 Refill [facility] MEDICINE [address] [place] [address] [facility] [address] [place] [address] Social History Tobacco Use Types Packs/Day Years [...] documented as of this encounter Care Teams Hair Weaver Relationship Specialty Start Date End Date Alicia Carias FNP [address] [place] [address] PCP - General Family Medicine 01/17/22 documented as of this encounter
--- OUTSIDE RECORDS SUMMARY | 2025-04-01 15:30 | XMS_ITS | Encounter Summary ---
Author Organization [employer] Address [address] [place] [address] 7 [place] [address] Care Team Providers Care Quality Control Associate Name Role Phone [facility] Primary Care Provider [phone] Reason for Visit * Reason Comments Med Refill Encounter Details Date Type Department Care Team ([facility] Contact Info) Description 01/02/2024 Refill [facility] MEDICINE [address] [place] [address] [facility] [address] [place] [address] Social History Tobacco Use Types Packs/Day Years [...] documented as of this encounter Care Teams Quality Control Associate Relationship Specialty Start Date End Date Alicia Carias FNP [address] [place] [address] PCP - General Family Medicine 01/17/22 documented as of this encounter
--- OUTSIDE RECORDS SUMMARY | 2025-04-01 15:30 | XMS_ITS | Encounter Summary ---
Author Organization [facility] Address [address] [place] [address] 7 [place] [address] Care Team Providers Care Barrel Washer Name Role Phone [facility] Primary Care Provider [phone] Reason for Visit * Reason Comments Med Refill Encounter Details Date Type Department Care Team ([facility] st Contact Info) Description 01/22/2025 Refill [facility] MEDICINE [address] [place] [address] [facility] [address] [place] [address] COPD exacerbation (CMS/HCC); Restless leg syndrome Social [...] documented as of this encounter Care Teams Barrel Washer Relationship Specialty Start Date End Date Alicia Carias FNP [address] [place] [address] PCP - General Family Medicine 01/17/22 documented as of this encounter
--- OUTSIDE RECORDS SUMMARY | 2025-04-01 15:30 | XMS_ITS | Encounter Summary ---
Author Organization [employer] Address [address] [place] [address] 7 [place] [address] Care Team Providers Care Revenue Accounting Manager Name Role Phone [facility] Primary Care Provider [phone] Reason for Visit * Reason Comments Med Refill Encounter Details Date Type Department Care Team ([facility] Contact Info) Description 08/10/2024 Refill [facility] MEDICINE [address] [place] [address] [facility] [address] [place] [address] Restless leg syndrome Social History Tobacco Use [...] documented as of this encounter Care Teams Revenue Accounting Manager Relationship Specialty Start Date End Date Alicia Carias FNP [address] [place] [address] PCP - General Family Medicine 01/17/22 documented as of this encounter
--- OUTSIDE RECORDS SUMMARY | 2025-04-01 15:30 | XMS_ITS | Encounter Summary ---
Author Organization [employer] Address [address] [place] [address] 7 [place] [address] Care Team Providers Care Surgical Oncologist Name Role Phone [facility] Primary Care Provider [phone] Reason for Visit * Reason Comments Med Refill Encounter Details Date Type Department Care Team ([facility] st Contact Info) Description 02/19/2025 Refill [facility] MEDICINE [address] [place] [address] [facility] [address] [place] [address] COPD exacerbation (CMS/HCC) ([facility]); Restless leg syndrome Social History Tobacco Use [...] documented as of this encounter Care Teams Surgical Oncologist Relationship Specialty Start Date End Date Alicia Carias FNP [address] [place] [address] PCP - General Family Medicine 01/17/22 documented as of this encounter
--- OUTSIDE RECORDS SUMMARY | 2025-04-01 15:30 | XMS_ITS | Encounter Summary ---
Author Organization [employer] Address [address] [place] [address] 7 [place] [address] Care Team Providers Care Flower Grader Name Role Phone [facility] Primary Care Provider [phone] Reason for Visit * Reason Comments Med Refill Encounter Details Date Type Department Care Team ([facility] st Contact Info) Description 01/29/2024 Refill [facility] MEDICINE [address] [place] [address] [facility] [address] [place] [address] COPD exacerbation (CMS/[facility]) [...] documented as of this encounter Care Teams Flower Grader Relationship Specialty Start Date End Date Alicia Carias FNP [address] [place] [address] PCP - General Family Medicine 01/17/22 documented as of this encounter
== END 2025-04-01 12:53 | disposition home or self-care (01) ==
LOC: HO.MAMMO 12:52
PROVIDERS: PCP Registered Nurse; Visit Provider Registered Nurse
DX: Z12.31 Encounter for screening mammogram for malignant neoplasm of breast (principal); Z13.820 Encounter for screening for osteoporosis; M85.89 Other specified disorders of bone density and structure, multiple sites
CPT/HCPCS: 77063; 77067; 77080

== ENCOUNTER → 2025-04-01 13:30 | Outpatient (BNV) | payer OTHER, SELFPAY | PROVIDERS: PCP Registered Nurse; Visit Provider Radiology Diagnostic Radiology | DX: E28.39 Other primary ovarian failure (principal) | CPT/HCPCS: 77080 ==

== ENCOUNTER 2025-04-08 12:45 | Outpatient (AMB) | payer OTHER, SELFPAY ==
[2025-04-08 12:49] VITALS: BMI 29.6
--- NOTE | 2025-04-08 12:49 | MHC.OFFVIS ---
Vital Signs 04/08/25 12:49 Height 5 ft 3 in Weight 167 lb BMI 29.6 Intake Visit Reasons: PO-RT FCD Release 03/09/25 Intake Note: Lizzie is a 59 year old left hand dominant female who presents today for a follow up of her Left Basal Joint OA. She was last seen with Roque Vasquez who referred her to discuss possible LRTI Procedure as the patient has fail conservative treatment such as Injections and Bracing. Hx of Right First Dorsal Compartment Release 03/09/25. She is unsure if the surgery has to do with her current symptoms of the thumb. Denies numbness and tingling. Allergies No Known Allergies Allergy (Verified 04/08/25 13:03) HPI HPI PO-RT FCD Release 03/09/25: Details: Lizzie is a 59 year old left hand dominant female who presents today for a new problem of her right Basal Joint OA. She was last seen with Roque Vasquez who referred her to discuss possible LRTI Procedure as the patient has fail conservative treatment such as Injections and Bracing. Of importance she is only a few weeks post Right First Dorsal Compartment Release 03/09/25. She is unsure if the surgery has to do with her current symptoms of the thumb. Denies numbness and tingling. [facility] Medical History Fibroid Personal history of nicotine dependence Carpal tunnel syndrome on both sides Carpal tunnel syndrome of left wrist Wrist pain Osteopenia Fracture of distal end of left fibula (~11/2021) Lupus Osteoarthritis History of back pain Asthma Vertigo Hearing deficit Surgical History Hx of shoulder surgery History of colonoscopy (~2019) History of tonsillectomy (~1991) History of nasal septoplasty (~1998) History of ear surgery (~1999) Family History Father Heart problem Heart attack Mother HTN (hypertension) Maternal Aunt Breast cancer Sister Breast cancer Social History Household Members Other:: son Housing: House Alcohol intake: current Alcohol intake frequency: does not drink Patient Tobacco Use Status: Former Tobacco user Years Smoked: (onset 18yo, 1ppd x 39yrs, now 1/2ppd - 35+PYH - quit 11/06/22) Second Hand Smoke Exposure: No Current occupational status: disabled Current occupation: left hand dominant Sexual orientation: Straight/Heterosexual Gender identity: Female Physical Exam Vital Signs: BMI result Body Mass Index 29.6 Extrem Other: The patient was alert oriented and in no acute distress Sensation generally intact to the tips of all digits Cap refill brisk She can bring her fingers close to a fist and back into full extension No locking or catching With regards to the right 1st dorsal compartment release: Her incision is well healed The areas nontender and she now has a negative Ana test. She is very pleased. She does have some tenderness over the right basal joint. Positive shoulder sign, positive CMC grind No tenderness about the MCP joint or A1 damian. Radiographs: Three views of the right hand from 04/16/2024 were reviewed by me today. She has no fractures or dislocations. We do see some arthritic changes in the basal joint with joint space narrowing, and a loose body on the ulnar aspect of the basal joint. Assessment & Plan Assessment & Plan (1) Osteoarthritis of carpometacarpal (CMC) joint of right thumb: Code(s): M18.11 - Unilateral primary osteoarthritis of first carpometacarpal joint, right hand Category: Medical (2) De Quervain's tenosynovitis, right: Code(s): M65.4 - Radial styloid tenosynovitis [de Quervain] Category: Medical Plan Assessment and plan: 1. Right basal joint osteoarthritis This is her chief complaint today I educated her about this condition We did discuss operative and non operative treatment options including surgery and an injection. I think it is too early to have an injection as she is only 3-4 weeks postop from her 1st dorsal compartment release We also talked at length about the importance of activity modification. She also has a comfort cool neoprene thumb spica splint to wear when symptomatic. 2. Right de Quervain tenosynovitis status post 1st dorsal compartment release DOS: 03/09/2025 She is very pleased with the results of the surgery and feels that she has had excellent resolution of her symptoms Follow up in 6-8 weeks to further evaluate her right basal joint arthritis and consider a possible steroid injection No radiographs are necessary. Coding Level of Care Code Est Pt Level 4 (99446) Diagnoses Osteoarthritis of carpometacarpal (CMC) joint of right thumb M18.11 De Quervain's tenosynovitis, right M65.4
--- OUTSIDE RECORDS SUMMARY | 2025-04-09 00:21 | XMS_ITS | Encounter Summary ---
Author Organization [employer] Address [address] [place] [address] 7 [place] [address] Care Team Providers Care Concrete Crusher Loader Operator Name Role Phone [facility] Primary Care Provider [phone] Reason for Visit * Reason Comments Med Refill Encounter Details Date Type Department Care Team ([facility] st Contact Info) Description 09/02/2024 Refill [facility] MEDICINE [address] [place] [address] [facility] 230 [place] [address] COPD exacerbation (CMS/HCC); Rash Social History Tobacco [...] documented as of this encounter Care Teams Concrete Crusher Loader Operator Relationship Specialty Start Date End Date Alicia Carias FNP [address] [place] [address] PCP - General Family Medicine 01/17/22 documented as of this encounter
--- OUTSIDE RECORDS SUMMARY | 2025-04-09 00:21 | XMS_ITS | Encounter Summary ---
Author Organization [employer] Address [address] [place] [address] 7 [place] [address] Care Team Providers Care Wash Driller Helper Name Role Phone [facility] Primary Care Provider [phone] Reason for Visit * Reason Comments Med Refill Encounter Details Date Type Department Care Team ([facility] Contact Info) Description 04/26/2023 Refill [facility] MEDICINE 230 [place] [address] [facility] [address] [place] [address] COPD exacerbation (CMS/HCC); Dizziness and giddiness Social [...] documented as of this encounter Care Teams Wash Driller Helper Relationship Specialty Start Date End Date Alicia Carias FNP [address] [place] [address] PCP - General Family Medicine 01/17/22 documented as of this encounter
--- OUTSIDE RECORDS SUMMARY | 2025-04-09 00:21 | XMS_ITS | Encounter Summary ---
Author Organization [employer] Address [address] [facility] 7 [place] [address] Care Team Providers Care Groundwater Programs Director Name Role Phone Alicia Carias HEALTH EDUCATION SPECIALIST Primary Care Provider Reason for Visit * Reason Comments Med Refill Encounter Details Date Type Department Care Team ([facility] st Contact Info) Description 03/29/2023 Refill [facility] [address] [place] [address] Silvia Guadarrama DO [address] [place] [address] COPD exacerbation (CMS/HCC) Social History Tobacco Use [...] documented as of this encounter Care Teams Groundwater Programs Director Relationship Specialty Start Date End Date Alicia Carias FNP [address] [place] [address] PCP - General Family Medicine 01/17/22 documented as of this encounter
--- OUTSIDE RECORDS SUMMARY | 2025-04-09 00:21 | XMS_ITS | Encounter Summary ---
Author Organization [employer] Address [address] [facility] 7 [place] [address] Care Team Providers Care Overnight Houseperson Name Role Phone Alicia Carias BUSINESS TRANSFORMATION MANAGER Primary Care Provider [phone] Reason for Visit * Reason Comments Med Refill Encounter Details Date Type Department Care Team ([facility] st Contact Info) Description 03/29/2023 Refill [facility] MEDICINE [address] [place] [address] Earnestine Norris FNP [address] [place] [address] Social History Tobacco Use Types Packs/Day Years [...] documented as of this encounter Care Teams Overnight Houseperson Relationship Specialty Start Date End Date Alicia Carias FNP [address] [place] [address] PCP - General Family Medicine 01/17/22 documented as of this encounter
--- OUTSIDE RECORDS SUMMARY | 2025-04-09 00:21 | XMS_ITS | Encounter Summary ---
Author Organization [employer] Address [address] [place] [address] 7 [place] [address] Care Team Providers Care Protective Signal Superintendent Name Role Phone [facility] Primary Care Provider [phone] Reason for Visit * Reason Comments Med Refill Encounter Details Date Type Department Care Team ([facility] Contact Info) Description 03/14/2023 Refill [facility] [address] [place] [address] [facility] [address] [place] [address] COPD exacerbation (CMS/HCC); Dizziness and giddiness; Shortness [...] documented as of this encounter Care Teams Protective Signal Superintendent Relationship Specialty Start Date End Date Alicia Carias FNP [address] [place] [address] PCP - General Family Medicine 01/17/22 documented as of this encounter
--- OUTSIDE RECORDS SUMMARY | 2025-04-09 00:21 | XMS_ITS | Encounter Summary ---
Author Organization [employer] Address [address] [facility] 7 [place] [address] Care Team Providers Care Certified Medication Technician Name Role Phone Alicia Carias SEISMIC COMPUTER Primary Care Provider [phone] Reason for Visit * Reason Comments Med Refill Encounter Details Date Type Department Care Team ([facility] st Contact Info) Description 04/03/2023 Refill [facility] [address] [place] [address] Earnestine Norris FNP [address] [place] [address] Social History Tobacco Use Types Packs/Day Years [...] documented as of this encounter Care Teams Certified Medication Technician Relationship Specialty Start Date End Date Alicia Carias FNP [address] [place] [id number] PCP - General Family Medicine 01/17/22 documented as of this encounter
--- OUTSIDE RECORDS SUMMARY | 2025-04-09 00:22 | XMS_ITS | Encounter Summary ---
Author Organization [employer] Address [address] [place] [address] 7 [place] [address] Care Team Providers Care Aircraft Hydraulic Equipment Mechanic Name Role Phone [facility] Primary Care Provider [phone] Reason for Visit * Reason Comments Med Refill Encounter Details Date Type Department Care Team ([facility] Contact Info) Description 09/21/2023 Refill [facility] [address] [place] [address] [facility] [address] [place] [address] COPD exacerbation (CMS/HCC); Dizziness and giddiness Social [...] documented as of this encounter Care Teams Aircraft Hydraulic Equipment Mechanic Relationship Specialty Start Date End Date Alicia Carias FNP [address] [place] [phone] PCP - General Family Medicine 01/17/22 documented as of this encounter
--- OUTSIDE RECORDS SUMMARY | 2025-04-09 00:22 | XMS_ITS | Encounter Summary ---
Author Organization [employer] Address [address] [place] [address] 7 [place] [address] Care Team Providers Care University Teacher Name Role Phone [facility] Primary Care Provider [phone] Reason for Visit * Reason Comments Med Refill Encounter Details Date Type Department Care Team ([facility] st Contact Info) Description 06/14/2023 Refill [facility] [address] [place] [address] [facility] [address] [place] [address] Insomnia, unspecified type Social History Tobacco Use [...] documented as of this encounter Care Teams University Teacher Relationship Specialty Start Date End Date Alicia Carias FNP [address] [place] [id number] PCP - General Family Medicine 01/17/22 documented as of this encounter
--- OUTSIDE RECORDS SUMMARY | 2025-04-09 00:22 | XMS_ITS | Encounter Summary ---
Author Organization [employer] Address [address] [place] [address] 7 [place] [address] Care Team Providers Care Supervisor Carbon Electrodes Name Role Phone [facility] Primary Care Provider [phone] Reason for Visit * Reason Comments Med Refill Encounter Details Date Type Department Care Team ([facility] Contact Info) Description 09/29/2023 Refill [facility] [address] [place] [address] [facility] [address] [place] [address] Dizziness and giddiness; COPD exacerbation (CMS/[facility]) [...] as of this encounter Care Teams Supervisor [employer] Electrodes Relationship Specialty Start Date End Date Alicia Carias FNP [address] [place] [address] PCP - General Family Medicine 01/17/22 documented as of this encounter
--- OUTSIDE RECORDS SUMMARY | 2025-04-09 00:22 | XMS_ITS | Encounter Summary ---
Author Organization [employer] Address [address] [place] [address] 7 [place] [address] Care Team Providers Care Bicycle I Assembler Name Role Phone [facility] Primary Care Provider [phone] Reason for Visit * Reason Comments Med Refill Encounter Details Date Type Department Care Team ([facility] st Contact Info) Description 09/25/2023 Refill [facility] [address] [place] [address] [facility] [address] [place] [address] Dizziness and giddiness; COPD exacerbation (CMS/[facility] [...] documented as of this encounter Care Teams Bicycle I Assembler Relationship Specialty Start Date End Date Alicia Carias FNP [address] [place] [address] PCP - General Family Medicine 01/17/22 documented as of this encounter
--- OUTSIDE RECORDS SUMMARY | 2025-04-09 00:23 | XMS_ITS | Encounter Summary ---
Author Organization [employer] Address [address] [place] [address] 7 [place] [address] Care Team Providers Care Project Development Director Name Role Phone [facility] Primary Care Provider [phone] Reason for Visit * Reason Comments Med Refill Encounter Details Date Type Department Care Team ([facility] Contact Info) Description 11/15/2023 Refill [facility] [address] [place] [address] [facility] [address] [place] [address] Dizziness and giddiness; Insomnia, unspecified type; Shortness [...] documented as of this encounter Care Teams Project Development Director Relationship Specialty Start Date End Date Alicia Carias FNP [address] [place] [id number] PCP - General Family Medicine 01/17/22 documented as of this encounter
--- OUTSIDE RECORDS SUMMARY | 2025-04-09 00:23 | XMS_ITS | Clinical Summary ---
Author Organization [employer] Address [address] [place] [address] 7 [place] [address] Care Team Providers Care Production Support Developer Name Role Phone Alicia Carias COMBINATION MAN Primary Care Provider [phone] Allergies No known active allergies Medications methotrexate [...] (Flovent) 110 MCG/ACT inhalerIndicati ons:COPD exacerbation (CMS/HCC) (HCC) INHALE 1 PUFF BY MOUTH 2 TIMES A DAY IN THE MORNING AND AT BEDTIME. RINSE MOUTH AFTER USE (BULK) 12 g 8 08/05/19 25 Active cholecalciferol VITAMIN D (Vitamin D-3) 50 MCG (1999 UT) capsule TAKE ONE CAPSULE BY MOUTH EVERY MORNING ^1R1 30 capsule 11 12/20/19 25 Active buPROPion XL (Wellbutrin XL) 300 MG 24 hr tabletIndicatio ns:Anxiety TAKE ONE TABLET BY MOUTH EVERY MORNING . DO NOT CRUSH, CHEW OR SPLIT. ^1R1 30 tablet 5 12/25/19 25 Active acetaminophen (Tylenol 8 Hour) 650 MG ER tabletIndicatio ns:COPD exacerbation (CMS/HCC) ([facility]) TAKE ONE TABLET BY MOUTH EVERY 8 HOURS NEEDED FOR PAIN (VIAL) 40 tablet 3 12/25/19 25 Active mirtazapine (Remeron) 15 MG tabletIndicatio ns:Mood disorder (CMS/HCC) Take 1 tablet (15 mg) by mouth at bedtime. TAKE ONE TABLET BY MOUTH AT BEDTIME 30 tablet 3 01/31/20 25 Active Magnesium 400 MG capsuleIndicati ons:Restless leg syndrome Take 1 capsule by mouth at bedtime. 90 capsule 3 01/31/20 25 Active montelukast (Singulair) 10 MG tablet TAKE ONE TABLET BY MOUTH EVERY EVENING 30 tablet 5 02/14/20 25 Active Azelastine HCl 137 MCG/SPRAY solution INSTILL 1 SPRAY IN EACH NOSTRIL TWICE DAILY DIRECTED. 30 mL 02/17/20 25 Active fexofenadine (Afshan) 180 MG tablet TAKE 1 TABLET BY MOUTH EVERY DAY 90 tablet 1 03/18/20 25 Active Oyster Shell Calcium 500 MG tablet TAKE ONE TABLET BY MOUTH EVERY MORNING 28 tablet 03/20/20 25 Active omeprazole (PriLOSEC) [address] capsule TAKE ONE CAPSULE BY MOUTH EVERY MORNING WITH FOOD 30 capsule 04/08/20 25 Active albuterol (2.5 MG/3ML) 0.083% nebulizer solutionIndicat ions:COPD exacerbation (CMS/HCC) ([facility]) INHALE 1 VIAL VIA NEBULIZER EVERY 4 HOURS NEEDED FOR SHORTNESS OF BREATH OR WHEEZING (BULK) 90 mL 04/08/20 25 Active albuterol (Ventolin HFA) 108 (90 Base) MCG/ACT inhalerIndicati ons:Shortness of breath INHALE TWO PUFFS BY MOUTH EVERY 4 TO 6 HOURS NEEDED 18 g 04/08/20 25 Active ipratropium (Atrovent HFA) 17 MCG/ACT inhaler INHALE TWO PUFFS BY MOUTH FOUR TIMES A DAY (BULK) 12.9 g 04/08/20 25 Active gabapentin (Neurontin) 300 MG capsuleIndicati ons:Restless leg syndrome TAKE 2 CAPSULES BY MOUTH THREE TIMES A DAY 180 capsule 04/08/20 Active meclizine (Antivert) 25 MG tablet TAKE 1 TABLET BY MOUTH THREE TIMES DAILY IN THE MORNING, AT NOON, AND AT BEDTIME NEEDED FOR FOR DIZZINESS 60 tablet 3 04/08/20 Active triamcinolone (Kenalog) 0.1 % ointmentIndicat ions:Rash APPLY A THIN LAYER TOPICALLY TO AFFECTED AREA(S) TWO TIMES A DAY NEEDED FOR 7 DAYS (BULK) 15 g 5 04/08/20 25 Active fexofenadine (Afshan) 180 MG tablet Take 1 tablet (180 mg) by mouth Once per day. 30 tablet 01/16/20 Discontinued albuterol (2.5 MG/3ML) 0.083% nebulizer solutionIndicat ions:COPD exacerbation (CMS/HCC) ([facility]) INHALE 1 VIAL VIA NEBULIZER EVERY 4 HOURS NEEDED FOR SHORTNESS OF BREATH OR WHEEZING (BULK) 90 mL 5 08/07/19 25 025 Discontinued(Re order (will not trigger notification to Pharmacy)) Atrovent HFA 17 MCG/ACT inhaler INHALE TWO PUFFS BY MOUTH FOUR TIMES A DAY (BULK) 12.9 g 09/30/19 25 025 Discontinued(Re order (will not [...] 4 TO 6 HOURS NEEDED 18 g 10/23/19 25 025 Discontinued(Re order (will not trigger notification to Pharmacy)) Oyster Shell Calcium 500 MG tablet TAKE ONE TABLET BY MOUTH EVERY MORNING 28 tablet 10/23/19 25 025 Discontinued omeprazole (PriLOSEC) [address] capsule TAKE ONE CAPSULE BY MOUTH EVERY MORNING WITH FOOD 30 capsule 5 10/23/19 25 025 Discontinued meclizine (Antivert) 25 MG tablet TAKE 1 TABLET BY MOUTH THREE TIMES DAILY IN THE MORNING, AT NOON, AND AT BEDTIME NEEDED FOR FOR DIZZINESS 60 tablet 3 10/23/19 25 025 Discontinued(Re order (will not trigger notification to Pharmacy)) gabapentin (Neurontin) 300 MG capsuleIndicati ons:Restless leg syndrome Take 2 capsules (600 mg) by mouth 3 times daily. 60 capsule 5 01/31/20 25 025 Discontinued(Re order (will not trigger notification to Pharmacy)) triamcinolone (Kenalog) 0.1 % ointmentIndicat ions:Rash APPLY A THIN LAYER TOPICALLY TO AFFECTED AREA(S) TWO TIMES A DAY NEEDED FOR 7 DAYS (BULK) 15 g 5 03/11/20 25 025 Discontinued(Re order (will not trigger notification to Pharmacy)) albuterol (Ventolin HFA) 108 (90 Base) MCG/ACT inhalerIndicati ons:Shortness of breath INHALE TWO PUFFS BY MOUTH EVERY 4 TO 6 HOURS NEEDED 18 g 5 03/11/20 25 025 Discontinued(Re order (will not trigger notification to Pharmacy)) ipratropium (Atrovent HFA) 17 MCG/ACT inhaler Inhale 2 puffs if needed in the morning, at noon, in the evening, and at bedtime for wheezing or shortness of breath. INHALE TWO PUFFS BY MOUTH FOUR TIMES A DAY (BULK) 12.9 g 5 03/11/20 25 025 Discontinued(Re order (will not trigger notification to Pharmacy)) meclizine (Antivert) 25 MG tablet TAKE 1 TABLET BY MOUTH THREE TIMES DAILY IN THE MORNING, AT NOON, AND AT BEDTIME NEEDED FOR FOR DIZZINESS 60 tablet 3 03/11/20 25 025 Discontinued(Re order (will not trigger notification to Pharmacy)) Active Problems Problem Noted Date Diagnosed Date Dyspnea on exertion 04/23/2024 Overview (04/23/2024): - 11/30/2022 PFT's w/no bstructive or restrictive ventilatory defects, moderate isolated diffusion impairment. CT -12/01/22 CT scan of the lungs showed mild emphysema. - 05/2023- A cardiopulmonary stress test at [facility] showed moderately impaired exercise capacity and mildly [...] Overview (07/03/2023): Mammo: 08/2022 Pap: 08/[address] [facility] [employer] [facility]. Results not in chart C-scope: 2019, normal. Due 2029 BMD: 08/2021; osteopenia. Repeat 08/2023 Established with LDLCT screening at [facility] [place] on [place] exams[place] Assessment & Plan (12/30/2022 9:26 PM EDT): Will request [facility] records for recent pap and mammogram Post-menopausal bleeding 08/06/2022 Overview (04/23/2024): 07/11/2022 pelvic ultrasound with normal EM stripe Followed by [facility] [employer]SORPT[employer] [facility]INEER s/p EMB 09/2023 (negative) Dr. Pearson--pt to call ABSORPTION AND ADSORPTION ENGINEER should bleeding reoccur Assessment & Plan (07/03/2023 10:06 PM EST): Follow up for EMB as scheduled No recurrent episodes Assessment & Plan (08/06/2022 4:07 PM EDT): Pt denies recurrent episodes of bleeding. Did not hear regarding previously placed ABSORPTION AND ADSORPTION ENGINEER referral. Will re-refer today to [facility] for EMB if indicated. Anxiety 08/03/2022 Overview [...] smoking cessation Repeat DEXA 08/2023 Rheumatoid arthritis ([facility]/HCC) 06/15/2022 Overview (10/04/2022): Followed by [facility] Rheumatology [place] Methotrexate Hydroxychloroquine Tobacco use 06/15/2022 Overview (07/03/2023): Started smoking age 18: 1-2 PPD; decreased to 1/2 PPD over the pasts 1-2 years Quit 12/[address] [facility] LDLCT Mixed hearing loss, bilateral 06/15/2022 Overview [...] Encounters Date Type Department Care Team Description 04/08/2025 Refill [facility] [address] [place] [address] Alicia Carias FNP COPD exacerbation (CMS/HCC) (HCC); Shortness of breath; Restless leg syndrome; Rash 04/07/2025 Refill [facility] [address] [place] [address] Alicia Carias FNP 03/19/2025 Refill [facility] [address] [place] [address] Alicia Carias FNP Shortness of breath; Insomnia, unspecified type 03/17/2025 Refill [facility] [address] [place] [address] Silvia Guadarrama DO 03/11/2025 Refill [facility] [address] [place] [address] Alicia Carias FNP Rash; Shortness of breath 03/09/2025 11:15 AM EDT Telemedicine [facility] [address] [place] [address] Alicia Carias FNP Acute recurrent maxillary sinusitis (Primary Dx); Mood disorder (CMS/HCC) 03/09/2025 Travel 03/06/2025 Orders Only [facility] External Provider, [facility] 03/06/2025 Telephone [facility] [address] [place] [address] Alicia Carias FNP chart prep 03/02/2025 Travel 02/19/2025 Refill [facility] [address] [place] [address] Alicia Carias [facility] COPD exacerbation (CMS/HCC) (HCC); Restless leg syndrome 02/19/2025 Refill [facility] [address] [facility] [place] [address] Alicia Carias [facility] 02/13/2025 Refill [facility] [address] [facility] [address] Silvia Guadarrama DO 02/12/2025 Refill [facility] [address] [place] [address] [place] [facility] 02/02/2025 Results Follow-Up [facility] [place] [address] Alicia Carias [facility] CBC auto differential, Comprehensive Metabolic Panel, Lipid Panel, Standard, Additional followed-up results: 4 01/30/2025 9:30 AM EDT Office Visit [facility] [address] [place], [place] [address] [facility] [place] [address] Alicia Carias [facility] Healthcare maintenance (Primary Dx); Acute recurrent maxillary sinusitis; Mood disorder (CMS/HCC); Restless leg syndrome; Osteopenia, unspecified location; Other chronic pain; Rheumatoid arthritis, involving unspecified site, unspecified whether rheumatoid factor present (CMS/HCC) 01/30/2025 Travel 01/29/2025 Telephone [facility] [place] [address] Alicia Carias [facility] chart prep 01/23/2025 Travel 01/22/2025 Refill [facility] [address] [facility] [address] [place] [facility] COPD exacerbation (CMS/HCC); Restless leg syndrome 01/13/2025 1:40 PM EDT Office Visit [facility] [place] [address] Yajaira Barbosa MD COPD exacerbation (CMS/HCC) (Primary Dx); Acute URI 01/13/2025 Travel from [...] - Risk 50-74 years 1-dose series) 2014 COVID-19 Vaccine ( season) 2025 04/16/2024, 06/25/2023, 12/21/2022, Additional history exists Influenza Vaccine (#1) 2025 , 02/02/2023, 03/17/2022, Additional history exists Cervical Cancer Screening 02/07/2025 Pap Smear 02/07/2025 02/08/2024, 01/19, 10/27/2021 Depression Monitoring 07/30/2025 01/30/2025, 025 Disability Screening 01/23/2026 01/23/2025 Alcohol/Substance Use Screening 01/30/2026 01/30/2025 Diabetes: Hemoglobin A1C 01/30/2026 01/30/2025 SDOH Screening 01/30/2026 01/30/2025 Tobacco Screening 03/09/2026 03/09/2025 Mammogram 04/01/2026 04/01/2025, 05/0 07/2023, 09/15/2022, Additional history exists HPV/Cotest 02/07/2029 02/08/2024, 01/19, 10/27/2021, Additional history [...] 04/01/2025 1:32 PM EST Osteopenia, unspecified location BI MAMMOGRAM SCREENING TOMOSYNTHESIS BILATERAL Routine 04/01/2025 12:56 PM EST LDCT LUNG SCREENING Routine 03/06/2025 3 :45 [...] MRNA E6/E7 Routine 02/08/2024 2:23 PM EDT HM COLONOSCOPY Routine 04/20/2020 from Last 3 Months or Most Recently Relevant to Health Maintenance Results * BD DEXA Axial (04/01/2025 1:32 PM EST) Anatomical Region Laterality Modality Body Radiographic Darlene ging 04/01/2025 1:32 PM EST Narrative 04/01/2025 2:36 PM EST [facility] [address] [place] [address] Mammography Report Signed Patient: Lizzie Girard MR#: [id number] : 1965 Acct:[id number] Age/Sex: 59 / F ADM Date: 04/01/25 Loc: MAMMO Attending Dr: Alicia Carias COMBINATION MAN Ordering Physician: Alicia Carias Results: Date of Service: 04/01/25 Follow Up: Procedure(s): XR DEXA axial skeleton Accession Number(s): [id number] cc: Alicia Carias Reason For Exam: 59y.o F with known osteopenia m85.80 EXAMINATION: DXA BONE DENSITY AXIAL HISTORY: 59y.o F with known osteopenia m85.80 TECHNIQUE: [employer] Dual energy absorptiometry (DEXA) of the lumbar [...] of the [employer] [place] for Metabolic Bone Disease, a World Health Organization (WHO) Collaborating Center. Electronically signed by: Katelyn Baxter MD 04/01/2025 02:33 PM [facility] Dictated By: Katelyn Baxter MD Signed By: <Electronically signed by Katelyn Baxter MD in OV> 04/01/25 1433 DD/ 1332 TD/TT: 04/01/25 1330 Boat Hand: SEBASTIEN Procedure Note Donotuseinterpreter, Image - 04/01/2025 [place] [facility] [address] [place] [address] Mammography Report Signed Patient: Bala Girard#: [id number] : 1965Acct:[id number] Age/Sex: 59 / FADM Date: 04/01/25 Loc: MAMMO Attending Dr: Alicia Carias COMBINATION MAN Ordering Physician: Alicia CariasPResults: Date of Service: 04/01/25Follow Up: Procedure(s): XR DEXA axial skeleton Accession Number(s): [id number] cc: Alicia CariasP Reason For Exam: 59y.o F with known osteopenia m85.80 EXAMINATION: DXA BONE DENSITY AXIAL HISTORY: 59y.o F with known osteopenia m85.80 TECHNIQUE: [employer] Dual energy absorptiometry (DEXA) of the lumbar [...] of the [employer] [place] for Metabolic Bone Disease, a World Health Organization (WHO) Collaborating Center. Electronically signed by: Katelyn Baxter MD 04/01/2025 02:33 PM EST RP Dictated By: Katelyn Baxter MD Signed By: <Electronically signed by Katelyn Baxter MD in OV> 04/01/25 1433 DD/ 1332 TD/TT: 04/01/25 1330 Boat Hand: SEBASTIEN Alicia Carias COMBINATION MAN IMG DXA PROCEDURES Final Resu lt * BI Mammogram Screening Tomosynthesis Bilateral (04/01/2025 12:56 PM EST) Anatomical Region Laterality Modality Breast Bilateral Mammography 04/01/2025 12:5 6 PM EST Narrative 04/06/2025 1:23 PM EST [facility] [address] [place] [address] Mammography Report Signed Patient: Lizzie Girard MR#: [id number] : 1965 Acct:[id number] Age/Sex: 59 / F ADM Date: 04/01/25 Loc: HO.MAMMO Attending Dr: Alicia YADAV Ordering Physician: Alicia Carias Results: 1Nega tive Date of Service: 04/01/25 Follow Up: 1 Year From Orig ina Mammogram Procedure(s): MM tomosynthesis screening BI Accession Number(s): [id number] cc: Alicia Carias Reason For Exam: Z12.31 EXAMINATION: MM SCREENING DIGITAL BREAST TOMOSYNTHESIS, BILATERAL CLINICAL INFORMATION: Screening. Asymptomatic. COMPARISON: Mammography: Comparison is made with available priors TECHNIQUE: Digital breast mammography with tomosynthesis is performed in both the craniocaudal and mediolateral oblique views along with computer-aided detection (CAD). FINDINGS: There are scattered areas of fibroglandular density. There are no significant masses, abnormal calcifications, or other abnormalities. MM/MM tomosynthesis screening BI IMPRESSION: No mammographic evidence of malignancy. ASSESSMENT: BI-RADS Category 1: Negative RECOMMENDATION: Routine annual mammography screening. 1 year F/U This examination should not preclude the clinical evaluation of a suspicious palpable abnormality. This patient's information was entered into a reminder system with a target due date for their next mammogram. Electronically signed by: Yolanda Wyatt DO 04/06/2025 01:20 PM EST Dictated By: Yolanda Wyatt DO Signed By: <Electronically signed by Yolanda Wyatt DO in OV> 04/06/25 1320 DD/ 1256 TD/TT: 04/01/25 1322 Boat Hand: Procedure Note Donotuseinterpreter, Image - 04/06/2025 [facility] [address] [place] [address] Mammography Report Signed Patient: Bala Girard#: [id number] : 1965Acct:[id number] Age/Sex: 59 / FADM Date: 04/01/25 Loc: MAMMO Attending Dr: Alicia Carias COMBINATION MAN Ordering Physician: Alicia Carias FNPResults: 1Nega tive Date of Service: 04/01/25Follow Up: 1 Year From Orig ina Mammogram Procedure(s): MM tomosynthesis screening BI Accession Number(s): [id number] cc: Alicia Carias COMBINATION MAN Reason For Exam: Z12.31 EXAMINATION: MM SCREENING DIGITAL BREAST TOMOSYNTHESIS, BILATERAL CLINICAL INFORMATION: Screening. Asymptomatic. COMPARISON: Mammography: Comparison is made with available priors TECHNIQUE: Digital breast mammography with tomosynthesis is performed in both the craniocaudal and mediolateral oblique views along with computer-aided detection (CAD). FINDINGS: There are scattered areas of fibroglandular density. There are no significant masses, abnormal calcifications, or other abnormalities. MM/MM tomosynthesis screening BI IMPRESSION: No mammographic evidence of malignancy. ASSESSMENT: BI-RADS Category 1: Negative RECOMMENDATION: Routine annual mammography screening. 1 year F/U This examination should not preclude the clinical evaluation of a suspicious palpable abnormality. This patient's information was entered into a reminder system with a target due date for their next mammogram. Electronically signed by: Yolanda Wyatt DO 04/06/2025 01:20 PM EST Dictated By: Yolanda Wyatt DO Signed By: <Electronically signed by Yolanda Wyatt DO in OV> 04/06/25 1320 DD/ 1256 TD/TT: 04/01/25 1322 Boat Hand: [facility] COMBINATION MAN IMG BI PROCEDURES Final Resul t * CT Lung Screening Low dose (03/06/2025 3:45 PM EDT) Anatomical Region Laterality Modality Lung Computed Tomogra phy 03/06/2025 3:45 PM EDT Narrative 03/06/2025 4:30 PM EDT [place] [address] CT Scan Report Signed Patient: Lizzie Girard MR#: [id number] : 1965 Acct:[id number] Age/Sex: 59 / F ADM Date: 03/06/25 Loc: HO.CT Attending Dr: Brittany Arnold PA-C Ordering Physician: Brittany Arnold PA-C Date of Service: 03/06/25 Procedure(s): CT lung screening Accession Number(s): [id number] cc: Brittany Arnold PA-C; [facility] Report Number: [id number]: Total DLP = 48.00 mGy-cm Reason for [...] 03/06/25 1627 DD/ 1545 TD/TT: 03/06/25 1555 Boat Hand: SEBASTIEN Procedure Note Donotuseinterpreter, Image - 03/06/[address] [place] [address] [address] Scan Report Signed Patient: Bala Girard#: [id number] : 1965Acct:[id number] Age/Sex: 59 / FADM Date: 03/06/25 Loc: HO.CT Attending Dr: Brittany Arnold PA-C Ordering Physician: Brittany Arnold PA-C Date of Service: 03/06/25 Procedure(s): CT lung screening Accession Number(s): [id number] cc: Brittany Arnold PA-C; [facility] Report Number: [id number]: Total DLP = 48.00 mGy-cm Reason for Exam: Z87.891 - Personal history of nicotine dependence EXAMINATION: CT LUNG SCREENING HISTORY: Z87.89 - Personal history of nicotine dependence TECHNIQUE: [...] 03/06/25 1627 DD/ 1545 TD/TT: 03/06/25 1555 Boat Hand: SEBASTIEN [facility] External Provider IMG CT PROCEDURES Final Result * Hepatitis A,B,C Profile (01/30/2025 10:25 AM EDT) Hepatitis A IgM Nonreactive Nonreactive [facility] Comment:IgM antibodies to HUA V not detected; does not exclude earlyacute or recovered HAV infection. ~Hepatitis B Surface Antibody NONREACTIVE Nonreactive [facility] Comment:Nonreactive: < 8.00 mIU/mL Hepatitis B Core Antibody Nonreactive Nonreactive [facility] Hepatitis C Antibody Nonreactive Nonreactive [facility] Comment:Antibodies to HCV no t detected; does not exclude early acuteHCV infection. Hepatitis B Surface Ag Negative Negative [facility] Blood Venous blood specimen / Unknown 01/30/2025 10:25 AM EDT 01/30/2025 11:27 AM EDT [facility] COMBINATION MAN LAB BLOOD ORDERABLES Final Re sult [facility] [address] [place] [address] [phone] * (ABNORMAL) CBC auto differential (01/30/2025 10:25 AM EDT) White Blood Count 6.9 4.8 - 10.8 X10*3/uL [facility] Red Blood Count 5.08 4.20 - 5.50 X10*6/uL [facility] Hemoglobin 13.4 12.0 - 16.0 g/dl [facility] Hematocrit 41.7 37.0 - 47.0 % [facility] Mean Corpuscular Volume 82.1 80.0 - 98.0 fL [facility] Mean Corpuscular Hemoglobin 26.4(L) 27.0 - 33.0 pg [facility] Mean Corpuscular HGB Conc 32.1 31.0 - 35.0 g/dl [facility] Red Cell Distribution Width 14.3 11.0 - 16.0 % [facility] Platelet Count 234 160 - 400 X10*3/uL [facility] Mean Platelet Volume 10.3 9.4 - 12.3 fL [facility] Neutrophils Percent Auto 55.6 45 - 73 % [facility] Imm Gran Pct Auto 0.6(H) 0.0 - 0.4 % [facility] Lymphocytes Percent Auto 28.6 20 - 40 % [facility] Monocytes Percent Auto 10.0 2 - 11 % [facility] Eosinophils Percent Auto 4.8(H) 0 - 4 % [facility] Basophils Percent Auto 0.4 0 - 2 % [facility] NRBC Pct Auto 0.0 0.0 - 0.2 /100WBC [facility] Neutrophils Absolute Auto 3.9 2.0 - 8.3 x10*3/uL [facility] Imm Gran Abs Auto 0.04(H) 0.00 - 0.03 X10*3/uL [facility] Lymphocytes Absolute Auto 2.0 1.2 - 4.9 X10*3/uL [facility] Monocytes Absolute Auto 0.7 0.1 - 1.2 X10*3/uL [facility] Eosinophils Absolute Auto 0.3 0.0 - 0.4 X10*3/uL [facility] Basophils Absolute Auto 0.0 0.0 - 0.2 X10*3/uL [facility] NRBC Abs Auto 0.000 0.0 - 0.012 X10*3/uL [facility] Blood Venous blood specimen / Unknown 01/30/2025 10:25 AM EDT 01/30/2025 11:24 AM EDT [facility] LAB BLOOD ORDERABLES Final Re sult [facility] [address] [place] [address] [phone] * HIV-1/2 Antigen and Antibodies, Fourth Generation, with Reflexes (01/30/2025 10:25 AM EDT) HIV AB/AG Nonreactive Nonreactive [facility] Comment:HIV-1 p24 Ag and/or HIV-1/HIV-2 Ab not detected.A test result that is nonreactive does not exclude thepossibility of exposure to or infection with HIV-1 and/orHIV-2. Nonreactive results in this assay for individualswith prior exposure to HIV-1 and/or HIV-2 may be due toantigen and antibody levels that are below the limit ofdetection of this assay.The [employer] HIV Ag/Ab Combo assay result andsupplemental assay results should be interpreted inconjunction with the patient's clinical presentation,history and other laboratory results. If the results areinconsistent with clinical evidence, additional testing issuggested to confirm the result. Blood Venous blood specimen / Unknown 01/30/2025 10:25 AM EDT 01/30/2025 11:27 AM EDT [facility] LAB BLOOD ORDERABLES Final Re sult Performing Organization Address City/[facility]/ZIP Co de Phone Number [facility] [address] [place] [address] [phone] * (ABNORMAL) Hemoglobin A1c (01/30/2025 10:25 AM EDT) Hemoglobin A1c 6.2(H) <6.0 % [facility] Comment:Hemoglobin A1C Refer ence Range Adults: 4.8 - 6.0 % Non diabetic: < 6.0 % Goal: < 7.0 %Additional Action Suggested: > 8.0 %Note: Hemoglobin A1c results are invalid for patients with abnormal amounts of HbF. Blood transfusions may impact the HbA1c concentration in the patient sample. Estimated Average Glucose 131 mg/dL [facility] Comment:eAG = Estimated ave rage glucose which is %A1C expressed asaverage glucose, using the formula of the [id number] Glucose study (ADAG), Diabetes Care, Vol.31,#8,Dec. 2007 Blood Venous blood specimen / Unknown 01/30/2025 10:25 AM EDT 01/30/2025 11:24 AM EDT [facility] LAB BLOOD ORDERABLES Final Re sult Performing Organization Address City/[facility]/ZIP Co de Phone Number [facility] [address] [place] [address] [phone] * (ABNORMAL) Lipid Panel, Standard (01/30/2025 10:25 AM EDT) Triglycerides 139 <150 mg/dL [facility] [facility] Comment:Desirable Triglyceri de: less than 150 mg/dLBorderline High Triglyceride 150-199 mg/dLHigh Triglyceride: 200-499 mg/dLVery High Triglyceride: greater than or equal to 5OO mg/dL Cholesterol 194 <200 mg/dL [facility] Comment:Desirable Cholestero l: less than 200 mg/dLBorderline High Cholesterol: 200-239 mg/dLHigh Cholesterol: greater than 239 mg/dL LDL Cholesterol Calculated 113(H) <100 mg/dL [facility] Comment:Desirable LDL: less than 100 mg/dLNear Optimal/Above Optimal LDL: 110- 129 mg/dLBorderline High LDL: 130-159 mg/dLHigh LDL: 160-189 mg/dLVery High LDL: greater than or equal to 190 mg/dL HDL Cholesterol 54 >40 mg/dL [facility] Comment:Desirable HDL: great er than 40 mg/dL Note: This HDL assay may give artificially low results in patients with liver disease. Blood Venous blood specimen / Unknown 01/30/2025 10:25 AM EDT 01/30/2025 11:27 AM EDT [facility] LAB BLOOD ORDERABLES Final Re sult [facility] [address] [place] [address] [phone] * Comprehensive Metabolic Panel (01/30/2025 10:25 AM EDT) Sodium 144 135 - 145 mmol/L [facility] Potassium 4.8 3.3 - 5.1 mmol/L [facility] Chloride 108 96 - 108 mmol/L [facility] Carbon Dioxide 26 22 - 29 mmol/L [facility] Anion Gap 15 12 - 20 [facility] Urea Nitrogen (BUN) 16 9 - 16 mg/dL [facility] Creatinine, Serum 0.62 0.5 - 1.4 mg/dL [facility] Estimated Glomerular Filt Rate >60 [facility] Comment:Chronic Kidney Disea se: Estimated GFR < 60 mL/min/1.14o4Gfbuut Kidney Disease: Estimated GFR < 15 mL/min/1.73m2 Glucose 81 60 - 115 mg/dL [facility] Calcium 9.3 8.4 - 10.2 mg/dL [facility] Bilirubin, Total 0.4 0.0 - 1.0 mg/dL [facility] Aspartate Amino Transferase 29 5 - 31 U/L [facility] Alanine Aminotransferase 30 0 - 31 U/L [facility] Total Protein 7.4 6.5 - 8.0 g/dL [facility] Albumin Level 4.4 3.5 - 5.0 g/dL [facility] Alkaline Phosphatase 86 39 - 117 U/L [facility] Blood Venous blood specimen / Unknown 01/30/2025 10:25 AM EDT 01/30/2025 11:27 AM EDT [facility] LAB BLOOD ORDERABLES Final Re sult [facility] [address] [place] [phone] * POCT Influenza A manually resulted (01/13/2025 2:19 PM EDT) [facility] Rapid Influenza A Ag Negative Negative, Indeterminate QC Media Lot # [id number] Lot# Expiration Date 100,826 Swab Nasopharyngeal structure / Unknown 01/13/2025 2:19 PM EDT Yajaira Barbosa MD POINT OF CARE TEST ENTER/E DIT ORDERABLES Final Result * POCT Rapid COVID Ag (01/13/2025 2:18 PM EDT) [facility] Rapid COVID Ag Negative QC Media Lot # [id number] Lot# Expiration Date 102,826 Swab 01/13/2025 2:18 PM EDT Yajaira Barbosa MD POINT OF CARE TEST ENTER/E DIT ORDERABLES Final Result * POCT Influenza B manually resulted (01/13/2025 2:18 PM EDT) [facility] Rapid Influenza B Ag Negative Negative, Indeterminate QC Media Lot # [id number] Lot# Expiration Date 100,826 Swab 01/13/2025 2:18 PM EDT Yajaira Barbosa MD POINT OF CARE TEST ENTER/E DIT ORDERABLES Final Result * POCT rapid strep A manually resulted (01/13/2025 2:17 PM EDT) [facility] Rapid Strep A Screen Negative Negative, None Detected QC Media Lot # [id number] Lot# Expiration Date 12052,026 Swab 01/13/2025 2:17 PM EDT Yajaira Barbosa MD POINT OF CARE TEST ENTER/E DIT ORDERABLES Final Result * ThinPrep Imaging Pap and HPV mRNA E6/E7 (02/08/2024 2:23 PM EDT) [facility] HPV nRNA E6/E7 Not Detected Not Detected [facility] Comment:Methodology: Transcr iption-Mediated AmplificationThis assay detects E6/E7 viral messenger RNA (mRNA) from 14high-risk HPV types (16,18,31,33,35,39,45,51,52,56,58,59,66,68).Cervical sources are required for HPV testing.If a vaginal source from a patient who has had atotal hysterectomy with removal of cervix wassubmitted, please contact the testing laboratoryfor alternative testing options.For additional information, please refer [email or web address](This link if provided for information/educational purposes only.)THIS TEST WAS PERFORMED AT:[employer] [facility] [place] [phone] PEOPLES MD SOURCE: SEE NOTE [facility] Comment:Cervix Report Status: TNP [facility] Clinical Information: SEE NOTE [facility] Comment:None given LMP: SEE NOTE [facility] Comment:NONE GIVEN Prev. PAP: SEE NOTE [facility] Comment:NONE GIVEN Prev. BX: SEE NOTE [facility] Comment:NONE GIVEN Statement Of Adequacy: SEE NOTE [facility] Comment:Satisfactory for humaira luation.Endocervical/transformation zone componentpresent. General Categorization: [facility] Interpretation/Result: SEE NOTE [facility] Comment:Cytology Results: Ne gative for intraepitheliallesion or malignancy. Cytology Comment SEE NOTE [facility] Comment:This Pap test has be en evaluated with computerassisted technology. Business Relations Manager: SEE NOTE [facility] Comment:DMM, CT(ASCP)CT scre ening location: [place] [address] Review Business Relations Manager: [facility] Pathologist [facility] PAP Infection [facility] See Note SEE NOTE [facility] Comment:EXPLANATORY NOTE:The Pap is a screening test for cervical cancer. It isnot a diagnostic test and is subject to false negativeand false positive results. It is most reliable when asatisfactory sample, regularly obtained, is submittedwith relevant clinical findings and history, and whenthe Pap result is evaluated along with historic andcurrent clinical information. 02/08/2024 2:23 PM EDT 02/08/2024 4:34 PM EDT Narrative [facility] - 02/15/2024 12:08 PM EDT SEE SCANNED RESULTS IN EMRCERVIX [facility] PATHOLOGY ORDERABLES Claudette l Result [facility] [address] [place] [phone] * Hm Colonoscopy (04/20/2020) Colonoscopy Normal Normal Comment:Repeat in 10 years [facility] Provider MD HEALTH MAINTENANCE Final Result from Last 3 Months or Most Recently Relevant to Health Maintenance Insurance [facility] ONE CARE < 65 [place] [id number] Care Teams Production Support Developer Relationship Specialty Start Date End Date Alicia Carias FNP [address] [place] [id number] PCP - General Family Medicine 01/17/22
--- OUTSIDE RECORDS SUMMARY | 2025-04-09 00:23 | XMS_ITS | Encounter Summary ---
Author Organization [employer] Address [address] [place] [address] [place] [address] Care Team Providers Care Flumer Name Role Phone [facility] Primary Care Provider [phone] Reason for Visit * Reason Onset Date Comments Nurse Triage 10/24/2022 Encounter Details Date Type Department Care Team ([facility] st Contact Info) Description 10/24/2022 Telephone [facility] [address] [place] [address] [facility] [address] [place] [address] Nurse Triage Social History Tobacco Use Types [...] Tobacco Use and Problems handout sent to [phone] * Telephone Encounter - Maryan Bradford - 10/24/2022 11:40 AM EDT Patient calling to report Smoking 1 pack and a half x years. Patient speaks (Qatari). Advised triage nurse will call patient back. Pt asking for Nicotine patches PCP DR. Carias documented in this encounter Plan of Treatment Not on file documented as of this encounter Visit Diagnoses Not on filedocumented in this encounter Additional Health Concerns Assessment Noted Time PHQ-9 Depression Total Score: 0 10/04/19 23 2:27 PM EDT documented as of this encounter Care Teams Flumer Relationship Specialty Start Date End Date Alicia Carias FNP [address] [place] [address] PCP - General Family Medicine 01/17/22 documented as of this encounter
--- OUTSIDE RECORDS SUMMARY | 2025-04-09 00:23 | XMS_ITS | Encounter Summary ---
Author Organization [email or web address] Address [address] [place] [address] [place] [address] Care Team Providers Care Rivet Passer Name Role Phone [facility] Primary Care Provider [phone] Reason for Visit * Reason Comments Med Refill Encounter Details Date Type Department Care Team ([facility] st Contact Info) Description 11/18/2022 Refill [facility] [address] [place] [address] [facility] [address] [place] [address] Dizziness and giddiness; Anxiety Social History Tobacco [...] documented as of this encounter Care Teams Rivet Passer Relationship Specialty Start Date End Date Alicia Carias FNP [address] [place] [address] PCP - General Family Medicine 01/17/22 documented as of this encounter
--- OUTSIDE RECORDS SUMMARY | 2025-04-09 00:23 | XMS_ITS | Encounter Summary ---
Author Organization [email or web address] Address [address] [place] [address] [address] [place] [address] Care Team Providers Care Incident Response Consultant Name Role Phone [facility] Primary Care Provider [phone] Reason for Visit * Reason Comments Med Refill Encounter Details Date Type Department Care Team ([facility] st Contact Info) Description 02/11/2024 Refill [facility] [address] [place] [address] [facility] [address] [place] [address] COPD exacerbation (CMS/FORMERLY [facility] - [...] documented as of this encounter Care Teams Incident Response Consultant Relationship Specialty Start Date End Date Alicia Carias FNP [address] [place] [address] PCP - General Family Medicine 01/17/22 documented as of this encounter
--- OUTSIDE RECORDS SUMMARY | 2025-04-09 00:23 | XMS_ITS | Encounter Summary ---
Author Organization [employer] Address [address] [place] [address] [address] [place] [address] Care Team Providers Care Air Export Agent Name Role Phone [facility] Primary Care Provider [phone] Reason for Visit * Reason Comments Med Refill Encounter Details Date Type Department Care Team ([facility] Contact Info) Description 10/22/2023 Refill [facility] [address] [place] [address] [facility] [address] [place] [address] COPD exacerbation (CMS/HCC); Rash Social History Tobacco [...] documented as of this encounter Care Teams Air Export Agent Relationship Specialty Start Date End Date Alicia Carias FNP [address] [place] [address] PCP - General Family Medicine 01/17/22 documented as of this encounter
--- OUTSIDE RECORDS SUMMARY | 2025-04-09 00:24 | XMS_ITS | Encounter Summary ---
Author Organization [employer] Address [address] [place] [address] 7 [place] [address] Care Team Providers Care Legal Billing Coordinator Name Role Phone [facility] Primary Care Provider [phone] Reason for Visit * Reason Comments Med Refill Encounter Details Date Type Department Care Team ([facility] Contact Info) Description 10/02/2024 Refill [facility] [address] [place] [address] [facility] [address] [place] [address] Dizziness and giddiness; Insomnia, unspecified type; Shortness [...] documented as of this encounter Care Teams Legal Billing Coordinator Relationship Specialty Start Date End Date Alicia Carias FNP [address] [place] [phone] PCP - General Family Medicine 01/17/22 documented as of this encounter
--- OUTSIDE RECORDS SUMMARY | 2025-04-09 00:24 | XMS_ITS | Encounter Summary ---
Author Organization [employer] Address [address] [place] [address] 7 [place] [address] Care Team Providers Care Dental Chairside Assistant Name Role Phone [facility] Primary Care Provider [phone] Reason for Visit * Reason Comments Med Refill Encounter Details Date Type Department Care Team ([facility] Contact Info) Description 02/26/2024 Refill [facility] [address] [place] [address] [facility] [address] [place] [address] Social History Tobacco Use Types Packs/Day Years [...] documented as of this encounter Care Teams Dental Chairside Assistant Relationship Specialty Start Date End Date Alicia Carias FNP [address] [place] [address] PCP - General Family Medicine 01/17/22 documented as of this encounter
--- OUTSIDE RECORDS SUMMARY | 2025-04-09 00:24 | XMS_ITS | Encounter Summary ---
Author Organization [employer] Address [address] [place] [address] [address] [place] [address] Care Team Providers Care Traffic Checker Name Role Phone [facility] Primary Care Provider [phone] Reason for Visit * Reason Comments Med Refill Encounter Details Date Type Department Care Team ([facility] st Contact Info) Description 02/25/2024 Refill [facility] [address] [place] [address] [facility] [address] [place] [address] Dizziness and giddiness; Restless leg syndrome Social [...] documented as of this encounter Care Teams Traffic Checker Relationship Specialty Start Date End Date Alicia Carias FNP [address] [place] [address] PCP - General Family Medicine 01/17/22 documented as of this encounter
--- OUTSIDE RECORDS SUMMARY | 2025-04-09 00:24 | XMS_ITS | Data Portability ---
Author Organization [place] - [facility], Allergy Address [address] [place] [address] Care Team Providers Care Chief Cruiser Name Role Phone CATIE DEE DEE Primary Care Provider Assessment Encounter Date Assessment Date Assessment LastModified by Organization Details LastModified Time 03/12/2024 03/12/2024 Patient with a longstanding history of nasal congestion, allergy and chronic ear disease. Multiple prior ear surgeries with Dr. Rose in the 70s and 80s. She notes chronic left greater than right nasal congestion. CT at [facility] was performed in October which suggested possible [...] Go To The Location Of Their Choice, [address] 18:10:10 nettle IgE Ab, serum 2023 [employer] [facility] (Centralized Electronic Ordering - All Locations), Patient Can Go To The Location Of Their Choice, [address] 4 13:04:55 bahia grass IgE Ab, quanti tative , serum 2023 [employer] [facility] ([facility] Ordering - All Locations), Patient Can Go To The Location Of Their Choice, [address] 4 13:04:55 bermud a grass ige, serum 2023 [employer] [facility] ([facility] Ordering - All Locations), Patient Can Go To The Location Of Their Choice, [address] 4 13:04:55 englis h planta in ige, serum 2023 [employer] [facility] ([facility] Ordering - All Locations), Patient Can Go To The Location Of Their Choice, [address] 4 13:04:55 ige, total, serum 2023 [employer] [place] [employer] [facility] ([facility]ized [facility] Ordering - All Locations), Patient Can Go To The Location Of Their Choice, [address] 4 18:10:11 CBC w/ auto diff 2023 [employer] [facility] ([facility] Ordering - All Locations), Patient Can Go To The Location Of Their Choice, [address] 4 18:10:10 Referral None record ed. Procedures None record ed. Surgeries None record ed. Imaging None record ed. Medication Orders fluoci nolone aceton alexandro oil 0.01 % ear drops 2023 [facility], [address], [place], [id number], 5 16:36:19 Patient TargetsNo targets recorded. Patient InstructionsNo instructions recorded. Reason for Referral None Reported. Results Created Date Observation Date Name Description Value Unit Range Abnormal Flag Note LastModifiedBy Organization Detail LastModifiedTime 03/12/20 24 03/13/2024 CBC WITH DIFFE RENTI AL/PL ATELE T WBC 6.7 x10e3 /uL 3.4-10 .8 normal Not Available [facility] ([facility]) [address] [place], [address], 03/17/2024 18:10:10 03/12/2003/13/2024 CBC WITH DIFFE RENTI AL/PL ATELE T RBC 5.04 x10e6 /uL 3.77-5 .28 normal Not Available [facility] ([facility]) [address] [place], [address], 03/17/2024 18:10:10 03/12/2003/13/2024 CBC WITH DIFFE RENTI AL/PL ATELE T hemoglobin 13.1 g/dL 11.1-1 5.9 normal Not Available [facility] ([facility]) [address] [place], [address], 03/17/2024 18:10:10 03/12/2003/13/2024 CBC WITH DIFFE RENTI AL/PL ATELE T hematocrit 41.3 % 34.0-4 6.6 normal Not Available [facility] ([facility]) [address] [place], [address], 03/17/2024 18:10:10 03/12/2003/13/2024 CBC WITH DIFFE RENTI AL/PL ATELE T MCV 82 fL 79-97 normal Not Available [facility] ([facility]) [address] [place], [address], 03/17/2024 18:10:10 03/12/2003/13/2024 CBC WITH DIFFE RENTI AL/PL ATELE T MCH 26.0 pg 26.6-3 3.0 below low normal Not Available [facility] ([facility]) [address] [place], [address], 03/17/2024 18:10:10 03/12/2003/13/2024 CBC WITH DIFFE RENTI AL/PL ATELE T MCHC 31.7 g/dL 31.5-3 5.7 normal Not Available [facility] ([facility]) [address] [facility], [place], [address], 03/17/2024 18:10:10 03/12/20 24 03/13/2024 CBC WITH DIFFE RENTI AL/PL ATELE T RDW 13.7 % 11.7-1 5.4 Not Available [facility] ([facility]) [address] [facility], [place], [address], 03/17/2024 18:10:10 03/12/2003/13/2024 CBC WITH DIFFE RENTI AL/PL ATELE T platelets 227 x10e3 /uL 150-45 0 normal Not Available [facility] ([facility]) [address] [facility], [place], [address], 03/17/2024 18:10:10 03/12/2003/13/2024 CBC WITH DIFFE RENTI AL/PL ATELE T neutrophils 49 % not estab. normal Not Available [facility] ([facility]) [address] [place], [address], 03/17/2024 18:10:10 03/12/20 24 03/13/2024 CBC WITH DIFFE RENTI AL/PL ATELE T lymphs 39 % not estab. normal Not Available [facility] ([facility]) [address] [facility], [place], [address], 03/17/2024 18:10:10 03/12/20 24 03/13/2024 CBC WITH DIFFE RENTI AL/PL ATELE T monocytes 7 % not estab. normal Not Available [facility] ([facility]) [address] [place], [address], 03/17/2024 18:10:10 03/12/2003/13/2024 CBC WITH DIFFE RENTI AL/PL ATELE T eos 4 % not estab. normal Not Available [facility] ([facility]) [address] [facility], [place], [address], 03/17/2024 18:10:10 03/12/2003/13/2024 CBC WITH DIFFE RENTI AL/PL ATELE T basos 1 % not estab. normal Not Available [facility] ([facility]) [address] [facility], [place], [address], 03/17/2024 18:10:10 03/12/2003/13/2024 CBC WITH DIFFE RENTI AL/PL ATELE T immature cells [employer] Not Available [facility] ([facility]) [address] [facility], [place], [address], 03/17/2024 18:10:10 03/12/2003/13/2024 CBC WITH DIFFE RENTI AL/PL ATELE T neutrophils (absolute) 3.2 x10e3 /uL 1.4-7. 0 normal Not Available [facility] ([facility]) [address] [facility], [place], [address], 03/17/2024 18:10:10 03/12/2003/13/2024 CBC WITH DIFFE RENTI AL/PL ATELE T lymphs (absolute) 2.6 x10e3 /uL 0.7-3. 1 normal Not Available [facility] ([facility]) [address] [place], [address], 03/17/2024 18:10:10 03/12/2003/13/2024 CBC WITH DIFFE RENTI AL/PL ATELE T monocytes(ab solute) 0.5 x10e3 /uL 0.1-0. 9 normal Not Available [facility] ([facility]) [address] [place], [address], 03/17/2024 18:10:10 03/12/2003/13/2024 CBC WITH DIFFE RENTI AL/PL ATELE T eos (absolute) 0.3 x10e3 /uL 0.0-0. 4 normal Not Available [facility] ([facility]) [address] [facility], [place], [address], 03/17/2024 18:10:10 03/12/20 24 03/13/2024 CBC WITH DIFFE RENTI AL/PL ATELE T baso (absolute) 0.0 x10e3 /uL 0.0-0. 2 normal Not Available [facility] ([facility]) [address] [facility], [place], [address], 03/17/2024 18:10:10 03/12/2003/13/2024 CBC WITH DIFFE RENTI AL/PL ATELE T immature granulocytes 0 % not estab. Not Available [facility] ([facility]) [address] [facility], [place], [address], 03/17/2024 18:10:10 03/12/2003/13/2024 CBC WITH DIFFE RENTI AL/PL ATELE T immature grans (abs) 0.0 x10e3 /uL 0.0-0. 1 Not Available [facility] ([facility]) [address] [facility], [place], [address], 03/17/2024 18:10:10 03/12/20 24 03/13/2024 CBC WITH DIFFE RENTI AL/PL ATELE T NRBC [employer] Not Available [facility] ([facility]) [address] [facility], [place], [address], 03/17/2024 18:10:10 03/12/2003/13/2024 CBC WITH DIFFE RENTI AL/PL ATELE T hematology comments: [employer] Not Available [facility] ([facility]) [address] [facility], [place], [address], 03/17/2024 18:10:10 03/12/2003/12/2024 ALLER GENS, ZONE 1 [...] ([facility]) [address] [place], [address], 03/17/2024 18:10:10 03/12/20 24 03/17/2024 ALLER GENS, ZONE 1 B901-LxV D pteronyssinu s 0.11 kU/L class 0/I abnormal Not Available [facility] ([facility]) [address] [place], [address], 03/17/2024 18:10:10 03/12/20 24 03/17/2024 ALLER GENS, ZONE 1 F224-VuR D farinae <0.10 kU/L class 0 Not Available [facility] ([facility]) [address] [place], [address], 03/17/2024 18:10:10 03/12/20 24 03/17/2024 ALLER GENS, ZONE 1 R705-FbJ CAT dander <0.10 kU/L class 0 Not Available [facility] ([facility]) [address] [place], [address], 03/17/2024 18:10:10 03/12/20 24 03/17/2024 ALLER GENS, ZONE 1 E662-AcB dog dander <0.10 kU/L class 0 Not Available [facility] ([facility]) [address] [place], [address], 03/17/2024 18:10:10 03/12/20 24 03/17/2024 ALLER GENS, ZONE 1 w868-FxP bermuda grass <0.10 kU/L class 0 Not Available [facility] ([facility]) [address] [facility], [place], [address], 03/17/2024 18:10:10 03/12/20 24 03/17/2024 ALLER GENS, ZONE 1 h429-UrD bluegrass, [place]io <0.10 kU/L class 0 Not Available [facility] ([facility]) [address] [facility], [place], [address], 03/17/2024 18:10:10 03/12/2003/17/2024 ALLER GENS, ZONE 1 v329-YlA bahia grass <0.10 kU/L class 0 Not Available [facility] ([facility]) [address] [place], [address], 03/17/2024 18:10:10 03/12/20 24 03/17/2024 ALLER GENS, ZONE 1 Z998-ExI cockroach, scottish <0.10 kU/L class 0 Not Available [facility] ([facility]) [address] [place], [address], 03/17/2024 18:10:10 03/12/20 24 03/17/2024 ALLER GENS, ZONE 1 H867-DaG penicillium chrysogen <0.10 kU/L class 0 Not Available [facility] ([facility]) [address] [place], [address], 03/17/2024 18:10:10 03/12/20 24 03/17/2024 ALLER GENS, ZONE 1 Y041-VyS cladosporium herbarum <0.10 kU/L class 0 Not Available [facility] ([facility]) [address] [place], [address], 03/17/2024 18:10:10 03/12/20 24 03/17/2024 ALLER GENS, ZONE 1 I521-XwI aspergillus fumigatus <0.10 kU/L class 0 Not Available [facility] ([facility]) [address] [facility], [place], [address], 03/17/2024 18:10:10 03/12/2003/17/2024 ALLER GENS, ZONE 1 B353-EfF mucor racemosus <0.10 kU/L class 0 Not Available [facility] ([facility]) [address] [facility], [place], [address], 03/17/2024 18:10:10 03/12/2003/17/2024 ALLER GENS, ZONE 1 Z495-NcA alternaria alternata <0.10 kU/L class 0 Not Available [facility] ([facility]) [address] [facility], [place], [address], 03/17/2024 18:10:10 03/12/2003/17/2024 ALLER GENS, ZONE 1 L998-KuK stemphylium herbarum <0.10 kU/L class 0 Not Available [facility] ([facility]) [address] [facility], [place], [address], 03/17/2024 18:10:10 03/12/2003/17/2024 ALLER GENS, ZONE 1 B853-PnF common silver birch <0.10 kU/L class 0 Not Available [facility] ([facility]) [address] [facility], [place], [address], 03/17/2024 18:10:10 03/12/2003/17/2024 ALLER GENS, ZONE 1 D575-PnG oak, white <0.10 kU/L class 0 Not Available [facility] ([facility]) [address] [facility], [place], [address], 03/17/2024 18:10:10 03/12/2003/17/2024 ALLER GENS, ZONE 1 S995-ZzS elm, scottish <0.10 kU/L class 0 Not Available [facility] ([place] [facility]) [address], [place], [address], 03/17/2024 18:10:10 03/12/20 24 03/17/2024 ALLER GENS, ZONE 1 V932-YeM julieth, white <0.10 kU/L class 0 Not Available [facility] ([place] [facility]) [address], [place], [address], 03/17/2024 18:10:10 03/12/2003/17/2024 ALLER GENS, ZONE 1 P106-AkQ maple/box elder <0.10 kU/L class 0 Not Available [facility] ([place]) [address], [place], [address], 03/17/2024 18:10:10 03/12/2003/17/2024 ALLER GENS, ZONE 1 D423-UcB hazelnut tree <0.10 kU/L class 0 Not Available [facility] ([place] [facility]) [address], [place], [address], 03/17/2024 18:10:10 03/12/20 24 03/17/2024 ALLER GENS, ZONE 1 F012-ZiI hickory, white <0.10 kU/L class 0 Not Available [facility] ([place] [facility]) [address], [place], [address], 03/17/2024 18:10:10 03/12/20 24 03/17/2024 ALLER GENS, ZONE 1 H068-PxH white mulberry <0.10 kU/L class 0 Not Available [facility] ([place] [facility]) [address], [place], [address], 03/17/2024 18:10:10 03/12/2003/17/2024 ALLER GENS, ZONE 1 L618-LwE cedar, mountain <0.10 kU/L class 0 Not Available [facility] ([place] [facility]) [address] [facility], [place], [address], 03/17/2024 18:10:10 03/12/20 24 03/17/2024 ALLER GENS, ZONE 1 O609-MgG ragweed, short <0.10 kU/L class 0 Not Available [facility] ([place] [facility]) [address] [facility], [place], [address], 03/17/2024 18:10:10 03/12/20 24 03/17/2024 ALLER GENS, ZONE 1 P107-DuP mugwort <0.10 kU/L class 0 Not Available [facility] ([place] [facility]) [address] [facility], [place], [address], 03/17/2024 18:10:10 03/12/20 24 03/17/2024 ALLER GENS, ZONE 1 E129-KdV plantain, mauritian <0.10 kU/L class 0 Not Available [facility] ([place] [facility]) [address] [facility], [place], [address], 03/17/2024 18:10:10 03/12/20 24 03/17/2024 ALLER GENS, ZONE 1 O601-PoR pigweed, common <0.10 kU/L class 0 Not Available [facility] ([place] [facility]) [address] [facility], [place], [address], 03/17/2024 18:10:10 03/12/20 24 03/17/2024 ALLER GENS, ZONE 1 N414-BaP sheep sorrel <0.10 kU/L class 0 Not Available [facility] ([facility]) [address] [facility], [place], [address], 03/17/2024 18:10:10 03/12/20 24 03/17/2024 ALLER GENS, ZONE 1 Y772-VeG nettle <0.10 kU/L class 0 Not Available [facility] ([facility]) [address] [facility], [place], [address], 03/17/2024 18:10:10 03/12/20 24 03/17/2024 IMMUN OGLOB ULIN E, TOTAL immunoglobul in E, total 41 IU/mL 6-495 Not Available [facility] ([facility]) [address] [facility], [place], [address], 03/17/2024 18:10:11 05/16/20 24 11/07/2023 CT, sinus es, w/o contr ast No observ ation record ed. [email or web address] Not Available 17:07:00 Result Notes None recorded. Problems Name Problem SNOMED Code Status Onset Date Resolution Date Notes Provider Name and Address Organization Details Recorded Time Mixed conductiv e and sensorine ural hearing loss of left ear 07749469606 107 Active 2017 Mixed conductiv e and sensorine ural hearing loss, unilatera l, left ear with restricte d hearing on the contralat eral side; Note: Date Diagnosed : 10/01/2017 11:20 AM (H90.A32) Not Available [facility] 4 03:08:07 Sensorine ural hearing loss in right ear 26315143222 100 Active 2017 Sensorine ural hearing loss, unilatera l, right ear, with restricte d hearing on the contralat eral side; Note: Date Diagnosed : 10/01/2017 11:20 AM (H90.A21) Not Available [facility] 4 03:08:06 Bilateral tinnitus 92329774216 02 Active 2017 Tinnitus, bilateral ; Note: Date Diagnosed : 10/01/2017 11:47 AM (H93.13) Not Available [facility] 4 03:08:06 Bilateral temporoma ndibular joint pain 60338462084 794286 Active 2018 Arthralgi a of bilateral temporoma ndibular joint; Note: Date Diagnosed : 02/24/2019 3:09 PM (M26.623) Not Available [facility] 4 03:08:07 Otalgia of right ear 5331643881 Active 2018 Otalgia, right ear; Note: Date Diagnosed : 02/24/2019 3:09 PM (H92.01) Not Available [facility] 4 03:08:06 Allergic rhinitis 77585725 Active 2023 DANIELITO STRICKLAND MD [address] [facility] [place] [facility], [place], [address] , [facility] - [facility] 4 14:10:41 Chronic salpingit is of bilateral eustachia n tubes 00570503801 31292 Active 2023 DANIELITO STRICKLAND MD [address] [facility],[place] [facility], [place], [address] , [facility] - [facility] 4 14:11:10 Chronic non-infec tive otitis externa 609808784 Active 2023 DANIELITO STRICKLAND MD [address] [place] [address],[place] [address], [place], [address] , [facility] 4 14:12:38 Problem Notes None recorded. Procedures Surgical History Date Name Laterality Status Provider Name and Address Organization Details Recorded Time revision of tympanoplasty completed DANIELITO PHILIPPE MD [address] [facility],[place] [address], [place], [address], [facility] 03/12/2024 14:05:24 Imaging Results None recorded. Procedure [...] oral inhaler 03/12 completed Medicati on ID: [id number] D uration Value: 30 Brand Name: Tessa [...] mg tablet 03/12 completed Medicati on ID: [id number] D uration Value: 30 Brand Name: famotidi ne Send Method: E-Prescr ibed Sub s Allowed: subs OK Speci al Instruct ion: TAKE 1 TABLET AT BEDTIME Medicati onGeneri cName: famotidi ne Not Available Not Available Not Available prednison e 20 mg tablet 03/12 completed Medicati on ID: [id number] D uration Value: 5 Brand Name: predniso ne Send Method: E-Prescr ibed Sub s Allowed: subs OK Medic ationGen ericName : predniso ne Not Available Not Available Not Available Seroquel 25 mg tablet 03/12 completed Medicati on ID: [id number] B rand Name: Seroquel Send Method: E-Prescr [...] mg tablet 03/12 completed Medicati on ID: [id number] D uration Value: 30 Brand Name: trazodon [...] by mouth 03/12 completed Medicati on ID: [id number] D uration Value: 7 Brand Name: doxycycl [...] 2018 10/23 /2024 completed Medicati on ID: [id number] B rand Name: Benadryl Send Method: E-Prescr [...] n capsules 03/12 completed Medicati on ID: [id number] D uration Value: 30 Brand Name: Spiriva [...] mg tablet 03/12 completed Medicati on ID: [id number] D uration Value: 28 Brand Name: Chantix [...] Details Last Updated DateTime 03/12/2024 157.48 cm 45370.52 g Myra Welsh [place] - [facility] 03/12/2024 13:42:44 Social History None recorded. Functional [...] ICD10 Code Diagnosis IMO Codes Diagnosis Note [id number] DANIELITO STRICKLAND MD [facility] [address] [address] 03/12/2024 13:23:35 03/12/2024 14:15:07 Allergic rhinitis 74296335 J30.89 Chronic sa lpingitis of bilateral eustachian tubes 2852005557 825055 H68.023 Chronic no n-infective otitis externa 185093521 H60.61 Health Concerns Section Related Observation LastModified by Organization Detai ls LastModified Time None Recorded Concern Status LastModified by Organization Details LastModified Time None Recorded Advance Directives Directive None Recorded Payers Insurance Date Sequence Insurance Name Policy Number Policy Barnes Covered Member ID Barnes Member ID Guarantor Name 03/12/[address] [facility] - DOS ON OR AFTER 2022 - MEDICARE ADVANTAGE [place] (MEDICARE REPLACEMENT/ADV ANTAGE - PPO) Lizzie Girard [id number] Lizzie Girard Notes Date Note Type Note Provider Name and Address Organization Details Recorded Time 03/12/2024 text/html Patient with a longstanding history of nasal congestion, allergy and chronic ear disease. Multiple prior ear surgeries with Dr. Rose in the 70s and 80s. She notes chronic left greater than right nasal congestion. CT at [facility] was performed in October which suggested possible anterior polyp due to thickening of the nasal septum. She has been on triamcinolone and Astelin without improvementShe has allergy testing pending for May.snot= 79Nose= 100 DANIELITO PHILIPPE MD [address] [place] [address],[place] [address], [place], [address], [facility] - [facility] 03/12/2024 14:14:16 OBGyn Episode No OBEpisode recorded.
--- OUTSIDE RECORDS SUMMARY | 2025-04-09 00:24 | XMS_ITS | Encounter Summary ---
Author Organization [employer] Address [address] [place] [address] 7 [place] [address] Care Team Providers Care Machine Shop Specialist Name Role Phone [facility] Primary Care Provider [phone] Reason for Visit * Reason Comments Med Refill Encounter Details Date Type Department Care Team ([facility] st Contact Info) Description 02/28/2024 Refill [facility] [address] [place] [address] [facility] [address] [place] [address] Dizziness and giddiness; Restless leg syndrome Social [...] documented as of this encounter Care Teams Machine Shop Specialist Relationship Specialty Start Date End Date Alicia Carias FNP [address] [place] [address] PCP - General Family Medicine 01/17/22 documented as of this encounter
--- OUTSIDE RECORDS SUMMARY | 2025-04-09 00:24 | XMS_ITS | Encounter Summary ---
Author Organization [employer] Address [address] [place] [address] 7 [place] [address] Care Team Providers Care Main Galley Scullion Name Role Phone [facility] Primary Care Provider [phone] Reason for Visit * Reason Comments Med Refill Encounter Details Date Type Department Care Team ([facility] Contact Info) Description 02/26/2024 Refill [facility] [address] [place] [address] [facility] [address] [place] [address] Dizziness and giddiness Social History Tobacco Use [...] documented as of this encounter Care Teams Main Galley Scullion Relationship Specialty Start Date End Date Alicia Carias FNP [address] [place] [address] PCP - General Family Medicine 01/17/22 documented as of this encounter
--- OUTSIDE RECORDS SUMMARY | 2025-04-09 00:24 | XMS_ITS | Encounter Summary ---
Author Organization [employer] Address [address] [place] [address] [address] [place] [address] Care Team Providers Care Senior Site Manager Name Role Phone [employer] Primary Care Provider [phone] Reason for Visit * Reason Comments Med Refill Encounter Details Date Type Department Care Team ([facility] st Contact Info) Description 02/17/2024 Refill [facility] [address] [place] [address] [facility] [address] [place] [address] COPD exacerbation (CMS/[facility] [...] as of this encounter Care Teams Senior Site Manager Relationship Specialty Start Date End Date Alicia Carias FNP [address] [place] [address] PCP - General Family Medicine 01/17/22 documented as of this encounter
--- OUTSIDE RECORDS SUMMARY | 2025-04-09 00:25 | XMS_ITS | Encounter Summary ---
Author Organization [employer] Address [address] [place] [address] [address] [place] [address] Care Team Providers Care Gin Feeder Name Role Phone [facility] Primary Care Provider [phone] Reason for Visit * Reason Comments Med Refill Encounter Details Date Type Department Care Team ([facility] Contact Info) Description 03/10/2024 Refill [facility] [address] [place] [address] [facility] [address] [place] [address] Restless leg syndrome Social History Tobacco Use [...] documented as of this encounter Care Teams Gin Feeder Relationship Specialty Start Date End Date Alicia Carias FNP [address] [place] [address] PCP - General Family Medicine 01/17/22 documented as of this encounter
--- OUTSIDE RECORDS SUMMARY | 2025-04-09 00:25 | XMS_ITS | Encounter Summary ---
Author Organization [employer] Address [address] [place] [address] 7 [place] [address] Care Team Providers Care Captain Fire Prevention Bureau Name Role Phone [facility] Primary Care Provider [phone] Reason for Visit * Reason Comments Med Refill Encounter Details Date Type Department Care Team ([facility] Contact Info) Description 03/05/2024 Refill [facility] 230 [place] [address] [facility] 230 [place] [address] Dizziness and giddiness Social History Tobacco Use [...] documented as of this encounter Care Teams Captain Fire Prevention Bureau Relationship Specialty Start Date End Date Alicia Carias FNP 230 [place] [address] PCP - General Family Medicine 01/17/22 documented as of this encounter
--- OUTSIDE RECORDS SUMMARY | 2025-04-09 00:25 | XMS_ITS | Encounter Summary ---
Author Organization [employer] Address [address] [place] [address] 7 [place] [address] Care Team Providers Care Hydraulic Dredge Operator Name Role Phone [facility] Primary Care Provider [phone] Reason for Visit * Reason Comments Med Refill Encounter Details Date Type Department Care Team ([facility] st Contact Info) Description 03/07/2024 Refill [facility] MEDICINE 230 [place] [address] [facility] 230 [place] [address] Dizziness and giddiness; Restless leg syndrome Social [...] documented as of this encounter Care Teams Hydraulic Dredge Operator Relationship Specialty Start Date End Date Alicia Carias FNP [address] [place] [address] PCP - General Family Medicine 01/17/22 documented as of this encounter
--- OUTSIDE RECORDS SUMMARY | 2025-04-09 00:25 | XMS_ITS | Encounter Summary ---
Author Organization [employer] Address [address] [place] [address] 7 [place] [address] Care Team Providers Care Head Of Commission Department Name Role Phone Alicia Carias [employer] Primary Care Provider [phone] Reason for Visit * Reason Comments Med Refill Encounter Details Date Type Department Care Team ([facility] st Contact Info) Description 02/29/2024 Refill [facility] MED[facility]INE 230 [place] [address] Silvia Guadarrama DO 230 [place] [address] Social History Tobacco Use Types Packs/Day Years [...] documented as of this encounter Care Teams Head Of Commission Department Relationship Specialty Start Date End Date Alicia Carias FNP 230 [place] [address] PCP - General Family Medicine 01/17/22 documented as of this encounter
--- OUTSIDE RECORDS SUMMARY | 2025-04-09 00:25 | XMS_ITS | Encounter Summary ---
Author Organization [employer] Address [address] [place] [address] 7 [place] [address] Care Team Providers Care Radio Repairer Name Role Phone [facility] Primary Care Provider [phone] Reason for Visit * Reason Comments Med Refill Encounter Details Date Type Department Care Team ([facility] st Contact Info) Description 03/07/2024 Refill [facility] 230 [place] [address] [facility] 230 [place] [address] Dizziness and giddiness; Restless leg syndrome Social [...] as of this encounter Care Teams Radio Repairer Relationship Specialty Start Date End Date Alicia Carias FNP [address] [place] [address] PCP - General Family Medicine 01/17/22 documented as of this encounter
--- OUTSIDE RECORDS SUMMARY | 2025-04-09 00:25 | XMS_ITS | Encounter Summary ---
Author Organization [employer] Address [address] [place] [address] 7 [place] [address] Care Team Providers Care Electrical Supervisor Name Role Phone [facility] Primary Care Provider [phone] Reason for Visit * Reason Comments Med Refill Encounter Details Date Type Department Care Team ([facility] Contact Info) Description 11/27/[address] [facility] MEDICINE 230 [place] [address] [facility] 230 [place] [address] Social History Tobacco Use Types Packs/Day Years [...] as of this encounter Care Teams Electrical Supervisor Relationship Specialty Start Date End Date Alicia Carias FNP [address] [place] [address] PCP - General Family Medicine 01/17/22 documented as of this encounter
--- OUTSIDE RECORDS SUMMARY | 2025-04-09 00:26 | XMS_ITS | Encounter Summary ---
Author Organization [employer] Address [address] [place] [address] 7 [place] [address] Care Team Providers Care Manager Wind Name Role Phone [facility] Primary Care Provider [phone] Reason for Visit * Reason Comments Med Refill Encounter Details Date Type Department Care Team ([facility] st Contact Info) Description 03/11/2024 Refill [facility] MED[facility]INE 230 [place] [address] [facility] 230 [place] [address] Restless leg syndrome; Dizziness and giddiness Social [...] as of this encounter Care Teams Manager Wind Relationship Specialty Start Date End Date Alicia Carias FNP [address] [place] [address] PCP - General Family Medicine 01/17/22 documented as of this encounter
--- OUTSIDE RECORDS SUMMARY | 2025-04-09 00:26 | XMS_ITS | Encounter Summary ---
Author Organization [employer] Address [address] [place] [address] 7 [place] [address] Care Team Providers Care Machine Set Up Technician Name Role Phone [facility] Primary Care Provider [phone] Reason for Visit * Reason Comments Med Refill Encounter Details Date Type Department Care Team ([facility] Contact Info) Description 03/12/2024 Refill [facility] MEDICINE 230 [place] [address] [facility] 230 [place] [address] Dizziness and giddiness; Restless leg syndrome Social [...] as of this encounter Care Teams Machine Set Up Technician Relationship Specialty Start Date End Date Alicia Carias FNP [address] [place] [address] PCP - General Family Medicine 01/17/22 documented as of this encounter
--- OUTSIDE RECORDS SUMMARY | 2025-04-09 00:26 | XMS_ITS | Encounter Summary ---
Author Organization [employer] Address [address] [place] [address] 7 [place] [address] Care Team Providers Care Psychiatric Mental Health Nurse Name Role Phone [facility] Primary Care Provider [phone] Reason for Visit * Reason Comments Med Refill Encounter Details Date Type Department Care Team ([facility] Contact Info) Description 01/02/2024 Refill [facility] MEDICINE 230 [place] [address] [facility] 230 [place] [address] Social History Tobacco Use Types Packs/Day Years [...] documented as of this encounter Care Teams Psychiatric Mental Health Nurse Relationship Specialty Start Date End Date Alicia Carias FNP 230 [place] [address] PCP - General Family Medicine 01/17/22 documented as of this encounter
--- OUTSIDE RECORDS SUMMARY | 2025-04-09 00:26 | XMS_ITS | Encounter Summary ---
Author Organization [employer] Address [address] [place] [address] 7 [place] [address] Care Team Providers Care Digital Forensic Analyst Name Role Phone [facility] Primary Care Provider [phone] Reason for Visit * Reason Comments Med Refill Encounter Details Date Type Department Care Team ([facility] Contact Info) Description 08/10/2024 Refill [facility] MED[facility]INE 230 [place] [address] [facility] 230 [place] [address] Restless leg syndrome Social History Tobacco Use [...] documented as of this encounter Care Teams Digital Forensic Analyst Relationship Specialty Start Date End Date Alicia Carias FNP [address] [place] [address] PCP - General Family Medicine 01/17/22 documented as of this encounter
--- OUTSIDE RECORDS SUMMARY | 2025-04-09 00:26 | XMS_ITS | Encounter Summary ---
Author Organization [employer] Address [address] [place] [address] 7 [place] [address] Care Team Providers Care Label Printing Machinist Name Role Phone [facility] Primary Care Provider [phone] Reason for Visit * Reason Comments Med Refill Encounter Details Date Type Department Care Team ([facility] st Contact Info) Description 01/22/2025 Refill [facility] MEDICINE 230 [place] [address] [facility] 230 [place] [address] COPD exacerbation (CMS/HCC); Restless leg syndrome Social [...] documented as of this encounter Care Teams Label Printing Machinist Relationship Specialty Start Date End Date Alicia Carias FNP 230 [place] [address] PCP - General Family Medicine 01/17/22 documented as of this encounter
--- OUTSIDE RECORDS SUMMARY | 2025-04-09 00:26 | XMS_ITS | Encounter Summary ---
Author Organization [employer] Address [address] [place] [address] 7 [place] [address] Care Team Providers Care Search Engine Marketing Specialist Name Role Phone [facility] Primary Care Provider [phone] Reason for Visit * Reason Comments Med Refill Encounter Details Date Type Department Care Team ([facility] st Contact Info) Description 03/11/2024 Refill [facility] MEDICINE 230 [place] [address] [facility] 230 [place] [address] Restless leg syndrome; Dizziness and giddiness Social [...] documented as of this encounter Care Teams Search Engine Marketing Specialist Relationship Specialty Start Date End Date Alicia Carias FNP [address] [place] [address] PCP - General Family Medicine 01/17/22 documented as of this encounter
--- OUTSIDE RECORDS SUMMARY | 2025-04-09 00:27 | XMS_ITS | Encounter Summary ---
Author Organization [employer] Address [address] [place] [address] 7 [place] [address] Care Team Providers Care Merchandise Planner Name Role Phone [facility] Primary Care Provider [phone] Reason for Visit * Reason Comments Med Refill Encounter Details Date Type Department Care Team ([facility] Contact Info) Description 04/07/2025 Refill [facility] MEDICINE 230 [place] [address] [facility] 230 [place] [address] Social History Tobacco Use Types Packs/Day Years [...] documented as of this encounter Care Teams Merchandise Planner Relationship Specialty Start Date End Date Alicia Carias FNP [address] [place] [address] PCP - General Family Medicine 01/17/22 documented as of this encounter
--- OUTSIDE RECORDS SUMMARY | 2025-04-09 00:27 | XMS_ITS | Encounter Summary ---
Author Organization [employer] Address [address] [place] [address] 7 [place] [address] Care Team Providers Care [employer] Hazmat Tanker Driver Name Role Phone [facility] Primary Care Provider [phone] Reason for Visit * Reason Onset Date Comments Med Refill 04/08/2025 Encounter Details Date Type Department Care Team ([facility] st Contact Info) Description 04/08/2025 Refill [facility] MED[facility] 230 [place] [address] [facility] 230 [place] [address] COPD exacerbation (CMS/HCC) ([facility]); Shortness of breath; Restless leg syndrome; Rash Social History Tobacco Use Types Packs/Day [...] encounter Miscellaneous Notes * Telephone Encounter - Silvia Hwang LPN - 04/08/2025 2:26 PM EST [employer] checked on 04/08/25. Last seen 01/30/25. * Telephone Encounter - Diana Hernandez - 04/08/2025 2:18 PM EST TC from pt requesting medication refill. Medications needing refill : - albuterol (Ventolin HFA) 108 (90 Base) MCG/ACT inhaler - albuterol (2.5 MG/3ML) 0.083% nebulizer solution - ipratropium (Atrovent HFA) 17 MCG/ACT inhaler - gabapentin (Neurontin) 300 MG capsule - meclizine (Antivert) 25 MG tablet - montelukast (Singulair) 10 MG tablet - triamcinolone (Kenalog) 0.1 % ointment To be sent to: - [facility] - [place], [place] - [address] [place] [address] documented in this encounter Plan of Treatment Not on file documented as of this encounter Visit Diagnoses Diagnosis COPD exacerbation (CMS/HCC) (HCC) Obstructive chronic bronchitis with exacerbation Shortness of breath Restless leg syndrome Restless legs syndrome (RLS) Rash Rash and other nonspecific skin eruption documented in this encounter Additional Health Concerns Assessment Noted Time PHQ-9 Depression Total Score: 14 025 9:39 AM EDT documented as of this encounter Care Teams [employer] Hazmat Tanker Driver Relationship Specialty Start Date End Date Alicia Carias FNP [address] [place] [address] PCP - General Family Medicine 01/17/22 documented as of this encounter
--- OUTSIDE RECORDS SUMMARY | 2025-04-09 00:27 | XMS_ITS | Encounter Summary ---
Author Organization [employer] Address [address] [place] [address] 7 [place] [address] Care Team Providers Care Lookback Coordinator Name Role Phone [facility] Primary Care Provider [phone] Reason for Visit * Reason Comments Med Refill Encounter Details Date Type Department Care Team ([facility] st Contact Info) Description 02/19/2025 Refill [facility] MEDICINE 230 [place] [address] [facility] 230 [place] [address] COPD exacerbation (CMS/HCC) ([facility]); Restless leg syndrome Social History Tobacco Use [...] documented as of this encounter Care Teams Lookback Coordinator Relationship Specialty Start Date End Date Alicia Carias FNP [address] [place] [address] PCP - General Family Medicine 01/17/22 documented as of this encounter
--- OUTSIDE RECORDS SUMMARY | 2025-04-09 00:27 | XMS_ITS | Encounter Summary ---
Author Organization [employer] Address [address] [place] [address] 7 [place] [address] Care Team Providers Care Scientific Research Associate Name Role Phone [facility] Primary Care Provider [phone] Reason for Visit * Reason Comments Med Refill Encounter Details Date Type Department Care Team ([facility] st Contact Info) Description 01/29/2024 Refill [facility] MEDICINE 230 [place] [address] [facility] 230 [place] [address] COPD exacerbation (CMS/[facility]) Social History Tobacco Use Types Packs/Day [...] documented as of this encounter Care Teams Scientific Research Associate Relationship Specialty Start Date End Date Alicia Carias FNP [address] [place] [address] PCP - General Family Medicine 01/17/22 documented as of this encounter
--- OUTSIDE RECORDS SUMMARY | 2025-04-09 00:27 | XMS_ITS | Encounter Summary ---
Author Organization [employer] Address [address] [facility] 7 [place] [address] Care Team Providers Care Hand Drawer In Name Role Phone Aretha, [facility] Primary Care Provider [phone] Encounter Details Date Type Department Care Team (Latest Contact Info) Description 02/02/2025 Results Follow-Up [facility] 230 [place] [address] [facility] 230 [place] [address] CBC auto differential, Comprehensive Metabolic Panel, Lipid Panel, Standard, Additional followed-up results: 4 Social History Tobacco Use Types Packs/Day Years [...] encounter Miscellaneous Notes * Telephone Encounter - Ana Mcneal RN - 04/04/2025 12:18 PM EST TC placed to pt and the message was discussed below, encourage pt to reach out to [facility] [facility] as many town offer healthy bone and balance classes free of charge. Pt had no further questions ----- Message from Alicia Carias sent at 04/03/2025 5:08 PM EST ----- Please let patient know DEXA shows mild decrease in bone density but is has not significantly worsened since last imaging. She should continue taking daily calcium and vitamin D (please confirm she is taking prescriptions), and encourage weight bearing exercises 3x/week. Avoid alcohol and encourage smoking cessation. Thank you! ----- Message ----- From: Godwin, Ris Results In Sent: 04/01/2025 2:37 PM EST To: LEIF Herbert documented in this encounter Plan of Treatment Not on file documented as of this encounter Visit Diagnoses Not on filedocumented in this encounter Additional Health Concerns Assessment Noted Time PHQ-9 Depression Total Score: 14 025 9:39 AM EDT documented as of this encounter Care Teams Hand Drawer In Relationship Specialty Start Date End Date Alicia Carias FNP [address] [place] [address] PCP - General Family Medicine 01/17/22 documented as of this encounter
--- OUTSIDE RECORDS SUMMARY | 2025-04-09 00:27 | XMS_ITS | Encounter Summary ---
Author Organization [employer] Address [address] [place] [address] 7 [place] [address] Care Team Providers Care Mechanic Name Role Phone [facility] Primary Care Provider [phone] Reason for Visit * Reason Comments Med Refill Encounter Details Date Type Department Care Team ([facility] Contact Info) Description 02/19/2025 Refill [facility] MEDICINE 230 [place] [address] [facility] 230 [place] [address] Social History Tobacco Use Types Packs/Day Years [...] documented as of this encounter Care Teams Mechanic Relationship Specialty Start Date End Date Alicia Carias FNP [address] [place] [address] PCP - General Family Medicine 01/17/22 documented as of this encounter
--- OUTSIDE RECORDS SUMMARY | 2025-04-09 00:27 | XMS_ITS | Encounter Summary ---
Author Organization [employer] Address [address] [place] [address] 7 [place] [address] Care Team Providers Care Community Facilitator Name Role Phone Aretha Alicia YADAV Primary Care Provider [phone] Encounter Details Date Type Department Care Team (Late st Contact Info) Description 05/12/2022 Orders Only [facility] [address] [place] [address] Silvia Hwang LPN Social History Tobacco Use [...] on filedocumented in this encounter Care Teams Community Facilitator Relationship Specialty Start Date End Date Alicia Carias FNP 230 [place] [address] PCP - General Family Medicine 01/17/22 documented as of this encounter
== END 2025-04-08 13:46 | disposition home or self-care (01) ==
PROVIDERS: PCP Registered Nurse; Visit Provider Orthopaedic Surgery
DX: M18.11 Unilateral primary osteoarthritis of first carpometacarpal joint, right hand (principal); M65.4 Radial styloid tenosynovitis [de Quervain]
CPT/HCPCS: 99213

== ENCOUNTER → 2025-04-08 12:45 | Outpatient (BNVA) | payer OTHER, SELFPAY | PROVIDERS: PCP Registered Nurse; Visit Provider Orthopaedic Surgery | DX: M65.4 Radial styloid tenosynovitis [de Quervain] (principal); M18.11 Unilateral primary osteoarthritis of first carpometacarpal joint, right hand | CPT/HCPCS: 99212 ==